=== PATIENT | female | born 1930 | race Caucasian/White ===

== ENCOUNTER 2019-06-12 01:02 | Inpatient (IN) ==
[2019-06-12 02:13] LABS: Basophils # (auto) 0.05 K/uL (0-0.2); Basophils % (auto) 0.3 %; Hematocrit (blood only) 32.6 % (37-47); Immature Granulocytes # (auto) 0.07 K/uL (0.00-0.02); Immature Granulocytes % (auto) 0.5 %; Lymphocytes # (auto) 1.98 K/uL (1.2-3.4); Lymphocytes % (auto) 13.2 %; Mean Corpuscular Hgb Conc 33.7 g/dL (32-36); Mean Corpuscular Volume 86.9 fL (80-100); Mean Platelet Volume 8.9 fL (7.4-10.4); Monocytes # (auto) 0.88 K/uL (0.11-0.59); Monocytes % (auto) 5.9 %; Neutrophils # (auto) 11.69 K/uL (1.4-6.5); Neutrophils % (auto) 78.1 %; Platelet Count 301 K/uL (130-400); RDW Coefficient of Variation 13.8 % (11.5-14.5); RDW Standard Deviation 44.3 fL (36.4-46.3); Red Blood Count 3.75 M/uL (4.2-5.4); White Blood Count 14.97 K/uL (4.8-10.8)
[2019-06-12 02:31] LABS: Albumin Level 2.7 gm/dl (3.4-5.0); BUN Creatinine Ratio 18.6 (10-20); Creatinine Clr Calc Pharmacy 20.9 ml/min; Est GFR (African American) 31.8; Est GFR (Non-African American) 27.4; Magnesium 2.4 mg/dl (1.8-2.4); Potassium 4.5 mmol/L (3.5-5.1)
[2019-06-12 02:33] LABS: Appearance Urine Clear (Clear); Bacteria Urine Automated Negative (Negative); Bilirubin Urine Negative (Negative); Blood Urine Negative (Negative); Color Urine Yellow; Glucose Urine UA 1+ (Negative); Ketones Urine Negative (Negative); Leukocyte Esterase Urine Negative (Negative); Nitrite Urine Negative (Negative); Protein Urine 3+ (Negative); RBC Urine Automated 0-4 /hpf (0-4); Specific Gravity Urine 1.017 (1.000-1.030); Urobilinogen Urine Negative (Negative); WBC Urine Automated 0 /hpf (0-5); pH Urine 6.5 (4.5-7.5)
[2019-06-12] MEDS ORDERED: HydrALAZINE HCL 20 MG/ML VIAL IV STA (02:39)
[2019-06-12 02:42] LABS: Albumin Globulin Ratio 0.7 (0.9-2); Bilirubin,Total 0.2 mg/dl (0.2-1); Globulin 4.1 gm/dl (2.5-4.0); Total Protein 6.8 gm/dl (6.4-8.2)
[2019-06-12 02:55] LABS: T4 Free Thyroxine 0.94 ng/dl (0.8-1.6)
[2019-06-12] MEDS ORDERED: METOPROLOL TARTRATE 25 MG TAB PO STA (03:15)
[2019-06-12] MEDS ORDERED: AMLODIPINE BESYLATE 5 MG TAB PO ONE (03:23)
--- NOTE | 2019-06-12 04:13 | Emergency Department Note ---
Entered by Nuria Ortiz acting as a scribe for Marilyn Borja MD History of Present Illness General Chief complaint: Altered Mental Status Stated complaint: possible UTI Source: family Limitations: altered mental status History of Present Illness Onset (ago): hour(s) (this evening) Location: head (Confusion) Severity: similar to prior episodes Pain Consistency: + other (Worsening) Quality: + other (Confusion) Relieved By: + medication (Bactrim) Associated symptoms: + confusion, + weakness and + other (Polyuria); no fever/chills The patient is a 89 year old female presenting to the Emergency Department complaining of worsening confusion starting this evening. The patients daughter reports that the patient is confused and weak. She states that the patients didnt know who she was and didnt realize that she was in her own house. She explains that the patients lower extremities are red. She notes that the patient is a diabetic and her blood glucose at 2230 [facility] was 330. She adds that the patient has being urinating more often and is incontinent. The patients daughter reports that the patient gets UTIs often. She states that she believes the patient has a UTI because the patient usually experiences the symptoms she presents to the ED when she has a UTI. She explains that the patients last UTI was in March 2019 and that she received Bactrim that relieved her symptoms. She notes that the patient was last on antibiotics 1.5 weeks ago for a tooth infection. She adds that the patient normally takes aspirin. She reports that the patient sees Dr. Stoll PCP. Patient and her daughter live in [facility], and apartment complex for those over 55 years old. She denies that the patient has had any recent fevers or chills. Home Medications Home Medications Medication Instructions Recorded Confirmed Type amlodipine 5 mg PO DAILY 06/12/19 06/12/19 History aspirin 81 mg PO DAILY 06/12/19 06/12/19 History citalopram 10 mg PO QPM 06/12/19 06/12/19 History citalopram 20 mg PO DAILY 06/12/19 06/12/19 History cranberry 500 mg PO BID 06/12/19 06/12/19 History ibuprofen [Advil] 200 mg PO Q6H PRN 06/12/19 06/12/19 History insulin glargine [Lantus U-100 15 unit SUBCUT QPM 06/12/19 06/12/19 History Insulin] insulin glargine [Lantus U-100 20 unit SUBCUT QAM 06/12/19 06/12/19 History Insulin] levocetirizine 5 mg PO BID 06/12/19 06/12/19 History levocetirizine [Xyzal] 5 mg PO DAILY 06/12/19 06/12/19 History levothyroxine 50 mcg PO DAILY 06/12/19 06/12/19 History levothyroxine [Synthroid] 100 mcg PO DAILY 06/12/19 06/12/19 History magnesium 0 mg PO DAILY 06/12/19 06/12/19 History metoprolol tartrate 25 mg PO BID 06/12/19 06/12/19 History mirabegron [Myrbetriq] 25 mg PO DAILY 06/12/19 06/12/19 History nitrofurantoin monohyd/m-cryst 100 mg PO Q12H 06/12/19 06/12/19 History [Macrobid] omeprazole magnesium [Prilosec OTC] 20 mg PO DAILY 06/12/19 06/12/19 History quetiapine [Seroquel] 100 mg PO HS 06/12/19 06/12/19 History tramadol 50 mg PO Q4 PRN 06/12/19 06/12/19 History triamcinolone acetonide 1 applic TOPICAL BID 06/12/19 06/12/19 History Allergies Allergy/AdvReac Type Severity Reaction Status Date / Time acetaminophen [From Percocet] Allergy Severe swelling/so Verified 06/12/19 01:35 b cephalexin Allergy Unknown RASH Unverified 06/12/19 01:35 morphine Allergy Unknown NAUSEA Unverified 06/12/19 01:35 oxycodone Allergy Unknown DIFFICULTY Unverified 06/12/19 01:35 SWALLOWING propoxyphene Allergy Unknown DIFFICULTY Verified 06/12/19 01:35 SWALLOWING Past Med/Surg History Medical History Chronic UTI Neuropathy Degenerative disc disease HTN (hypertension) DM (diabetes mellitus) 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 and A total of 10 systems reviewed and were otherwise negative Physical Exam Vital Signs Vital Signs - 24 hr 06/12/19 01:10 06/12/19 01:13 06/12/19 01:40 Temperature 36.8 C Temperature Source Oral Sepsis Recent Fever Within 48 Hours No Sepsis Action Taken by Nursing No Action Required Pulse Rate 69 67 Pulse Rate [Apical] Pulse Rate from SpO2 Sensor 66 Respiratory Rate 20 18 Blood Pressure 245/92 H 245/92 H Blood Pressure [Right Arm] Blood Pressure Mean 143 143 Blood Pressure Mean [Right Arm] Pulse Oximetry 95 96 95 Oxygen Delivery Method Room Air Room Air 06/12/19 02:02 06/12/19 03:06 06/12/19 03:14 Temperature Temperature Source Sepsis Recent Fever Within 48 Hours Sepsis Action Taken by Nursing Pulse Rate Pulse Rate [Apical] 67 74 Pulse Rate from SpO2 Sensor Respiratory Rate 18 18 Blood Pressure 223/89 H Blood Pressure [Right Arm] 213/88 H 233/95 H Blood Pressure Mean 133 Blood Pressure Mean [Right Arm] 129 141 Pulse Oximetry 94 96 Oxygen Delivery Method Room Air Room Air 06/12/19 03:55 06/12/19 04:01 06/12/19 04:05 Temperature Temperature Source Sepsis Recent Fever Within 48 Hours Sepsis Action Taken by Nursing Pulse Rate 67 68 68 Pulse Rate [Apical] Pulse Rate from SpO2 Sensor 64 68 69 Respiratory Rate 18 15 28 H Blood Pressure 221/160 H 206/78 H 184/67 H Blood Pressure [Right Arm] Blood Pressure Mean 180 120 106 Blood Pressure Mean [Right Arm] Pulse Oximetry 96 96 95 Oxygen Delivery Method 06/12/19 04:16 06/12/19 04:32 06/12/19 04:46 Temperature Temperature Source Sepsis Recent Fever Within 48 Hours Sepsis Action Taken by Nursing Pulse Rate 65 67 66 Pulse Rate [Apical] Pulse Rate from SpO2 Sensor 65 66 65 Respiratory Rate 19 19 15 Blood Pressure 162/64 H 188/82 H 182/87 H Blood Pressure [Right Arm] Blood Pressure Mean 96 117 118 Blood Pressure Mean [Right Arm] Pulse Oximetry 95 95 96 Oxygen Delivery Method Room Air Room Air Room Air 06/12/19 05:01 06/12/19 05:24 06/12/19 05:27 Temperature Temperature Source Sepsis Recent Fever Within 48 Hours Sepsis Action Taken by Nursing Pulse Rate 67 68 68 Pulse Rate [Apical] Pulse Rate from SpO2 Sensor 67 68 68 Respiratory Rate 20 19 18 Blood Pressure 186/81 H 224/79 H 223/82 H Blood Pressure [Right Arm] Blood Pressure Mean 116 127 129 Blood Pressure Mean [Right Arm] Pulse Oximetry 96 96 96 Oxygen Delivery Method Room Air 06/12/19 05:53 06/12/19 05:57 06/12/19 06:01 Temperature Temperature Source Sepsis Recent Fever Within 48 Hours Sepsis Action Taken by Nursing Pulse Rate 74 72 72 Pulse Rate [Apical] Pulse Rate from SpO2 Sensor 74 71 72 Respiratory Rate 16 20 17 Blood Pressure 191/89 H 204/76 H 201/75 H Blood Pressure [Right Arm] Blood Pressure Mean 123 118 117 Blood Pressure Mean [Right Arm] Pulse Oximetry 96 96 96 Oxygen Delivery Method Vital signs reviewed. General: Elderly, chronically ill-appearing 89 year old female, in no significant distress. HEENT: No scleral icterus, PERRLA, neck supple. Atraumatic. Cardiovascular: Regular rate and rhythm, no extra sounds. Noted to be hypertensive. Pulmonary: Clear to auscultation bilaterally, normal work of breathing. Abdomen: Soft, nontender, nondistended, positive bowel sounds. Obese abdomen. Musculoskeletal: Atraumatic. Venous stasis changes to bilateral lower extremities. 1+ pitting edema. Neurologic: Patient awake alert and oriented x 3, moves all 4 extremities equally and answers most questions appropriately. She is able to follow commands. She has difficulty but does eventually identify the president. Skin: Warm, dry, no rash Course 0110: The patient was evaluated in room B4B, and a complete history and physical examination were performed. 0243: I reevaluated the patient at this time. She reports that she does not wish to stay in the hospital. 0314: The patients family reported that the patient has not taken her blood pressure medication for the past 2 days. 0328: The patient reports that she wishes to leave the hospital against medical advice at this time. 0406: Upon reevaluation the patient stated that she changed her mind and now would like to stay in the hospital. 0444: I reevaluated the patient at this time who reports that she feels better. He blood pressure is 180s systolic. 0520: I discussed the patient's case with Dr. Ronen Zuniga [facility] [place]. He will evaluate the patient for further management. Consultations Consultation #1: I discussed the patient's case with Dr. Ronen Zuniga [facility] [place] hospitalist. He will evaluate the patient for further management. Time: 05:20 Administered Medications Discontinued Medications Amlodipine Besylate (Norvasc) 10 mg PO NOW ONE Stop: 06/12/19 03:24 Last Admin: 06/12/19 03:33 Dose: 10 mg Documented by: [id number] Hydralazine HCl (Hydralazine Hcl) 10 mg IV NOW STA Stop: 06/12/19 02:40 Last Admin: 06/12/19 02:44 Dose: 10 mg Documented by: [id number] Metoprolol Tartrate (Lopressor) 12.5 mg PO NOW STA Stop: 06/12/19 03:16 Last Admin: 06/12/19 03:33 Dose: 12.5 mg Documented by: [id number] Medical Decision Making Differential Diagnosis Differential diagnoses includes but is not limited to toxic, metabolic, infectious, traumatic, cardiac, neurologic, hematologic, psychiatric and inflammatory etiologies. Medical Records Attestation: I reviewed the patient's medical records. Home Medications Current Medication List: was personally reviewed by me Laboratory Data Attestation: I reviewed the patient's lab results. Result diagrams: 06/12/19 01:50 06/12/19 01:50 Lab Results 06/12/19 06/12/19 06/12/19 Range/Units 01:40 01:50 01:50 WBC 14.97 H (4.8-10.8) K/uL RBC 3.75 L (4.2-5.4) M/uL Hgb 11.0 L (12.0-16.0) g/dL Hct 32.6 L (37-47) % MCV 86.9 (80-100) fL MCH 29.3 (25-34) pg MCHC 33.7 (32-36) g/dL RDW Std Deviation 44.3 (36.4-46.3) fL RDW Coeff of Lyssa 13.8 (11.5-14.5) % Plt Count 301 (130-400) K/uL MPV 8.9 (7.4-10.4) fL Immature Gran % (Auto) 0.5 % Neut % (Auto) 78.1 % Lymph % (Auto) 13.2 % Baxter % (Auto) 5.9 % Eos % (Auto) 2.0 % Baso % (Auto) 0.3 % Immature Gran # (Auto) 0.07 H (0.00-0.02) K/uL Neut # (Auto) 11.69 H (1.4-6.5) K/uL Lymph # (Auto) 1.98 (1.2-3.4) K/uL Baxter # (Auto) 0.88 H (0.11-0.59) K/uL Eos # (Auto) 0.30 (0-0.5) K/uL Baso # (Auto) 0.05 (0-0.2) K/uL Sodium 139 (136-145) mmol/L Potassium 4.5 (3.5-5.1) mmol/L Chloride 105 (98-107) mmol/L Carbon Dioxide 26 (21-32) mmol/L Anion Gap 8.0 (3-11) BUN 31 H (7-18) mg/dl Creatinine 1.65 H (0.6-1.2) mg/dl Est Cr Clr Drug Dosing 20.9 ml/min Est GFR ( Amer) 31.8 Est GFR (Non-Af Amer) 27.4 BUN/Creatinine Ratio 18.6 (10-20) Glucose 198 H (70-99) mg/dl POC Glucose 193 H (70-99) Calcium 8.0 L (8.5-10.1) mg/dl Magnesium 2.4 (1.8-2.4) mg/dl Total Bilirubin 0.2 (0.2-1) mg/dl AST 34 (15-37) U/L ALT 42 (12-78) U/L Alkaline Phosphatase 106 (45-117) U/L Total Protein 6.8 (6.4-8.2) gm/dl Albumin 2.7 L (3.4-5.0) gm/dl Globulin 4.1 H (2.5-4.0) gm/dl Albumin/Globulin Ratio 0.7 L (0.9-2) TSH 6.050 H (0.300-4.500) uIu/ml Free T4 0.94 (0.8-1.6) ng/dl Urine Color Urine Appearance (Clear) Urine pH (4.5-7.5) Ur Specific [place] (1.000-1.030) Urine Protein (Negative) Urine Glucose (UA) (Negative) Urine Ketones (Negative) Urine Blood (Negative) Urine Nitrite (Negative) Urine Bilirubin (Negative) Urine Urobilinogen (Negative) Ur Leukocyte Esterase (Negative) Urine WBC (Auto) (0-5) /hpf Urine RBC (Auto) (0-4) /hpf U Hyaline Cast (Auto) (0-5) /lpf U Epithel Cells (Auto) (0-5) /lpf Urine Bacteria (Auto) (Negative) 06/12/19 Range/Units 01:50 WBC (4.8-10.8) K/uL RBC (4.2-5.4) M/uL Hgb (12.0-16.0) g/dL Hct (37-47) % MCV (80-100) fL MCH (25-34) pg MCHC (32-36) g/dL RDW Std Deviation (36.4-46.3) fL RDW Coeff of Lyssa (11.5-14.5) % Plt Count (130-400) K/uL MPV (7.4-10.4) fL Immature Gran % (Auto) % Neut % (Auto) % Lymph % (Auto) % Baxter % (Auto) % Eos % (Auto) % Baso % (Auto) % Immature Gran # (Auto) (0.00-0.02) K/uL Neut # (Auto) (1.4-6.5) K/uL Lymph # (Auto) (1.2-3.4) K/uL Baxter # (Auto) (0.11-0.59) K/uL Eos # (Auto) (0-0.5) K/uL Baso # (Auto) (0-0.2) K/uL Sodium (136-145) mmol/L Potassium (3.5-5.1) mmol/L Chloride (98-107) mmol/L Carbon Dioxide (21-32) mmol/L Anion Gap (3-11) BUN (7-18) mg/dl Creatinine (0.6-1.2) mg/dl Est Cr Clr Drug Dosing ml/min Est GFR ( Amer) Est GFR (Non-Af Amer) BUN/Creatinine Ratio (10-20) Glucose (70-99) mg/dl POC Glucose (70-99) Calcium (8.5-10.1) mg/dl Magnesium (1.8-2.4) mg/dl Total Bilirubin (0.2-1) mg/dl AST (15-37) U/L ALT (12-78) U/L Alkaline Phosphatase (45-117) U/L Total Protein (6.4-8.2) gm/dl Albumin (3.4-5.0) gm/dl Globulin (2.5-4.0) gm/dl Albumin/Globulin Ratio (0.9-2) TSH (0.300-4.500) uIu/ml Free T4 (0.8-1.6) ng/dl Urine Color Yellow Urine Appearance Clear (Clear) Urine pH 6.5 (4.5-7.5) Ur Specific [place] 1.017 (1.000-1.030) Urine Protein 3+ H (Negative) Urine Glucose (UA) 1+ H (Negative) Urine Ketones Negative (Negative) Urine Blood Negative (Negative) Urine Nitrite Negative (Negative) Urine Bilirubin Negative (Negative) Urine Urobilinogen Negative (Negative) Ur Leukocyte Esterase Negative (Negative) Urine WBC (Auto) 0 (0-5) /hpf Urine RBC (Auto) 0-4 (0-4) /hpf U Hyaline Cast (Auto) 1-5 (0-5) /lpf U Epithel Cells (Auto) 5-10 H (0-5) /lpf Urine Bacteria (Auto) Negative (Negative) Imaging Data Attestation: I personally reviewed and interpreted this imaging study as follows: My Impression: XR Chest 1V: Cardiomegaly. Poor inspiratory effort. No focal lung consolidation. No failure. Radiologist's Impression: Radiology results as stated below per my review and the radiologist's interpretation: CT HEAD: No acute intracranial hemorrhage. No evidence of intracranial mass, extra-axial fluid collection, or acute territorial infarct. White matter hypodensities, which are nonspecific but most likely related to chronic small vessel ischemic changes. Global cerebral volume loss. Mural calcifications of internal carotid and vertebral arteries. Visualized paranasal sinuses and mastoid air cells are clear. Radiologist: Yuri Cooper MD Study ready at 01:35 and initial results transmitted at 02:09 ECG Data Attestation: I personally reviewed and interpreted this ECG as follows: Indication: altered mental status Rate (beats per minute): 67 Rhythm: sinus rhythm Findings: + other (LVH. T wave abnormality in inferior and anterior leads. ), + PVC (Occasionally) and + left axis deviation Comparison ECG Date: from (02/26/14) Change: the following changes noted (Significant changes have occured. ) Blood Pressure Blood Pressure Findings: Elevated blood pressure Blood Pressure Disposition: further management by hospitalist MDM Narrative This patient was evaluated and appeared to be in no significant distress. Patient's blood pressure is noted to be markedly elevated. Patient was placed on the groundwater monitoring technician and observed. She initially stated she had taken her blood pressure medications as prescribed. Laboratory work was obtained and the troponin is negative. EKG reveals chronic change but no acute ischemia. After further investigation, the patient admits she has not had her "blood pressure medication" in some time. After discussion with the [facility] it seems as th ough she has been out of amlodipine for several days. Patient has negative urinalysis and head CT reveals chronic change but no acute pathology. I suspect the episode at home was an episode of hypertensive encephalopathy. The patient declined admission on multiple occasions. She agreed to stay in the emergency department until her blood pressure could be better addressed. After 10 mg of IV hydralazine with little effect, patient did receive 10 g of p.o. amlodipine and 12.5 mg of p.o. metoprolol tartrate. Patient attempted to get up to the bedside commode however became diaphoretic and vomited. After further discussion, the patient agreed to stay in the hospital as she did not feel her daughter would be able to give adequate care in her condition. Case was discussed with Dr. Hardwick of the hospitalist service who is agreed to evaluate the patient for further management. Impression & Plan Encephalopathy, hypertensive Discharge Plan Visit Data Chief Complaint: Altered Mental Status Stated Complaint: possible UTI ED Provider: Marilyn Borja Discharge Problem: Encephalopathy, hypertensive Patient Disposition: Being Evaluated by Hospitalist Condition: Fair Forms Stand Alone Forms: [employer] Prescriptions Prescriptions: No Action Lantus U-100 Insulin 100 unit/mL Solution 20 unit SUBCUT QAM RF: 0 Lantus U-100 Insulin 100 unit/mL Solution 15 unit subcut QPM RF: 0 aspirin 81 mg Tablet,Delayed Release (Dr/Ec) 81 mg PO DAILY RF: 0 Prilosec OTC 20 mg Tablet,Delayed Release (Dr/Ec) 20 mg PO DAILY RF: 0 citalopram 20 mg Tablet 20 mg PO DAILY RF: 0 citalopram 10 mg Tablet 10 mg PO QPM RF: 0 nitrofurantoin monohyd/m-cryst [Macrobid] 100 mg Capsule 100 mg PO Q12H RF: 0 magnesium 30 mg Tablet PO DAILY RF: 0 cranberry 500 mg Capsule 500 mg PO BID RF: 0 levothyroxine [Synthroid] 100 mcg Tablet 100 mcg PO DAILY RF: 0 levocetirizine [Xyzal] 5 mg Tablet 5 mg PO DAILY RF: 0 quetiapine [Seroquel] 100 mg Tablet 100 mg PO HS RF: 0 tramadol 50 mg Tablet 50 mg PO Q4 PRN (Reason: Pain) RF: 0 ibuprofen [Advil] 200 mg Tablet 200 mg PO Q6H PRN (Reason: Pain) RF: 0 Myrbetriq 25 mg Tablet Extended Release 24 Hr 25 mg PO DAILY RF: 0 triamcinolone acetonide 0.05 % Ointment 1 applic TOPICAL BID RF: 0 levocetirizine 5 mg Tablet 5 mg PO BID RF: 0 metoprolol tartrate 50 mg tablet 25 mg PO BID RF: 0 amlodipine 5 mg tablet 5 mg PO DAILY RF: 0 levothyroxine 50 mcg tablet 50 mcg PO DAILY RF: 0 Referrals Referrals: Humberto Stoll [Primary Care Provider] - The scribe's documentation has been prepared under my direction and personally reviewed by me in its entirety. I confirm that the note above accurately reflects all work, treatment, procedures, and medical decision making performed by me.
[2019-06-12] MEDS ORDERED: ERTAPENEM SODIUM 1,000 MG in SODIUM CHLORIDE 0.9% 50 ML IV STA (06:00)
--- NOTE | 2019-06-12 06:16 | History & Physical Report ---
Date of Service June 12, 2019 Assessment & Plan (1) Encephalopathy, hypertensive: 89 y/o F Hx HTN, DM II, hypothyroidism, recurrent UTIs, recurrent LE cellulitis, obese. She arrive at the hospital at the behest of her daughter due to confusion and incontinence. Her daughter states that she can become confused when she develops an infection. SHe was treated for a UTI with Bactrim 10 days prior. Her daughter is also concerned that her lower extremities have become more erythematous and warm over the past few days. She states that she does not normally have fevers when she develops an infection. She denies a cough, nausea/vomiting or diarrhea. The pt's systolic blood pressure on arrival to the ER was over 240. After receiving a dose of Hydralazine it decreased to 160, however, it returned to the 230 range within an hour. Her confusion showed marked improvement when her b lood pressure decreased. She is afebrile on arrival to the ER. Initial labs are notable for renal impairment - although we do not have a baseline to determine if this is acute - and leukocytosis. 1) HTN with encephalopathy - will will place her in the ICU on a Cardene drip as her BP decreased by > 25% with a single dose of Hydralazine and then climbed back into the 230 range in short order. We hav held he Metoprolol and Amlodipine as she will likely require reassessment of her medications. 2) Possible infection - daughter states that her UA is often negative and her cultures return +. She may therefore have a UTI or early cellulitis contributing to her confusion. We will place her on Invanz pending culture results. 3) Hypothyroidism - TSH is slightly elevated - she may need an adjustment in her synthroid dose which we would leave to the discretion of her GP as assessment during an acute illness is not ideal. 4) DM II - placed on a SS - will continue glargine Full code - Heparin prophylaxis Total time for this admit including review of labs, meds, imaging, records - discussion with pt and ER attending - 45 min includes critical care time. Present on Admission?: Yes History of Present Illness Chief Complaint: AMS Primary Care Provider: Humberto Stoll 89 y/o F Hx HTN, DM II, hypothyroidism, recurrent UTIs, recurrent LE cellulitis, obese. She arrive at the hospital at the behest of her daughter due to confusion and incontinence. Her daughter states that she can become confused when she develops an infection. SHe was treated for a UTI with Bactrim 10 days prior. Her daughter is also concerned that her lower extremities have become more erythematous and warm over the past few days. She states that she does not normally have fevers when she develops an infection. She denies a cough, nausea/vomiting or diarrhea. The pt's systolic blood pressure on arrival to the ER was over 240. After receiving a dose of Hydralazine it decreased to 160, however, it returned to the 230 range within an hour. Her confusion showed marked improvement when her blood pressure decreased. She is afebrile on arrival to the ER. Initial labs are notable for renal impairment - although we do not have a baseline to determine if this is acute - and leukocytosis. PMH: 1) HTN 2) Obese 3) Hypothyroidism 4) DM II 5) Recurrent UTIs 6) Recurrent lower extremity cellulitis 7) Melanoma - removed from back Surgical: 1) Knee replacement 2) Surgical extraction of a large renal calculus 3) Cholecystectomy 4) Appendectomy 5) [facility] [place] Social: No history of drinking or smoking Maintains a degree of independence Family: Mother at age 93 Father at age 69 due to unspecified CA Brother at age 96 Allergies Allergy/AdvReac Type Severity Reaction Status Date / Time acetaminophen [From Percocet] Allergy Severe swelling/so Verified 06/12/19 01:35 b cephalexin Allergy Unknown RASH Unverified 06/12/19 01:35 morphine Allergy Unknown NAUSEA Unverified 06/12/19 01:35 oxycodone Allergy Unknown DIFFICULTY Unverified 06/12/19 01:35 SWALLOWING propoxyphene Allergy Unknown DIFFICULTY Verified 06/12/19 01:35 SWALLOWING Home Medications Home Medications Medication Instructions Recorded Confirmed Type amlodipine 5 mg PO DAILY 06/12/19 06/12/19 History aspirin 81 mg PO DAILY 06/12/19 06/12/19 History citalopram 10 mg PO QPM 06/12/19 06/12/19 History citalopram 20 mg PO DAILY 06/12/19 06/12/19 History cranberry 500 mg PO BID 06/12/19 06/12/19 History ibuprofen [Advil] 200 mg PO Q6H PRN 06/12/19 06/12/19 History insulin glargine [Lantus U-100 15 unit SUBCUT QPM 06/12/19 06/12/19 History Insulin] insulin glargine [Lantus U-100 20 unit SUBCUT QAM 06/12/19 06/12/19 History Insulin] levocetirizine 5 mg PO BID 06/12/19 06/12/19 History levocetirizine [Xyzal] 5 mg PO DAILY 06/12/19 06/12/19 History levothyroxine 50 mcg PO DAILY 06/12/19 06/12/19 History levothyroxine [Synthroid] 100 mcg PO DAILY 06/12/19 06/12/19 History magnesium 0 mg PO DAILY 06/12/19 06/12/19 History metoprolol tartrate 25 mg PO BID 06/12/19 06/12/19 History mirabegron [Myrbetriq] 25 mg PO DAILY 06/12/19 06/12/19 History nitrofurantoin monohyd/m-cryst 100 mg PO Q12H 06/12/19 06/12/19 History [Macrobid] omeprazole magnesium [Prilosec OTC] 20 mg PO DAILY 06/12/19 06/12/19 History quetiapine [Seroquel] 100 mg PO HS 06/12/19 06/12/19 History tramadol 50 mg PO Q4 PRN 06/12/19 06/12/19 History triamcinolone acetonide 1 applic TOPICAL BID 06/12/19 06/12/19 History Past Med/Surg History Medical History Chronic UTI Neuropathy Degenerative disc disease HTN (hypertension) DM (diabetes mellitus) Right knee DJD (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) Social History Feels Safe at Home: Yes Smoking Status: Never smoker Review of Systems Review of Systems: Gen: Denies fevers, night sweats, rigors, fatigue, malaise, weight loss/gain ENT: Denies congestion, throat pain, hearing loss Eyes: Denies acute visual changes CV: Denies CP, palpitations Pulmonary: Denies SOB, cough, wheezing GI: Denies N/V, diarrhea, constipation Neuro: Acknowledges acute confusion - denies PETERSON, visual changes, unilateral weakness : Incontinence reported Musculoskeletal: Denies joint pain, inflammation Endocrine: Denies polydipsia, polyuria Skin: Increased erythema and warmth of the distal LEs Physical Exam Physical Exam: General: Pleasant, elderly F, AAO x 3, no distress ENT: No erythema or exudates, no thrush Eyes: JAY, EOMI Head and neck: Normocephalic, atraumatic, neck is supple. Chest/heart: Nontender, S1,2, RRR, no murmurs, no gallops Lungs: CTAB, no wheezing or crackles Abdomen: Nontender, nondistended, BS+ Neuro: AAO x 3, speech is clear, no unilateral weakness or loss of sensation, coordination intact Musculoskeletal: No joint inflammation, muscle tenderness, FROM Skin: Mild erythema and minimal warmth of the distal LE BL Extremities: No clubbing, cyanosis. + edema Results & Data Vital Signs (Past 12 Hours) Vital Signs Temp Pulse Pulse Resp BP BP Pulse Ox 06/12/19 05:01 67 20 186/81 H 96 06/12/19 04:46 66 15 182/87 H 96 06/12/19 04:32 67 19 188/82 H 95 06/12/19 04:16 65 19 162/64 H 95 06/12/19 04:05 68 28 H 184/67 H 95 06/12/19 04:01 68 15 206/78 H 96 06/12/19 03:55 67 18 221/160 H 96 06/12/19 03:14 223/89 H 06/12/19 03:06 74 18 233/95 H 96 06/12/19 02:02 67 18 213/88 H 94 06/12/19 01:40 95 06/12/19 01:13 67 18 245/92 H 96 06/12/19 01:10 98.2 F 69 20 245/92 H 95 Code Status & VTE Plan VTE Prophylaxis Plan VTE Prophylaxis will be ordered: Yes PG Care Time/CCT Total # of Minutes Spent Total Time Spent with Patient: Total time spent is greater than 50% in coordination of care (as documented) at patient's floor/unit and/or counseling patient:
--- NOTE | 2019-06-12 06:34 | XRay Report ---
XR chest 1V portable CLINICAL HISTORY: weakness COMPARISON STUDY: Chest radiograph February 26, 2014. FINDINGS: Scoliosis is incidentally noted. There is no pneumothorax or pleural effusion. No consolida tion or evidence for pulmonary edema. Mild cardiomegaly is unchanged. There are cholecystectomy clips . The appearance of the chest is unchanged. IMPRESSION: No acute cardiopulmonary findings. Electronically signed by: Franko Moran M.D. 06/12/2019 6:33 AM
--- NOTE | 2019-06-12 06:37 | CT Scan Report ---
CT OF THE HEAD WITHOUT CONTRAST CLINICAL HISTORY: Altered mental status. COMPARISON STUDY: No previous studies for comparison. CT DOSE: 537.48 mGy.cm TECHNIQUE: Helical axial images of the head were obtained without IV contrast. Automated exposure con trol was utilized for the study. A dose lowering technique was utilized adhering to the principles o f ALARA. FINDINGS: No acute intracranial hemorrhage, midline shift or mass effect is present. The basilar cist erns are patent. No extra-axial collections are present. There are no findings to suggest acute dural sinus thrombosis or acute territorial infarct. No significant calvarial abnormalities are present. V isualized portions of the sinuses and mastoid air cells are clear. White matter hypodensity suggests small vessel disease. IMPRESSION: No acute intracranial findings. Electronically signed by: Franko Moran M.D. 06/12/2019 6:35 AM
[2019-06-12] MEDS ORDERED: POLYETHYLENE (MIRALAX) 17 GM PACK PO PRN (07:21)
[2019-06-12] MEDS ORDERED: ICU PROTOCOL FOR HYPERGLYCEMIA PRN (07:21)
[2019-06-12] MEDS ORDERED: ALUMINUM/MAGNESIUM SUSP 30 ML UDC PO PRN (07:21)
[2019-06-12] MEDS ORDERED: MAGNESIUM HYDROXIDE SUSP 30 ML UDC PO PRN (07:21)
[2019-06-12] MEDS ORDERED: SODIUM CHLORIDE 0.9% 1000ML 1,000 ML IV SCH (07:40)
[2019-06-12 08:08] LABS: Partial Thromboplastin Time 25.9 Seconds (21.0-31.0); Prothrombin Time 10.3 Seconds (9.0-12.0)
[2019-06-12] MEDS ORDERED: GLUCOSE 40% GEL 15 GM TUBE PO PRN (08:30)
[2019-06-12] MEDS ORDERED: DEXTROSE 50% 50 ML SYRINGE IV PRN (08:30)
[2019-06-12] MEDS ORDERED: GLUCOSE 10 TABS/TUBE PO PRN (08:30)
[2019-06-12] MEDS ORDERED: GLUCAGON FOR INJ 1 MG VIAL IM PRN (08:30)
[2019-06-12] MEDS ORDERED: CARBOHYDRATES FOR HYPOGLYCEMIA PO PRN (08:30)
[2019-06-12] MEDS: HEPARIN SOD 5,000 UNIT/0.5 ML VIAL SQ SCH ×3 (08:42→21:16)
[2019-06-12] MEDS: PANTOprazole 40 MG TAB PO SCH (08:43)
[2019-06-12] MEDS: CITALOPRAM 20 MG TAB PO SCH ×2 (08:44→21:18)
[2019-06-12] MEDS: ASPIRIN 81 MG ECTAB PO SCH (08:44)
[2019-06-12] MEDS: MIRABEGRON ER 25 MG TAB PO SCH (08:44)
[2019-06-12] MEDS: LEVOTHYROXINE SODIUM 50 MCG TABLET PO SCH (08:47)
[2019-06-12] MEDS: INSULIN ASPART 100 UNITS/ML 3 ML PEN SC SCH ×4 (08:48→21:15)
[2019-06-12] MEDS ORDERED: LEVOTHYROXINE SODIUM 100 MCG TABLET PO SCH (09:00)
[2019-06-12] MEDS ORDERED: INSULIN GLARGINE SOLOSTAR 100 UNITS/ML 3 ML PEN SQ SCH (09:00)
--- NOTE | 2019-06-12 09:31 | Critical Care Consultation ---
Date of Consultation June 12, 2019 Assessment & Plan (1) Encephalopathy, hypertensive: Reason Critically Ill: 89-year-old female presented to the emergency department with encephalopathy likely secondary to hypertensive emergency Neuro - [facility] ICU: Negative Encephalopathylikely secondary to hypertensive emergency as mentation improved significantly upon reduction of blood pressure -Urinalysis negative and patient previously on Bactrim for UTI x10 days, WBC was elevated to 15, UA unremarkable but urine culture and blood cultures pending to rule out infectious process -No acute intracranial findings on CT head -See hypertensive emergency management below -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 antihypertensive -Initial SBP was 240, was treated with amlodipine, MTP, hydralazine and was then placed on nicardipine drip -SBP goal first 8 hours 1 60-1 80, weaning nicardipine drip as tolerated, will transition to p.o. meds -Troponins negative Respiratory - Maintain sats on room air, no issues Chest x-ray clear GI - Nausea and vomitingpatient reports recent history of nausea with vomiting, not currently symptomatic, no abdominal pain reported, last bowel movement yesterday normal -Amylase and lipase, HFP all negative -KUB negative -Likely related to hypertension, will monitor and treat with PRN's if indicated RENAL/LYTES - CKD versus AKIno baseline creatinine but patient has history of CKD -Initial creatinine 1.65 now down trended to 1.5 -We will trend with routine BMPs - Strict I's and O's ENDO - DM type IIcontinue basal and sliding scale insulin regimen -ICU hyperglycemic protocol Hypothyroidismcontinue Synthroid HEME - H&H stabletrend CBCs ID - Ertapenem switched to Rocephin at this time -We will follow-up urine culture and blood cultures -Trend WBC with routine CBCs LINES/IV ACCESS - Peripheral IVs DVT PROPHYLAXIS - Heparin I have personally spent 35 minutes of critical care time in the direct management of this patient. This is a life/limb threatening event. This includes time spent evaluating patient, direct bedside care, chart review, placing orders, interpretation of diagnostic studies, discussion with consultants, patient, and family members, as well as other required patient management activities. This time is exclusive of all separately billable procedures, and teaching time and separate from and in addition to any other critical care service time. Thank you for allowing us to participate in the care of this patient. Please refer to my attending physician's documentation for any further recommendations. (2) Chronic UTI: (3) Degenerative disc disease: (4) HTN (hypertension): (5) DM (diabetes mellitus): Supervising Physician Co-Signing Physician Notes I personally evaluated and examined this patient. I agree with the assessment and plan of Taye CURIEL [89-year-old female with past medical history of hypertension who presented with hypertensive emergency. Started on nicardipine drip. She received her home oral p.o. meds. Given that her blood pressure was still elevated in the evening we switched her metoprolol to carvedilol. She was weaned off the nicardipine. She does appear to have some degree of CKD. Last known creatinine is from several years ago. Current creatinine is 1. 56. We will continue to trend this tomorrow. She did have some nausea and vomiting yesterday. This appears to be improving. Her LFTs and lipase were normal. We also switched to ertapenem to ceftriaxone given a presumptive diagnosis of complicated UTI. Her urine analysis is relatively normal, however, due to her family's concerns with ankit AMS, we continued antibiotics for today. We will likely discontinue antibiotics tomorrow if she continues to be afebrile and her leukocytosis is not significant. History of Present Illness Attending Physician: Jhonny Marx DO History of Present Illness Ms. Bell is a 89-year-old female with past medical history of chronic UTI, chronic back pain, DM type II, HTN who presented to the emergency department with confusion and was found to be in hypertensive emergency with systolic blood pressure in the 240s. Patient reports that she had been nauseated and vomiting, possibility she vomited her antihypertensives previously. In the emergency department she was given hydralazine, amlodipine, metoprolol, and placed on a nicardipine drip. She was then transferred to the ICU. On admission to the ICU systolic blood pressures were in the 160s and the patient's mental status had resumed to baseline. She currently remains on a Car dene drip. Patient will remain in ICU until Cardene drip is weaned off. She currently denies headache, syncope, dizziness, shortness of breath, palpitations chest pain, abdominal pain. She does report previous nausea and vomiting but none currently. She also reports swelling in the lower extremities which she says is chronic. 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) Social History Preferred Language: Mohawk Communication Ability: Effective Fashion Editor Required: No Beliefs That Will Affect Care: None Current Living Situation: Family Current Living Situation Comment: [facility] Other Information That Helps Us Care for You: No Feels Safe at Home: Yes Safety Concerns: Feels Safe At This Time Smoking Status: Never smoker Hx Alcohol Use: No Hx Substance Use: No Review of Systems Review of Systems: All systems reviewed & are unremarkable except as noted in HPI & below Physical Exam Eyes: PERRL, conjunctivae normal, anicteric sclerae ENMT: external ear and nose normal, oropharynx normal Neck: trachea midline, no thyromegaly Respiratory: normal respiratory effort, lungs clear to auscultation Cardiovascular: RRR, no murmur, no edema Heart Sounds: normal S1 and normal S2 Gastrointestinal (Abdomen): normal bowel sounds, soft, nontender, no hepatosplenomegaly Musculoskeletal: no cyanosis or clubbing, extremities motor strength 5/5 Skin: + erythema (Bilateral lower extremities) Neurologic: PERRL, EOMI, accommodation nl, no face palsy, no dysarthria Psychiatric: Orientation: alert, oriented to person, oriented to time and cooperative Results & Data Vital Signs (Past 12 Hours) Vital Signs Temp Pulse Pulse Resp BP BP Pulse Ox 06/12/19 07:45 72 27 H 95 06/12/19 07:30 71 25 H 96 06/12/19 07:22 98.2 F 73 24 166/98 H 97 06/12/19 07:17 72 32 H 166/98 H 95 06/12/19 07:15 79 18 94 06/12/19 07:14 80 17 95 06/12/19 07:13 27 H 155/139 H 06/12/19 07:03 165/91 H 06/12/19 07:01 165/91 H 06/12/19 06:54 68 17 06/12/19 06:16 74 24 200/86 H 97 06/12/19 06:15 75 21 97 06/12/19 06:14 75 20 201/75 H 97 06/12/19 06:02 72 21 96 06/12/19 06:01 72 17 201/75 H 96 06/12/19 05:57 72 20 204/76 H 96 06/12/19 05:53 74 16 191/89 H 96 06/12/19 05:27 68 18 223/82 H 96 06/12/19 05:24 68 19 224/79 H 96 06/12/19 05:01 67 20 186/81 H 96 06/12/19 04:46 66 15 182/87 H 96 06/12/19 04:32 67 19 188/82 H 95 06/12/19 04:16 65 19 162/64 H 95 06/12/19 04:05 68 28 H 184/67 H 95 06/12/19 04:01 68 15 206/78 H 96 06/12/19 03:55 67 18 221/160 H 96 06/12/19 03:14 223/89 H 06/12/19 03:06 74 18 233/95 H 96 06/12/19 02:02 67 18 213/88 H 94 06/12/19 01:40 95 06/12/19 01:13 67 18 245/92 H 96 06/12/19 01:10 98.2 F 69 20 245/92 H 95 Laboratory Results Laboratory Results - last 24 hr 06/12/19 06/12/19 06/12/19 01:40 01:50 01:50 WBC 14.97 H RBC 3.75 L Hgb 11.0 L Hct 32.6 L MCV 86.9 MCH 29.3 MCHC 33.7 RDW Std Deviation 44.3 RDW Coeff of Lyssa 13.8 Plt Count 301 MPV 8.9 Immature Gran % (Auto) 0.5 Neut % (Auto) 78.1 Lymph % (Auto) 13.2 Mellette % (Auto) 5.9 Eos % (Auto) 2.0 Baso % (Auto) 0.3 Immature Gran # (Auto) 0.07 H Neut # (Auto) 11.69 H Lymph # (Auto) 1.98 Mellette # (Auto) 0.88 H Eos # (Auto) 0.30 Baso # (Auto) 0.05 PT INR APTT PTT Ratio Sodium 139 Potassium 4.5 Chloride 105 Carbon Dioxide 26 Anion Gap 8.0 BUN 31 H Creatinine 1.65 H Est Cr Clr Drug Dosing 20.9 Est GFR ( Amer) 31.8 Est GFR (Non-Af Amer) 27.4 BUN/Creatinine Ratio 18.6 Glucose 198 H POC Glucose 193 H Calcium 8.0 L Magnesium 2.4 Total Bilirubin 0.2 AST 34 ALT 42 Alkaline Phosphatase 106 Total Protein 6.8 Albumin 2.7 L Globulin 4.1 H Albumin/Globulin Ratio 0.7 L Amylase Lipase TSH 6.050 H Free T4 0.94 Urine Color Urine Appearance Urine pH Ur Specific Lafe Urine Protein Urine Glucose (UA) Urine Ketones Urine Blood Urine Nitrite Urine Bilirubin Urine Urobilinogen Ur Leukocyte Esterase Urine WBC (Auto) Urine RBC (Auto) U Hyaline Cast (Auto) U Epithel Cells (Auto) Urine Bacteria (Auto) Nasal Screen MRSA (PCR) 06/12/19 06/12/19 06/12/19 01:50 02:02 07:20 WBC RBC Hgb Hct MCV MCH MCHC RDW Std Deviation RDW Coeff of Lyssa Plt Count MPV Immature Gran % (Auto) Neut % (Auto) Lymph % (Auto) Mellette % (Auto) Eos % (Auto) Baso % (Auto) Immature Gran # (Auto) Neut # (Auto) Lymph # (Auto) Mellette # (Auto) Eos # (Auto) Baso # (Auto) PT 10.3 INR 1.0 APTT 25.9 PTT Ratio 1.0 Sodium Potassium Chloride Carbon Dioxide Anion Gap BUN Creatinine Est Cr Clr Drug Dosing Est GFR ( Amer) Est GFR (Non-Af Amer) BUN/Creatinine Ratio Glucose POC Glucose Calcium Magnesium Total Bilirubin AST ALT Alkaline Phosphatase Total Protein Albumin Globulin Albumin/Globulin Ratio Amylase Lipase TSH Free T4 Urine Color Yellow Urine Appearance Clear Urine pH 6.5 Ur Specific Lafe 1.017 Urine Protein 3+ H Urine Glucose (UA) 1+ H Urine Ketones Negative Urine Blood Negative Urine Nitrite Negative Urine Bilirubin Negative Urine Urobilinogen Negative Ur Leukocyte Esterase Negative Urine WBC (Auto) 0 Urine RBC (Auto) 0-4 U Hyaline Cast (Auto) 1-5 U Epithel Cells (Auto) 5-10 H Urine Bacteria (Auto) Negative Nasal Screen MRSA (PCR) Negative 06/12/19 06/12/19 06/12/19 07:45 10:30 11:37 WBC RBC Hgb Hct MCV MCH MCHC RDW Std Deviation RDW Coeff of Lyssa Plt Count MPV Immature Gran % (Auto) Neut % (Auto) Lymph % (Auto) Mellette % (Auto) Eos % (Auto) Baso % (Auto) Immature Gran # (Auto) Neut # (Auto) Lymph # (Auto) Mellette # (Auto) Eos # (Auto) Baso # (Auto) PT INR APTT PTT Ratio Sodium 139 Potassium 4.5 Chloride 106 Carbon Dioxide 26 Anion Gap 7.0 BUN 29 H Creatinine 1.56 H Est Cr Clr Drug Dosing 24.9 Est GFR ( Amer) 34.0 Est GFR (Non-Af Amer) 29.4 BUN/Creatinine Ratio 18.5 Glucose 203 H POC Glucose 216 H 176 H Calcium 8.4 L Magnesium Total Bilirubin AST ALT Alkaline Phosphatase Total Protein Albumin Globulin Albumin/Globulin Ratio Amylase 29 Lipase 64 L TSH Free T4 Urine Color Urine Appearance Urine pH Ur Specific Lafe Urine Protein Urine Glucose (UA) Urine Ketones Urine Blood Urine Nitrite Urine Bilirubin Urine Urobilinogen Ur Leukocyte Esterase Urine WBC (Auto) Urine RBC (Auto) U Hyaline Cast (Auto) U Epithel Cells (Auto) Urine Bacteria (Auto) Nasal Screen MRSA (PCR) Medications Administered Home Medications amlodipine 5 mg PO DAILY 06/12/19 [History Confirmed 06/12/19] aspirin 81 mg PO DAILY 06/12/19 [History Confirmed 06/12/19] citalopram 10 mg PO QPM 06/12/19 [History Confirmed 06/12/19] citalopram 20 mg PO DAILY 06/12/19 [History Confirmed 06/12/19] cranberry 500 mg PO BID 06/12/19 [History Confirmed 06/12/19] ibuprofen [Advil] 200 mg PO Q6H PRN 06/12/19 [History Confirmed 06/12/19] insulin glargine [Lantus U-100 Insulin] 15 unit SUBCUT QPM 06/12/19 [History Confirmed 06/12/19] insulin glargine [Lantus U-100 Insulin] 20 unit SUBCUT QAM 06/12/19 [History Confirmed 06/12/19] levocetirizine 5 mg PO BID 06/12/19 [History Confirmed 06/12/19] levocetirizine [Xyzal] 5 mg PO DAILY 06/12/19 [History Confirmed 06/12/19] levothyroxine 50 mcg PO DAILY 06/12/19 [History Confirmed 06/12/19] levothyroxine [Synthroid] 100 mcg PO DAILY 06/12/19 [History Confirmed 06/12/19] magnesium 0 mg PO DAILY 06/12/19 [History Confirmed 06/12/19] metoprolol tartrate 25 mg PO BID 06/12/19 [History Confirmed 06/12/19] mirabegron [Myrbetriq] 25 mg PO DAILY 06/12/19 [History Confirmed 06/12/19] nitrofurantoin monohyd/m-cryst [Macrobid] 100 mg PO Q12H 06/12/19 [History Confirmed 06/12/19] omeprazole magnesium [Prilosec OTC] 20 mg PO DAILY 06/12/19 [History Confirmed 06/12/19] quetiapine [Seroquel] 100 mg PO HS 06/12/19 [History Confirmed 06/12/19] tramadol 50 mg PO Q4 PRN 06/12/19 [History Confirmed 06/12/19] triamcinolone acetonide 1 applic TOPICAL BID 06/12/19 [History Confirmed 06/12/19] Active Medications Al Hydrox/Mg Hydrox/Simethicone (Maalox) 15 ml PO Q4H PRN PRN Reason: Dyspepsia Stop: 07/12/19 07:20 Aspirin (Ecotrin Ectab) 81 mg PO DAILY [facility] Stop: 07/12/19 08:59 Last Admin: 06/12/19 08:44 Dose: 81 mg Documented by: Citalopram Hydrobromide (Celexa) 10 mg PO QAM [facility] Stop: 07/12/19 08:59 Last Admin: 06/12/19 08:44 Dose: 10 mg Documented by: Citalopram Hydrobromide (Celexa) 20 mg PO QPM [facility] Stop: 07/12/19 20:59 Dextrose (Dextrose 50%) 25 - 50 ml IV UD PRN; Protocol PRN Reason: Hypoglycemia Protocol Stop: 07/12/19 08:29 Glucagon (Glucagen) 1 mg IM UD PRN; Protocol PRN Reason: Hypoglycemia Protocol Stop: 07/12/19 08:29 Glucose (Glucose 40%) 15 - 30 gm PO UD PRN; Protocol PRN Reason: Hypoglycemia Protocol Stop: 07/12/19 08:29 Glucose (Dex4 Glucose) 4 - 8 tabs PO UD PRN; Protocol PRN Reason: Hypoglycemia Protocol Stop: 07/12/19 08:29 Heparin Sodium (Porcine) (Heparin Sodium (Porcine)) 5,000 units SQ Q8 [facility] Stop: 07/12/19 07:20 Last Admin: 06/12/19 08:42 Dose: 5,000 units Documented by: Nicardipine HCl 25 mg/ Sodium (Chloride) 250 mls @ 50 mls/hr IV .Q5H PRN; Protocol PRN Reason: TITRATE Stop: 07/12/19 05:44 Last Admin: 06/12/19 11:53 Dose: 5 mg/hr, 50 mls/hr Documented by: Ceftriaxone Sodium 2,000 mg/ (Dextrose) 70 mls @ 100 mls/hr IV Q24H [facility]U; Protocol Stop: 06/22/19 10:59 Last Admin: 06/12/19 10:52 Dose: 100 mls/hr Documented by: Insulin Aspart (Novolog Flexpen) 0 units SC ACHS [facility]U Stop: 07/12/19 07:29 Last Admin: 06/12/19 08:48 Dose: 2 units Documented by: Insulin Glargine (Lantus Solostar Pen) 30 units SQ QAM [facility]U Stop: 07/12/19 08:59 Last Admin: 06/12/19 08:40 Dose: 30 units Documented by: Insulin Glargine (Lantus Solostar Pen) 20 units SC QPM [facility]U Stop: 07/12/19 20:59 Levothyroxine Sodium (Synthroid) 50 mcg PO DAILY [facility] Stop: 07/12/19 08:59 Last Admin: 06/12/19 08:47 Dose: 50 mcg Documented by: Magnesium Hydroxide (Milk Of Magnesia) 30 ml PO Q12H PRN PRN Reason: Constipation Stop: 07/12/19 07:20 Mirabegron (Myrbetriq Er) 25 mg PO DAILY [facility]U Stop: 07/12/19 08:59 Last Admin: 06/12/19 08:44 Dose: 25 mg Documented by: Miscellaneous (Order Awaiting Action) 1 ea N/A QS MAU Stop: 07/12/19 15:59 Miscellaneous (Icu Protocol For Hyperglycemia) 1 ea N/A PRN PRN; Protocol PRN Reason: Hyperglycemia Protocol Stop: 06/14/19 07:20 Miscellaneous (Carbohydrates For Hypoglycemia) 15 - 30 gm PO UD PRN PRN Reason: Hypoglycemia Treatment Stop: 07/12/19 08:29 Ondansetron HCl (Zofran) 4 mg IV Q6H PRN PRN Reason: Nausea Stop: 07/12/19 07:20 Last Admin: 06/12/19 11:26 Dose: 4 mg Documented by: Pantoprazole Sodium (Protonix) 40 mg PO DAILY [facility]U Stop: 07/12/19 08:59 Last Admin: 06/12/19 08:43 Dose: 40 mg Documented by: Polyethylene Glycol (Miralax Powder Packet) 17 gm PO DAILY PRN PRN Reason: Constipation Stop: 07/12/19 07:20 Quetiapine Fumarate (Seroquel) 100 mg PO HS [facility]U Stop: 07/12/19 20:59 Tramadol HCl (Ultram) 50 mg PO Q4 PRN PRN Reason: Pain Stop: 07/12/19 07:20 PG Care Time/CCT Total # of Minutes Spent Total Time Spent with Patient: Total time spent is greater than 50% in coordination of care (as documented) at patient's floor/unit and/or counseling patient: Critical Care Time: Yes Total Critical Care Time: 40
[2019-06-12] MEDS ORDERED: cefTRIAXone SODIUM 2,000 MG in DEXTROSE 5% 50 ML IV SCH (11:00)
[2019-06-12 11:18] LABS: BUN Creatinine Ratio 18.5 (10-20); Calcium 8.4 mg/dl (8.5-10.1); Creatinine Clr Calc Pharmacy 24.9 ml/min; Est GFR (Non-African American) 29.4; Potassium 4.5 mmol/L (3.5-5.1)
[2019-06-12] MEDS: ONDANSETRON INJ 2 MG/ML 2 ML VIAL IV PRN (11:26)
--- NOTE | 2019-06-12 11:36 | XRay Report ---
KUB HISTORY: Acute nausea and vomiting nausea and vomiting COMPARISON: Chest radiograph of same day FINDINGS: The bowel gas pattern is non-obstructive. Nondilated air-filled loops of small and large maria del rosario wel are noted. There is no organomegaly. Pelvic basin calcifications suggest probable phleboliths. No definite renal calculi. No ureteral calculi. No pneumoperitoneum or pneumatosis. Degenerative change s are noted about the spine, pelvis and hips. Cardiomegaly. Cholecystectomy. No fracture. IMPRESSION: 1. Nonobstructive bowel gas pattern. 2. No pneumatosis or pneumoperitoneum. Electronically signed by: Earle Kahn M.D. 06/12/2019 11:34 AM
[2019-06-12] MEDS ORDERED: HydrALAZINE HCL 20 MG/ML VIAL IV ONE (17:07)
[2019-06-12] MEDS: TRAMADOL HCL 50 MG TABLET PO PRN (17:16)
[2019-06-12] MEDS ORDERED: INSULIN GLARGINE SOLOSTAR 100 UNITS/ML 3 ML PEN SC SCH (21:00)
[2019-06-12] MEDS: CARVEDILOL 6.25 MG TAB PO SCH (21:16)
[2019-06-12] MEDS: QUETIAPINE FUMARATE 100 MG TABLET PO SCH (21:19)
[2019-06-12] MEDS ORDERED: INSULIN GLARGINE SOLOSTAR 100 UNITS/ML 3 ML PEN SC ONE (21:45)
[2019-06-13 04:37] LABS: Basophils # (auto) 0.04 K/uL (0-0.2); Basophils % (auto) 0.4 %; Eosinophils # (auto) 0.18 K/uL (0-0.5); Eosinophils % (auto) 1.6 %; Hematocrit (blood only) 30.9 % (37-47); Immature Granulocytes # (auto) 0.05 K/uL (0.00-0.02); Immature Granulocytes % (auto) 0.5 %; Lymphocytes # (auto) 2.13 K/uL (1.2-3.4); Lymphocytes % (auto) 19.3 %; Mean Corpuscular Hgb Conc 32.4 g/dL (32-36); Mean Corpuscular Volume 86.8 fL (80-100); Mean Platelet Volume 8.9 fL (7.4-10.4); Monocytes % (auto) 8.2 %; Neutrophils # (auto) 7.71 K/uL (1.4-6.5); Platelet Count 269 K/uL (130-400); RDW Coefficient of Variation 14.3 % (11.5-14.5); RDW Standard Deviation 45.1 fL (36.4-46.3); Red Blood Count 3.56 M/uL (4.2-5.4); White Blood Count 11.01 K/uL (4.8-10.8)
[2019-06-13 04:57] LABS: BUN Creatinine Ratio 15.7 (10-20); Calcium 8.1 mg/dl (8.5-10.1); Creatinine Clr Calc Pharmacy 24.8 ml/min; Est GFR (African American) 33.8; Est GFR (Non-African American) 29.1; Magnesium 2.4 mg/dl (1.8-2.4); Phosphorus 3.9 mg/dl (2.5-4.9); Potassium 4.1 mmol/L (3.5-5.1)
--- NOTE | 2019-06-13 06:47 | Critical Care Progress Note ---
Date of Service June 13, 2019 Assessment & Plan (1) Encephalopathy, hypertensive: Reason Critically Ill: 89-year-old female presented to the emergency department with encephalopathy likely secondary to hypertensive emergency Neuro - [facility] ICU: Negative Encephalopathylikely secondary to hypertensive emergency as mentation improved significantly upon reduction of blood pressure -Urinalysis negative and patient previously on Bactrim for UTI x10 days, WBC was elevated to 15, UA unremarkable but urine culture and blood cultures pending to rule out infectious process -No acute intracranial findings on CT head -See hypertensive emergency management below -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 antihypertensive -Initial SBP was 240, was treated with amlodipine, MTP, hydralazine and was then placed on nicardipine drip -Nicardipine drip weaned off yesterday, oral antihypertensives restarted, change metoprolol to Coreg 6.25 twice daily -Troponins negative Respiratory - Maintain sats on room air, no issues Chest x-ray clear GI - Nausea and vomitingpatient reports recent history of nausea with vomiting, not currently symptomatic, no abdominal pain reported, last bowel movement yesterday normal -Amylase and lipase, HFP all negative -KUB negative -Likely related to hypertension, will monitor and treat with PRN's if indicated RENAL/LYTES - CKD versus AKIno baseline creatinine but patient has history of CKD -Initial creatinine 1.65, now stable at 1.57 -We will trend with routine BMPs - Strict I's and O's ENDO - DM type IIcontinue basal and sliding scale insulin regimen -Pharmacy consulted for management -ICU hyperglycemic protocol Hypothyroidismcontinue Synthroid HEME - H&H stabletrend CBCs ID - Continue Rocephin -We will follow-up urine culture and blood cultures -Trend WBC with routine CBCs LINES/IV ACCESS - Peripheral IVs DVT PROPHYLAXIS - Heparin Thank you for allowing us to participate in the care of this patient. Please refer to my attending physician's documentation for any further recommendations. (2) Chronic UTI: (3) Degenerative disc disease: (4) HTN (hypertension): (5) DM (diabetes mellitus): Supervising Physician Co-Signing Physician Notes Patient seen and examined. EMR reviewed. Discussed with hospitalist, ICU nurse, APBs, and patient at bedside. The patient's encephalopathy has resolved with control of her blood pressure. She is off parenteral agents and back on her home medications. She is tolerating a regular diet. I do not see evidence of urinary tract infection and will discontinue antibiotics at this point time. Glycemic control per protocol. The patient appears to be eligible to transfer to the floor under the care of the hospitalist. Will sign off when she leaves the ICU. Feel free to contact us with new or progressive pulmonary or critical care issues.Patient seen and examined. EMR reviewed. Discussed with hospitalist, ICU nurse, APBs, and patient at bedside. The patient's encephalopathy has resolved with control of her blood pressure. She is off parenteral agents and back on her home medications. She is tolerating a regular diet. I do not see evidence of urinary tract infection and will discontinue antibiotics at this point time. Glycemic control per protocol. The patient appears to be eligible to transfer to the floor under the care of the hospitalist. Will sign off when she leaves the ICU. Feel free to contact us with new or progressive pulmonary or critical care issues. Subjective This morning Ms. House appears well and is eating breakfast. She has remained hemodynamically stable without need for vasopressors of supplemental oxygen overnight. She has been off her nicardipine drip since yesterday afternoon and oral antihypertensives have been restarted. At this time she is stable for downgrade from ICU status. She denies headache, nausea or vomiting, dizziness, syncope, chest pain, palpitations, shortness of breath, abdominal pain, diarrhea Review of Systems Review of Systems: All systems reviewed & are unremarkable except as noted in HPI & below Physical Exam Eyes: PERRL, conjunctivae normal, anicteric sclerae ENMT: external ear and nose normal, oropharynx normal Neck: trachea midline, no thyromegaly Respiratory: normal respiratory effort, lungs clear to auscultation Cardiovascular: RRR, no murmur, no edema Heart Sounds: normal S1 and normal S2 Gastrointestinal (Abdomen): normal bowel sounds, soft, nontender, no hepatosplenomegaly Musculoskeletal: no cyanosis or clubbing, extremities motor strength 5/5 Skin: + erythema (Bilateral lower extremities) Neurologic: PERRL, EOMI, accommodation nl, no face palsy, no dysarthria Psychiatric: Orientation: alert, oriented to person, oriented to time and cooperative Results & Data Vital Signs (Past 12 Hours) Vital Signs Temp Pulse Resp BP Pulse Ox 06/13/19 06:00 72 27 H 155/71 H 91 06/13/19 05:30 67 47 H 140/56 L 90 06/13/19 05:00 71 29 H 148/69 H 89 L 06/13/19 04:31 76 23 170/73 H 93 06/13/19 04:00 37.0 C 65 34 H 134/57 L 92 06/13/19 03:30 63 28 H 137/64 92 06/13/19 03:00 68 29 H 121/63 92 06/13/19 02:30 69 33 H 122/59 L 92 06/13/19 02:00 71 33 H 123/56 L 92 06/13/19 01:31 90 33 H 142/57 H 91 06/13/19 01:01 36.9 C 89 21 153/69 H 92 06/13/19 00:30 76 36 H 102/72 93 06/13/19 00:01 82 38 H 129/79 92 06/12/19 23:30 79 37 H 121/61 92 06/12/19 23:00 88 34 H 135/64 92 06/12/19 22:30 95 H 25 H 139/66 92 06/12/19 22:18 94 H 06/12/19 22:00 95 H 22 143/64 H 92 06/12/19 21:30 96 H 29 H 169/74 H 92 06/12/19 21:00 98 H 29 H 169/61 H 92 06/12/19 20:30 98 H 36 H 177/68 H 94 06/12/19 20:00 36.9 C 99 H 28 H 172/83 H 93 06/12/19 19:30 88 32 H 166/79 H 92 06/12/19 19:00 96 H 27 H 173/68 H 94 PG Care Time/CCT Total # of Minutes Spent Total Time Spent with Patient: Total time spent is greater than 50% in coordination of care (as documented) at patient's floor/unit and/or counseling patient:
[2019-06-13] MEDS: INSULIN ASPART 100 UNITS/ML 3 ML PEN SC SCH ×4 (07:03→21:23)
[2019-06-13] MEDS: PANTOprazole 40 MG TAB PO SCH (07:37)
[2019-06-13] MEDS: LEVOTHYROXINE SODIUM 50 MCG TABLET PO SCH (07:37)
[2019-06-13] MEDS: HEPARIN SOD 5,000 UNIT/0.5 ML VIAL SQ SCH ×2 (07:37→21:23)
[2019-06-13] MEDS: MIRABEGRON ER 25 MG TAB PO SCH (07:37)
[2019-06-13] MEDS: CITALOPRAM 20 MG TAB PO SCH ×2 (07:37→21:22)
[2019-06-13] MEDS: ASPIRIN 81 MG ECTAB PO SCH (07:39)
[2019-06-13] MEDS: CARVEDILOL 6.25 MG TAB PO SCH ×2 (07:39→21:22)
[2019-06-13] MEDS ORDERED: INSULIN GLARGINE SOLOSTAR 100 UNITS/ML 3 ML PEN SC SCH (09:00)
[2019-06-13] MEDS ORDERED: ERTAPENEM SODIUM 500 MG in SODIUM CHLORIDE 0.9% 50 ML IV SCH (09:00)
[2019-06-13] MEDS ORDERED: AMLODIPINE BESYLATE 5 MG TAB PO SCH (09:00)
[2019-06-13] MEDS ORDERED: PHARMACY GLYCEMIC MGMT CONSULT PRN (09:10)
--- NOTE | 2019-06-13 09:11 | Hospitalist Progress Note ---
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 responded well to the Cardene, titrated off in the afternoon on 06/12 started on Norvasc 5mg and Coreg 6.25mg BID BP better today, 160-170 systolic, still not at goal will increase the Norvasc to 10mg daily, add a 5mg dose today and follow for response use Hydralazine PRN for SBP > 180 (2) Metabolic encephalopathy: due to uncontrolled hypertension, also could be due to UTI much improved in first 24 hours, essentially resolved she is oriented x 3 and cooperative, her daughter feels she is close to baseline (3) HTN (hypertension): see above will continue to use Norvasc 10mg daily and Coreg 6.25mg BID (4) DM (diabetes mellitus): continue on Novolog, decrease Lantus due to not eating great yesterday, appetite a little better monitor for hypoglycemia (5) Degenerative disc disease: chronic issue PT/OT ordered, very weak in the legs likely to need rehab on discharge as currently in independent living (6) UTI (urinary tract infection): continue on Rocephin, h/o complicated infections no growth on urine culture at this time WBC down to 11k from 14k, no fever Subjective patient says she is feeling much better today her mental status is much improved according to her daughter who is at the bedside she was able to eat breakfast this morning, hungry for lunch which just arrived she was able to sleep last night, first time in 48 hours according to her discussed case with Dr. Means this morning, okay for transfer out of ICU reviewed vitals, off of Basilio drip since yesterday, BP stable on Norvasc and Coreg reviewed labs, WBC down to 11k from 14k, Cr stable at 1.57 Review of Systems Review of Systems: All systems reviewed & are unremarkable except as noted in HPI & below Constitutional: + fatigue and + weakness; no fever, no chills and no sweats Respiratory: no cough and no dyspnea Cardiovascular: no chest pain and no edema Gastrointestinal: no abdominal pain, no nausea, no vomiting, no constipation and no diarrhea/loose stools Genitourinary: no dysuria Integumentary: + erythema (lower legs, chronic issue) Neurologic: + generalized weakness Physical Exam Constitutional: WD/WN, vitals as above + obese Eyes: PERRL, conjunctivae normal, anicteric sclerae ENMT: external ear and nose normal, oropharynx normal Neck: trachea midline, no thyromegaly Respiratory: normal respiratory effort, lungs clear to auscultation (decreased in bases) Cardiovascular: RRR, no murmur, no edema Gastrointestinal (Abdomen): normal bowel sounds, soft, nontender, no hepatosplenomegaly Musculoskeletal: no cyanosis or clubbing, extremities motor strength 5/5 Skin: + erythema (anterior lower legs, slightly warm, not hot) Neurologic: patellar DTR's 2+ bilat, sensation intact and PERRL, EOMI, accommodation nl, no face palsy, no dysarthria Psychiatric: A+Ox3, euthymic affect Lymphatic: no cervical or axillary lymphadenopathy Results & Data Vital Signs (Past 12 Hours) Vital Signs Temp Pulse Resp BP Pulse Ox 06/13/19 08:00 82 20 161/68 H 93 06/13/19 07:00 36.8 C 70 20 150/65 H 91 06/13/19 06:00 72 27 H 155/71 H 91 06/13/19 05:30 67 47 H 140/56 L 90 06/13/19 05:00 71 29 H 148/69 H 89 L 06/13/19 04:31 76 23 170/73 H 93 06/13/19 04:00 37.0 C 65 34 H 134/57 L 92 06/13/19 03:30 63 28 H 137/64 92 06/13/19 03:00 68 29 H 121/63 92 06/13/19 02:30 69 33 H 122/59 L 92 06/13/19 02:00 71 33 H 123/56 L 92 06/13/19 01:31 90 33 H 142/57 H 91 06/13/19 01:01 36.9 C 89 21 153/69 H 92 06/13/19 00:30 76 36 H 102/72 93 06/13/19 00:01 82 38 H 129/79 92 06/12/19 23:30 79 37 H 121/61 92 06/12/19 23:00 88 34 H 135/64 92 06/12/19 22:30 95 H 25 H 139/66 92 06/12/19 22:18 94 H 06/12/19 22:00 95 H 22 143/64 H 92 06/12/19 21:30 96 H 29 H 169/74 H 92 Laboratory Results Laboratory Results - last 24 hr 06/12/19 06/12/19 06/12/19 07:20 10:30 11:37 WBC RBC Hgb Hct MCV MCH MCHC RDW Std Deviation RDW Coeff of Lyssa Plt Count MPV Immature Gran % (Auto) Neut % (Auto) Lymph % (Auto) [place] % (Auto) Eos % (Auto) Baso % (Auto) Immature Gran # (Auto) Neut # (Auto) Lymph # (Auto) [place] # (Auto) Eos # (Auto) Baso # (Auto) Sodium 139 Potassium 4.5 Chloride 106 Carbon Dioxide 26 Anion Gap 7.0 BUN 29 H Creatinine 1.56 H Est Cr Clr Drug Dosing 24.9 Est GFR ( Amer) 34.0 Est GFR (Non-Af Amer) 29.4 BUN/Creatinine Ratio 18.5 Glucose 203 H POC Glucose 176 H Calcium 8.4 L Phosphorus Magnesium Amylase 29 Lipase 64 L Nasal Screen MRSA (PCR) Negative 06/12/19 06/12/19 06/13/19 15:48 21:14 04:28 WBC 11.01 H RBC 3.56 L Hgb 10.0 L Hct 30.9 L MCV 86.8 MCH 28.1 MCHC 32.4 RDW Std Deviation 45.1 RDW Coeff of Lyssa 14.3 Plt Count 269 MPV 8.9 Immature Gran % (Auto) 0.5 Neut % (Auto) 70.0 Lymph % (Auto) 19.3 [place] % (Auto) 8.2 Eos % (Auto) 1.6 Baso % (Auto) 0.4 Immature Gran # (Auto) 0.05 H Neut # (Auto) 7.71 H Lymph # (Auto) 2.13 [place] # (Auto) 0.90 H Eos # (Auto) 0.18 Baso # (Auto) 0.04 Sodium Potassium Chloride Carbon Dioxide Anion Gap BUN Creatinine Est Cr Clr Drug Dosing Est GFR ( Amer) Est GFR (Non-Af Amer) BUN/Creatinine Ratio Glucose POC Glucose 102 H 97 Calcium Phosphorus Magnesium Amylase Lipase Nasal Screen MRSA (PCR) 06/13/19 06/13/19 04:28 07:02 WBC RBC Hgb Hct MCV MCH MCHC RDW Std Deviation RDW Coeff of Lyssa Plt Count MPV Immature Gran % (Auto) Neut % (Auto) Lymph % (Auto) [place] % (Auto) Eos % (Auto) Baso % (Auto) Immature Gran # (Auto) Neut # (Auto) Lymph # (Auto) [place] # (Auto) Eos # (Auto) Baso # (Auto) Sodium 143 Potassium 4.1 Chloride 109 H Carbon Dioxide 30 Anion Gap 4.0 BUN 25 H Creatinine 1.57 H Est Cr Clr Drug Dosing 24.8 Est GFR ( Amer) 33.8 Est GFR (Non-Af Amer) 29.1 BUN/Creatinine Ratio 15.7 Glucose 63 L POC Glucose 82 Calcium 8.1 L Phosphorus 3.9 Magnesium 2.4 Amylase Lipase Nasal Screen MRSA (PCR) Medications Administered Current Inpatient Medications Al Hydrox/Mg Hydrox/Simethicone (Maalox) 15 ml PO Q4H PRN PRN Reason: Dyspepsia Stop: 07/12/19 07:20 Amlodipine Besylate (Norvasc) 5 mg PO QAM [facility] Stop: 07/13/19 08:59 Last Admin: 06/13/19 07:39 Dose: 5 mg Documented by: Aspirin (Ecotrin Ectab) 81 mg PO DAILY [facility] Stop: 07/12/19 08:59 Last Admin: 06/13/19 07:39 Dose: 81 mg Documented by: Carvedilol (Coreg) 6.25 mg PO BID [facility] Stop: 07/12/19 20:59 Last Admin: 06/13/19 07:39 Dose: 6.25 mg Documented by: Citalopram Hydrobromide (Celexa) 10 mg PO QAM [facility] Stop: 07/12/19 08:59 Last Admin: 06/13/19 07:37 Dose: 10 mg Documented by: Citalopram Hydrobromide (Celexa) 20 mg PO QPM [facility] Stop: 07/12/19 20:59 Last Admin: 06/12/19 21:18 Dose: 20 mg Documented by: Dextrose (Dextrose 50%) 25 - 50 ml IV UD PRN; Protocol PRN Reason: Hypoglycemia Protocol Stop: 07/12/19 08:29 Glucagon (Glucagen) 1 mg IM UD PRN; Protocol PRN Reason: Hypoglycemia Protocol Stop: 07/12/19 08:29 Glucose (Glucose 40%) 15 - 30 gm PO UD PRN; Protocol PRN Reason: Hypoglycemia Protocol Stop: 07/12/19 08:29 Glucose (Dex4 Glucose) 4 - 8 tabs PO UD PRN; Protocol PRN Reason: Hypoglycemia Protocol Stop: 07/12/19 08:29 Heparin Sodium (Porcine) (Heparin Sodium (Porcine)) 5,000 units SQ Q12 [facility] Stop: 07/12/19 20:59 Last Admin: 06/13/19 07:37 Dose: 5,000 units Documented by: Insulin Aspart (Novolog Flexpen) 0 units SC ACHS [facility] Stop: 07/12/19 07:29 Last Admin: 06/13/19 07:03 Dose: Not Given Documented by: Insulin Glargine (Lantus Solostar Pen) 10 units SC BID [facility] Stop: 07/13/19 08:59 Last Admin: 06/13/19 08:44 Dose: 10 units Documented by: Levothyroxine Sodium (Synthroid) 50 mcg PO DAILY [facility] Stop: 07/12/19 08:59 Last Admin: 06/13/19 07:37 Dose: 50 mcg Documented by: Magnesium Hydroxide (Milk Of Magnesia) 30 ml PO Q12H PRN PRN Reason: Constipation Stop: 07/12/19 07:20 Mirabegron (Myrbetriq Er) 25 mg PO DAILY [facility] Stop: 07/12/19 08:59 Last Admin: 06/13/19 07:37 Dose: 25 mg Documented by: Miscellaneous (Order Awaiting Action) 1 ea N/A QS [facility] Stop: 07/12/19 15:59 Last Admin: 06/13/19 07:04 Dose: Not Given Documented by: Miscellaneous (Icu Protocol For Hyperglycemia) 1 ea N/A PRN PRN; Protocol PRN Reason: Hyperglycemia Protocol Stop: 06/14/19 07:20 Miscellaneous (Carbohydrates For Hypoglycemia) 15 - 30 gm PO UD PRN PRN Reason: Hypoglycemia Treatment Stop: 07/12/19 08:29 Miscellaneous Information (Consult Glycemic Management Pharmacy) 1 ea N/A UD PRN PRN Reason: Consult Stop: 07/13/19 09:09 Ondansetron HCl (Zofran) 4 mg IV Q6H PRN PRN Reason: Nausea Stop: 07/12/19 07:20 Last Admin: 06/12/19 11:26 Dose: 4 mg Documented by: Pantoprazole Sodium (Protonix) 40 mg PO DAILY [facility] Stop: 07/12/19 08:59 Last Admin: 06/13/19 07:37 Dose: 40 mg Documented by: Polyethylene Glycol (Miralax Powder Packet) 17 gm PO DAILY PRN PRN Reason: Constipation Stop: 07/12/19 07:20 Quetiapine Fumarate (Seroquel) 100 mg PO HS [facility] Stop: 07/12/19 20:59 Last Admin: 06/12/19 21:19 Dose: 100 mg Documented by: Tramadol HCl (Ultram) 50 mg PO Q4 PRN PRN Reason: Pain Stop: 07/12/19 07:20 Last Admin: 06/12/19 17:16 Dose: 50 mg Documented by: PG Care Time/CCT Total # of Minutes Spent Total Time Spent with Patient: Total time spent is greater than 50% in coordination of care (as documented) at patient's floor/unit and/or counseling patient:
--- NOTE | 2019-06-13 10:12 | Pharmacy Report ---
Glycemic Control Consultation - Date of Service June 13, 2019 - Scope Scope: Glycemic Pharmacist consulted on 06/13 for glycemic control and to write orders per [facility] inpatient glycemic control protocol - Objective Weight: 95.1 kg Accuchecks BSG (last 24hrs): 06/12/19 06/12/19 06/12/19 10:30 11:37 15:48 Glucose 203 H POC Glucose 176 H 102 H 06/12/19 06/13/19 06/13/19 21:14 04:28 07:02 Glucose 63 L POC Glucose 97 82 Laboratory Data (last 24hrs): 06/12/19 06/13/19 10:30 04:28 Potassium 4.5 4.1 Carbon Dioxide 26 30 Anion Gap 7.0 4.0 Creatinine 1.56 H 1.57 H Est Cr Clr Drug Dosing 24.9 24.8 - Recent Pertinent Medications Outpatient Anti-diabetic Regimen: * Lantus 20 units SC qAM and 15 units qPM * A1c on order for 06/14/19 The patient is currently receiving: * Basal insulin: Lantus 30 units 06/12 AM and 10 units 06/12 PM * Correctional Insulin: Novolog Correction per scale ACHS Goal Range: Low 120 mg/dL - High 160 mg/dL Correction Factor: 40 mg/dL/unit * Prandial insulin: None Risk Factors for Insulin Resistance: * Diet: T2DM - Assessment & Plan Assessment & Plan: ASSESSMENT: * 89 yo F in ICU with hypertensive encephalopathy with anticipated downgrade later today. Pharmacy consulted for glycemic management 2nd hypoglycemic episode x1 this AM * Patient has T2DM with unknown outpatient control maintained on Lantus alone (total of 35 units per day split BID) * Suspect etiology of hypoglycemia this AM was due to an increased Lantus dose yesterday with poor po intake (increased dose ordered likely due to hyperglycemia in AM on 06/12, patient received 40 units total). Reduction to Lantus home dose would also likely be in excess of current requirements as outpatient dose likely covers some of the patient's prandial needs as well and PO intake is anticipated to remain low at this time * Discussed at ICU rounds and regimen was adjusted per Dr. Means as follows: decreased Lantus to 10 units SC BID and maintained correctional Novolog only (no CHO coverage) * Pharmacy consulted by KANCHAN Burris prior to likely downgrade from ICU. Will not adjust glycemic regimen further at this time, but will add in parameters to decrease Lantus dose if necessary based on BSG to help prevent recurrent hypoglycemia * HbA1c on order for tomorrow PLAN FOR INPATIENT GLYCEMIC CONTROL: * Basal insulin: Lantus SQ BID based on BSG as follows * BSG less than 110 mg/dL: hold Lantus * BSG 110-140 mg/dL: 5 units * BSG greater than 140 mg/dL: 10 units * Bolus insulin * NovoLog per scale ACHS or Q6hrs while NPO * Goal Range: Low 120 mg/dL - High 160 mg/dL * Correction Factor: 40 mg/dL/unit * Please note that the plan above was derived based on current level of insulin resistance and hospital stress. These recommendations are appropriate for inpatient admission only. Plan of care upon discharge will need to be reassessed to avoid potential outpatient hypo/hyperglycemia. Thank you.
[2019-06-13] MEDS ORDERED: AMLODIPINE BESYLATE 5 MG TAB PO ONE (12:02)
[2019-06-13] MEDS: HydrALAZINE HCL 20 MG/ML VIAL IV PRN (16:25)
[2019-06-13] MEDS: TRAMADOL HCL 50 MG TABLET PO PRN (16:29)
[2019-06-13] MEDS: ONDANSETRON INJ 2 MG/ML 2 ML VIAL IV PRN (17:36)
[2019-06-13] MEDS: INSULIN GLARGINE SOLOSTAR 100 UNITS/ML 3 ML PEN SC SCH (21:23)
[2019-06-13] MEDS: QUETIAPINE FUMARATE 100 MG TABLET PO SCH (21:57)
[2019-06-14] MEDS: HydrALAZINE HCL 20 MG/ML VIAL IV PRN (07:22)
[2019-06-14 07:56] LABS: Estimated Average Glucose 180 mg/dl; Hemoglobin A1C 7.9 % (4.5-5.6)
[2019-06-14] MEDS: CITALOPRAM 20 MG TAB PO SCH ×2 (08:05→20:46)
[2019-06-14] MEDS: CARVEDILOL 6.25 MG TAB PO SCH ×2 (08:06→20:47)
[2019-06-14] MEDS: HEPARIN SOD 5,000 UNIT/0.5 ML VIAL SQ SCH ×2 (08:07→20:47)
[2019-06-14] MEDS: ASPIRIN 81 MG ECTAB PO SCH (08:08)
[2019-06-14] MEDS: INSULIN GLARGINE SOLOSTAR 100 UNITS/ML 3 ML PEN SC SCH ×2 (08:09→20:50)
[2019-06-14] MEDS: INSULIN ASPART 100 UNITS/ML 3 ML PEN SC SCH ×4 (08:11→20:49)
[2019-06-14] MEDS: LEVOTHYROXINE SODIUM 50 MCG TABLET PO SCH (08:12)
[2019-06-14] MEDS: PANTOprazole 40 MG TAB PO SCH (08:12)
[2019-06-14] MEDS: AMLODIPINE BESYLATE 5 MG TAB PO SCH (08:13)
[2019-06-14] MEDS: MIRABEGRON ER 25 MG TAB PO SCH (08:13)
--- NOTE | 2019-06-14 10:07 | Ultrasound Report ---
US duplex renal artery HISTORY: 89 years-old Female Uncontrolled HTN COMPARISON: KUB 06/12/2019 TECHNIQUE: Multiple real time sonographic images of the renal vascular structures were obtained asses sing grayscale appearance, color and spectral flow FINDINGS: Limited exam secondary to patient body habitus and patient condition. Normal plug flow noted within the aorta, peak systolic velocity measuring up to 139 cm/s. Right kidney measures 8.57 m in length. Mildly increased echogenicity of the kidney with diffuse abbey ical thinning. Patent right renal vein. No elevated peak systolic velocities about the right renal ar yasmany or arcuate branches. Peak systolic velocities measure up to 103 cm/s. Left kidney measures 9.1 cm in length. Mildly increased echogenicity of the kidney with associated co rtical thinning. Patent renal vein. Distal aspect of the left renal artery is not visualized. No elev ated peak systolic velocities about the left renal artery or arcuate branches identified. Systolic velocities measure up to 47 cm/s. IMPRESSION: 1. Limited exam as above. 2. Mild bilateral renal atrophy with cortical thinning and increased echogenicity suggests chronic me dical renal disease. 3. No evidence of renal arterial stenosis. The above report was generated using voice recognition software. It may contain grammatical, syntax o r spelling errors. Electronically signed by: Earle Kahn M.D. 06/14/2019 10:06 AM
--- NOTE | 2019-06-14 11:07 | Hospitalist Progress Note ---
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 responded well to the Cardene, titrated off in the afternoon on 06/12 started on Norvasc 5mg and Coreg 6.25mg BID BP better on 06/13, 160-170 systolic, still not at goal increased Norvasc to 10mg daily use Hydralazine PRN for SBP > 180 BP elevated in the morning on 06/14, up to 196/68 increased the Coreg to 12.5mg BID BP better later in the morning will check renal artery doppler to rule out stenosis (2) Metabolic encephalopathy: due to uncontrolled hypertension also could be due to UTI much improved in first 24 hours, essentially resolved she is oriented x 3 and cooperative, her daughter feels she is close to baseline (3) HTN (hypertension): see above will continue to use Norvasc 10mg daily and increase Coreg to 12.5mg BID (4) DM (diabetes mellitus): continue on Novolog, decrease Lantus due to not eating great yesterday, appetite a little better monitor for hypoglycemia (5) Degenerative disc disease: chronic issue PT/OT ordered, very weak in the legs needs inpatient rehab after discharge, likely ready tomorrow (6) UTI (urinary tract infection): urine culture growing Coag neg staph will treat with doxycycline based on sensitivities treat for 7-10 days Subjective patient feeling better today, eating well, sitting up in chair BP markedly elevated during morning vitals prior to meds, BP was 198/68 no reported symptoms increased Coreg to 12.5mg BID and Norvasc 10mg and BP 120/70 later in the day reviewed PT/OT notes, recommending inpatient rehab feel like she would be ready tomorrow if BP remains stable no chest pain, no dyspnea, no abdominal pain, no nausea/vomiting, no diarrhea reviewed urine culture, growing coag negative staph, resistant to Oxacillin and Bactrim will use Doxy Review of Systems Review of Systems: All systems reviewed & are unremarkable except as noted in HPI & below Constitutional: + fatigue and + weakness; no fever, no chills and no sweats Respiratory: no cough and no dyspnea Cardiovascular: + edema (trace bilaterally); no chest pain Gastrointestinal: no abdominal pain, no nausea, no vomiting, no constipation and no diarrhea/loose stools Integumentary: + erythema (lower legs, chronic issue) Neurologic: + generalized weakness Physical Exam Constitutional: WD/WN, vitals as above + obese Eyes: PERRL, conjunctivae normal, anicteric sclerae ENMT: external ear and nose normal, oropharynx normal Neck: trachea midline, no thyromegaly Respiratory: normal respiratory effort, lungs clear to auscultation (decreased in bases) Cardiovascular: Rate/Rhythm: regular rate and regular rhythm Heart Sounds: normal S1 and normal S2; no murmur Vessels: no JVD Extremities: normal capillary refill and + edema (trace bilaterally) Gastrointestinal (Abdomen): normal bowel sounds, soft, nontender, no hepatosplenomegaly Musculoskeletal: no cyanosis or clubbing, extremities motor strength 5/5 Skin: + erythema (anterior lower legs, slightly warm, not hot) Neurologic: patellar DTR's 2+ bilat, sensation intact and PERRL, EOMI, accommodation nl, no face palsy, no dysarthria Psychiatric: A+Ox3, euthymic affect Lymphatic: no cervical or axillary lymphadenopathy Results & Data Vital Signs (Past 12 Hours) Vital Signs Temp Pulse Pulse Resp BP BP Pulse Ox 06/14/19 10:48 94 H 06/14/19 07:08 36.9 C 108 H 20 198/68 H 92 06/14/19 04:26 171/80 H 06/14/19 04:25 178/78 H 06/14/19 03:49 37.0 C 102 H 20 185/74 H 92 06/14/19 01:28 37.0 C 06/14/19 00:00 100 H 06/13/19 23:56 37.6 C H 98 H 20 158/64 H 92 Laboratory Results Laboratory Results - last 24 hr 06/13/19 06/13/19 06/13/19 11:50 16:10 20:22 POC Glucose 125 H 121 H 178 H Estimat Average Glucose Hemoglobin A1c 06/14/19 06/14/19 07:19 07:25 POC Glucose 122 H Estimat Average Glucose 180 Hemoglobin A1c 7.9 H Medications Administered Current Inpatient Medications Al Hydrox/Mg Hydrox/Simethicone (Maalox) 15 ml PO Q4H PRN PRN Reason: Dyspepsia Stop: 07/12/19 07:20 Amlodipine Besylate (Norvasc) 10 mg PO QAM [facility] Stop: 07/14/19 08:59 Last Admin: 06/14/19 08:13 Dose: 10 mg Documented by: Aspirin (Ecotrin Ectab) 81 mg PO DAILY [facility] Stop: 07/12/19 08:59 Last Admin: 06/14/19 08:08 Dose: 81 mg Documented by: Carvedilol (Coreg) 12.5 mg PO BID [facility] Stop: 07/14/19 08:59 Last Admin: 06/14/19 08:06 Dose: 12.5 mg Documented by: Citalopram Hydrobromide (Celexa) 10 mg PO QAM [facility] Stop: 07/12/19 08:59 Last Admin: 06/14/19 08:05 Dose: 10 mg Documented by: Citalopram Hydrobromide (Celexa) 20 mg PO QPM [facility] Stop: 07/12/19 20:59 Last Admin: 06/13/19 21:22 Dose: 20 mg Documented by: Dextrose (Dextrose 50%) 25 - 50 ml IV UD PRN; Protocol PRN Reason: Hypoglycemia Protocol Stop: 07/12/19 08:29 Glucagon (Glucagen) 1 mg IM UD PRN; Protocol PRN Reason: Hypoglycemia Protocol Stop: 07/12/19 08:29 Glucose (Glucose 40%) 15 - 30 gm PO UD PRN; Protocol PRN Reason: Hypoglycemia Protocol Stop: 07/12/19 08:29 Glucose (Dex4 Glucose) 4 - 8 tabs PO UD PRN; Protocol PRN Reason: Hypoglycemia Protocol Stop: 07/12/19 08:29 Heparin Sodium (Porcine) (Heparin Sodium (Porcine)) 5,000 units SQ Q12 [facility] Stop: 07/12/19 20:59 Last Admin: 06/14/19 08:07 Dose: 5,000 units Documented by: Hydralazine HCl (Hydralazine Hcl) 10 mg IV Q6 PRN PRN Reason: Blood Pressure - High Stop: 07/13/19 12:13 Last Admin: 06/14/19 07:22 Dose: 10 mg Documented by: Insulin Aspart (Novolog Flexpen) 0 units SC ACHS [facility] Stop: 07/12/19 07:29 Last Admin: 06/14/19 08:11 Dose: Not Given Documented by: Insulin Glargine (Lantus Solostar Pen) 0 units SC BID [facility]; Protocol Stop: 07/13/19 20:59 Last Admin: 06/14/19 08:09 Dose: 5 units Documented by: Levothyroxine Sodium (Synthroid) 50 mcg PO DAILY [facility] Stop: 07/12/19 08:59 Last Admin: 06/14/19 08:12 Dose: 50 mcg Documented by: Magnesium Hydroxide (Milk Of Magnesia) 30 ml PO Q12H PRN PRN Reason: Constipation Stop: 07/12/19 07:20 Mirabegron (Myrbetriq Er) 25 mg PO DAILY [facility] Stop: 07/12/19 08:59 Last Admin: 06/14/19 08:13 Dose: 25 mg Documented by: Miscellaneous (Order Awaiting Action) 1 ea N/A QS [facility] Stop: 07/12/19 15:59 Last Admin: 06/14/19 07:36 Dose: Not Given Documented by: Miscellaneous (Carbohydrates For Hypoglycemia) 15 - 30 gm PO UD PRN PRN Reason: Hypoglycemia Treatment Stop: 07/12/19 08:29 Miscellaneous Information (Consult Glycemic Management Pharmacy) 1 ea N/A UD PRN PRN Reason: Consult Stop: 07/13/19 09:09 Ondansetron HCl (Zofran) 4 mg IV Q6H PRN PRN Reason: Nausea Stop: 07/12/19 07:20 Last Admin: 06/13/19 17:36 Dose: 4 mg Documented by: Pantoprazole Sodium (Protonix) 40 mg PO DAILY [facility] Stop: 07/12/19 08:59 Last Admin: 06/14/19 08:12 Dose: 40 mg Documented by: Polyethylene Glycol (Miralax Powder Packet) 17 gm PO DAILY PRN PRN Reason: Constipation Stop: 07/12/19 07:20 Quetiapine Fumarate (Seroquel) 100 mg PO HS [facility] Stop: 07/12/19 20:59 Last Admin: 06/13/19 21:57 Dose: 100 mg Documented by: Tramadol HCl (Ultram) 50 mg PO Q4 PRN PRN Reason: Pain Stop: 07/12/19 07:20 Last Admin: 06/13/19 16:29 Dose: 50 mg Documented by: PG Care Time/CCT Total # of Minutes Spent Total Time Spent with Patient: Total time spent is greater than 50% in coordination of care (as documented) at patient's floor/unit and/or counseling patient:
[2019-06-14] MEDS: TRAMADOL HCL 50 MG TABLET PO PRN ×2 (13:07→20:57)
[2019-06-14] MEDS: QUETIAPINE FUMARATE 100 MG TABLET PO SCH (20:47)
[2019-06-14] MEDS: DOXYCYCLINE HYCLATE 100 MG CAP PO SCH (20:47)
[2019-06-15] MEDS: PANTOprazole 40 MG TAB PO SCH (08:19)
[2019-06-15] MEDS: CARVEDILOL 6.25 MG TAB PO SCH (08:19)
[2019-06-15] MEDS: AMLODIPINE BESYLATE 5 MG TAB PO SCH (08:20)
[2019-06-15] MEDS: CITALOPRAM 20 MG TAB PO SCH (08:20)
[2019-06-15] MEDS: LEVOTHYROXINE SODIUM 50 MCG TABLET PO SCH (08:21)
[2019-06-15] MEDS: ASPIRIN 81 MG ECTAB PO SCH (08:21)
[2019-06-15] MEDS: DOXYCYCLINE HYCLATE 100 MG CAP PO SCH (08:21)
[2019-06-15] MEDS: MIRABEGRON ER 25 MG TAB PO SCH (08:21)
[2019-06-15] MEDS: INSULIN GLARGINE SOLOSTAR 100 UNITS/ML 3 ML PEN SC SCH (08:22)
[2019-06-15] MEDS: HEPARIN SOD 5,000 UNIT/0.5 ML VIAL SQ SCH (08:22)
[2019-06-15] MEDS: INSULIN ASPART 100 UNITS/ML 3 ML PEN SC SCH (08:24)
--- NOTE | 2019-06-15 11:16 | Discharge Summary ---
Date of Service June 15, 2019 Admission HPI Per Admitting Provider 89 y/o F Hx HTN, DM II, hypothyroidism, recurrent UTIs, recurrent LE cellulitis, obese. She arrive at the hospital at the behest of her daughter due to confusion and incontinence. Her daughter states that she can become confused when she develops an infection. SHe was treated for a UTI with Bactrim 10 days prior. Her daughter is also concerned that her lower extremities have become more erythematous and warm over the past few days. She states that she does not normally have fevers when she develops an infection. She denies a cough, nausea/vomiting or diarrhea. The pt's systolic blood pressure on arrival to the ER was over 240. After receiving a dose of Hydralazine it decreased to 160, however, it returned to the 230 range within an hour. Her confusion showed marked improvement when her blood pressure decreased. She is afebrile on arrival to the ER. Initial labs are notable for renal impairment - although we do not have a baseline to determine if this is acute - and leukocytosis. PMH: 1) HTN 2) Obese 3) Hypothyroidism 4) DM II 5) Recurrent UTIs 6) Recurrent lower extremity cellulitis 7) Melanoma - removed from back Surgical: 1) Knee replacement 2) Surgical extraction of a large renal calculus 3) Cholecystectomy 4) Appendectomy 5) Mohs Social: No history of drinking or smoking Maintains a degree of independence Family: Mother at age 93 Father at age 69 due to unspecified CA Brother at age 96 Principal Diagnosis Hypertensive emergency Discharge Exam Constitutional WD/WN, vitals as above + obese Eyes PERRL, conjunctivae normal, anicteric sclerae ENMT external ear and nose normal, oropharynx normal Neck trachea midline, no thyromegaly Respiratory normal respiratory effort, lungs clear to auscultation (decreased in bases) Cardiovascular RRR, no murmur, no edema Rate/Rhythm: regular rate and regular rhythm Heart Sounds: normal S1 and normal S2; no murmur Vessels: no JVD Extremities: normal capillary refill and + edema (trace bilaterally) Gastrointestinal (Abdomen) normal bowel sounds, soft, nontender, no hepatosplenomegaly Musculoskeletal no cyanosis or clubbing, extremities motor strength 5/5 Skin + erythema (anterior lower legs, slightly warm, not hot) Neurologic patellar DTR's 2+ bilat, sensation intact and PERRL, EOMI, accommodation nl, no face palsy, no dysarthria Psychiatric A+Ox3, euthymic affect Lymphatic no cervical or axillary lymphadenopathy Discharge Data Allergies Allergy/AdvReac Type Severity Reaction Status Date / Time acetaminophen [From Percocet] Allergy Severe swelling/so Verified 06/12/19 01:35 b cephalexin Allergy Unknown RASH Unverified 06/12/19 01:35 morphine Allergy Unknown NAUSEA Unverified 06/12/19 01:35 oxycodone Allergy Unknown DIFFICULTY Unverified 06/12/19 01:35 SWALLOWING propoxyphene Allergy Unknown DIFFICULTY Verified 06/12/19 01:35 SWALLOWING Consultations 06/12/19 04:07 ED Decision to Admit Stat 06/12/19 07:21 Consult Case Management - Discharge Planning Routine Consult Recruitment Advertising Manager Routine Ordered Studies 06/12/19 01:18 CT head/brain wo con Urgent 06/14/19 07:57 US duplex renal artery Routine Hospital Course (1) Hypertensive emergency: SBP 240 on admission, she was under stress, confused, had not taken medications all day due to dry heaves treated with Cardene drip and 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 responded well to the Cardene, titrated off in the afternoon on 06/12 started on Norvasc 5mg and Coreg 6.25mg BID BP better on 06/13, 160-170 systolic, still not at goal increased Norvasc to 10mg daily use Hydralazine PRN for SBP > 180 BP elevated in the morning on 06/14, up to 196/68 increased the Coreg to 12.5mg BID BP better later in the morning renal artery doppler - NO EVIDENCE of renal artery stenosis BP is stable on 06/15, d/c home on Norvasc 10mg daily and Coreg 12.5mg BID follow up with PCP for blood pressure check in one week (2) Metabolic encephalopathy: due to uncontrolled hypertension also could be due to UTI much improved in first 24 hours, essentially resolved she is oriented x 3 and cooperative, her daughter feels she is close to baseline (3) HTN (hypertension): see above will continue to use Norvasc 10mg daily and increase Coreg to 12.5mg BID (4) DM (diabetes mellitus): continue on Novolog, decrease Lantus due to not eating great yesterday, appetite a little better monitor for hypoglycemia, no episodes (5) Degenerative disc disease: chronic issue PT/OT ordered, very weak in the legs improved strength and mobility on 06/14, okay to go home with care givers and home therapy (6) UTI (urinary tract infection): urine culture growing Coag neg staph will treat with doxycycline based on sensitivities treat for 7 more days on discharge Total Time Total Time Spent Total Time Spent (In Minutes): 33 minutes Total Time Includes: Examination of the Patient, Discharge Planning, Medication Reconciliation and Other (discussed at length with daughter at the bedside) Discharge Plan Discharge Items Patient Disposition: Home - Home Health Services Reason For Visit: HTN ENCEPHALOPATHY Discharge Diagnosis: UTI Hypertensive emergency with altered mental status Condition: Fair Discharge Goals: Improve disease control and Improve function Activity: Resume your previous activity Non-emergency contact: Primary Care Provider Call non-emergency contact if: you have any medication questions, your symptoms worsen and you have a fever Follow-up/Referrals: Humberto Stoll [Primary Care Provider] - Diet: Carb Consistent or DM2 and Heart Healthy Addtl Provider Instructions: Medications: - AMLODIPINE: dose increased to 10mg daily - CARVEDILOL: new medication for blood pressure, 12.5mg twice a day - DOXYCYCLINE: antibiotic for UTI, complete 7 more days, take 100mg twice a day, next dose this evening UTI: culture grew coag negative staph, sensitive to tetracycline complete course of Doxycycline SHOULD AVOID NITROFURANTOIN in the future, adverse affects in your age group Hypertensive emergency: BP was 240 systolic in the ED, causing confusion treated with Cardene drip in the ICU initially, responded well transitioned to amlodipine and started on carvedilol continue these medications as outlined above renal dopplers checked, no evidence of renal artery stenosis FOLLOW UP - Dr. Paul in one week, call for hospital follow up Prescriptions: New doxycycline hyclate 100 mg Capsule 100 mg PO BID 7 Days Qty: 14 RF: 0 amlodipine 10 mg tablet 10 mg PO QAM 30 Days Qty: 30 RF: 2 carvedilol 12.5 mg tablet 12.5 mg PO BID 30 Days Qty: 60 RF: 2 Continued Lantus U-100 Insulin 100 unit/mL Solution 20 unit SUBCUT QAM RF: 0 Lantus U-100 Insulin 100 unit/mL Solution 15 unit subcut QPM RF: 0 aspirin 81 mg Tablet,Delayed Release (Dr/Ec) 81 mg PO DAILY RF: 0 Prilosec OTC 20 mg Tablet,Delayed Release (Dr/Ec) 20 mg PO DAILY RF: 0 citalopram 20 mg Tablet 20 mg PO DAILY RF: 0 citalopram 10 mg Tablet 10 mg PO QPM RF: 0 magnesium 30 mg Tablet PO DAILY RF: 0 cranberry 500 mg Capsule 500 mg PO BID RF: 0 levothyroxine [Synthroid] 100 mcg Tablet 100 mcg PO DAILY RF: 0 levocetirizine [Xyzal] 5 mg Tablet 5 mg PO DAILY RF: 0 quetiapine [Seroquel] 100 mg Tablet 100 mg PO HS RF: 0 tramadol 50 mg Tablet 50 mg PO Q4 PRN (Reason: Pain) RF: 0 ibuprofen [Advil] 200 mg Tablet 200 mg PO Q6H PRN (Reason: Pain) RF: 0 Myrbetriq 25 mg Tablet Extended Release 24 Hr 25 mg PO DAILY RF: 0 triamcinolone acetonide 0.05 % Ointment 1 applic TOPICAL BID RF: 0 levocetirizine 5 mg Tablet 5 mg PO BID RF: 0 levothyroxine 50 mcg tablet 50 mcg PO DAILY RF: 0 Discontinued nitrofurantoin monohyd/m-cryst [Macrobid] 100 mg Capsule 100 mg PO Q12H RF: 0 metoprolol tartrate 50 mg tablet 25 mg PO BID RF: 0 amlodipine 5 mg tablet 5 mg PO DAILY RF: 0 Stand-Alone Forms: [facility] Discharge Orders: Discharge Order (Routine); Ordered 06/15/19 Ordered By: Jhonny Marx Admission Data Admit Date/Time: 06/12/19 05:58 Attending Provider: Jhonny Marx Admit Provider: Melvin Hardwick Primary Care Provider: Humberto Stoll Other Providers: Melvin Hardwick ; Truman Carias Service: Telemetry Medical
== END 2019-06-15 12:13 | disposition home health service (06) | DRG 689 ==
LOC: ED 01:02 → 1E 05:58 → SUATTDRO 05:58 → 1E 06:14 → 2W 06-13 09:56

== ENCOUNTER 2019-08-04 20:30 | Inpatient (IN) ==
[2019-08-04] MEDS ORDERED: SODIUM CHLORIDE 0.9% 500 ML IV ONE (21:48)
--- NOTE | 2019-08-04 22:15 | XRay Report ---
XR chest 1V portable CLINICAL HISTORY: Atypical chest pain COMPARISON STUDY: 06/29/2019 FINDINGS: The heart is enlarged. There is no failure. There is no lobar consolidation. There is chron ic blunting of the right lateral costophrenic angle. There are stable basilar atelectasis/scarring.[ IMPRESSION: No significant change from the preceding study. No acute findings. Electronically signed by: Linden Pak M.D. 08/04/2019 10:14 PM
[2019-08-04 22:17] LABS: Basophils # (auto) 0.04 K/uL (0-0.2); Basophils % (auto) 0.3 %; Eosinophils # (auto) 0.26 K/uL (0-0.5); Hematocrit (blood only) 28.9 % (37-47); Hemoglobin 9.7 g/dL (12.0-16.0); Immature Granulocytes # (auto) 0.07 K/uL (0.00-0.02); Immature Granulocytes % (auto) 0.5 %; Lymphocytes # (auto) 1.54 K/uL (1.2-3.4); Lymphocytes % (auto) 11.7 %; Mean Corpuscular Hemoglobin 28.2 pg (25-34); Mean Corpuscular Hgb Conc 33.6 g/dL (32-36); Mean Platelet Volume 8.7 fL (7.4-10.4); Monocytes # (auto) 0.86 K/uL (0.11-0.59); Monocytes % (auto) 6.5 %; Neutrophils # (auto) 10.43 K/uL (1.4-6.5); Platelet Count 304 K/uL (130-400); RDW Coefficient of Variation 14.3 % (11.5-14.5); RDW Standard Deviation 43.8 fL (36.4-46.3); Red Blood Count 3.44 M/uL (4.2-5.4)
[2019-08-04 22:25] LABS: Prothrombin Time 10.7 Seconds (9.0-12.0)
[2019-08-04 22:39] LABS: Alanine Aminotransferase 88 U/L (12-78); Albumin Level 2.6 gm/dl (3.4-5.0); Aspartate Aminotransferase 126 U/L (15-37); BUN Creatinine Ratio 15.5 (10-20); Blood Urea Nitrogen 24 mg/dl (7-18); Calcium 8.2 mg/dl (8.5-10.1); Carbon Dioxide 23 mmol/L (21-32); Chloride 108 mmol/L (98-107); Creatinine Clr Calc Pharmacy 24.7 ml/min; Est GFR (African American) 33.8; Est GFR (Non-African American) 29.1; Glucose 104 mg/dl (70-99); Lipase 413 U/L (73-393); Magnesium 2.3 mg/dl (1.8-2.4); Potassium 4.1 mmol/L (3.5-5.1); Sodium 137 mmol/L (136-145)
[2019-08-04 22:47] LABS: Albumin Globulin Ratio 0.6 (0.9-2); Alkaline Phosphatase 148 U/L (45-117); Bilirubin,Total 0.3 mg/dl (0.2-1); Creatine Kinase 58 U/L (26-192); Globulin 4.3 gm/dl (2.5-4.0); Phosphorus 3.5 mg/dl (2.5-4.9); Total Protein 6.9 gm/dl (6.4-8.2); Troponin I < 0.015 ng/ml (0-0.045)
[2019-08-05] MEDS ORDERED: DEXTROSE 50% 50 ML SYRINGE IV PRN (00:26)
[2019-08-05] MEDS ORDERED: GLUCAGON FOR INJ 1 MG VIAL SQ PRN (00:26)
[2019-08-05] MEDS ORDERED: HydrALAZINE HCL 20 MG/ML VIAL IV PRN (00:26)
[2019-08-05] MEDS ORDERED: GLUCOSE 10 TABS/TUBE PO PRN (00:26)
[2019-08-05] MEDS ORDERED: ONDANSETRON INJ 2 MG/ML 2 ML VIAL IV PRN (00:26)
[2019-08-05] MEDS ORDERED: GLUCOSE 40% GEL 15 GM TUBE PO PRN (00:26)
[2019-08-05] MEDS ORDERED: CARBOHYDRATES FOR HYPOGLYCEMIA PO PRN (00:26)
--- NOTE | 2019-08-05 00:30 | History & Physical Report ---
Date of Service August 05, 2019 Assessment & Plan (1) UTI (urinary tract infection): Obs tele Patient had dose of IV Rocephin in the ED on 08/04/19 (which she tolerated noting Cephalexin allergy) IV hydration DVT prophylaxis = SCDs and sub-q heparin. (2) Generalized weakness: PT/OT (3) CKD (chronic kidney disease): Patient appears to be at baseline creat. (4) HTN (hypertension): continue home meidcations Add Hydralazine prn (5) DM (diabetes mellitus): Continue Lantus as at home sliding scale coverage History of Present Illness 89 y/o female presented to the ED with progressive weakness after being treated the same day for UTI. Patient's daughter felt that the patient was too weak to be able to stay independently. The patient has No chest pain, SOB, cough, abdominal pain, or N/V/D. Primary Care Provider: Humberto Stoll Allergies Allergy/AdvReac Type Severity Reaction Status Date / Time acetaminophen [From Percocet] Allergy Severe swelling/so Verified 08/04/19 22:56 b cephalexin Allergy Unknown RASH Unverified 08/04/19 22:56 morphine Allergy Unknown NAUSEA Unverified 08/04/19 22:56 oxycodone Allergy Unknown DIFFICULTY Unverified 08/04/19 22:56 SWALLOWING propoxyphene Allergy Unknown DIFFICULTY Verified 08/04/19 22:56 SWALLOWING Home Medications Home Medications Medication Instructions Recorded Confirmed Type Prilosec OTC 20 mg PO QAM 06/12/19 08/04/19 History citalopram [Celexa] 10 mg PO QAM 06/12/19 08/04/19 History citalopram [Celexa] 20 mg PO QPM 06/12/19 08/04/19 History cranberry 500 mg PO BID 06/12/19 08/04/19 History levocetirizine [Xyzal] 5 mg PO BID 06/12/19 08/04/19 History levothyroxine [Synthroid] 100 mcg PO QAM 06/12/19 08/04/19 History quetiapine [Seroquel] 100 mg PO HS 06/12/19 08/04/19 History triamcinolone acetonide 1 applic TOPICAL BID 06/12/19 08/04/19 History Florastor 250 mg PO BID #20 cap 06/29/19 08/04/19 Rx magnesium oxide 800 mg PO BID 06/29/19 08/04/19 History amlodipine [Norvasc] 10 mg PO QAM 08/04/19 08/04/19 History Lantus U-100 Insulin 15 unit SUBCUT BID #0 ml 08/09/19 08/04/19 Rx carvedilol 18.75 mg PO BID 30 Days #60 tab 08/09/19 08/04/19 Rx diclofenac sodium [Voltaren] 4 g EXT Q6 #1 g 08/09/19 Rx tramadol 50 mg PO Q4H PRN #4 tab 08/09/19 Rx Past Med/Surg History Medical History Neuropathy HTN (hypertension) DM (diabetes mellitus) Chronic UTI Degenerative disc disease 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 Eyes- no acute visual changes ENT- no sinus drainage; no pharyngitis Pulmonary- no cough, no wheezing, no shortness of breath Cardiac- no chest pain, no palpitations, no orthopnea, + chronic LE edema GI- no nausea, no vomiting, no diarrhea, no melena, no hematochezia - no dysuria, no hematuria Musculoskeletal- no arthralgias, no myalgias Derm- no rashes, no new skin lesions, no changing skin lesions Hematologic- no unusual bruising, no unusual bleeding Lymphatics- no adenopathy Endocrine- no polyuria or polydipsia; no heat or cold intolerance Neuro- no headaches, no focal neurologic symptoms Psych- no anxiety, no depression Physical Exam Physical Exam: General- adult female, NAD Head- atraumatic Eyes- PERRL, EOMI, anicteric ENT- oropharynx clear Neck- supple, no JVD, no adenopathy, no thyromegaly. Lungs- clear to auscultation b/l No R/R/W. Heart- regular rhythm; no murmur, no gallop, no rub appreciated Abdomen- normal bowel sounds, soft, nontender. Extremities- no calf tenderness; peripheral pulses intact. + 2 non pitting edema b/l lower ext. Neuro- alert, oriented x 3; PERRL, EOMI; Non-focal, broomcorn sorter II-XII grossly intact. Skin- warm & dry Results & Data Vital Signs (Past 12 Hours) Vital Signs Temp Pulse Pulse Resp BP BP Pulse Ox 08/04/19 23:55 75 20 188/79 H 94 08/04/19 23:30 75 20 190/74 H 94 08/04/19 22:09 71 18 169/70 H 94 08/04/19 22:00 71 14 93 08/04/19 21:30 69 16 95 08/04/19 21:00 70 16 94 08/04/19 20:35 37.3 C 73 73 17 169/70 H 169/70 H 95 Laboratory Results Laboratory Results WBC 13.20 K/uL (4.8-10.8) H 08/04/19 21:57 RBC 3.44 M/uL (4.2-5.4) L 08/04/19 21:57 Hgb 9.7 g/dL (12.0-16.0) L 08/04/19 21:57 Hct 28.9 % (37-47) L 08/04/19 21:57 MCV 84.0 fL (80-100) 08/04/19 21:57 MCH 28.2 pg (25-34) 08/04/19 21:57 MCHC 33.6 g/dL (32-36) 08/04/19 21:57 RDW Std Deviation 43.8 fL (36.4-46.3) 08/04/19 21:57 RDW Coeff of Lyssa 14.3 % (11.5-14.5) 08/04/19 21:57 Plt Count 304 K/uL (130-400) 08/04/19 21:57 MPV 8.7 fL (7.4-10.4) 08/04/19 21:57 Immature Gran % (Auto) 0.5 % 08/04/19 21:57 Neut % (Auto) 79.0 % 08/04/19 21:57 Lymph % (Auto) 11.7 % 08/04/19 21:57 [place] % (Auto) 6.5 % 08/04/19 21:57 Eos % (Auto) 2.0 % 08/04/19 21:57 Baso % (Auto) 0.3 % 08/04/19 21:57 Immature Gran # (Auto) 0.07 K/uL (0.00-0.02) H 08/04/19 21:57 Neut # (Auto) 10.43 K/uL (1.4-6.5) H 08/04/19 21:57 Lymph # (Auto) 1.54 K/uL (1.2-3.4) 08/04/19 21:57 [place] # (Auto) 0.86 K/uL (0.11-0.59) H 08/04/19 21:57 Eos # (Auto) 0.26 K/uL (0-0.5) 08/04/19 21:57 Baso # (Auto) 0.04 K/uL (0-0.2) 08/04/19 21:57 PT 10.7 Seconds (9.0-12.0) 08/04/19 21:57 INR 1.0 (0.9-1.1) 08/04/19 21:57 Sodium 137 mmol/L (136-145) 08/04/19 21:57 Potassium 4.1 mmol/L (3.5-5.1) 08/04/19 21:57 Chloride 108 mmol/L (98-107) H 08/04/19 21:57 Carbon Dioxide 23 mmol/L (21-32) 08/04/19 21:57 Anion Gap 6.0 (3-11) 08/04/19 21:57 BUN 24 mg/dl (7-18) H 08/04/19 21:57 Creatinine 1.57 mg/dl (0.6-1.2) H 08/04/19 21:57 Est Cr Clr Drug Dosing 24.7 ml/min 08/04/19 21:57 Est GFR ( Amer) 33.8 08/04/19 21:57 Est GFR (Non-Af Amer) 29.1 08/04/19 21:57 BUN/Creatinine Ratio 15.5 (10-20) 08/04/19 21:57 Glucose 104 mg/dl (70-99) H 08/04/19 21:57 POC Glucose 147 (70-99) H 08/05/19 00:29 Calcium 8.2 mg/dl (8.5-10.1) L 08/04/19 21:57 Phosphorus 3.5 mg/dl (2.5-4.9) 08/04/19 21:57 Magnesium 2.3 mg/dl (1.8-2.4) 08/04/19 21:57 Total Bilirubin 0.3 mg/dl (0.2-1) 08/04/19 21:57 AST 126 U/L (15-37) H 08/04/19 21:57 ALT 88 U/L (12-78) H 08/04/19 21:57 Alkaline Phosphatase 148 U/L (45-117) H 08/04/19 21:57 Total Creatine Kinase 58 U/L (26-192) 08/04/19 21:57 Troponin I < 0.015 ng/ml (0-0.045) 08/04/19 21:57 Total Protein 6.9 gm/dl (6.4-8.2) 08/04/19 21:57 Albumin 2.6 gm/dl (3.4-5.0) L 08/04/19 21:57 Globulin 4.3 gm/dl (2.5-4.0) H 08/04/19 21:57 Albumin/Globulin Ratio 0.6 (0.9-2) L 08/04/19 21:57 Lipase 413 U/L (73-393) H 08/04/19 21:57 TSH 3.320 uIu/ml (0.300-4.500) 08/04/19 21:57 Code Status & VTE Plan VTE Prophylaxis Plan VTE Prophylaxis will be ordered: Yes PG Care Time/CCT Total # of Minutes Spent Total Time Spent: 60 Total Time Spent with Patient: Total time spent is greater than 50% in coordination of care (as documented) at patient's floor/unit and/or counseling patient: (1) UTI (urinary tract infection) Hematuria presence: without hematuria Urinary tract infection type: site unspecified Qualified Code(s): N39.0 - Urinary tract infection, site not specified (2) CKD (chronic kidney disease) Chronic kidney disease stage: unspecified stage Qualified Code(s): N18.9 - Chronic kidney disease, unspecified
[2019-08-05] MEDS: QUETIAPINE FUMARATE 100 MG TABLET PO SCH ×2 (00:53→20:45)
[2019-08-05] MEDS: TRAMADOL HCL 50 MG TABLET PO PRN ×3 (00:56→15:26)
[2019-08-05] MEDS: IBUPROFEN 200 MG TAB PO PRN ×2 (00:57→09:09)
[2019-08-05] MEDS: SODIUM CHLORIDE 0.9% 1000ML 1,000 ML IV SCH ×2 (02:03→12:01)
--- NOTE | 2019-08-05 03:45 | Emergency Department Note ---
Entered by Jose Godoy acting as a scribe for Nixon Buck MD History of Present Illness General Chief complaint: Weakness Stated complaint: UNABLE TO AMBULATE Time Seen by Provider: 08/04/19 21:33 Source: patient History of Present Illness Onset (ago): hour(s) (prior to arrival) Location: lower extremity (weakness) Severity: severe and similar to prior episodes (prior UTIs) Pain Consistency: + other (worsening) Maximum Pain Intensity: 10 Associated symptoms: + denies other symptoms (abdominal pain and diarrhea) and + weakness; no chest pain, no nausea/vomiting and no shortness of breath The patient is a 89 year old F who presents to the Emergency Room with complaints of worsening weakness that started prior to arrival. She describes her weakness as severe. The patient notes that she was in the ED, earlier today, for a UTI. She adds that she was discharged on Bactrim. She notes that when she went back home, she started to experience bilateral leg weakness. She adds that this is what usually occurs when she experiences a UTI. She notes that she has been receiving home physical therapy for the past month to no improvement. She adds that she had a recent history of leg cellulitis. She notes that she got her legs wrapped due to the cellulitis but was not put on a water pill due to a history of kidney failure. She states that she is eating and drinking normally. She denies a currently experiencing chest pain, shortness of breath, vomiting, nausea, abdominal pain and diarrhea. She also denies a recent history of a fall. Home Medications Home Medications Medication Instructions Recorded Confirmed Type Lantus U-100 Insulin 15 unit SUBCUT QPM 06/12/19 08/04/19 History Lantus U-100 Insulin 20 unit SUBCUT QAM 06/12/19 08/04/19 History Prilosec OTC 20 mg PO QAM 06/12/19 08/04/19 History citalopram [Celexa] 10 mg PO QAM 06/12/19 08/04/19 History citalopram [Celexa] 20 mg PO QPM 06/12/19 08/04/19 History cranberry 500 mg PO BID 06/12/19 08/04/19 History ibuprofen [Advil] 200 mg PO Q6H PRN 06/12/19 08/04/19 History levocetirizine [Xyzal] 5 mg PO BID 06/12/19 08/04/19 History levothyroxine [Synthroid] 100 mcg PO QAM 06/12/19 08/04/19 History quetiapine [Seroquel] 100 mg PO HS 06/12/19 08/04/19 History tramadol 50 mg PO Q4 PRN 06/12/19 08/04/19 History triamcinolone acetonide 1 applic TOPICAL BID 06/12/19 08/04/19 History carvedilol 12.5 mg PO BID 30 Days #60 tab 06/15/19 08/04/19 Rx Saccharomyces boulardii [Florastor] 250 mg PO BID #20 cap 06/29/19 08/04/19 Rx magnesium oxide 800 mg PO BID 06/29/19 08/04/19 History amlodipine [Norvasc] 10 mg PO QAM 08/04/19 08/04/19 History sulfamethoxazole-trimethoprim 1 tab PO Q12H #14 tab NS 08/04/19 08/04/19 Rx [Bactrim DS] Allergies Allergy/AdvReac Type Severity Reaction Status Date / Time acetaminophen [From Percocet] Allergy Severe swelling/so Verified 08/04/19 22:56 b cephalexin Allergy Unknown RASH Unverified 08/04/19 22:56 morphine Allergy Unknown NAUSEA Unverified 08/04/19 22:56 oxycodone Allergy Unknown DIFFICULTY Unverified 08/04/19 22:56 SWALLOWING propoxyphene Allergy Unknown DIFFICULTY Verified 08/04/19 22:56 SWALLOWING Past Med/Surg History Medical History Neuropathy HTN (hypertension) DM (diabetes mellitus) Chronic UTI Degenerative disc disease 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 and A total of 10 systems reviewed and were otherwise negative Physical Exam Vital Signs Vital Signs - 24 hr 08/04/19 20:35 08/04/19 20:44 08/04/19 21:00 Temperature 37.3 C Temperature Source Oral Sepsis Recent Fever Within 48 Hours No Sepsis New/Unexplained Change in Mental Status No Sepsis Action Taken by Nursing No Action Required Pulse Rate 73 70 Pulse Rate [Finger] 73 Pulse Rate from SpO2 Sensor 70 Pulse Rhythm Regular Pulse Rhythm [Finger] Regular Pulse Strength Normal Pulse Strength [Finger] Normal Respiratory Rate 17 16 Respiratory Effort / Characteristics Non-Labored Spontaneous Respiratory Depth Normal Respiratory Pattern Regular Blood Pressure 169/70 H Blood Pressure [Right Arm] 169/70 H Blood Pressure Mean 103 Blood Pressure Mean [Right Arm] 103 Pulse Oximetry 95 94 Oxygen Delivery Method Room Air Room Air Room Air Oxygen Flow Rate 95 08/04/19 21:30 08/04/19 22:00 08/04/19 22:09 Temperature Temperature Source Sepsis Recent Fever Within 48 Hours Sepsis New/Unexplained Change in Mental Status Sepsis Action Taken by Nursing Pulse Rate 69 71 71 Pulse Rate [Finger] Pulse Rate from SpO2 Sensor 69 72 70 Pulse Rhythm Pulse Rhythm [Finger] Pulse Strength Pulse Strength [Finger] Respiratory Rate 16 14 18 Respiratory Effort / Characteristics Respiratory Depth Respiratory Pattern Blood Pressure 169/70 H Blood Pressure [Right Arm] Blood Pressure Mean 103 Blood Pressure Mean [Right Arm] Pulse Oximetry 95 93 94 Oxygen Delivery Method Room Air Room Air Room Air Oxygen Flow Rate 08/04/19 23:30 Temperature Temperature Source Sepsis Recent Fever Within 48 Hours Sepsis New/Unexplained Change in Mental Status Sepsis Action Taken by Nursing Pulse Rate Pulse Rate [Finger] 75 Pulse Rate from SpO2 Sensor Pulse Rhythm Pulse Rhythm [Finger] Pulse Strength Pulse Strength [Finger] Respiratory Rate 20 Respiratory Effort / Characteristics Respiratory Depth Respiratory Pattern Blood Pressure Blood Pressure [Right Arm] 190/74 H Blood Pressure Mean Blood Pressure Mean [Right Arm] 112 Pulse Oximetry 94 Oxygen Delivery Method Room Air Oxygen Flow Rate GENERAL: Awake, alert, fatigued-appearing, in no distress HENT: Normocephalic, atraumatic. Oropharynx with dry mucous membranes and otherwise unremarkable. EYES: Normal conjunctiva. Sclera non-icteric. NECK: Supple. No nuchal rigidity. FROM. No JVD. RESPIRATORY: CTAB CARDIAC: Regular rate, normal rhythm. Extremities warm and well perfused. Pulses equal. ABDOMEN: Soft, non-distended. No tenderness to palpation. No rebound or guarding. No masses. RECTAL: Deferred. MUSCULOSKELETAL: Chest examination reveals no tenderness. The back is symmetrical on inspection without obvious abnormality. There is no CVA tenderness to palpation. No joint edema. LOWER EXTREMITIES: Calves are equal size bilaterally and non-tender. No edema. No discoloration. NEURO: Normal sensorium. No focal sensory or motor deficits noted. Generalized weakness with 4/5 strength in all extremities. SKIN: Scattered areas of resolving ecchymosis without tenderness. Course 2145: The patient was evaluated in room A2. A complete history and physical exam was performed. 2332: I reviewed the patient's case with Dr. Myers, [facility] Hospitalist. He will evaluate the patient for further management. Consultations Consultation #1: I reviewed the patient's case with Dr. Myers, [facility] Hospit alist. He will evaluate the patient for further management. Time: 23:32 Administered Medications Sodium Chloride (Nss 1000ml) 1,000 mls @ 100 mls/hr IV .Q10H MAU Stop: 09/04/19 00:44 Last Admin: 08/05/19 02:03 Dose: 100 mls/hr Documented by: [id number] Ibuprofen (Advil) 200 mg PO Q6H PRN PRN Reason: mild pain or fever. Stop: 09/04/19 00:25 Last Admin: 08/05/19 00:57 Dose: 200 mg Documented by: [id number] Quetiapine Fumarate (Seroquel) 100 mg PO HS MAU Stop: 09/03/19 23:35 Last Admin: 08/05/19 00:53 Dose: 100 mg Documented by: [id number] Tramadol HCl (Ultram) 50 mg PO Q4H PRN PRN Reason: Moderate Pain Stop: 09/04/19 00:25 Last Admin: 08/05/19 00:56 Dose: 50 mg Documented by: [id number] Discontinued Medications Sodium Chloride (Nss) 500 mls @ 999 mls/hr IV .Q31M ONE Stop: 08/04/19 22:18 Last Infusion: 08/04/19 23:43 Dose: 0 mls/hr Documented by: [id number] Admin: 08/04/19 22:11 Dose: 999 mls/hr Documented by: [id number] Medical Decision Making Differential Diagnosis Differential Diagnosis includes but is not limited to dehydration, stroke, anemi a, hypoglycemia, hyponatremia, hypernatremia, urinary tract infection, pneumonia, bronchitis, sepsis, gastroenteritis, additional abdominal pathology, metabolic abnormalities and infections. Medical Records Attestation: I reviewed the patient's medical records. Home Medications Current Medication List: was personally reviewed by me Laboratory Data Attestation: I reviewed the patient's lab results. Result diagrams: 08/04/19 21:57 08/04/19 21:57 Lab Results 08/04/19 08/04/19 08/04/19 Range/Units 21:57 21:57 21:57 WBC 13.20 H (4.8-10.8) K/uL RBC 3.44 L (4.2-5.4) M/uL Hgb 9.7 L (12.0-16.0) g/dL Hct 28.9 L (37-47) % MCV 84.0 (80-100) fL MCH 28.2 (25-34) pg MCHC 33.6 (32-36) g/dL RDW Std Deviation 43.8 (36.4-46.3) fL RDW Coeff of Lyssa 14.3 (11.5-14.5) % Plt Count 304 (130-400) K/uL MPV 8.7 (7.4-10.4) fL Immature Gran % (Auto) 0.5 % Neut % (Auto) 79.0 % Lymph % (Auto) 11.7 % [place] % (Auto) 6.5 % Eos % (Auto) 2.0 % Baso % (Auto) 0.3 % Immature Gran # (Auto) 0.07 H (0.00-0.02) K/uL Neut # (Auto) 10.43 H (1.4-6.5) K/uL Lymph # (Auto) 1.54 (1.2-3.4) K/uL [place] # (Auto) 0.86 H (0.11-0.59) K/uL Eos # (Auto) 0.26 (0-0.5) K/uL Baso # (Auto) 0.04 (0-0.2) K/uL PT 10.7 (9.0-12.0) Seconds INR 1.0 (0.9-1.1) Sodium 137 (136-145) mmol/L Potassium 4.1 (3.5-5.1) mmol/L Chloride 108 H (98-107) mmol/L Carbon Dioxide 23 (21-32) mmol/L Anion Gap 6.0 (3-11) BUN 24 H (7-18) mg/dl Creatinine 1.57 H (0.6-1.2) mg/dl Est Cr Clr Drug Dosing 24.7 ml/min Est GFR ( Amer) 33.8 Est GFR (Non-Af Amer) 29.1 BUN/Creatinine Ratio 15.5 (10-20) Glucose 104 H (70-99) mg/dl Calcium 8.2 L (8.5-10.1) mg/dl Phosphorus 3.5 (2.5-4.9) mg/dl Magnesium 2.3 (1.8-2.4) mg/dl Total Bilirubin 0.3 (0.2-1) mg/dl AST 126 H (15-37) U/L ALT 88 H (12-78) U/L Alkaline Phosphatase 148 H (45-117) U/L Total Creatine Kinase 58 (26-192) U/L Troponin I < 0.015 (0-0.045) ng/ml Total Protein 6.9 (6.4-8.2) gm/dl Albumin 2.6 L (3.4-5.0) gm/dl Globulin 4.3 H (2.5-4.0) gm/dl Albumin/Globulin Ratio 0.6 L (0.9-2) Lipase 413 H (73-393) U/L TSH 3.320 (0.300-4.500) uIu/ml Imaging Data Radiologist's Impression: Radiology results as stated below per my review and the radiologist's interpretation: XR chest 1V portable CLINICAL HISTORY: Atypical chest pain COMPARISON STUDY: 06/29/2019 FINDINGS: The heart is enlarged. There is no failure. There is no lobar consolidation. There is chronic blunting of the right lateral costophrenic angle. There are stable basilar atelectasis/scarring.[ IMPRESSION: No significant change from the preceding study. No acute findings. Electronically signed by: Linden Pak M.D. 08/04/2019 10:14 PM ECG Data Attestation: I personally reviewed and interpreted this ECG as follows: Indication: weakness Rate (beats per minute): 71 Rhythm: normal sinus Findings: + other (left axis deviation); no acute ischemic change and no ectopy Blood Pressure Blood Pressure Findings: Elevated blood pressure Blood Pressure Disposition: further management by hospitalist MDM Narrative The patient is a pleasant 89 y/o woman with a pmhx of CKD, HTN, DM who presents to the emergency department with generalized weakness that worsened today after being seen in the ED earlier today for similar sx diagnosed with UTI per HPI. On arrival the patient is fatigued appearing but in NAD, AFVSS. The patient appears clinically dry. She has no focal neuro deficits. She exhibits generalized weakness throughout with 4/5 strength. EKG without evidence of acute ischemia. CXR negative. WBC 13.2, nonspecific and similar to value today a nd last month. H/H approximate to prior range of values. Chemistry without acidosis. Cr. 1.57 similar to baseline CKD range. AST elevated from prior and ALT improved from prior. Troponin negative/undetectable. UA earlier today with nitrites, LE, and bacteria and she was treated with CTX and so already received dose for today. Given patient's related weakness with her inability to ambulate, reasonable to admit for further management. Patient is agreeable and prefers this. Case was discussed with Dr. Myers, [facility] hospitalist, who will evaluate the patient for admission. Impression & Plan Generalized weakness, UTI (urinary tract infection), CKD (chronic kidney disease), Transaminitis Discharge Plan Visit Data *Final* Discharge Date/Time: 08/04/19 23:55 Chief Complaint: Weakness Stated Complaint: UNABLE TO AMBULATE ED Provider: Nixon Buck Discharge Problem: Generalized weakness, UTI (urinary tract infection), CKD (chronic kidney disease), Transaminitis Patient Disposition: Admitted As Inpatient Discharge Instructions Interventions: ED Discharge Assessment Last Done: 08/04/19 23:55 Discharge Problem: UTI (urinary tract infection) Qualifiers: Urinary tract infection type: site unspecified Hematuria presence: without hematuria Qualified Code(s): N39.0 - Urinary tract infection, site not specified CKD (chronic kidney disease) Qualifiers: Chronic kidney disease stage: unspecified stage Qualified Code(s): N18.9 - Chronic kidney disease, unspecified The scribe's documentation has been prepared under my direction and personally reviewed by me in its entirety. I confirm that the note above accurately reflects all work, treatment, procedures, and medical decision making performed by me.
[2019-08-05] MEDS: LEVOTHYROXINE SODIUM 100 MCG TABLET PO SCH (05:40)
[2019-08-05] MEDS: HEPARIN SOD 5,000 UNIT/0.5 ML VIAL SQ SCH ×3 (05:40→20:44)
[2019-08-05 06:37] LABS: Hematocrit (blood only) 26.5 % (37-47); Hemoglobin 8.7 g/dL (12.0-16.0); Mean Corpuscular Hemoglobin 27.7 pg (25-34); Mean Corpuscular Hgb Conc 32.8 g/dL (32-36); Mean Corpuscular Volume 84.4 fL (80-100); Mean Platelet Volume 8.9 fL (7.4-10.4); Platelet Count 285 K/uL (130-400); RDW Coefficient of Variation 14.4 % (11.5-14.5); RDW Standard Deviation 44.6 fL (36.4-46.3); Red Blood Count 3.14 M/uL (4.2-5.4); White Blood Count 9.87 K/uL (4.8-10.8)
[2019-08-05 07:14] LABS: Albumin Level 2.2 gm/dl (3.4-5.0); BUN Creatinine Ratio 13.5 (10-20); Bilirubin Direct 0.4 mg/dl (0-0.2); Calcium 7.9 mg/dl (8.5-10.1); Creatinine Clr Calc Pharmacy 26.5 ml/min; Est GFR (African American) 35.7; Est GFR (Non-African American) 30.8
[2019-08-05 07:16] LABS: Albumin Globulin Ratio 0.6 (0.9-2); Bilirubin,Total 0.6 mg/dl (0.2-1); Globulin 3.7 gm/dl (2.5-4.0); Total Protein 5.9 gm/dl (6.4-8.2)
[2019-08-05] MEDS: CITALOPRAM 20 MG TAB PO SCH ×2 (08:06→20:45)
[2019-08-05] MEDS: CETIRIZINE HCL 10 MG TABLET PO SCH ×2 (08:07→20:45)
[2019-08-05] MEDS: AMLODIPINE BESYLATE 5 MG TAB PO SCH (08:08)
[2019-08-05] MEDS: TRIAMCINOLONE ACET 0.025% CR 15 GM TUBE EXT SCH ×2 (08:09→20:45)
[2019-08-05] MEDS: SACCHAROMYCES BOULARDII 250 MG CAP PO SCH ×2 (08:09→20:45)
[2019-08-05] MEDS: PANTOprazole 40 MG TAB PO SCH (08:09)
[2019-08-05] MEDS: MAGNESIUM OXIDE 400 MG TAB PO SCH ×2 (08:09→20:44)
[2019-08-05] MEDS: carvediloL 12.5 MG TAB PO SCH ×2 (08:09→20:45)
[2019-08-05] MEDS: INSULIN GLARGINE SOLOSTAR 100 UNITS/ML 3 ML PEN SQ SCH ×2 (08:10→20:45)
[2019-08-05] MEDS: INSULIN ASPART 100 UNITS/ML 3 ML PEN SC SCH ×4 (08:14→20:46)
[2019-08-05] MEDS ORDERED: NON-FORMULARY MEDICATION (Cranberry 500 MG) PO SCH (09:00)
[2019-08-05] MEDS ORDERED: TRIAMCINOLONE ACET 0.5% CR 15 GM TUBE TOP SCH (09:00)
[2019-08-05 11:01] LABS: Creatine Kinase 57 U/L (26-192); Lipase 518 U/L (73-393)
[2019-08-05] MEDS: cefTRIAXone SODIUM 2,000 MG in DEXTROSE 5% 50 ML IV SCH (14:00)
--- NOTE | 2019-08-05 14:51 | Hospitalist Progress Note ---
Date of Service August 05, 2019 Assessment & Plan (1) UTI (urinary tract infection): Presented with suprapubic pains and LE weakness bilat which is her usual presentation of UTIs No sepsis, fevers Ur cx growing GNR, awaiting ID and sensitivity -continue IV Rocephin -dc IVFs as is ellie po quite well (2) Generalized weakness: In bilat LEs but has good strength on exam Secondary to acute UTI Also has known lower back DJD -consult PT/OT (3) CKD (chronic kidney disease): Patient appears to be at baseline creat. -avoid nephrotoxins-dc ibuprofen prn -renally dose meds -follow BMP (4) HTN (hypertension): BPs elevated secondary to anxiety, pain -continue Coreg, amlodipine -adding lorazepam for anxiety (5) DM (diabetes mellitus): Continue Lantus dosing from home sliding scale coverage Hgb A1C 7.9% in 05/2019 (6) Transaminitis: Elevated AST, ALT, ALK Phos all fairly new recently, TBili normal Lipase elevated at 518 Was on Bactrim and doxy last month for leg cellulitis No fevers, no abd pain already s/p cholecystectomy -check CT liver and pancreas-pt refusing to go down for CT until her back pain is improved -follow LFTs, lipase (7) Lower back pain: Chronic LBP, worse here from lying in hospital bed Refuses to get out of bed to chair, thinks it will make pain worse -dcd NSAIDs -trial of Voltaren gel -add K-pad -lorazepam for muscle relaxation (8) Situational anxiety: worse from being in hospital -trial of ativan prn short term -she has tolerated clonazepam in the past (9) Idiopathic urticaria: sees DERM , takes Zyzal as outpt Gets erythema and edema very easily anywhere where pressure is applied to her skin or when gets nervous -continue Zyrtec 5mg po bid here as replacement (10) DVT prophylaxis: heparin SQ dc SCDs given urticaria and skin issues Dispo- remain overnight while awaiting Ur cx results, for gen weakness, may need SNF placement Subjective Saw her twice today. Initially, stated was eating well, no abd pain, no nausea but does take Zofran frequently at home. No further urinary symptoms. Still felt generally weak all over Second time was called by RN for pt with significant anxiety and lower back pain acute on chronic pt reports the bed was hurting her. She did not want to be repositioned or try to get out of bed. No shooting pains down legs, no numbness/tingling Denies CP or SOB but stated when she gets really anxious she gets SOB Tele with NSR, PVCs, rates in the 70s Review of Systems Review of Systems: All systems reviewed & are unremarkable except as noted in HPI & below Physical Exam Constitutional: WD/WN, vitals as above + obese Eyes: + anicteric sclerae ENMT: external ear and nose normal, oropharynx normal Neck: trachea midline, no thyromegaly Respiratory: normal respiratory effort, lungs clear to auscultation Cardiovascular: Rate/Rhythm: regular rate and regular rhythm Extremities: + edema (1+ LE edema bilat to knees) Gastrointestinal (Abdomen): normal bowel sounds, soft, nontender, no hepatosplenomegaly Musculoskeletal: Extremities: no cyanosis and no clubbing Skin: + rash (posterior neck and upper anterior chest and neck with ecchymosis and edema) and + lesion (left anterior leg with scabbed over wound 3x4 cm) Neurologic: moves all extremities and awake; no focal motor deficits Psychiatric: Orientation: alert and cooperative Affect: + anxious affect Results & Data Vital Signs (Past 12 Hours) Vital Signs Temp Pulse Pulse Resp BP Pulse Ox 08/05/19 11:00 36.8 C 60 20 150/69 H 92 08/05/19 08:00 68 08/05/19 07:00 36.8 C 76 20 158/78 H 93 08/05/19 04:47 144/78 H 08/05/19 04:14 36.6 C 81 20 170/72 H 92 Laboratory Results 08/05/19 08/05/19 08/05/19 Range/Units 17:48 15:10 15:10 WBC (4.8-10.8) K/uL RBC (4.2-5.4) M/uL Hgb (12.0-16.0) g/dL Hct (37-47) % MCV (80-100) fL MCH (25-34) pg MCHC (32-36) g/dL RDW Std Deviation (36.4-46.3) fL RDW Coeff of Lyssa (11.5-14.5) % Plt Count (130-400) K/uL MPV (7.4-10.4) fL Immature Gran % (Auto) % Neut % (Auto) % Lymph % (Auto) % [place] % (Auto) % Eos % (Auto) % Baso % (Auto) % Immature Gran # (Auto) (0.00-0.02) K/uL Neut # (Auto) (1.4-6.5) K/uL Lymph # (Auto) (1.2-3.4) K/uL [place] # (Auto) (0.11-0.59) K/uL Eos # (Auto) (0-0.5) K/uL Baso # (Auto) (0-0.2) K/uL PT (9.0-12.0) Seconds INR (0.9-1.1) Sodium (136-145) mmol/L Potassium (3.5-5.1) mmol/L Chloride (98-107) mmol/L Carbon Dioxide (21-32) mmol/L Anion Gap (3-11) BUN (7-18) mg/dl Creatinine (0.6-1.2) mg/dl Est Cr Clr Drug Dosing ml/min Est GFR ( Amer) Est GFR (Non-Af Amer) BUN/Creatinine Ratio (10-20) Glucose (70-99) mg/dl POC Glucose 114 H (70-99) Calcium (8.5-10.1) mg/dl Phosphorus (2.5-4.9) mg/dl Magnesium (1.8-2.4) mg/dl Total Bilirubin (0.2-1) mg/dl Direct Bilirubin (0-0.2) mg/dl AST (15-37) U/L ALT (12-78) U/L Alkaline Phosphatase (45-117) U/L Total Creatine Kinase (26-192) U/L Troponin I (0-0.045) ng/ml Total Protein (6.4-8.2) gm/dl Albumin (3.4-5.0) gm/dl Globulin (2.5-4.0) gm/dl Albumin/Globulin Ratio (0.9-2) Lipase (73-393) U/L TSH (0.300-4.500) uIu/ml Hepatitis A IgM Ab Pending Hep Bs Antigen Neg (Neg) Hep B Core IgM Ab Pending Hepatitis C Antibody Neg (Neg) 08/05/19 08/05/19 08/05/19 Range/Units 11:34 10:28 07:32 WBC (4.8-10.8) K/uL RBC (4.2-5.4) M/uL Hgb (12.0-16.0) g/dL Hct (37-47) % MCV (80-100) fL MCH (25-34) pg MCHC (32-36) g/dL RDW Std Deviation (36.4-46.3) fL RDW Coeff of Lyssa (11.5-14.5) % Plt Count (130-400) K/uL MPV (7.4-10.4) fL Immature Gran % (Auto) % Neut % (Auto) % Lymph % (Auto) % [place] % (Auto) % Eos % (Auto) % Baso % (Auto) % Immature Gran # (Auto) (0.00-0.02) K/uL Neut # (Auto) (1.4-6.5) K/uL Lymph # (Auto) (1.2-3.4) K/uL [place] # (Auto) (0.11-0.59) K/uL Eos # (Auto) (0-0.5) K/uL Baso # (Auto) (0-0.2) K/uL PT (9.0-12.0) Seconds INR (0.9-1.1) Sodium (136-145) mmol/L Potassium (3.5-5.1) mmol/L Chloride (98-107) mmol/L Carbon Dioxide (21-32) mmol/L Anion Gap (3-11) BUN (7-18) mg/dl Creatinine (0.6-1.2) mg/dl Est Cr Clr Drug Dosing ml/min Est GFR ( Amer) Est GFR (Non-Af Amer) BUN/Creatinine Ratio (10-20) Glucose (70-99) mg/dl POC Glucose 90 101 H (70-99) Calcium (8.5-10.1) mg/dl Phosphorus (2.5-4.9) mg/dl Magnesium (1.8-2.4) mg/dl Total Bilirubin (0.2-1) mg/dl Direct Bilirubin (0-0.2) mg/dl AST (15-37) U/L ALT (12-78) U/L Alkaline Phosphatase (45-117) U/L Total Creatine Kinase 57 (26-192) U/L Troponin I (0-0.045) ng/ml Total Protein (6.4-8.2) gm/dl Albumin (3.4-5.0) gm/dl Globulin (2.5-4.0) gm/dl Albumin/Globulin Ratio (0.9-2) Lipase 518 H (73-393) U/L TSH (0.300-4.500) uIu/ml Hepatitis A IgM Ab Hep Bs Antigen (Neg) Hep B Core IgM Ab Hepatitis C Antibody (Neg) 08/05/19 08/05/19 08/05/19 Range/Units 05:43 05:43 00:29 WBC 9.87 (4.8-10.8) K/uL RBC 3.14 L (4.2-5.4) M/uL Hgb 8.7 L (12.0-16.0) g/dL Hct 26.5 L (37-47) % MCV 84.4 (80-100) fL MCH 27.7 (25-34) pg MCHC 32.8 (32-36) g/dL RDW Std Deviation 44.6 (36.4-46.3) fL RDW Coeff of Lyssa 14.4 (11.5-14.5) % Plt Count 285 (130-400) K/uL MPV 8.9 (7.4-10.4) fL Immature Gran % (Auto) % Neut % (Auto) % Lymph % (Auto) % [place] % (Auto) % Eos % (Auto) % Baso % (Auto) % Immature Gran # (Auto) (0.00-0.02) K/uL Neut # (Auto) (1.4-6.5) K/uL Lymph # (Auto) (1.2-3.4) K/uL [place] # (Auto) (0.11-0.59) K/uL Eos # (Auto) (0-0.5) K/uL Baso # (Auto) (0-0.2) K/uL PT (9.0-12.0) Seconds INR (0.9-1.1) Sodium 139 (136-145) mmol/L Potassium 4.0 (3.5-5.1) mmol/L Chloride 110 H (98-107) mmol/L Carbon Dioxide 23 (21-32) mmol/L Anion Gap 6.0 (3-11) BUN 20 H (7-18) mg/dl Creatinine 1.50 H (0.6-1.2) mg/dl Est Cr Clr Drug Dosing 26.5 ml/min Est GFR ( Amer) 35.7 Est GFR (Non-Af Amer) 30.8 BUN/Creatinine Ratio 13.5 (10-20) Glucose 93 (70-99) mg/dl POC Glucose 147 H (70-99) Calcium 7.9 L (8.5-10.1) mg/dl Phosphorus (2.5-4.9) mg/dl Magnesium (1.8-2.4) mg/dl Total Bilirubin 0.6 (0.2-1) mg/dl Direct Bilirubin 0.4 H (0-0.2) mg/dl AST 156 H (15-37) U/L ALT 95 H (12-78) U/L Alkaline Phosphatase 125 H (45-117) U/L Total Creatine Kinase (26-192) U/L Troponin I (0-0.045) ng/ml Total Protein 5.9 L (6.4-8.2) gm/dl Albumin 2.2 L (3.4-5.0) gm/dl Globulin 3.7 (2.5-4.0) gm/dl Albumin/Globulin Ratio 0.6 L (0.9-2) Lipase (73-393) U/L TSH (0.300-4.500) uIu/ml Hepatitis A IgM Ab Hep Bs Antigen (Neg) Hep B Core IgM Ab Hepatitis C Antibody (Neg) 08/04/19 08/04/19 08/04/19 Range/Units 21:57 21:57 21:57 WBC 13.20 H (4.8-10.8) K/uL RBC 3.44 L (4.2-5.4) M/uL Hgb 9.7 L (12.0-16.0) g/dL Hct 28.9 L (37-47) % MCV 84.0 (80-100) fL MCH 28.2 (25-34) pg MCHC 33.6 (32-36) g/dL RDW Std Deviation 43.8 (36.4-46.3) fL RDW Coeff of Lyssa 14.3 (11.5-14.5) % Plt Count 304 (130-400) K/uL MPV 8.7 (7.4-10.4) fL Immature Gran % (Auto) 0.5 % Neut % (Auto) 79.0 % Lymph % (Auto) 11.7 % [place] % (Auto) 6.5 % Eos % (Auto) 2.0 % Baso % (Auto) 0.3 % Immature Gran # (Auto) 0.07 H (0.00-0.02) K/uL Neut # (Auto) 10.43 H (1.4-6.5) K/uL Lymph # (Auto) 1.54 (1.2-3.4) K/uL [place] # (Auto) 0.86 H (0.11-0.59) K/uL Eos # (Auto) 0.26 (0-0.5) K/uL Baso # (Auto) 0.04 (0-0.2) K/uL PT 10.7 (9.0-12.0) Seconds INR 1.0 (0.9-1.1) Sodium 137 (136-145) mmol/L Potassium 4.1 (3.5-5.1) mmol/L Chloride 108 H (98-107) mmol/L Carbon Dioxide 23 (21-32) mmol/L Anion Gap 6.0 (3-11) BUN 24 H (7-18) mg/dl Creatinine 1.57 H (0.6-1.2) mg/dl Est Cr Clr Drug Dosing 24.7 ml/min Est GFR ( Amer) 33.8 Est GFR (Non-Af Amer) 29.1 BUN/Creatinine Ratio 15.5 (10-20) Glucose 104 H (70-99) mg/dl POC Glucose (70-99) Calcium 8.2 L (8.5-10.1) mg/dl Phosphorus 3.5 (2.5-4.9) mg/dl Magnesium 2.3 (1.8-2.4) mg/dl Total Bilirubin 0.3 (0.2-1) mg/dl Direct Bilirubin (0-0.2) mg/dl AST 126 H (15-37) U/L ALT 88 H (12-78) U/L Alkaline Phosphatase 148 H (45-117) U/L Total Creatine Kinase 58 (26-192) U/L Troponin I < 0.015 (0-0.045) ng/ml Total Protein 6.9 (6.4-8.2) gm/dl Albumin 2.6 L (3.4-5.0) gm/dl Globulin 4.3 H (2.5-4.0) gm/dl Albumin/Globulin Ratio 0.6 L (0.9-2) Lipase 413 H (73-393) U/L TSH 3.320 (0.300-4.500) uIu/ml Hepatitis A IgM Ab Hep Bs Antigen (Neg) Hep B Core IgM Ab Hepatitis C Antibody (Neg) PG Care Time/CCT Total # of Minutes Spent Total Time Spent with Patient: Total time spent is greater than 50% in coordination of care (as documented) at patient's floor/unit and/or counseling patient: (1) UTI (urinary tract infection) Hematuria presence: without hematuria Urinary tract infection type: site unspecified Qualified Code(s): N39.0 - Urinary tract infection, site not specified (2) CKD (chronic kidney disease) Chronic kidney disease stage: unspecified stage Qualified Code(s): N18.9 - Chronic kidney disease, unspecified
[2019-08-05 16:21] LABS: Hepatitis B Surface Antigen Neg (Neg)
[2019-08-05 16:50] LABS: Hepatitis C IgG 13Yrs+Old_Rflx Neg (Neg)
[2019-08-05] MEDS: LORazepam 0.5 MG TAB PO PRN (19:40)
[2019-08-05] MEDS: DICLOFENAC SOD 1% GEL 100 GM TUBE EXT SCH (20:43)
[2019-08-06] MEDS: DICLOFENAC SOD 1% GEL 100 GM TUBE EXT SCH ×5 (00:09→23:41)
[2019-08-06] MEDS: HEPARIN SOD 5,000 UNIT/0.5 ML VIAL SQ SCH ×3 (06:02→20:35)
[2019-08-06] MEDS: LEVOTHYROXINE SODIUM 100 MCG TABLET PO SCH (06:03)
[2019-08-06 06:39] LABS: Basophils # (auto) 0.06 K/uL (0-0.2); Basophils % (auto) 0.5 %; Eosinophils % (auto) 1.8 %; Hematocrit (blood only) 26.5 % (37-47); Hemoglobin 8.8 g/dL (12.0-16.0); Immature Granulocytes # (auto) 0.09 K/uL (0.00-0.02); Immature Granulocytes % (auto) 0.8 %; Lymphocytes % (auto) 14.2 %; Mean Corpuscular Hemoglobin 27.8 pg (25-34); Mean Corpuscular Hgb Conc 33.2 g/dL (32-36); Mean Corpuscular Volume 83.9 fL (80-100); Mean Platelet Volume 8.8 fL (7.4-10.4); Monocytes # (auto) 0.91 K/uL (0.11-0.59); Monocytes % (auto) 8.1 %; Neutrophils % (auto) 74.6 %; Platelet Count 313 K/uL (130-400); RDW Coefficient of Variation 14.5 % (11.5-14.5); RDW Standard Deviation 44.6 fL (36.4-46.3); Red Blood Count 3.16 M/uL (4.2-5.4); White Blood Count 11.26 K/uL (4.8-10.8)
[2019-08-06 07:13] LABS: Alanine Aminotransferase 71 U/L (12-78); Albumin Level 2.2 gm/dl (3.4-5.0); Aspartate Aminotransferase 57 U/L (15-37); BUN Creatinine Ratio 12.5 (10-20); Blood Urea Nitrogen 18 mg/dl (7-18); Calcium 7.9 mg/dl (8.5-10.1); Carbon Dioxide 24 mmol/L (21-32); Chloride 110 mmol/L (98-107); Creatinine Clr Calc Pharmacy 27.3 ml/min; Est GFR (African American) 37.2; Est GFR (Non-African American) 32.1; Glucose 84 mg/dl (70-99); Lipase 72 U/L (73-393); Potassium 4.1 mmol/L (3.5-5.1); Sodium 139 mmol/L (136-145)
[2019-08-06 07:18] LABS: Albumin Globulin Ratio 0.6 (0.9-2); Alkaline Phosphatase 115 U/L (45-117); Bilirubin,Total 0.3 mg/dl (0.2-1); Ferritin 15.7 ng/ml (8-388); Globulin 3.8 gm/dl (2.5-4.0); Iron 37 mcg/dl (35-150); Total Iron Binding Capacity 262 mcg/dl (250-450); Transferrin 214 mg/dl (200-360); Transferrin Percent Saturation 12 % (15-50)
[2019-08-06 07:27] LABS: Bilirubin Direct < 0.1 mg/dl (0-0.2)
[2019-08-06] MEDS: CITALOPRAM 20 MG TAB PO SCH ×2 (08:30→20:38)
[2019-08-06] MEDS: PANTOprazole 40 MG TAB PO SCH (08:30)
[2019-08-06] MEDS: CETIRIZINE HCL 10 MG TABLET PO SCH ×2 (08:31→20:41)
[2019-08-06] MEDS: AMLODIPINE BESYLATE 5 MG TAB PO SCH (08:31)
[2019-08-06] MEDS: TRIAMCINOLONE ACET 0.025% CR 15 GM TUBE EXT SCH ×2 (08:32→20:39)
[2019-08-06] MEDS: MAGNESIUM OXIDE 400 MG TAB PO SCH ×2 (08:32→20:40)
[2019-08-06] MEDS: SACCHAROMYCES BOULARDII 250 MG CAP PO SCH ×2 (08:32→20:38)
[2019-08-06] MEDS: carvediloL 12.5 MG TAB PO SCH (08:33)
[2019-08-06] MEDS: INSULIN GLARGINE SOLOSTAR 100 UNITS/ML 3 ML PEN SQ SCH ×2 (08:34→20:39)
[2019-08-06] MEDS: INSULIN ASPART 100 UNITS/ML 3 ML PEN SC SCH ×4 (08:36→20:39)
[2019-08-06 10:28] LABS: Folate (Folic Acid) 5.58 ng/ml (>5.38)
--- NOTE | 2019-08-06 10:43 | CT Scan Report ---
CT SCAN OF THE ABDOMEN AND PELVIS WITHOUT CONTRAST CLINICAL HISTORY: Abnormal LFTs and elevated lipase. COMPARISON STUDY: No previous studies for comparison. TECHNIQUE: CT scan of the abdomen and pelvis was performed from the lung bases to the proximal femurs . Images are reviewed in the axial, sagittal, and coronal planes. IV contrast was not administered fo r this examination. A dose lowering technique was utilized adhering to the principles of ALARA. CT DOSE: 1669.95 mGy.cm FINDINGS: Lower chest: There are small bilateral pleural effusions. There are dependent airspace opacities, lik josephine atelectatic. There is borderline distal esophageal wall thickening. Liver: There is mild capsular scarring. No focal masses are visualized given the limitations of a non contrast examination. Gallbladder: Surgically absent Spleen: Normal in size and attenuation. Pancreas: Somewhat atrophic. No ductal dilatation. No CT evidence of acute pancreatitis. Adrenal glands: Unremarkable. Kidneys: There is minimal prominence of the right renal collecting system and right ureter. No renal, ureteral, or bladder calculi are visualized. Vascular calcifications are evident Bowel: There are no transition zones indicate bowel obstruction. By history the appendix is surgicall y absent. There is no evidence of acute diverticulitis. Peritoneum: There is no intraperitoneal free air or abdominal ascites. Vasculature: There is no evidence for abdominal aortic aneurysm. There are aortoiliac atheromatous ch anges. Adenopathy: None. Pelvic viscera: The uterus appears surgically absent. Skeletal structures: No destructive osseous lesions are seen. IMPRESSION: 1. No evidence of bowel obstruction. No evidence of free air 2. Surgically absent gallbladder 3. Hepatic capsular scarring 4. Small bilateral pleural effusions and basilar airspace opacities likely atelectatic 5. No CT evidence of acute pancreatitis 6. Minor fullness the right renal collecting system and right ureter. No renal ureteral or bladder ca lculi identified 7. Borderline distal esophageal wall thickening Electronically signed by: Linden Pak M.D. 08/06/2019 10:42 AM
--- NOTE | 2019-08-06 11:55 | Pharmacy Report ---
ED Pharmacist Culture FollowUP - Culture Follow Up Note Date of Service: August 06, 2019 Notes:: Patient growing klebsiella pneumoniae in urine culture was discharged on bactrim on 08/04. She returned 08/05 and is now admitted receiving IV ceftriaxone which should cover the klebsiella. I did call the patient's nurse and alert her of the culture result. She will pass on to the patient's hospitalist.
[2019-08-06] MEDS: cefTRIAXone SODIUM 2,000 MG in DEXTROSE 5% 50 ML IV SCH (13:59)
[2019-08-06] MEDS: TRAMADOL HCL 50 MG TABLET PO PRN (14:22)
--- NOTE | 2019-08-06 15:07 | Hospitalist Progress Note ---
Date of Service August 06, 2019 Assessment & Plan (1) UTI (urinary tract infection): Presented with suprapubic pains and LE weakness bilat which is her usual presentation of UTIs No sepsis, fevers Ur cx growing Klebsiella, resistant to Bactrim -continue IV Rocephin and convert to po abx likely tomorrow (2) Generalized weakness: In bilat LEs but has good strength on exam Improved subjectively also today Secondary to acute UTI Also has known lower back DJD -consult PT/OT (3) CKD (chronic kidney disease): Patient appears to be at baseline creat 1.4 -avoid nephrotoxins-dc ibuprofen prn -renally dose meds -follow BMP (4) HTN (hypertension): BPs continue to be significantly elevated secondary to anxiety, pain -continue Coreg and increase dose to 18.75mg bid -continue amlodipine -added lorazepam prn for anxiety -continue IV hydralazine prn (5) DM (diabetes mellitus): Continue Lantus dosing from home sliding scale coverage Hgb A1C 7.9% in 05/2019 (6) Transaminitis: Elevated AST, ALT, ALK Phos all fairly new recently, TBili normal Lipase elevated at 518 Now LFTs trending downward and lipase normal Was on Bactrim and doxy last month for leg cellulitis-could be drug reaction No fevers, no abd pain already s/p cholecystectomy - CT liver with some subcapsular scarring but not likely to be an issue and pancreas atrophic but no inflammation (7) Lower back pain: Chronic LBP, worse here from lying in hospital bed-now improved with Voltaren gel and heating pad Is now getting OOB and ambulating a bit -dcd NSAIDs from home due to CKD -continue Voltaren gel -continue K-pad -lorazepam for muscle relaxation (8) Situational anxiety: worse from being in hospital -trial of ativan prn short term -she has tolerated clonazepam in the past (9) Idiopathic urticaria: sees DERM , takes Zyzal as outpt Gets erythema and edema very easily anywhere where pressure is applied to her skin or when gets nervous -continue Zyrtec 5mg po bid here as replacement (10) DVT prophylaxis: heparin SQ dc SCDs given urticaria and skin issues Dispo- remain overnight for gen weakness, may need SNF placement Subjective Doing better today, was OOB with 2 assist and walked to the bathroom. Feeling a little stronger but her left knee is giving out as it usually does-reports it is bone on bone Denies CP or OSB BPs have been quite high She remains extremely anxious Tele th NSR , PACs normal rates Review of Systems Review of Systems: All systems reviewed & are unremarkable except as noted in HPI & below lower back pain is improved Having her usual left shoulder pain Physical Exam Constitutional: WD/WN, vitals as above + obese Eyes: + anicteric sclerae Neck: trachea midline, no thyromegaly Respiratory: normal respiratory effort, lungs clear to auscultation Cardiovascular: Rate/Rhythm: regular rate and regular rhythm Extremities: + edema (1+ LE edema bilat to knees) Gastrointestinal (Abdomen): normal bowel sounds, soft, nontender, no hepatosplenomegaly Musculoskeletal: Extremities: no cyanosis and no clubbing Skin: + rash (posterior neck and upper anterior chest and neck with ecchymosis and edema) and + lesion (left anterior leg with scabbed over wound 3x4 cm) Neurologic: moves all extremities and awake; no focal motor deficits Psychiatric: Orientation: alert and cooperative Affect: + anxious affect Results & Data Vital Signs (Past 12 Hours) Vital Signs Temp Pulse Pulse Resp BP BP Pulse Ox 08/06/19 11:23 36.7 C 75 18 188/72 H 93 08/06/19 11:01 76 08/06/19 07:08 36.9 C 89 18 198/83 H 92 08/06/19 04:30 36.9 C 90 20 188/79 H 92 Laboratory Results labs reviewed Ur cx with Klebsiella PG Care Time/CCT Total # of Minutes Spent Total Time Spent with Patient: Total time spent is greater than 50% in coordination of care (as documented) at patient's floor/unit and/or counseling patient: (1) UTI (urinary tract infection) Hematuria presence: without hematuria Urinary tract infection type: site unspecified Qualified Code(s): N39.0 - Urinary tract infection, site not specified (2) CKD (chronic kidney disease) Chronic kidney disease stage: unspecified stage Qualified Code(s): N18.9 - Chronic kidney disease, unspecified
[2019-08-06] MEDS: HydrALAZINE HCL 20 MG/ML VIAL IV PRN (15:25)
[2019-08-06] MEDS: LORazepam 0.5 MG TAB PO PRN ×2 (15:58→21:59)
[2019-08-06] MEDS: FERROUS SULFATE 325 MG TAB PO SCH (17:16)
[2019-08-06] MEDS: QUETIAPINE FUMARATE 100 MG TABLET PO SCH (20:36)
[2019-08-06] MEDS: carvediloL 6.25 MG TAB PO SCH (20:37)
[2019-08-07] MEDS: DICLOFENAC SOD 1% GEL 100 GM TUBE EXT SCH ×3 (06:00→18:43)
[2019-08-07] MEDS: LEVOTHYROXINE SODIUM 100 MCG TABLET PO SCH (06:00)
[2019-08-07 07:06] LABS: Estimated Average Glucose 180 mg/dl; Hemoglobin A1C 7.9 % (4.5-5.6)
[2019-08-07 07:24] LABS: Albumin Level 2.5 gm/dl (3.4-5.0); BUN Creatinine Ratio 10.6 (10-20); Calcium 8.5 mg/dl (8.5-10.1); Creatinine Clr Calc Pharmacy 29.9 ml/min; Est GFR (African American) 41.3; Est GFR (Non-African American) 35.6; Potassium 3.8 mmol/L (3.5-5.1)
[2019-08-07 07:27] LABS: Albumin Globulin Ratio 0.6 (0.9-2); Bilirubin,Total 0.3 mg/dl (0.2-1); Globulin 4.1 gm/dl (2.5-4.0); Total Protein 6.6 gm/dl (6.4-8.2)
[2019-08-07 07:30] LABS: Basophils # (auto) 0.04 K/uL (0-0.2); Basophils % (auto) 0.3 %; Eosinophils % (auto) 1.4 %; Hematocrit (blood only) 31.5 % (37-47); Hemoglobin 10.2 g/dL (12.0-16.0); Immature Granulocytes # (auto) 0.21 K/uL (0.00-0.02); Immature Granulocytes % (auto) 1.5 %; Lymphocytes # (auto) 1.66 K/uL (1.2-3.4); Lymphocytes % (auto) 11.9 %; Mean Corpuscular Hemoglobin 26.8 pg (25-34); Mean Corpuscular Hgb Conc 32.4 g/dL (32-36); Mean Corpuscular Volume 82.9 fL (80-100); Monocytes # (auto) 1.08 K/uL (0.11-0.59); Monocytes % (auto) 7.7 %; Neutrophils # (auto) 10.76 K/uL (1.4-6.5); Neutrophils % (auto) 77.2 %; Platelet Count 295 K/uL (130-400); White Blood Count 13.95 K/uL (4.8-10.8)
[2019-08-07] MEDS: AMLODIPINE BESYLATE 5 MG TAB PO SCH (07:31)
[2019-08-07] MEDS: carvediloL 6.25 MG TAB PO SCH ×2 (07:32→20:12)
[2019-08-07] MEDS: CETIRIZINE HCL 10 MG TABLET PO SCH ×2 (09:15→20:08)
[2019-08-07] MEDS: FERROUS SULFATE 325 MG TAB PO SCH ×2 (09:15→17:15)
[2019-08-07] MEDS: HEPARIN SOD 5,000 UNIT/0.5 ML VIAL SQ SCH ×2 (09:15→21:17)
[2019-08-07] MEDS: PANTOprazole 40 MG TAB PO SCH (09:16)
[2019-08-07] MEDS: MAGNESIUM OXIDE 400 MG TAB PO SCH ×2 (09:16→20:11)
[2019-08-07] MEDS: FOLIC ACID 1 MG TAB PO SCH (09:17)
[2019-08-07] MEDS: SACCHAROMYCES BOULARDII 250 MG CAP PO SCH ×2 (09:17→20:10)
[2019-08-07] MEDS: CITALOPRAM 20 MG TAB PO SCH ×2 (09:17→20:12)
[2019-08-07] MEDS: INSULIN GLARGINE SOLOSTAR 100 UNITS/ML 3 ML PEN SQ SCH ×2 (09:18→21:16)
[2019-08-07] MEDS: TRIAMCINOLONE ACET 0.025% CR 15 GM TUBE EXT SCH ×2 (09:18→20:12)
[2019-08-07] MEDS: INSULIN ASPART 100 UNITS/ML 3 ML PEN SC SCH ×4 (09:20→21:16)
[2019-08-07] MEDS: cefTRIAXone SODIUM 2,000 MG in DEXTROSE 5% 50 ML IV SCH (13:43)
[2019-08-07] MEDS: TRAMADOL HCL 50 MG TABLET PO PRN (13:43)
[2019-08-07] MEDS: LORazepam 0.5 MG TAB PO PRN (16:52)
[2019-08-07] MEDS: QUETIAPINE FUMARATE 100 MG TABLET PO SCH (20:10)
--- NOTE | 2019-08-07 21:12 | Hospitalist Progress Note ---
Date of Service August 07, 2019 Assessment & Plan (1) UTI (urinary tract infection): Presented with suprapubic pains and LE weakness bilaterally which is her usual presentation of UTIs. No sepsis, fevers. - Ur cx growing Klebsiella, resistant to Bactrim. - Continue ceftriaxone; switch to PO abx on discharge. (2) Generalized weakness: In bilateral LEs but has good strength on exam on 08/07. Presumably secondary to acute UTI as patient reports this has occured in the past. Also has known lower back DJD. - PT/OT recommending SNF (3) HTN (hypertension): BPs continue to be significantly elevated secondary to anxiety, pain -continue Coreg and increase dose to 18.75mg bid -continue amlodipine -added lorazepam prn for anxiety -continue IV hydralazine prn (4) CKD (chronic kidney disease) stage 3, GFR 30-59 ml/min: Patient appears to be at baseline creat 1.3-1.4, eGFR ~30. - Avoid nephrotoxins - stopped ibuprofen - Renally dose meds - Follow BMP (5) DM (diabetes mellitus): Hgb A1C 7.9% in 05/2019. - Continue Lantus dosing from home - Sliding scale coverage - Blood sugars mostly within goal today. (6) Transaminitis: Elevated AST, ALT, ALK Phos all fairly new recently, TBili normal. Lipase elevated at 518. Already s/p cholecystectomy. CT liver with some subcapsular scarring but not likely to be an issue and pancreas atrophic but no inflammation. - Now LFTs trending downward and lipase normal. - Was on Bactrim and doxy last month for leg cellulitis - could be drug reaction - Could it have been a retained gallbladder stone that passed? Unclear. - No further inpatient needs as all labs have returned to normal. (7) Lower back pain: Chronic LBP, worse here from lying in hospital bed - now improved with Voltaren gel and heating pad. Is now getting OOB and ambulating a bit. - Dcd NSAIDs from home due to CKD - Continue Voltaren gel - Continue K-pad - Lorazepam for muscle relaxation (8) Situational anxiety: Worse from being in hospital. - Trial of ativan prn short term (9) Idiopathic urticaria: Sees derm; takes Zyzal as outpatient. Gets erythema and edema very easily anywhere where pressure is applied to her skin or when gets nervous. - Continue Zyrtec 5mg po bid here as replacement (10) DVT prophylaxis: Heparin SQ Subjective Reports continued leg weakness. Is very dismayed about possibly not being able to go home with her daughter. Physical Exam Constitutional: WD/WN, vitals as above Eyes: EOM intact bilaterally; no conjunctival abnormality ENMT: external ear and nose normal, oropharynx normal Neck: trachea midline, no thyromegaly normal visual inspection Respiratory: normal respiratory effort, lungs clear to auscultation no respiratory distress Cardiovascular: RRR, no murmur, no edema Gastrointestinal (Abdomen): Inspection/Auscultation: abdomen normal to inspection; abdomen not distended Musculoskeletal: no cyanosis or clubbing, extremities motor strength 5/5 Skin: no rashes, warm and dry Neurologic: moves all extremities and awake Psychiatric: Orientation: alert, oriented to person and cooperative Results & Data Vital Signs (Past 12 Hours) Vital Signs Temp Pulse Pulse Resp BP Pulse Ox 08/07/19 19:32 36.9 C 80 19 193/71 H 91 08/07/19 17:37 72 08/07/19 15:53 36.6 C 76 18 172/79 H 93 08/07/19 11:00 36.8 C 80 20 152/83 H 94 PG Care Time/CCT Total # of Minutes Spent Total Time Spent with Patient: Total time spent is greater than 50% in coordination of care (as documented) at patient's floor/unit and/or counseling patient: (1) UTI (urinary tract infection) Hematuria presence: without hematuria Urinary tract infection type: site unspecified Qualified Code(s): N39.0 - Urinary tract infection, site not specified
[2019-08-07] MEDS: HydrALAZINE HCL 20 MG/ML VIAL IV PRN (23:11)
[2019-08-08] MEDS: DICLOFENAC SOD 1% GEL 100 GM TUBE EXT SCH ×4 (00:48→17:37)
[2019-08-08] MEDS: LEVOTHYROXINE SODIUM 100 MCG TABLET PO SCH (05:48)
[2019-08-08 06:46] LABS: Hemoglobin 9.8 g/dL (12.0-16.0); Mean Corpuscular Hemoglobin 27.6 pg (25-34); Mean Corpuscular Hgb Conc 32.7 g/dL (32-36); Mean Corpuscular Volume 84.5 fL (80-100); Platelet Count 308 K/uL (130-400); RDW Coefficient of Variation 14.7 % (11.5-14.5); RDW Standard Deviation 45.2 fL (36.4-46.3); Red Blood Count 3.55 M/uL (4.2-5.4); White Blood Count 12.58 K/uL (4.8-10.8)
[2019-08-08] MEDS: TRIAMCINOLONE ACET 0.025% CR 15 GM TUBE EXT SCH ×2 (09:35→21:41)
[2019-08-08] MEDS: CITALOPRAM 20 MG TAB PO SCH ×2 (09:36→21:10)
[2019-08-08] MEDS: PANTOprazole 40 MG TAB PO SCH (09:36)
[2019-08-08] MEDS: carvediloL 6.25 MG TAB PO SCH ×2 (09:37→21:09)
[2019-08-08] MEDS: FOLIC ACID 1 MG TAB PO SCH (09:37)
[2019-08-08] MEDS: AMLODIPINE BESYLATE 5 MG TAB PO SCH (09:37)
[2019-08-08] MEDS: MAGNESIUM OXIDE 400 MG TAB PO SCH ×2 (09:37→21:08)
[2019-08-08] MEDS: SACCHAROMYCES BOULARDII 250 MG CAP PO SCH ×2 (09:38→21:09)
[2019-08-08] MEDS: CETIRIZINE HCL 10 MG TABLET PO SCH ×2 (09:38→21:41)
[2019-08-08] MEDS: FERROUS SULFATE 325 MG TAB PO SCH ×2 (09:39→17:32)
[2019-08-08] MEDS: INSULIN GLARGINE SOLOSTAR 100 UNITS/ML 3 ML PEN SQ SCH ×2 (09:40→21:41)
[2019-08-08] MEDS: INSULIN ASPART 100 UNITS/ML 3 ML PEN SC SCH ×4 (09:40→21:11)
[2019-08-08] MEDS: TRAMADOL HCL 50 MG TABLET PO PRN ×3 (09:43→19:44)
[2019-08-08] MEDS: HEPARIN SOD 5,000 UNIT/0.5 ML VIAL SQ SCH ×2 (09:44→21:10)
[2019-08-08 12:28] LABS: Hepatitis A Antibody IgM NON-REACTIVE (NON-REACTIVE); Hepatitis B Core Antibody IgM NON-REACTIVE (NON-REACTIVE)
--- NOTE | 2019-08-08 14:23 | Hospitalist Progress Note ---
Date of Service August 08, 2019 Assessment & Plan (1) UTI (urinary tract infection): Presented with suprapubic pains and LE weakness bilaterally which is her usual presentation of UTIs. No sepsis, fevers. - Ur cx growing Klebsiella, resistant to Bactrim. - Continue ceftriaxone; switch to PO abx on discharge. (2) Generalized weakness: In bilateral LEs but has good strength on exam on 08/07. Presumably secondary to acute UTI as patient reports this has occured in the past. Also has known lower back DJD. - PT/OT recommending SNF - Left knee pain most predominant. Will get x-rays of the left knee. No ankle or hip pain per patient or on exam. (3) HTN (hypertension): BPs were elevated secondary to anxiety & pain. Today, improved to 135/75. - Continue Coreg 18.75mg - Continue amlodipine - Added lorazepam prn for anxiety - Continue IV hydralazine PRN (4) CKD (chronic kidney disease) stage 3, GFR 30-59 ml/min: Patient appears to be at baseline creat 1.3-1.4, eGFR ~30. - Avoid nephrotoxins - stopped ibuprofen - Renally dose meds - Follow BMP - (5) DM (diabetes mellitus): Hgb A1C 7.9% in 05/2019. - Continue Lantus dosing from home - Sliding scale coverage - Blood sugars acceptable on 08/08.. (6) Transaminitis: Elevated AST, ALT, ALK Phos all fairly new recently, TBili normal. Lipase elevated at 518. Already s/p cholecystectomy. CT liver with some subcapsular scarring but not likely to be an issue and pancreas atrophic but no inflammation. - Now LFTs trending downward and lipase normal. - Was on Bactrim and doxy last month for leg cellulitis - could be drug reaction - Could it have been a retained gallbladder stone that passed? Unclear. - No further inpatient needs as all labs have returned to normal. (7) Lower back pain: Chronic LBP, worse here from lying in hospital bed - now improved with Voltaren gel and heating pad. Is now getting OOB and ambulating a bit. - Stopped NSAIDs from home due to CKD - Continue Voltaren gel - Continue K-pad - Lorazepam for muscle relaxation (8) Situational anxiety: Worse from being in hospital. - Trial of Ativan PRN (9) Idiopathic urticaria: Sees derm; takes Zyzal as outpatient. Gets erythema and edema very easily anywhere where pressure is applied to her skin or when gets nervous. - Continue Zyrtec 5mg po bid here as replacement (10) DVT prophylaxis: Heparin 5000 units Q12h Subjective Still with left knee pain. Denies any ankle or hip pain. No fevers/chills. Physical Exam Constitutional: WD/WN, vitals as above Eyes: EOM intact bilaterally; no conjunctival abnormality ENMT: external ear and nose normal, oropharynx normal Neck: trachea midline, no thyromegaly normal visual inspection Respiratory: normal respiratory effort, lungs clear to auscultation no respiratory distress Cardiovascular: RRR, no murmur, no edema Gastrointestinal (Abdomen): Inspection/Auscultation: abdomen normal to inspection; abdomen not distended Musculoskeletal: no cyanosis or clubbing, extremities motor strength 5/5 Skin: no rashes, warm and dry Neurologic: moves all extremities and awake Psychiatric: Orientation: alert, oriented to person and cooperative Results & Data Vital Signs (Past 12 Hours) Vital Signs Temp Pulse Pulse Resp BP Pulse Ox 08/08/19 11:55 36.6 C 76 16 135/74 92 08/08/19 09:30 67 08/08/19 07:07 36.5 C 71 16 163/75 H 94 08/08/19 03:15 36.6 C 69 18 146/60 H 95 PG Care Time/CCT Total # of Minutes Spent Total Time Spent with Patient: Total time spent is greater than 50% in coordination of care (as documented) at patient's floor/unit and/or counseling patient: (1) UTI (urinary tract infection) Hematuria presence: without hematuria Urinary tract infection type: site unspecified Qualified Code(s): N39.0 - Urinary tract infection, site not specified
[2019-08-08] MEDS: cefTRIAXone SODIUM 2,000 MG in DEXTROSE 5% 50 ML IV SCH (14:47)
--- NOTE | 2019-08-08 15:02 | XRay Report ---
XR knee LT 3V CLINICAL HISTORY: 89 years-old Female presenting with Fall; knee pain. TECHNIQUE: Frontal, crosstable lateral, and sunrise views of the left knee were obtained. COMPARISON: None. FINDINGS: Moderate to severe joint space loss of the medial compartment. Chondrocalcinosis may be present in th e lateral compartment. Prominent osteophytosis in the medial and lateral compartments. Osteophytosis may also be present in the patellofemoral compartment. Underlying osteopenia suspected. Mild chronic varus angulation arising from medial joint space loss. No acute fracture or malalignment. Atheroscler osis. Positioning limits evaluation for knee joint effusion. IMPRESSION: 1. Allowing for osteopenia, no acute osseous injury. 2. 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 Electronically signed by: Taqueria Gregory M.D. 08/08/2019 3:01 PM
[2019-08-08] MEDS: LORazepam 0.5 MG TAB PO PRN (19:20)
[2019-08-08] MEDS: QUETIAPINE FUMARATE 100 MG TABLET PO SCH (21:08)
[2019-08-09] MEDS: DICLOFENAC SOD 1% GEL 100 GM TUBE EXT SCH ×3 (00:08→11:16)
[2019-08-09] MEDS: LORazepam 0.5 MG TAB PO PRN ×2 (03:18→16:29)
[2019-08-09] MEDS: LEVOTHYROXINE SODIUM 100 MCG TABLET PO SCH (06:21)
[2019-08-09] MEDS: HydrALAZINE HCL 20 MG/ML VIAL IV PRN (08:05)
[2019-08-09] MEDS: FOLIC ACID 1 MG TAB PO SCH (08:08)
[2019-08-09] MEDS: MAGNESIUM OXIDE 400 MG TAB PO SCH (08:09)
[2019-08-09] MEDS: FERROUS SULFATE 325 MG TAB PO SCH ×2 (08:09→16:30)
[2019-08-09] MEDS: PANTOprazole 40 MG TAB PO SCH (08:09)
[2019-08-09] MEDS: CETIRIZINE HCL 10 MG TABLET PO SCH (08:09)
[2019-08-09] MEDS: SACCHAROMYCES BOULARDII 250 MG CAP PO SCH (08:10)
[2019-08-09] MEDS: CITALOPRAM 20 MG TAB PO SCH (08:19)
[2019-08-09] MEDS ORDERED: INSULIN GLARGINE SOLOSTAR 100 UNITS/ML 3 ML PEN SQ SCH (09:00)
[2019-08-09] MEDS: INSULIN ASPART 100 UNITS/ML 3 ML PEN SC SCH ×3 (09:24→16:40)
[2019-08-09] MEDS: carvediloL 6.25 MG TAB PO SCH (09:25)
[2019-08-09] MEDS: AMLODIPINE BESYLATE 5 MG TAB PO SCH (09:28)
[2019-08-09] MEDS: HEPARIN SOD 5,000 UNIT/0.5 ML VIAL SQ SCH (09:30)
[2019-08-09] MEDS: TRAMADOL HCL 50 MG TABLET PO PRN ×2 (09:39→15:29)
[2019-08-09] MEDS: TRIAMCINOLONE ACET 0.025% CR 15 GM TUBE EXT SCH (10:11)
[2019-08-09 11:26] LABS: Basophils # (auto) 0.07 K/uL (0-0.2); Basophils % (auto) 0.6 %; Eosinophils # (auto) 0.35 K/uL (0-0.5); Hematocrit (blood only) 29.2 % (37-47); Hemoglobin 9.6 g/dL (12.0-16.0); Immature Granulocytes # (auto) 0.18 K/uL (0.00-0.02); Immature Granulocytes % (auto) 1.5 %; Lymphocytes # (auto) 1.74 K/uL (1.2-3.4); Lymphocytes % (auto) 14.9 %; Mean Corpuscular Hemoglobin 27.6 pg (25-34); Mean Corpuscular Hgb Conc 32.9 g/dL (32-36); Mean Corpuscular Volume 83.9 fL (80-100); Mean Platelet Volume 8.6 fL (7.4-10.4); Monocytes # (auto) 0.97 K/uL (0.11-0.59); Monocytes % (auto) 8.3 %; Neutrophils % (auto) 71.7 %; Platelet Count 308 K/uL (130-400); RDW Coefficient of Variation 14.9 % (11.5-14.5); RDW Standard Deviation 45.2 fL (36.4-46.3); Red Blood Count 3.48 M/uL (4.2-5.4); White Blood Count 11.71 K/uL (4.8-10.8)
[2019-08-09 11:52] LABS: BUN Creatinine Ratio 10.1 (10-20); Calcium 8.2 mg/dl (8.5-10.1); Est GFR (African American) 28.6; Est GFR (Non-African American) 24.7
[2019-08-09] MEDS: cefTRIAXone SODIUM 2,000 MG in DEXTROSE 5% 50 ML IV SCH (14:00)
--- NOTE | 2019-08-09 16:51 | Discharge Summary ---
Date of Service August 09, 2019 Principal Diagnosis UTI and weakness Discharge Exam Constitutional WD/WN, vitals as above Eyes EOM intact bilaterally; no conjunctival abnormality ENMT external ear and nose normal, oropharynx normal Neck trachea midline, no thyromegaly normal visual inspection Respiratory normal respiratory effort, lungs clear to auscultation no respiratory distress Cardiovascular RRR, no murmur, no edema Gastrointestinal (Abdomen) Inspection/Auscultation: abdomen normal to inspection; abdomen not distended Musculoskeletal no cyanosis or clubbing, extremities motor strength 5/5 Skin no rashes, warm and dry Neurologic moves all extremities and awake Psychiatric Orientation: alert, oriented to person and cooperative Discharge Data Allergies Allergy/AdvReac Type Severity Reaction Status Date / Time acetaminophen [From Percocet] Allergy Severe swelling/so Verified 08/04/19 22:56 b cephalexin Allergy Unknown RASH Unverified 08/04/19 22:56 morphine Allergy Unknown NAUSEA Unverified 08/04/19 22:56 oxycodone Allergy Unknown DIFFICULTY Unverified 08/04/19 22:56 SWALLOWING propoxyphene Allergy Unknown DIFFICULTY Verified 08/04/19 22:56 SWALLOWING Consultations 08/04/19 22:48 ED Decision to Admit Stat Ordered Studies 08/05/19 09:57 CT abd pelvis wo con Routine Hospital Course (1) UTI (urinary tract infection): Presented with suprapubic pains and LE weakness bilaterally which is her usual presentation of UTIs. No sepsis, fevers. - Ur cx growing Klebsiella, resistant to Bactrim. - Continued ceftriaxone x 5 days - Finished treatment course prior to discharge. (2) Generalized weakness: In bilateral LEs but has good strength on exam on 08/07. Presumably secondary to acute UTI as patient reports this has occurred in the past. Also has known lower back DJD. - PT/OT recommending SNF - Left knee pain most predominant. X-rays of the left knee showed no fracture. If no improvement in 1-2 weeks, should follow up with orthopedic doctor. (3) HTN (hypertension): BPs were elevated secondary to anxiety & pain. Today, improved to 135/75. - Continue Coreg 18.75mg (increased from admission) - Continue amlodipine (4) CKD (chronic kidney disease) stage 3, GFR 30-59 ml/min: Patient appears to be at baseline creat 1.3-1.4, eGFR ~30. - Avoid nephrotoxins - stopped ibuprofen - Renally dose meds - Follow BMP - Stable by discharge. (5) DM (diabetes mellitus): Hgb A1C 7.9% in 05/2019. - Lowered Lantus dosing from home to Lantus 15 units BID from 20 units in the morning and 15 units at night due to lower blood sugars in the morning. Will need possible further titration. (6) Transaminitis: Elevated AST, ALT, ALK Phos all fairly new recently, TBili normal. Lipase elevated at 518. Already s/p cholecystectomy. CT liver with some subcapsular scarring but not likely to be an issue and pancreas atrophic but no inflammation. - Now LFTs trending downward and lipase normal. - Was on Bactrim and doxy last month for leg cellulitis - could be drug reaction - Could it have been a retained gallbladder stone that passed? Unclear. - No further inpatient needs as all labs have returned to normal. (7) Lower back pain: Chronic LBP, worse here from lying in hospital bed - now improved with Voltaren gel and heating pad. Is now getting OOB and ambulating a bit. - Stopped NSAIDs from home due to CKD - Continue Voltaren gel & tramadol - Continue K-pad (8) Situational anxiety: Worse from being in hospital. (9) Idiopathic urticaria: Sees derm; takes Zyzal as outpatient. Gets erythema and edema very easily anywhere where pressure is applied to her skin or when gets nervous. - Continue Zyrtec 5mg po bid here as replacement (10) DVT prophylaxis: Heparin 5000 units Q12h Total Time Total Time Spent Total Time Spent (In Minutes): 45 Discharge Plan Discharge Items Patient Disposition: Transfer [facility] Reason For Visit: UTI, WEAKNESS Discharge Diagnosis: UTI and weakness Activity: Resume your previous activity Non-emergency contact: Primary Care Provider Call non-emergency contact if: your symptoms worsen Follow-up/Referrals: Humberto Stoll [Primary Care Provider] - Diet: Carb Consistent or DM2 Addtl Attending Provider Instructions: You finished your course of antibiotics before discharge. No more antibiotics are needed. We lowered your long-acting insulin dose from 20 units in the morning and 15 units at night to just 15 units two times per day because of some low morning blood sugars. This should be monitored and adjusted on discharge. We also started some Volataren gel on your left knee where you hurt it when you fell. There are no broken bones on x-ray, but you may need to follow up with an orthopedic doctor if it doesn't feel better in a week or two. Pending Studies at Discharge: No Stand-Alone Forms: My [facility] [address] Skilled Items Patient informed of condition?: Yes DNR: No Discharge Level of Care: Acute rehab Communicable Disease: No Discharge Prognosis: Improving Lines: None Urinary Catheter: No Medications and DC Order Prescriptions: New diclofenac sodium [Voltaren] 1 % Gel 4 g EXT Q6 Qty: 1 RF: 0 Continued Prilosec OTC 20 mg Tablet,Delayed Release (Dr/Ec) 20 mg PO QAM RF: 0 citalopram [Celexa] 20 mg Tablet 20 mg PO QPM RF: 0 citalopram [Celexa] 10 mg Tablet 10 mg PO QAM RF: 0 cranberry 500 mg Capsule 500 mg PO BID RF: 0 levothyroxine [Synthroid] 100 mcg Tablet 100 mcg PO QAM RF: 0 quetiapine [Seroquel] 100 mg Tablet 100 mg PO HS RF: 0 triamcinolone acetonide 0.05 % Ointment 1 applic TOPICAL BID RF: 0 levocetirizine [Xyzal] 5 mg Tablet 5 mg PO BID RF: 0 magnesium oxide 400 mg magnesium Tablet 800 mg PO BID RF: 0 Florastor 250 mg capsule 250 mg PO BID Qty: 20 RF: 0 amlodipine [Norvasc] 10 mg tablet 10 mg PO QAM RF: 0 Changed carvedilol 12.5 mg tablet 18.75 mg PO BID 30 Days Qty: 60 RF: 2 Lantus U-100 Insulin 100 unit/mL Solution 15 unit subcut BID Qty: 0 RF: 0 tramadol 50 mg Tablet 50 mg PO Q4H PRN (Reason: Pain) Qty: 4 RF: 0 Discontinued Lantus U-100 Insulin 100 unit/mL Solution 20 unit SUBCUT QAM RF: 0 ibuprofen [Advil] 200 mg Tablet 200 mg PO Q6H PRN (Reason: Pain) RF: 0 sulfamethoxazole-trimethoprim [Bactrim DS] 800-160 mg tablet 1 tab PO Q12H Qty: 14 RF: 0 Discharge Orders: Discharge Order (Routine); Ordered 08/09/19 Ordered By: Ketan Stoll Admission Data Admit Date/Time: 08/05/19 18:53 Attending Provider: Ketan Stoll Admit Provider: Samm Myers Primary Care Provider: Humberto Stoll Other Providers: Samm Myers ; Kuldip Siddiqi Other Interventions: Discharge Summary Assessment (RN) Last Done: 08/09/19 15:43
== END 2019-08-09 17:15 | DRG 690 ==
LOC: ED 20:30 → 2W 20:30 → SUATTDRO 23:36 → 2W 23:55 → SUATTDRO 08-05 18:53

== ENCOUNTER 2019-09-21 19:47 | Observation (INO) ==
[2019-09-21] MEDS ORDERED: SODIUM CHLORIDE 0.9% 1000ML 500 ML IV ONE (20:01)
--- NOTE | 2019-09-21 20:31 | Emergency Department Note ---
Entered by Alyssa Oates acting as a scribe for History of Present Illness General Chief complaint: Weakness Stated complaint: WEAKNESS Time Seen by Provider: 09/21/19 19:52 History of Present Illness Provider complaint: weakness Onset (ago): day(s) 10 Pain Consistency: + other (worsening) Quality: + other (weakness) Relieved By: not by medication (Macrobid) Associated symptoms: + denies other symptoms (dehydration, dysuria) and + other (diagnosed with UTI 10 days ago, finsihed antibiotics yesterday, lethargic, legs feel weaker than usual); no cough and no nausea/vomiting The patient is an 89 year old female who presents to the ED with complaints of worsening weakness that started 10 days ago. Per nursing staff, the patient was diagnosed with a UTI 10 days ago and was prescribed Macrobid. The patient states that she finished the course of antibiotics yesterday; however, she denies relief. The patient states that she feels lethargic and dehydrated today. The patient states that she has not been able to walk for a few years, but her legs feel weaker than usual. The patient denies cough, vomiting, dysuria and diarrhea. Of note, the patient was at the [place] ER earlier this week, she states that they did not find anything acute and she was discharged. HPI and ROS limited secondary to mental state. Home Medications Home Medications Medication Instructions Recorded Confirmed Type Prilosec OTC 20 mg PO QAM 06/12/19 09/21/19 History cranberry 500 mg PO BID 06/12/19 09/21/19 History levocetirizine [Xyzal] 5 mg PO BID 06/12/19 09/21/19 History levothyroxine [Synthroid] 100 mcg PO QAM 06/12/19 09/21/19 History quetiapine [Seroquel] 100 mg PO HS 06/12/19 09/21/19 History Florastor 250 mg PO BID #20 cap 06/29/19 09/21/19 Rx amlodipine [Norvasc] 10 mg PO QAM 08/04/19 09/21/19 History tramadol 50 mg PO Q4H PRN #4 tab 08/09/19 09/21/19 Rx Bio-Freeze 1 applic TOPICAL UD PRN 09/21/19 09/21/19 History Lantus U-100 Insulin 15 unit SUBCUT HS 09/21/19 09/21/19 History carvedilol [Coreg] 12.5 mg PO BID 09/21/19 09/21/19 History diclofenac sodium [Voltaren] 4 g EXT Q6 PRN 09/21/19 09/21/19 History diphenhydramine HCl [Benadryl] 25 mg PO Q8H PRN 09/21/19 09/21/19 History docusate sodium 100 mg PO BID PRN 09/21/19 09/21/19 History hydroxyzine HCl 25 mg PO BID PRN 09/21/19 09/21/19 History insulin glargine [Lantus U-100 20 unit SUBCUT QAM 09/21/19 09/21/19 History Insulin] magnesium 250 mg PO BID 09/21/19 09/21/19 History nitrofurantoin monohyd/m-cryst 100 mg PO BID 09/21/19 09/21/19 History [Macrobid] ondansetron HCl [Zofran] 8 mg PO TID PRN 09/21/19 09/21/19 History trazodone 50 mg PO HS PRN 09/21/19 09/21/19 History Allergies Allergy/AdvReac Type Severity Reaction Status Date / Time acetaminophen [From Percocet] Allergy Severe swelling/so Verified 09/21/19 20:38 b cephalexin Allergy Unknown RASH Unverified 09/21/19 20:38 morphine Allergy Unknown NAUSEA Unverified 09/21/19 20:38 oxycodone Allergy Unknown DIFFICULTY Unverified 09/21/19 20:38 SWALLOWING propoxyphene Allergy Unknown DIFFICULTY Verified 09/21/19 20:38 SWALLOWING ciprofloxacin [From Cipro] AdvReac Severe LEG NUMB & Verified 09/21/19 20:57 WEAK Past Med/Surg History Social History Preferred Language: Bolivian Communication Ability: Effective Master 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 HPI and ROS limited secondary to mental state. Physical Exam Vital Signs Vital Signs - 24 hr 09/21/19 20:00 09/21/19 20:02 09/21/19 20:39 Temperature 37.2 C Temperature Source Oral Pulse Rate 97 H 74 75 Pulse Rate from SpO2 Sensor 68 Respiratory Rate 20 23 17 Respiratory Effort / Characteristics Non-Labored Spontaneous Respiratory Depth Normal Respiratory Pattern Regular Blood Pressure 176/78 H 176/78 H Blood Pressure Mean 90 110 Pulse Oximetry 94 97 Oxygen Delivery Method Nasal Cannula Oxygen Flow Rate 2 Sepsis Recent Fever Within 48 Hours No Sepsis New/Unexplained Change in Mental Status No Sepsis Action Taken by Nursing No Action Required 09/21/19 20:41 09/21/19 21:00 09/21/19 21:12 Temperature Temperature Source Pulse Rate 74 73 71 Pulse Rate from SpO2 Sensor 77 73 Respiratory Rate 17 19 21 Respiratory Effort / Characteristics Respiratory Depth Respiratory Pattern Blood Pressure 183/76 H 174/72 H Blood Pressure Mean 97 130 Pulse Oximetry 97 98 Oxygen Delivery Method Oxygen Flow Rate Sepsis Recent Fever Within 48 Hours Sepsis New/Unexplained Change in Mental Status Sepsis Action Taken by Nursing 09/21/19 21:30 09/21/19 21:31 09/21/19 22:00 Temperature Temperature Source Pulse Rate 75 76 77 Pulse Rate from SpO2 Sensor 78 80 73 Respiratory Rate 22 19 18 Respiratory Effort / Characteristics Respiratory Depth Respiratory Pattern Blood Pressure 154/97 H Blood Pressure Mean 113 Pulse Oximetry 95 97 92 Oxygen Delivery Method Oxygen Flow Rate Sepsis Recent Fever Within 48 Hours Sepsis New/Unexplained Change in Mental Status Sepsis Action Taken by Nursing 09/21/19 22:01 09/21/19 22:30 09/21/19 22:31 Temperature Temperature Source Pulse Rate 76 75 79 Pulse Rate from SpO2 Sensor 77 78 77 Respiratory Rate 18 20 14 Respiratory Effort / Characteristics Respiratory Depth Respiratory Pattern Blood Pressure 147/116 H 165/112 H Blood Pressure Mean 138 125 Pulse Oximetry 91 93 Oxygen Delivery Method Oxygen Flow Rate Sepsis Recent Fever Within 48 Hours Sepsis New/Unexplained Change in Mental Status Sepsis Action Taken by Nursing GENERAL: Patient is in no acute distress. HEENT: No acute trauma, normocephalic atraumatic, mucous membranes dry, no nasal congestion, no scleral icterus. NECK: No stridor, no adenopathy, no meningismus, trachea is midline. LUNGS: Clear breath sounds bilaterally when listening anteriorly, no respiratory distress, no wheezing. HEART: Irregular rhythm, normal rate, no murmur. ABDOMEN: Soft, nontender, bowel sounds positive, no hernias, no peritonitis. EXTREMITIES: Brace on left knee, mild bilateral pedal edema, no gross deformities. Tender over the base of the fifth metatarsal. No foot or ankle deformity. The lateral ankle is nontender, the medial ankle is mildly tender. NEUROLOGIC: Awake, somewhat confused, poor historian, moves all extremities, answers simple questions well. SKIN: No rash, no jaundice, no diaphoresis. Course Course 1952: Past medical records reviewed. The patient was evaluated in room A10. A complete history and physical exam was performed. 2131: I updated the patient on the test results. The patient's daughter is now in the room. Per daughter, the patient is so weak that she cannot transfer from her wheelchair to the commode. The daughter states that she cannot take care of the patient anymore and she believes the patient needs 24 hour care. The patient states that she twisted her ankle when she was at [place]. I ordered an X-Ray of her ankle. 2140: I discussed the patient's case with Dr. Valero- [facility] Hospitalist. He will evaluate the patient for further management. Consultations Consultation #1: I discussed the patient's case with Dr. Valero- [facility] Ulices porter. He will evaluate the patient for further management. Time: 21:41 Administered Medications Discontinued Medications Sodium Chloride (Nss 1000ml) 500 mls @ 999 mls/hr IV .Q31M ONE Stop: 09/21/19 20:31 Last Infusion: 09/21/19 21:26 Dose: 0 mls/hr Documented by: [id number] Admin: 09/21/19 20:37 Dose: 999 mls/hr Documented by: [id number] Ceftriaxone Sodium (Rocephin) 2,000 mg in 70 mls @ 140 mls/hr IV NOW STA Stop: 09/21/19 21:02 Last Infusion: 09/21/19 21:57 Dose: 0 mls/hr Documented by: [id number] Admin: 09/21/19 21:27 Dose: 140 mls/hr Documented by: [id number] Medical Decision Making Differential Diagnosis Differentials include failed outpatient treatment, dehydration, renal or liver failure, electrolyte imbalance, UTI, pneumonia, stroke, medication reaction. Medical Records Attestation: I reviewed the patient's medical records. Home Medications Current Medication List: was personally reviewed by me Laboratory Data Attestation: I reviewed the patient's lab results. Result diagrams: 09/21/19 20:25 09/21/19 20:25 Lab Results 09/21/19 09/21/19 09/21/19 Range/Units 20:25 20:25 20:25 WBC 13.12 H (4.8-10.8) K/uL RBC 3.71 L (4.2-5.4) M/uL Hgb 10.0 L (12.0-16.0) g/dL Hct 30.9 L (37-47) % MCV 83.3 (80-100) fL MCH 27.0 (25-34) pg MCHC 32.4 (32-36) g/dL RDW Std Deviation 47.2 H (36.4-46.3) fL RDW Coeff of Lyssa 15.3 H (11.5-14.5) % Plt Count 299 (130-400) K/uL MPV 9.2 (7.4-10.4) fL Immature Gran % (Auto) 0.6 % Neut % (Auto) 79.0 % Lymph % (Auto) 12.7 % Lat[place] % (Auto) 5.6 % Eos % (Auto) 1.8 % Baso % (Auto) 0.3 % Immature Gran # (Auto) 0.08 H (0.00-0.02) K/uL Neut # (Auto) 10.36 H (1.4-6.5) K/uL Lymph # (Auto) 1.67 (1.2-3.4) K/uL [place] # (Auto) 0.74 H (0.11-0.59) K/uL Eos # (Auto) 0.23 (0-0.5) K/uL Baso # (Auto) 0.04 (0-0.2) K/uL PT 11.1 (9.0-12.0) Seconds INR 1.1 (0.9-1.1) APTT 26.0 (21.0-31.0) Seconds PTT Ratio 1.0 Sodium 138 (136-145) mmol/L Potassium 3.8 (3.5-5.1) mmol/L Chloride 105 (98-107) mmol/L Carbon Dioxide 28 (21-32) mmol/L Anion Gap 6.0 (3-11) BUN 20 H (7-18) mg/dl Creatinine 1.73 H (0.6-1.2) mg/dl Est Cr Clr Drug Dosing 22.5 ml/min Est GFR ( Amer) 30.0 Est GFR (Non-Af Amer) 25.9 BUN/Creatinine Ratio 11.7 (10-20) Glucose 74 (70-99) mg/dl Lactate (0.4-2.0) mmol/L Calcium 8.4 L (8.5-10.1) mg/dl Magnesium 2.2 (1.8-2.4) mg/dl Total Bilirubin 0.3 (0.2-1) mg/dl AST 43 H (15-37) U/L ALT 42 (12-78) U/L Alkaline Phosphatase 194 H (45-117) U/L Ammonia (11-32) umol/L Troponin I < 0.015 (0-0.045) ng/ml Total Protein 7.1 (6.4-8.2) gm/dl Albumin 2.7 L (3.4-5.0) gm/dl Globulin 4.4 H (2.5-4.0) gm/dl Albumin/Globulin Ratio 0.6 L (0.9-2) Procalcitonin (0-0.5) ng/ml Urine Color Urine Appearance (Clear) Urine pH (4.5-7.5) Ur Specific [place] (1.000-1.030) Urine Protein (Negative) Urine Glucose (UA) (Negative) Urine Ketones (Negative) Urine Blood (Negative) Urine Nitrite (Negative) Urine Bilirubin (Negative) Urine Urobilinogen (Negative) Ur Leukocyte Esterase (Negative) Urine WBC (Auto) (0-5) /hpf Urine RBC (Auto) (0-4) /hpf U Hyaline Cast (Auto) (0-5) /lpf U Epithel Cells (Auto) (0-5) /lpf Urine Bacteria (Auto) (Negative) 09/21/19 09/21/19 09/21/19 Range/Units 20:25 20:25 20:25 WBC (4.8-10.8) K/uL RBC (4.2-5.4) M/uL Hgb (12.0-16.0) g/dL Hct (37-47) % MCV (80-100) fL MCH (25-34) pg MCHC (32-36) g/dL RDW Std Deviation (36.4-46.3) fL RDW Coeff of Lyssa (11.5-14.5) % Plt Count (130-400) K/uL MPV (7.4-10.4) fL Immature Gran % (Auto) % Neut % (Auto) % Lymph % (Auto) % [place]imer % (Auto) % Eos % (Auto) % Baso % (Auto) % Immature Gran # (Auto) (0.00-0.02) K/uL Neut # (Auto) (1.4-6.5) K/uL Lymph # (Auto) (1.2-3.4) K/uL [place] # (Auto) (0.11-0.59) K/uL Eos # (Auto) (0-0.5) K/uL Baso # (Auto) (0-0.2) K/uL PT (9.0-12.0) Seconds INR (0.9-1.1) APTT (21.0-31.0) Seconds PTT Ratio Sodium (136-145) mmol/L Potassium (3.5-5.1) mmol/L Chloride (98-107) mmol/L Carbon Dioxide (21-32) mmol/L Anion Gap (3-11) BUN (7-18) mg/dl Creatinine (0.6-1.2) mg/dl Est Cr Clr Drug Dosing ml/min Est GFR ( Amer) Est GFR (Non-Af Amer) BUN/Creatinine Ratio (10-20) Glucose (70-99) mg/dl Lactate 0.5 (0.4-2.0) mmol/L Calcium (8.5-10.1) mg/dl Magnesium (1.8-2.4) mg/dl Total Bilirubin (0.2-1) mg/dl AST (15-37) U/L ALT (12-78) U/L Alkaline Phosphatase (45-117) U/L Ammonia < 10.0 L (11-32) umol/L Troponin I (0-0.045) ng/ml Total Protein (6.4-8.2) gm/dl Albumin (3.4-5.0) gm/dl Globulin (2.5-4.0) gm/dl Albumin/Globulin Ratio (0.9-2) Procalcitonin < 0.05 (0-0.5) ng/ml Urine Color Urine Appearance (Clear) Urine pH (4.5-7.5) Ur Specific [place] (1.000-1.030) Urine Protein (Negative) Urine Glucose (UA) (Negative) Urine Ketones (Negative) Urine Blood (Negative) Urine Nitrite (Negative) Urine Bilirubin (Negative) Urine Urobilinogen (Negative) Ur Leukocyte Esterase (Negative) Urine WBC (Auto) (0-5) /hpf Urine RBC (Auto) (0-4) /hpf U Hyaline Cast (Auto) (0-5) /lpf U Epithel Cells (Auto) (0-5) /lpf Urine Bacteria (Auto) (Negative) 09/21/19 Range/Units 20:35 WBC (4.8-10.8) K/uL RBC (4.2-5.4) M/uL Hgb (12.0-16.0) g/dL Hct (37-47) % MCV (80-100) fL MCH (25-34) pg MCHC (32-36) g/dL RDW Std Deviation (36.4-46.3) fL RDW Coeff of Lyssa (11.5-14.5) % Plt Count (130-400) K/uL MPV (7.4-10.4) fL Immature Gran % (Auto) % Neut % (Auto) % Lymph % (Auto) % [place] % (Auto) % Eos % (Auto) % Baso % (Auto) % Immature Gran # (Auto) (0.00-0.02) K/uL Neut # (Auto) (1.4-6.5) K/uL Lymph # (Auto) (1.2-3.4) K/uL [place] # (Auto) (0.11-0.59) K/uL Eos # (Auto) (0-0.5) K/uL Baso # (Auto) (0-0.2) K/uL PT (9.0-12.0) Seconds INR (0.9-1.1) APTT (21.0-31.0) Seconds PTT Ratio Sodium (136-145) mmol/L Potassium (3.5-5.1) mmol/L Chloride (98-107) mmol/L Carbon Dioxide (21-32) mmol/L Anion Gap (3-11) BUN (7-18) mg/dl Creatinine (0.6-1.2) mg/dl Est Cr Clr Drug Dosing ml/min Est GFR ( Amer) Est GFR (Non-Af Amer) BUN/Creatinine Ratio (10-20) Glucose (70-99) mg/dl Lactate (0.4-2.0) mmol/L Calcium (8.5-10.1) mg/dl Magnesium (1.8-2.4) mg/dl Total Bilirubin (0.2-1) mg/dl AST (15-37) U/L ALT (12-78) U/L Alkaline Phosphatase (45-117) U/L Ammonia (11-32) umol/L Troponin I (0-0.045) ng/ml Total Protein (6.4-8.2) gm/dl Albumin (3.4-5.0) gm/dl Globulin (2.5-4.0) gm/dl Albumin/Globulin Ratio (0.9-2) Procalcitonin (0-0.5) ng/ml Urine Color Yellow Urine Appearance Clear (Clear) Urine pH 6.0 (4.5-7.5) Ur Specific [place] 1.010 (1.000-1.030) Urine Protein 3+ H (Negative) Urine Glucose (UA) Trace H (Negative) Urine Ketones Negative (Negative) Urine Blood Negative (Negative) Urine Nitrite Negative (Negative) Urine Bilirubin Negative (Negative) Urine Urobilinogen Negative (Negative) Ur Leukocyte Esterase Negative (Negative) Urine WBC (Auto) 0 (0-5) /hpf Urine RBC (Auto) 0-4 (0-4) /hpf U Hyaline Cast (Auto) 0 (0-5) /lpf U Epithel Cells (Auto) 0-5 (0-5) /lpf Urine Bacteria (Auto) Negative (Negative) Imaging Data Radiologist's Impression: Radiology results as stated below per my review and the radiologist's interpretation: XR chest 1V portable CLINICAL HISTORY: 89 years-old Female presenting with Sepsis. TECHNIQUE: Portable upright AP view of the chest was obtained. COMPARISON: 08/04/2019. FINDINGS: Atherosclerosis of the aortic arch. Cardiac silhouette enlarged. Mildly low lung volumes. Minimal bibasilar opacities. Suspected trace bilateral pleural effusions. No pneumothorax. Degenerative changes of the left glenohumeral joint. Upper abdomen normal. IMPRESSION: 1. Minimal bibasilar atelectasis suspected with possible trace bilateral pleural effusions. 2. Cardiomegaly. No significant congestive changes apparent. Electronically signed by: Taqueria Gregory M.D. 09/21/2019 8:46 PM XR ankle LT min 3V routine CLINICAL HISTORY: 89 years-old Female presenting with twisted left ankle. TECHNIQUE: Frontal, mortise, and lateral views of the left ankle were obtained. COMPARISON: None. FINDINGS: Ankle mortise congruent. Mild medial joint space loss and osteophytosis. Prominent enthesophyte at the origin of plantar fascia. Questionable radiolucency through the base of the fifth metatarsal concerning for fracture. No malalignment. Underlying osteopenia. Prominent atherosclerosis. IMPRESSION: Possible fracture of the base of the fifth metatarsal. Recommend radiographs of the left foot for better evaluation. The degree of osteopenia significantly limits evaluation for acute osseous injury. Electronically signed by: Taqueria Gregory M.D. 09/21/2019 10:00 PM XR foot LT min 3V routine CLINICAL HISTORY: 89 years-old Female presenting with pain , swelling. TECHNIQUE: Frontal, oblique, and lateral views of the left foot were obtained. COMPARISON: Ankle radiographs performed earlier today. FINDINGS: Fracture of the base of the fifth metatarsal, which is nondisplaced transversely oriented and may be extra-articular relative to the articulation with the cuboid. This may affect the articulation with the base of the fourth metatarsal. Underlying severe osteopenia. No malalignment. Mild diffuse soft tissue swelling. Atherosclerosis. Degenerative changes of the ankle mortise. IMPRESSION: 1. Nondisplaced extra-articular transversely oriented fracture of the base of the fifth metatarsal. 2. Severe osteopenia. Electronically signed by: Taqueria Gregory M.D. 09/21/2019 10:38 PM ECG Data Attestation: I personally reviewed and interpreted this ECG as follows: Indication: + weakness Rate (beats per minute): 73 Rhythm: + sinus rhythm ECG ST segments: no ST elevation ECG Findings: + PACs and + Other (QTC 469); no PVCs Blood Pressure Blood Pressure Findings: Elevated blood pressure Blood Pressure Disposition: further management by hospitalist [facility] Narrative There is a mild leukocytosis, this could be consistent with infection. The patient is anemic but this is baseline looking back at previous testing. No coagulopathy. There is some renal insufficiency but this appears baseline. No significant electrolyte abnormality requiring correction. There were a few subtle liver enzyme elevations. Ammonia level was not elevated. EKG shows a sinus rhythm, no acute ischemia. Cardiac enzyme testing x1 is not consistent with acute cardiac injury. Lactic acid level and procalcitonin levels were both normal. Urinalysis does not show any obvious infection. Chest film shows some mild fluid overload, no pneumonia. The patient was given IV ceftriaxone 2 g. This was given for antibiotic coverage. She received IV saline. The patient's daughter has arrived. The patient is so weak that she can no longer transfer from her wheelchair to the toilet. She is going to require 24- hour care and the daughter cannot provide this. The patient cannot be discharg ed home. Patient very well may have a partially treated UTI. She has a history of recurrent UTIs. She has done well with ceftriaxone in the past, as noted above, she received a dose of IV ceftriaxone in the ED. I spoke to the patient and the daughter at length, I spoke to the on-call hospitalist. Case management has been involved. Of note, the patient's daughter added that the patient has noticed some pain in her left ankle for a few days. She had the ankle twisted when being transferred. I did shoot a film of the left ankle and left foot. There is a fracture to the base of the fifth metatarsal, there is no ankle fracture. A postop shoe was applied. Impression & Plan Weakness, UTI (urinary tract infection), Dehydration, Failure of outpatient treatment, Fracture of left foot Discharge Plan Visit Data Chief Complaint: Weakness Stated Complaint: WEAKNESS ED Provider: Darrian Garrison Discharge Problem: Weakness, UTI (urinary tract infection), Dehydration, Failure of outpatient treatment, Fracture of left foot Patient Disposition: Being Evaluated by Hospitalist Forms Stand Alone Forms: [facility] [employer] Prescriptions Prescriptions: No Action Prilosec OTC 20 mg Tablet,Delayed Release (Dr/Ec) 20 mg PO QAM RF: 0 cranberry 500 mg Capsule 500 mg PO BID RF: 0 levothyroxine [Synthroid] 100 mcg Tablet 100 mcg PO QAM RF: 0 quetiapine [Seroquel] 100 mg Tablet 100 mg PO HS RF: 0 levocetirizine [Xyzal] 5 mg Tablet 5 mg PO BID RF: 0 Florastor 250 mg capsule 250 mg PO BID Qty: 20 RF: 0 amlodipine [Norvasc] 10 mg tablet 10 mg PO QAM RF: 0 tramadol 50 mg Tablet 50 mg PO Q4H PRN (Reason: Pain) Qty: 4 RF: 0 carvedilol [Coreg] 12.5 mg tablet 12.5 mg PO BID RF: 0 Lantus U-100 Insulin 100 unit/mL Solution 20 unit SUBCUT QAM RF: 0 trazodone 50 mg tablet 50 mg PO HS PRN (Reason: Sleep) RF: 0 ondansetron HCl [Zofran] 8 mg tablet 8 mg PO TID PRN (Reason: Nausea) RF: 0 diphenhydramine HCl [Benadryl] 25 mg Capsule 25 mg PO Q8H PRN (Reason: ALLERGIES) RF: 0 hydroxyzine HCl 25 mg tablet 25 mg PO BID PRN (Reason: Anxiety) RF: 0 magnesium 250 mg Tablet 250 mg PO BID RF: 0 docusate sodium 100 mg Tablet 100 mg PO BID PRN (Reason: Constipation) RF: 0 nitrofurantoin monohyd/m-cryst [Macrobid] 100 mg capsule 100 mg PO BID RF: 0 Bio-Freeze 1 applic topical UD PRN (Reason: Pain) RF: 0 Lantus U-100 Insulin 100 unit/mL solution 15 unit subcut HS RF: 0 diclofenac sodium [Voltaren] 1 % gel 4 g EXT Q6 PRN (Reason: Pain) RF: 0 Referrals Referrals: Humberto Stoll [Primary Care Provider] - Discharge Problem: UTI (urinary tract infection) Qualifiers: Urinary tract infection type: site unspecified Hematuria presence: without hematuria Qualified Code(s): N39.0 - Urinary tract infection, site not specified Fracture of left foot Qualifiers: Encounter type: initial encounter Fracture type: closed Qualified Code(s): S92.902A - Unspecified fracture of left foot, initial encounter for closed fracture The scribe's documentation has been prepared under my direction and personally reviewed by me in its entirety. I confirm that the note above accurately reflects all work, treatment, procedures, and medical decision making performed by me.
[2019-09-21] MEDS ORDERED: cefTRIAXone SODIUM 2,000 MG/70 ML BAG IV STA (20:33)
[2019-09-21 20:39] LABS: Basophils # (auto) 0.04 K/uL (0-0.2); Basophils % (auto) 0.3 %; Eosinophils # (auto) 0.23 K/uL (0-0.5); Eosinophils % (auto) 1.8 %; Hematocrit (blood only) 30.9 % (37-47); Immature Granulocytes # (auto) 0.08 K/uL (0.00-0.02); Immature Granulocytes % (auto) 0.6 %; Lymphocytes # (auto) 1.67 K/uL (1.2-3.4); Lymphocytes % (auto) 12.7 %; Mean Corpuscular Hgb Conc 32.4 g/dL (32-36); Mean Corpuscular Volume 83.3 fL (80-100); Mean Platelet Volume 9.2 fL (7.4-10.4); Monocytes # (auto) 0.74 K/uL (0.11-0.59); Monocytes % (auto) 5.6 %; Neutrophils # (auto) 10.36 K/uL (1.4-6.5); Platelet Count 299 K/uL (130-400); RDW Coefficient of Variation 15.3 % (11.5-14.5); RDW Standard Deviation 47.2 fL (36.4-46.3); Red Blood Count 3.71 M/uL (4.2-5.4); White Blood Count 13.12 K/uL (4.8-10.8)
--- NOTE | 2019-09-21 20:48 | XRay Report ---
XR chest 1V portable CLINICAL HISTORY: 89 years-old Female presenting with Sepsis. TECHNIQUE: Portable upright AP view of the chest was obtained. COMPARISON: 08/04/2019. FINDINGS: Atherosclerosis of the aortic arch. Cardiac silhouette enlarged. Mildly low lung volumes. Minimal bib asilar opacities. Suspected trace bilateral pleural effusions. No pneumothorax. Degenerative changes of the left glenohumeral joint. Upper abdomen normal. IMPRESSION: 1. Minimal bibasilar atelectasis suspected with possible trace bilateral pleural effusions. 2. Cardiomegaly. No significant congestive changes apparent. Electronically signed by: Taqueria Gregory M.D. 09/21/2019 8:46 PM
[2019-09-21 20:50] LABS: Appearance Urine Clear (Clear); Bacteria Urine Automated Negative (Negative); Bilirubin Urine Negative (Negative); Blood Urine Negative (Negative); Cast Urine Automated 0 /lpf (0-5); Color Urine Yellow; Epithelial Cell Urine Auto 0-5 /lpf (0-5); Glucose Urine UA Trace (Negative); Ketones Urine Negative (Negative); Leukocyte Esterase Urine Negative (Negative); Nitrite Urine Negative (Negative); Protein Urine 3+ (Negative); RBC Urine Automated 0-4 /hpf (0-4); Urobilinogen Urine Negative (Negative); WBC Urine Automated 0 /hpf (0-5)
[2019-09-21 20:50] LABS: INR 1.1 (0.9-1.1); Prothrombin Time 11.1 Seconds (9.0-12.0)
[2019-09-21 20:58] LABS: Alanine Aminotransferase 42 U/L (12-78); Albumin Level 2.7 gm/dl (3.4-5.0); Aspartate Aminotransferase 43 U/L (15-37); BUN Creatinine Ratio 11.7 (10-20); Blood Urea Nitrogen 20 mg/dl (7-18); Calcium 8.4 mg/dl (8.5-10.1); Carbon Dioxide 28 mmol/L (21-32); Chloride 105 mmol/L (98-107); Creatinine Clr Calc Pharmacy 22.5 ml/min; Est GFR (Non-African American) 25.9; Glucose 74 mg/dl (70-99); Magnesium 2.2 mg/dl (1.8-2.4); Potassium 3.8 mmol/L (3.5-5.1); Sodium 138 mmol/L (136-145)
[2019-09-21 21:02] LABS: Albumin Globulin Ratio 0.6 (0.9-2); Alkaline Phosphatase 194 U/L (45-117); Bilirubin,Total 0.3 mg/dl (0.2-1); Globulin 4.4 gm/dl (2.5-4.0); Total Protein 7.1 gm/dl (6.4-8.2); Troponin I < 0.015 ng/ml (0-0.045)
--- NOTE | 2019-09-21 22:01 | XRay Report ---
XR ankle LT min 3V routine CLINICAL HISTORY: 89 years-old Female presenting with twisted left ankle. TECHNIQUE: Frontal, mortise, and lateral views of the left ankle were obtained. COMPARISON: None. FINDINGS: Ankle mortise congruent. Mild medial joint space loss and osteophytosis. Prominent enthesophyte at th e origin of plantar fascia. Questionable radiolucency through the base of the fifth metatarsal concer angie for fracture. No malalignment. Underlying osteopenia. Prominent atherosclerosis. IMPRESSION: Possible fracture of the base of the fifth metatarsal. Recommend radiographs of the left foot for bet ter evaluation. The degree of osteopenia significantly limits evaluation for acute osseous injury. Electronically signed by: Taqueria Gregory M.D. 09/21/2019 10:00 PM
--- NOTE | 2019-09-21 22:39 | XRay Report ---
XR foot LT min 3V routine CLINICAL HISTORY: 89 years-old Female presenting with pain , swelling. TECHNIQUE: Frontal, oblique, and lateral views of the left foot were obtained. COMPARISON: Ankle radiographs performed earlier today. FINDINGS: Fracture of the base of the fifth metatarsal, which is nondisplaced transversely oriented and may be extra-articular relative to the articulation with the cuboid. This may affect the articulation with t he base of the fourth metatarsal. Underlying severe osteopenia. No malalignment. Mild diffuse soft ti ssue swelling. Atherosclerosis. Degenerative changes of the ankle mortise. IMPRESSION: 1. Nondisplaced extra-articular transversely oriented fracture of the base of the fifth metatarsal. 2. Severe osteopenia. Electronically signed by: Taqueria Gregory M.D. 09/21/2019 10:38 PM
[2019-09-22] MEDS ORDERED: MAGNESIUM HYDROXIDE SUSP 30 ML UDC PO PRN (00:45)
[2019-09-22] MEDS ORDERED: BIO FREEZE TOP PRN (00:45)
[2019-09-22] MEDS ORDERED: NON-FORMULARY MEDICATION (Cranberry 500 MG) PO SCH (00:45)
[2019-09-22] MEDS ORDERED: ALUMINUM/MAGNESIUM SUSP 30 ML UDC PO PRN (00:45)
[2019-09-22] MEDS ORDERED: ONDANSETRON 8 MG TABLET PO PRN (00:45)
[2019-09-22] MEDS ORDERED: ONDANSETRON INJ 2 MG/ML 2 ML VIAL IV PRN (00:45)
[2019-09-22] MEDS ORDERED: DICLOFENAC SOD 1% GEL 100 GM TUBE EXT PRN (00:45)
[2019-09-22] MEDS ORDERED: TRAMADOL HCL 50 MG TABLET ONE (00:50)
[2019-09-22] MEDS ORDERED: DOCUSATE SODIUM 100 MG CAP PO PRN (00:57)
[2019-09-22] MEDS: TRAMADOL HCL 50 MG TABLET PO PRN ×4 (01:09→23:19)
--- NOTE | 2019-09-22 01:09 | History & Physical Report ---
Date of Service September 22, 2019 The patient was seen and examined on September 21, 2019 Assessment & Plan (1) UTI (urinary tract infection): was on macobid for 10 days. Given ceftriaxone IV in the ED. allergic to cephalexin and cipro Place on aztreonam IV Present on Admission?: Yes (2) Generalized weakness: may be due to: general deconditioning, UTI, macrobid, insomnia worsening, others Present on Admission?: Yes (3) CKD (chronic kidney disease) stage 3, GFR 30-59 ml/min: Creatinine 1.73 upon admission, with range1.33-1.74 Present on Admission?: Yes (4) Fracture of left foot: continue to use tramadol 50mg q4h prn, occasionally uses 100mg HS Present on Admission?: Yes (5) HTN (hypertension): continue amlodipine, and carvedilol Present on Admission?: Yes (6) DM (diabetes mellitus): continue Lantus but reduce AM 20 to 15, and PM [address] on accuchecks with novolog coverage. Present on Admission?: Yes (7) Situational anxiety: situational anxiety/insomnia- continue hydroxyzine, seroquel and trazodone. Present on Admission?: Yes (8) Hypothyroidism (acquired): continue levothyroxine 100 mcg daily Present on Admission?: Yes (9) GERD (gastroesophageal reflux disease): change prilosec OTC to pantoprazole 40mg daily Present on Admission?: Yes (10) Generalized osteoarthritis: continue tramadol Present on Admission?: Yes History of Present Illness Chief Complaint: The patient presents to the ED with complaint of generalized weakness, as she is presently being treated for a UTI with macrobid from an outside hospital. Primary Care Provider: Humberto Stoll The patient is an 89 yo female with a PMH including UTI, transaminitis, anxiety, CKD stage III, HTN, DM, OA, hypothyroidism, GERD and allergy, who was started on macrobid 10 days ago for treatment of a UTI, having finished the course of treatment yesterday. She continues to have urinary symptoms, and has felt progressively more weak. Her movements consist of pivoting from chair to bed or to commode, having not walked for years, but her legs feel weaker than usual, and she also recently noted left foot pain. She was seen at [facility] earlier this week, but no acute findings were noted. Allergies Allergy/AdvReac Type Severity Reaction Status Date / Time acetaminophen [From Percocet] Allergy Severe swelling/so Verified 09/21/19 20:38 b cephalexin Allergy Unknown RASH Unverified 09/21/19 20:38 morphine Allergy Unknown NAUSEA Unverified 09/21/19 20:38 oxycodone Allergy Unknown DIFFICULTY Unverified 09/21/19 20:38 SWALLOWING propoxyphene Allergy Unknown DIFFICULTY Verified 09/21/19 20:38 SWALLOWING ciprofloxacin [From Cipro] AdvReac Severe LEG NUMB & Verified 09/21/19 20:57 WEAK Home Medications Home Medications Medication Instructions Recorded Confirmed Type Prilosec OTC 20 mg PO QAM 06/12/19 09/22/19 History cranberry 500 mg PO BID 06/12/19 09/22/19 History levocetirizine [Xyzal] 5 mg PO BID 06/12/19 09/22/19 History levothyroxine [Synthroid] 100 mcg PO QAM 06/12/19 09/22/19 History quetiapine [Seroquel] 100 mg PO HS 06/12/19 09/22/19 History Florastor 250 mg PO BID #20 cap 06/29/19 09/22/19 Rx amlodipine [Norvasc] 10 mg PO QAM 08/04/19 09/22/19 History tramadol 50 mg PO Q4H PRN #4 tab 08/09/19 09/22/19 Rx Bio-Freeze 1 applic TOPICAL UD PRN 09/21/19 09/22/19 History Lantus U-100 Insulin 15 unit SUBCUT HS 09/21/19 09/22/19 History carvedilol [Coreg] 12.5 mg PO BID 09/21/19 09/22/19 History diclofenac sodium [Voltaren] 4 g EXT Q6 PRN 09/21/19 09/22/19 History diphenhydramine HCl [Benadryl] 25 mg PO Q8H PRN 09/21/19 09/21/19 History docusate sodium 100 mg PO BID PRN 09/21/19 09/22/19 History hydroxyzine HCl 25 mg PO BID PRN 09/21/19 09/22/19 History insulin glargine [Lantus U-100 20 unit SUBCUT QAM 09/21/19 09/22/19 History Insulin] magnesium 250 mg PO BID 09/21/19 09/22/19 History nitrofurantoin monohyd/m-cryst 100 mg PO BID 09/21/19 09/21/19 History [Macrobid] ondansetron HCl [Zofran] 8 mg PO TID PRN 09/21/19 09/22/19 History trazodone 50 mg PO HS PRN 09/21/19 09/21/19 History Past Med/Surg History Medical History (Updated 09/22/19 @ 04:14 by Anil Valero MD) Chronic UTI Degenerative disc disease DM (diabetes mellitus) Generalized osteoarthritis GERD (gastroesophageal reflux disease) HTN (hypertension) Hypothyroidism (acquired) Kidney stones Neuropathy 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) Surgical History (Updated 09/22/19 @ 02:11 by Tigre Fitzpatrick RN) History of appendectomy History of cholecystectomy Social History Preferred Language: Portuguese Communication Ability: Effective Financial Aid Coordinator Required: No Beliefs That Will Affect Care: None marital status: / Current Living Situation: Family Current Living Situation Comment: apartment with daughter Other Information That Helps Us Care for You: No Feels Safe at Home: Yes Safety Concerns: Feels Safe At This Time Smoking Status: Never smoker Do You Dip or Chew Tobacco: No ; Second Hand Exposure: No ; Tobacco Cessation Education Requested by Patient: No Hx Alcohol Use: No Hx Substance Use: No Review of Systems Review of Systems: The patient denies chest pain, palpitations, SOB, MCCRACKEN, nausea, vomiting, diarrhea, constipation, fevers, chills, headaches lightheadedness, LOC. At least 10 systems have been reviewed, and are otherwise negative unless noted above. Physical Exam Constitutional: + ill appearing, + morbidly obese and cooperative Eyes: PERRL, conjunctivae normal, anicteric sclerae ENMT: external ear and nose normal, oropharynx normal Neck: trachea midline, no thyromegaly normal visual inspection Respiratory: normal respiratory effort, lungs clear to auscultation Cardiovascular: RRR, no murmur, no edema Gastrointestinal (Abdomen): normal bowel sounds, soft, nontender, no hepatosplenomegaly Musculoskeletal: no cyanosis or clubbing, extremities motor strength 5/5 Extremities: + foot abnormality (pain over 5th MTP) Left Skin: no rashes, warm and dry Neurologic: CN's II-XI intact bilaterally Psychiatric: Orientation: alert and oriented x 3 Results & Data Vital Signs (Past 12 Hours) Vital Signs Temp Pulse Resp BP Pulse Ox 09/22/19 00:16 80 18 172/80 H 94 09/21/19 22:31 79 14 93 09/21/19 22:30 75 20 165/112 H 09/21/19 22:01 76 18 147/116 H 91 09/21/19 22:00 77 18 92 09/21/19 21:31 76 19 154/97 H 97 09/21/19 21:30 75 22 95 09/21/19 21:12 71 21 174/72 H 98 09/21/19 21:00 73 19 09/21/19 20:41 74 17 183/76 H 97 09/21/19 20:39 75 17 09/21/19 20:02 99.0 F 74 23 176/78 H 97 09/21/19 20:00 97 H 20 176/78 H 94 Laboratory Results Laboratory Results WBC 13.12 K/uL (4.8-10.8) H 09/21/19 20:25 RBC 3.71 M/uL (4.2-5.4) L 09/21/19 20:25 Hgb 10.0 g/dL (12.0-16.0) L 09/21/19 20:25 Hct 30.9 % (37-47) L 09/21/19 20:25 MCV 83.3 fL (80-100) 09/21/19 20:25 MCH 27.0 pg (25-34) 09/21/19 20:25 MCHC 32.4 g/dL (32-36) 09/21/19 20:25 RDW Std Deviation 47.2 fL (36.4-46.3) H 09/21/19 20:25 RDW Coeff of Lyssa 15.3 % (11.5-14.5) H 09/21/19 20:25 Plt Count 299 K/uL (130-400) 09/21/19 20:25 MPV 9.2 fL (7.4-10.4) 09/21/19 20:25 Immature Gran % (Auto) 0.6 % 09/21/19 20:25 Neut % (Auto) 79.0 % 09/21/19 20:25 Lymph % (Auto) 12.7 % 09/21/19 20:25 [place] % (Auto) 5.6 % 09/21/19 20:25 Eos % (Auto) 1.8 % 09/21/19 20:25 Baso % (Auto) 0.3 % 09/21/19 20:25 Immature Gran # (Auto) 0.08 K/uL (0.00-0.02) H 09/21/19 20:25 Neut # (Auto) 10.36 K/uL (1.4-6.5) H 09/21/19 20:25 Lymph # (Auto) 1.67 K/uL (1.2-3.4) 09/21/19 20:25 [place] # (Auto) 0.74 K/uL (0.11-0.59) H 09/21/19 20:25 Eos # (Auto) 0.23 K/uL (0-0.5) 09/21/19 20:25 Baso # (Auto) 0.04 K/uL (0-0.2) 09/21/19 20:25 PT 11.1 Seconds (9.0-12.0) 09/21/19 20:25 INR 1.1 (0.9-1.1) 09/21/19 20:25 APTT 26.0 Seconds (21.0-31.0) 09/21/19 20:25 PTT Ratio 1.0 09/21/19 20:25 Sodium 138 mmol/L (136-145) 09/21/19 20:25 Potassium 3.8 mmol/L (3.5-5.1) 09/21/19 20:25 Chloride 105 mmol/L (98-107) 09/21/19 20:25 Carbon Dioxide 28 mmol/L (21-32) 09/21/19 20:25 Anion Gap 6.0 (3-11) 09/21/19 20:25 BUN 20 mg/dl (7-18) H 09/21/19 20:25 Creatinine 1.73 mg/dl (0.6-1.2) H 09/21/19 20:25 Est Cr Clr Drug Dosing 22.5 ml/min 09/21/19 20:25 Est GFR ( Amer) 30.0 09/21/19 20:25 Est GFR (Non-Af Amer) 25.9 09/21/19 20:25 BUN/Creatinine Ratio 11.7 (10-20) 09/21/19 20:25 Glucose 74 mg/dl (70-99) 09/21/19 20:25 Lactate 0.5 mmol/L (0.4-2.0) 09/21/19 20:25 Calcium 8.4 mg/dl (8.5-10.1) L 09/21/19 20:25 Magnesium 2.2 mg/dl (1.8-2.4) 09/21/19 20:25 Total Bilirubin 0.3 mg/dl (0.2-1) 09/21/19 20:25 AST 43 U/L (15-37) H 09/21/19 20:25 ALT 42 U/L (12-78) 09/21/19 20:25 Alkaline Phosphatase 194 U/L (45-117) H 09/21/19 20:25 Ammonia < 10.0 umol/L (11-32) L 09/21/19 20:25 Troponin I < 0.015 ng/ml (0-0.045) 09/21/19 20:25 Total Protein 7.1 gm/dl (6.4-8.2) 09/21/19 20:25 Albumin 2.7 gm/dl (3.4-5.0) L 09/21/19 20:25 Globulin 4.4 gm/dl (2.5-4.0) H 09/21/19 20:25 Albumin/Globulin Ratio 0.6 (0.9-2) L 09/21/19 20:25 Procalcitonin < 0.05 ng/ml (0-0.5) 09/21/19 20:25 Urine Color Yellow 09/21/19 20:35 Urine Appearance Clear (Clear) 09/21/19 20:35 Urine pH 6.0 (4.5-7.5) 09/21/19 20:35 Ur Specific [place] 1.010 (1.000-1.030) 09/21/19 20:35 Urine Protein 3+ (Negative) H 09/21/19 20:35 Urine Glucose (UA) Trace (Negative) H 09/21/19 20:35 Urine Ketones Negative (Negative) 09/21/19 20:35 Urine Blood Negative (Negative) 09/21/19 20:35 Urine Nitrite Negative (Negative) 09/21/19 20:35 Urine Bilirubin Negative (Negative) 09/21/19 20:35 Urine Urobilinogen Negative (Negative) 09/21/19 20:35 Ur Leukocyte Esterase Negative (Negative) 09/21/19 20:35 Urine WBC (Auto) 0 /hpf (0-5) 09/21/19 20:35 Urine RBC (Auto) 0-4 /hpf (0-4) 09/21/19 20:35 U Hyaline Cast (Auto) 0 /lpf (0-5) 09/21/19 20:35 U Epithel Cells (Auto) 0-5 /lpf (0-5) 09/21/19 20:35 Urine Bacteria (Auto) Negative (Negative) 09/21/19 20:35 Diagnostic Findings [place], [place] [phone] XRay Report Patient: VENANCIO SAVAGE Date: 09/21/19 MR#: [id number]: [address] Acct ID:[id number]: Date: 1930[facility] Zip: [place] [address] Age: 89Location: ED Sex: F Room/Bed: Att Phy:Diagnosis: WEAKNESS Marleny Phy: Humberto Stoll M.D.Service Date: 09/21/19 [facility] Phy: Humberto Stoll M.D.Interpreting Phy: Taqueria Gregory MD Admit Phy: Ordering Phy: Darrian Garrison M.D. cc: ~ XR chest 1V portable CLINICAL HISTORY: 89 years-old Female presenting with Sepsis. TECHNIQUE: Portable upright AP view of the chest was obtained. COMPARISON: 08/04/2019. FINDINGS: Atherosclerosis of the aortic arch. Cardiac silhouette enlarged. Mildly low lung volumes. Minimal bibasilar opacities. Suspected trace bilateral pleural effusions. No pneumothorax. Degenerative changes of the left glenohumeral joint. Upper abdomen normal. IMPRESSION: 1. Minimal bibasilar atelectasis suspected with possible trace bilateral pleural effusions. 2. Cardiomegaly. No significant congestive changes apparent. Electronically signed by: Taqueria Gregory M.D. 09/21/2019 8:46 PM Dictated: 09/21/192041 Transcribed: 09/21/192041 [facility], [place] [phone] XRay Report Patient: VENANCIO SAVAGE Date: 09/21/19 MR#: [id number]: [address] Acct ID:[id number]: Date: 1930[facility] Zip: [place] [address] Age: 89Location: ED Sex: F Room/Bed: Att Phy:Diagnosis: WEAKNESS Marleny Phy: Humberto Stoll M.D.Service Date: 09/21/19 Fam Phy: Humberto Stoll M.D.Interpreting Phy: Taqueria Gregory MD Admit Phy: Ordering Phy: Darrian Garrison M.D. cc: ~ XR ankle LT min 3V routine CLINICAL HISTORY: 89 years-old Female presenting with twisted left ankle. TECHNIQUE: Frontal, mortise, and lateral views of the left ankle were obtained. COMPARISON: None. FINDINGS: Ankle mortise congruent. Mild medial joint space loss and osteophytosis. Prominent enthesophyte at the origin of plantar fascia. Questionable radiolucency through the base of the fifth metatarsal concerning for fracture. No malalignment. Underlying osteopenia. Prominent atherosclerosis. IMPRESSION: Possible fracture of the base of the fifth metatarsal. Recommend radiographs of the left foot for better evaluation. The degree of osteopenia significantly limits evaluation for acute osseous injury. Electronically signed by: Taqueria Gregory M.D. 09/21/2019 10:00 PM Dictated: 09/21/192157 Transcribed: 09/21/192157 [facility], [place] [phone] XRay Report Patient: VENANCIO SAVAGE Date: 09/21/19 MR#: [id number]: [address] Acct ID:[id number]: Date: [address] [place] [address] Zip: [place] [address] Age: 89Location: ED Sex: F Room/Bed: Att Phy:Diagnosis: WEAKNESS Marleny Phy: Humberto Stoll M.D.Service Date: 09/21/19 [facility] Phy: Humberto Stoll M.D.Interpreting Phy: Taqueria Gregory MD Admit Phy: Ordering Phy: Darrian Garrison M.D. cc: ~ XR foot LT min 3V routine CLINICAL HISTORY: 89 years-old Female presenting with pain , swelling. TECHNIQUE: Frontal, oblique, and lateral views of the left foot were obtained. COMPARISON: Ankle radiographs performed earlier today. FINDINGS: Fracture of the base of the fifth metatarsal, which is nondisplaced transversely oriented and may be extra-articular relative to the articulation with the cuboid. This may affect the articulation with the base of the fourth metatarsal. Underlying severe osteopenia. No malalignment. Mild diffuse soft tissue swelling. Atherosclerosis. Degenerative changes of the ankle mortise. IMPRESSION: 1. Nondisplaced extra-articular transversely oriented fracture of the base of the fifth metatarsal. 2. Severe osteopenia. Electronically signed by: Taqueria Gregory M.D. 09/21/2019 10:38 PM Dictated: 09/21/192235 Transcribed: 09/21/192235 Code Status & VTE Plan Code Status full code VTE Prophylaxis Plan VTE Prophylaxis will be ordered: Yes PG Care Time/CCT Total # of Minutes Spent Total Time Spent with Patient: Total time spent is greater than 50% in coordination of care (as documented) at patient's floor/unit and/or counseling patient: (1) UTI (urinary tract infection) Hematuria presence: with hematuria Urinary tract infection type: acute cystitis Qualified Code(s): N30.01 - Acute cystitis with hematuria (2) Fracture of left foot Encounter type: initial encounter Fracture type: closed Qualified Code(s): S92.902A - Unspecified fracture of left foot, initial encounter for closed fracture
[2019-09-22] MEDS ORDERED: DEXTROSE 50% 50 ML SYRINGE IV PRN (01:15)
[2019-09-22] MEDS ORDERED: GLUCAGON FOR INJ 1 MG VIAL SQ PRN (01:15)
[2019-09-22] MEDS ORDERED: GLUCOSE 40% GEL 15 GM TUBE PO PRN (01:15)
[2019-09-22] MEDS ORDERED: GLUCOSE 10 TABS/TUBE PO PRN (01:15)
[2019-09-22] MEDS: SACCHAROMYCES BOULARDII 250 MG CAP PO SCH ×3 (01:34→21:37)
[2019-09-22] MEDS: carvediloL 12.5 MG TAB PO SCH ×3 (01:34→21:37)
[2019-09-22] MEDS: MAGNESIUM OXIDE 400 MG TAB PO SCH ×3 (01:34→21:36)
[2019-09-22] MEDS: QUETIAPINE FUMARATE 100 MG TABLET PO SCH ×2 (02:07→21:36)
[2019-09-22] MEDS: AZTREONAM 1,000 MG in DEXTROSE 5% 100 ML IV SCH ×2 (05:11→12:04)
[2019-09-22] MEDS: LEVOTHYROXINE SODIUM 100 MCG TABLET PO SCH (05:12)
[2019-09-22] MEDS: XYZAL~ORDER AWAITING ACTION SCH ×2 (07:35→15:23)
[2019-09-22] MEDS: CARBOHYDRATES FOR HYPOGLYCEMIA PO PRN ×2 (08:20→08:37)
[2019-09-22] MEDS: INSULIN GLARGINE SOLOSTAR 100 UNITS/ML 3 ML PEN SC SCH (08:27)
[2019-09-22] MEDS: AMLODIPINE BESYLATE 5 MG TAB PO SCH (08:28)
[2019-09-22] MEDS: PANTOprazole 40 MG TAB PO SCH (08:28)
--- NOTE | 2019-09-22 13:16 | Hospitalist Progress Note ---
Date of Service September 22, 2019 Assessment & Plan (1) Generalized weakness: Likely due to general deconditioning and leg pain from her fracture and left knee osteoarthritis. - PT/OT -> Family wants to take the patient home, so will try to arrange home PT/OT. (2) UTI (urinary tract infection): Was on macobid for 10 days. - Urinalysis on 09/21 did not indicate infection; urine culture not sent. DO NOT think she has further infection. - Stop abx (3) CKD (chronic kidney disease) stage 3, GFR 30-59 ml/min: Baseline creatinine 1.5-2.0, eGFR ~25. - Cr was 1.7 on admission. - Monitor (4) Fracture of left foot: Per patient and daughter, this occurred when she was forced to pivot on the foot at [facility] last week. Foot x-ray on 09/21 confirmed non-dis placed extra-articular transversely oriented fracture of the base of the fifth metatarsal. - Outpatient ortho follow up - Continue to use tramadol 50mg q4h prn, occasionally uses 100mg HS (5) HTN (hypertension): BP 150/70 today. - Continue amlodipine and carvedilol (6) DM (diabetes mellitus): Low blood sugar on 09/22 AM; however, she had not each much the night before. - Continue Lantus but reduce AM 20 to 15, and PM 15 to 10. - Last admission, we lowered her Lantus to 15 units BID as she other lows that admission. - Sliding scale insulin (7) Situational anxiety: - Continue hydroxyzine, Seroquel and trazodone. (8) Hypothyroidism (acquired): TSH in 07/2019 was 3.3. - Continue levothyroxine 100 mcg daily (9) GERD (gastroesophageal reflux disease): - Change prilosec OTC to pantoprazole 40mg daily (10) Generalized osteoarthritis: Left knee is in a brace as Dr. Laura did a cortisol injection on 09/18. - Outpatient follow up - Continue tramadol (11) DVT prophylaxis: Heparin 5000 units BID Subjective Still feeling weak, but overall doing well. Some left leg and left foot pain from the knee (chronic OA) and the foot (fracture). Otherwise, doing well. Reports no fevers/chills, chest pain, shortness of breath, abdominal pain, nausea, or vomiting. Physical Exam Constitutional: WD/WN, vitals as above Eyes: EOM intact bilaterally; no conjunctival abnormality ENMT: external ear and nose normal, oropharynx normal Neck: trachea midline, no thyromegaly normal visual inspection Respiratory: normal respiratory effort, lungs clear to auscultation no respiratory distress Cardiovascular: RRR, no murmur, no edema Gastrointestinal (Abdomen): Inspection/Auscultation: abdomen normal to inspection; abdomen not distended Musculoskeletal: no cyanosis or clubbing, extremities motor strength 5/5 Extremities: + lower leg abnormality Left (Knee in soft brace) Skin: no rashes, warm and dry Neurologic: moves all extremities and awake Psychiatric: Orientation: alert, oriented to person and cooperative Results & Data Vital Signs (Past 12 Hours) Vital Signs Temp Pulse Resp BP Pulse Ox 09/22/19 07:24 37 C 58 L 18 149/73 H 97 PG Care Time/CCT Total # of Minutes Spent Total Time Spent with Patient: Total time spent is greater than 50% in coordination of care (as documented) at patient's floor/unit and/or counseling patient: (1) UTI (urinary tract infection) Hematuria presence: with hematuria Urinary tract infection type: acute cystitis Qualified Code(s): N30.01 - Acute cystitis with hematuria (2) Fracture of left foot Encounter type: initial encounter Fracture type: closed Qualified Code(s): S92.902A - Unspecified fracture of left foot, initial encounter for closed fracture
[2019-09-22] MEDS ORDERED: INFLUENZA Vaccine HIGH DOSE 65+yrs 0.5 mL Syr IM ONE (14:45)
[2019-09-22] MEDS ORDERED: TRAZODONE HCL 50 MG TAB PO PRN (19:17)
[2019-09-22] MEDS ORDERED: INSULIN GLARGINE SOLOSTAR 100 UNITS/ML 3 ML PEN SC SCH (21:00)
[2019-09-22] MEDS ORDERED: QUETIAPINE FUMARATE 100 MG TABLET PO SCH (21:00)
[2019-09-22] MEDS: HEPARIN SOD 5,000 UNIT/0.5 ML VIAL SQ SCH (21:38)
[2019-09-23] MEDS: XYZAL~ORDER AWAITING ACTION SCH ×4 (00:08→22:57)
[2019-09-23 05:28] LABS: Hematocrit (blood only) 27.7 % (37-47); Mean Corpuscular Hemoglobin 27.2 pg (25-34); Mean Corpuscular Hgb Conc 32.5 g/dL (32-36); Mean Corpuscular Volume 83.7 fL (80-100); Platelet Count 291 K/uL (130-400); RDW Coefficient of Variation 15.4 % (11.5-14.5); RDW Standard Deviation 47.4 fL (36.4-46.3); Red Blood Count 3.31 M/uL (4.2-5.4)
[2019-09-23] MEDS: LEVOTHYROXINE SODIUM 100 MCG TABLET PO SCH (05:29)
[2019-09-23] MEDS: TRAMADOL HCL 50 MG TABLET PO PRN ×2 (05:45→10:46)
[2019-09-23 05:51] LABS: BUN Creatinine Ratio 12.3 (10-20); Calcium 7.7 mg/dl (8.5-10.1); Creatinine Clr Calc Pharmacy 25.9 ml/min; Est GFR (African American) 36.3; Est GFR (Non-African American) 31.3; Potassium 3.5 mmol/L (3.5-5.1)
[2019-09-23 05:52] LABS: Magnesium 2.3 mg/dl (1.8-2.4); Phosphorus 3.1 mg/dl (2.5-4.9)
[2019-09-23] MEDS: CARBOHYDRATES FOR HYPOGLYCEMIA PO PRN (06:01)
[2019-09-23] MEDS: SACCHAROMYCES BOULARDII 250 MG CAP PO SCH ×2 (09:29→20:54)
[2019-09-23] MEDS: PANTOprazole 40 MG TAB PO SCH (09:30)
[2019-09-23] MEDS: HEPARIN SOD 5,000 UNIT/0.5 ML VIAL SQ SCH ×2 (09:30→20:55)
[2019-09-23] MEDS: MAGNESIUM OXIDE 400 MG TAB PO SCH ×2 (09:30→20:52)
[2019-09-23] MEDS: AMLODIPINE BESYLATE 5 MG TAB PO SCH (09:30)
[2019-09-23] MEDS: carvediloL 12.5 MG TAB PO SCH ×2 (09:30→20:54)
[2019-09-23] MEDS: INSULIN GLARGINE SOLOSTAR 100 UNITS/ML 3 ML PEN SC SCH (09:32)
--- NOTE | 2019-09-23 14:06 | Hospitalist Progress Note ---
Date of Service September 23, 2019 Assessment & Plan (1) Generalized weakness: Likely due to general deconditioning and leg pain from her fracture and left knee osteoarthritis. - PT/OT -> Family wants to take the patient home, so will arrange home PT/OT. (2) UTI (urinary tract infection): Was on Macobid for 10 days. - Urinalysis on 09/21 did not indicate infection; urine culture not sent. DO NOT think she has further infection. - Stopped all abx on 09/22 (3) CKD (chronic kidney disease) stage 3, GFR 30-59 ml/min: Baseline creatinine 1.5-2.0, eGFR ~25. - Cr was 1.7 on admission. Cr now 1.5 on 09/23. - Monitor (4) Fracture of left foot: Per patient and daughter, this occurred when she was forced to pivot on the foot at [facility] last week. Foot x-ray on 09/21 confirmed non- displaced extra-articular transversely oriented fracture of the base of the fifth metatarsal. - Outpatient ortho follow up - Continue to use tramadol 50mg q4h prn, occasionally uses 100mg HS (5) HTN (hypertension): BP 160/75 today. - Continue amlodipine and carvedilol (6) DM (diabetes mellitus): Low blood sugar on 09/22 AM; however, she had not each much the night before. - Continued Lantus but reduce AM 20 to 15, and PM 15 to 10. - Last admission, we lowered her Lantus to 15 units BID as she other lows that admission. - On 09/23, held her PM Lantus dose as she had another low of 65. - Sliding scale insulin (7) Situational anxiety: Evening of 09/22, she had an episode of anxiety and agitation. Her trazodone seemed to help. It had initially been held for an unclear reason. By 09/23, she is in good spirits with her daugther present. - Continue hydroxyzine, Seroquel and trazodone. (8) Hypothyroidism (acquired): TSH in 07/2019 was 3.3. - Continue levothyroxine 100 mcg daily (9) GERD (gastroesophageal reflux disease): - Change prilosec OTC to pantoprazole 40mg daily (10) Generalized osteoarthritis: Left knee is in a brace as Dr. Laura did a cortisol injection on 09/18. - Outpatient follow up - Continue tramadol (11) DVT prophylaxis: Heparin 5000 units BID Subjective Feeling sore/painful in her left leg today in the knee and in the left foot, but otherwise well. No fevers or chills overnight. No dysuria today. Reports no chest pain, shortness of breath, abdominal pain, nausea, or vomiting. Physical Exam Constitutional: WD/WN, vitals as above Eyes: EOM intact bilaterally; no conjunctival abnormality ENMT: external ear and nose normal, oropharynx normal Neck: trachea midline, no thyromegaly normal visual inspection Respiratory: normal respiratory effort, lungs clear to auscultation no respiratory distress Cardiovascular: RRR, no murmur, no edema Gastrointestinal (Abdomen): Inspection/Auscultation: abdomen normal to in spection; abdomen not distended Musculoskeletal: no cyanosis or clubbing, extremities motor strength 5/5 Extremities: + lower leg abnormality (Left knee in brace) Skin: no rashes, warm and dry Neurologic: moves all extremities and awake Psychiatric: Orientation: alert, oriented to person and cooperative Results & Data Vital Signs (Past 12 Hours) Vital Signs Temp Pulse Resp BP Pulse Ox 09/23/19 07:10 36.7 C 68 18 163/74 H 93 PG Care Time/CCT Total # of Minutes Spent Total Time Spent with Patient: Total time spent is greater than 50% in coordination of care (as documented) at patient's floor/unit and/or counseling patient: (1) UTI (urinary tract infection) Hematuria presence: with hematuria Urinary tract infection type: acute cystitis Qualified Code(s): N30.01 - Acute cystitis with hematuria (2) Fracture of left foot Encounter type: initial encounter Fracture type: closed Qualified Code(s): S92.902A - Unspecified fracture of left foot, initial encounter for closed fracture
[2019-09-23] MEDS ORDERED: SIMETHICONE 80 MG CHEW PO PRN (15:29)
[2019-09-23] MEDS: LORazepam 0.5 MG TAB PO PRN (17:28)
[2019-09-23] MEDS: QUETIAPINE FUMARATE 100 MG TABLET PO SCH (20:55)
[2019-09-24] MEDS: TRAMADOL HCL 50 MG TABLET PO PRN ×3 (00:42→10:59)
[2019-09-24] MEDS ORDERED: HydrALAZINE HCL 20 MG/ML VIAL IV STA (00:54)
[2019-09-24] MEDS: LORazepam 0.5 MG TAB PO PRN (02:51)
[2019-09-24] MEDS: LEVOTHYROXINE SODIUM 100 MCG TABLET PO SCH (05:54)
[2019-09-24] MEDS: XYZAL~ORDER AWAITING ACTION SCH (09:01)
[2019-09-24] MEDS: MAGNESIUM OXIDE 400 MG TAB PO SCH (09:01)
[2019-09-24] MEDS: SACCHAROMYCES BOULARDII 250 MG CAP PO SCH (09:01)
[2019-09-24] MEDS: carvediloL 12.5 MG TAB PO SCH (09:01)
[2019-09-24] MEDS: PANTOprazole 40 MG TAB PO SCH (09:02)
[2019-09-24] MEDS: HEPARIN SOD 5,000 UNIT/0.5 ML VIAL SQ SCH (09:02)
[2019-09-24] MEDS: AMLODIPINE BESYLATE 5 MG TAB PO SCH (09:02)
[2019-09-24] MEDS: INSULIN GLARGINE SOLOSTAR 100 UNITS/ML 3 ML PEN SC SCH (09:03)
--- NOTE | 2019-09-24 14:51 | Discharge Summary ---
Date of Service September 24, 2019 Admission HPI Per Admitting Provider The patient is an 89 yo female with a PMH including UTI, transaminitis, anxiety, CKD stage III, HTN, DM, OA, hypothyroidism, GERD and allergy, who was started on macrobid 10 days ago for treatment of a UTI, having finished the course of treatment yesterday. She continues to have urinary symptoms, and has felt progressively more weak. Her movements consist of pivoting from chair to bed or to commode, having not walked for years, but her legs feel weaker than usual, and she also recently noted left foot pain. She was seen at [facility] earlier this week, but no acute findings were noted. Principal Diagnosis Weakness due to inactivity from osteoarthritis Discharge Exam Constitutional WD/WN, vitals as above Eyes EOM intact bilaterally; no conjunctival abnormality ENMT external ear and nose normal, oropharynx normal Neck trachea midline, no thyromegaly normal visual inspection Respiratory normal respiratory effort, lungs clear to auscultation no respiratory distress Cardiovascular RRR, no murmur, no edema Gastrointestinal (Abdomen) Inspection/Auscultation: abdomen normal to inspection; abdomen not distended Musculoskeletal no cyanosis or clubbing, extremities motor strength 5/5 Extremities: + lower leg abnormality (Left knee in brace) Skin no rashes, warm and dry Neurologic moves all extremities and awake Psychiatric Orientation: alert, oriented to person and cooperative Discharge Data Allergies Allergy/AdvReac Type Severity Reaction Status Date / Time acetaminophen [From Percocet] Allergy Severe swelling/so Verified 09/21/19 20:38 b cephalexin Allergy Unknown RASH Unverified 09/21/19 20:38 morphine Allergy Unknown NAUSEA Unverified 09/21/19 20:38 oxycodone Allergy Unknown DIFFICULTY Unverified 09/21/19 20:38 SWALLOWING propoxyphene Allergy Unknown DIFFICULTY Verified 09/21/19 20:38 SWALLOWING ciprofloxacin [From Cipro] AdvReac Severe LEG NUMB & Verified 09/21/19 20:57 WEAK Consultations 09/21/19 21:38 ED Decision to Admit Stat 09/22/19 00:45 Consult Case Management - Discharge Planning Routine Hospital Course (1) Generalized weakness: Likely due to general deconditioning and leg pain from her fracture and left knee osteoarthritis. - PT/OT -> Family wants to take the patient home, so arranged home PT/OT. - Pain generally controlled with home tramadol. (2) UTI (urinary tract infection): Was on Macobid for 10 days. - Urinalysis on 09/21 did not indicate infection; urine culture not sent. DO NOT think she has further infection. - Stopped all abx on 09/22 - No increase in WBC, fever, or any indication of infection. Blood cultures from 09/22 no growth by discharge. (3) CKD (chronic kidney disease) stage 3, GFR 30-59 ml/min: Baseline creatinine 1.5-2.0, eGFR ~25. - Cr was 1.7 on admission. Cr was 1.5 on 09/23. - Monitor (4) Fracture of left foot: Per patient and daughter, this occurred when she was forced to pivot on the foot at [facility] last week. Foot x-ray on 09/21 confirmed non- displaced extra-articular transversely oriented fracture of the base of the fifth metatarsal. - Outpatient ortho follow up - Continue to use tramadol 50mg q4h prn, occasionally uses 100mg HS - Counseled no left weight-bearing until seen by ortho. (5) HTN (hypertension): BP 160/75 today. - Continued home amlodipine and carvedilol (6) DM (diabetes mellitus): Low blood sugar on 09/22 AM; however, she had not each much the night before. - Last admission, we lowered her Lantus to 15 units BID as she other lows that admission. - On 09/23, held her PM Lantus dose as she had another low of 65. - On discharge, instructed to hold PM dose of Lantus insulin as she had consistent low blood sugars with BID dosing. (7) Situational anxiety: Evening of 09/22, she had an episode of anxiety and agitation. Her trazodone seemed to help. It had initially been held for an unclear reason. By 09/23, she is in good spirits with her daugther present. - Continue hydroxyzine, Seroquel and trazodone. - The patient and daughter asked for Ativan HS for her; however, I did not feel comfortable giving a script as she already has 3 sedating medications to use for anxiety. She could consider SSRI if she has continued anxiety. (8) Hypothyroidism (acquired): TSH in 07/2019 was 3.3. - Continue levothyroxine 100 mcg daily (9) GERD (gastroesophageal reflux disease): - Change prilosec OTC to pantoprazole 40mg daily (10) Generalized osteoarthritis: Left knee is in a brace as Dr. Laura did a cortisol injection on 09/18. She and daughter are not sure how long to keep the brace on. - Outpatient follow up - Continue tramadol (11) DVT prophylaxis: Heparin 5000 units BID Total Time Total Time Spent Total Time Spent (In Minutes): 35 Discharge Plan Discharge Items Patient Disposition: Home - Home Health Services Reason For Visit: UTI, FATIGUE, L 5TH MTP FRACTURE Discharge Diagnosis: No UTI, general weakness from arthritis and broken foot Activity: Resume your previous activity Weightbearing: Left non-weightbearing Weightbearing Comment: Until seen by orthopedics Non-emergency contact: Primary Care Provider and Surgeon Call non-emergency contact if: your symptoms worsen, your pain is worsening and your temperature is above 101 Follow-up/Referrals: Humberto Stoll [Primary Care Provider] - Diet: Carb Consistent or DM2 Addtl Attending Provider Instructions: Leodan Gertrude, For your foot, please see your orthopedic doctor this week if possible. Give them a call on Wednesday to discuss the foot fracture. Please do not put weight on it until you are seen in the office by them. We checked your urine and blood and found no sign of infection. Please follow up with Dr. Stoll on Wednesday as planned. Home health and PT should work with you to build strength in your legs. I do recommend stopping your evening Lantus insulin dose. Your morning blood sugars were consistently low (60s) until we held your evening dose. This morning your blood sugars was 90 (and still lower than your sugar when you went to bed), and I worry that taking it two times per day is bringing your sugars too low. Finally, for your anxiety, please discuss this with Dr. Stoll. In the hospital, we gave you some Ativan; however, you will need to discuss with Dr. Stoll if he feels comfortable prescribing this to you with your other anxiety medications. Pending Studies at Discharge: No Stand-Alone Forms: [facility], Smoking Cessation Medications and DC Order Prescriptions: Continued Prilosec OTC 20 mg Tablet,Delayed Release (Dr/Ec) 20 mg PO QAM RF: 0 cranberry 500 mg Capsule 500 mg PO BID RF: 0 levothyroxine [Synthroid] 100 mcg Tablet 100 mcg PO QAM RF: 0 quetiapine [Seroquel] 100 mg Tablet 100 mg PO HS RF: 0 levocetirizine [Xyzal] 5 mg Tablet 5 mg PO BID RF: 0 Florastor 250 mg capsule 250 mg PO BID Qty: 20 RF: 0 amlodipine [Norvasc] 10 mg tablet 10 mg PO QAM RF: 0 tramadol 50 mg Tablet 50 mg PO Q4H PRN (Reason: Pain) Qty: 4 RF: 0 carvedilol [Coreg] 12.5 mg tablet 12.5 mg PO BID RF: 0 Lantus U-100 Insulin 100 unit/mL Solution 20 unit SUBCUT QAM RF: 0 trazodone 50 mg tablet 50 mg PO HS PRN (Reason: Sleep) RF: 0 ondansetron HCl [Zofran] 8 mg tablet 8 mg PO TID PRN (Reason: Nausea) RF: 0 diphenhydramine HCl [Benadryl] 25 mg Capsule 25 mg PO Q8H PRN (Reason: ALLERGIES) RF: 0 hydroxyzine HCl 25 mg tablet 25 mg PO BID PRN (Reason: Anxiety) RF: 0 magnesium 250 mg Tablet 250 mg PO BID RF: 0 docusate sodium 100 mg Tablet 100 mg PO BID PRN (Reason: Constipation) RF: 0 Bio-Freeze 1 applic topical UD PRN (Reason: Pain) RF: 0 diclofenac sodium [Voltaren] 1 % gel 4 g EXT Q6 PRN (Reason: Pain) RF: 0 Discontinued nitrofurantoin monohyd/m-cryst [Macrobid] 100 mg capsule 100 mg PO BID RF: 0 Lantus U-100 Insulin 100 unit/mL solution 15 unit subcut HS RF: 0 Discharge Orders: Discharge Order (Routine); Ordered 09/24/19 Ordered By: Ketan Stoll Admission Data Admit Date/Time: 09/21/19 23:14 Attending Provider: Ketan Stoll Admit Provider: Anil Valero Primary Care Provider: Humberto Stoll Other Providers: Ketan Stoll Other Interventions: Discharge Summary Assessment (RN) Last Done: 09/24/19 11:10 DC Date/Time DO NOT enter until pt leaves facility: 09/24/19 13:04
== END 2019-09-24 13:04 | disposition home health service (06) ==
LOC: ED 19:47 → 3N 19:47 → SUATTDRO 23:14 → 3N 09-22 00:16

== ENCOUNTER 2020-04-06 14:42 | Observation (INO) ==
--- NOTE | 2020-04-06 15:33 | Emergency Department Note ---
Impression & Plan AMS (altered mental status) ED Provider Note NAME: VENANCIO SAVAGE AGE: 89 SEX: F ARRIVES VIA: Ambulance INFORMANT: [Patient], daughter ED PROVIDER(S): Ho Najera MD CHIEF COMPLAINT: Altered mental status PLAN: Disposition: Admitted Condition: [Good] MEDICAL DECISION MAKING: Patient presented to the emergency department. She had several days of altered mental status. She recently was treated for a UTI. She had blood work obtained and was set up a mild leukocytosis. She also had some mild hypoglycemia. This was corrected with juice and crackers. She was afebrile. She had a Urinalysis specimen performed and this was concerning for infection. Record review indicates that she had an ESBL infection recently and was treated with Invanz. After discussion with pharmacy because the patient has had enterococcus infection in the past as well we elected to use a dose of IV imipenem. CT imaging of the head was negative. Chest x-ray did not reveal any acute findings. The patient does not seem to pulmonary symptoms. I discussed treatment in the hospital given the changes in mental status that have been fluctuating and the daughter and patient were in agreement. I discussed case with Dr. Rome of internal medicine. The patient was evaluated in the ER admitted for further management. Triage Nursing notes reviewed and agree them. [Additional history obtained from] patient's daughter. She notes over the last 2 days patient has had confusion and change in mental status. She finished 7 days of Invanz antibiotic treatment for UTI 6 days ago [Prior medical records reviewed] complicated UTI history. Vital Signs: reviewed and remarkable for [no significant abnormalities] Differential diagnosis: Infection, hypoglycemia, electrolyte abnormalities, overdose, toxicologic, cardiac sources, intracerebral event, neurologic, trauma, as well as other pathologies. ER treatment provided: IV imipenem Diagnostics interpreted by me: ECG: Rate: 90 Rhythm:Normal sinus [place]:Normal QRS:Normal ST segements:No elevation or depression nonspecific ST. Other: Anterior Q waves. No PACs or PVCs. LVH. Laboratory studies: [See below] leukocytosis and hyperglycemia. Imaging studies: Chest x-ray shows some atelectasis and a pleural effusion. CT imaging of the head was negative for acute process. Consultation(s): [place] Hospitalist service hospitalist service HPI: The patient is a 89 year old female who presents to the Emergency Room with complaints of change of mental status. This started over the last 2 days and is worsening per daughter. The patient also notes the following associated symptoms, patient denies. Patient denies any pain. She recently was treated with for a UTI and finished IV Invanz about 6 days ago. Pt denies LOC, headache, fevers, chills, diaphoresis, visual changes, neck pain, chest pain, breathing difficulties, nausea, vomiting, abdominal pain, back pain, melena, hematochezia, new urinary symptoms, numbness, no weakness, lymphadenopathy, rash, or other complaints. ROS: See above HPI for pertinent positives & negatives. A total of [10] systems reviewed and were otherwise negative. PAST MEDICAL HISTORY:[See Below] UTI CKD PAST SURGICAL HISTORY:[See Below] FAMILY HISTORY:[See Below] SOCIAL HISTORY:[See Below] lives with family HOME MEDICATIONS:[See Below] ALLERGIES:[See Below] VITALS:[See Below] PHYSICAL EXAMINATION: GENERAL: Awake, alert, well-appearing, in no distress HENT: Normocephalic, atraumatic. Oropharynx unremarkable. EYES: Normal conjunctiva. Sclera non-icteric. NECK: Inspection normal. Non-tender. Supple. No nuchal rigidity. FROM. No masses. RESPIRATORY: Clear to auscultation. No wheezes. No rales. Normal respiratory effort. CARDIAC: Normal rate. Normal rhythm. No murmurs. No rubs. Extremities warm and well perfused. Pulses equal. No JVD. GI: Soft, non-distended. No tenderness to palpation. No rebound or guarding. No masses. RECTAL: Deferred. MUSCULOSKELETAL: Atraumatic. Chest examination reveals no tenderness. The back is symmetrical on inspection without obvious abnormality. There is no CVA tenderness to palpation. No joint edema. Healed surgical scar noted of right knee replacement anteriorly over the right knee. LOWER EXTREMITIES: Calves are equal size bilaterally and non-tender. 1+ edema. No discoloration. NEURO: Normal sensorium. No sensory or motor deficits noted. SKIN: No rash or jaundice noted. ED COURSE: [Critical Care:] [None] Ho Najera MD Past Med/Surg History Social History Preferred Language: [place] Communication Ability: Effective Visual Impairment: No Limitations Hearing Ability: Normal All Terrain Vehicle Racer Required: No Beliefs That Will Affect Care: None marital status: / Current Living Situation: Family Current Living Situation Comment: apartment with daughter Feels Safe at Home: Yes Smoking Status: Never smoker Second Hand Exposure: No ; Hx Alcohol Use: No Hx Substance Use: No Childhood Exposure to Second-Hand Smoke: No caffeine: No during the past year weight has: increased > 10 lbs Dental Care, Regularly: No Physical Activity Frequency: Does not Exercise Physical Activity Frequency Comment: due to physical condition Seatbelt Use: always Sunscreen Use: Yes Allergies Allergies Allergy/AdvReac Type Severity Reaction Status Date / Time acetaminophen [From Percocet] Allergy Severe swelling/so Verified 04/06/20 16:10 b cephalexin Allergy Unknown RASH Unverified 04/06/20 16:10 morphine Allergy Unknown NAUSEA Unverified 04/06/20 16:10 oxycodone Allergy Unknown DIFFICULTY Unverified 04/06/20 16:10 SWALLOWING propoxyphene Allergy Unknown DIFFICULTY Verified 04/06/20 16:10 SWALLOWING ciprofloxacin [From Cipro] AdvReac Severe LEG NUMB & Verified 04/06/20 16:10 WEAK Cipro TABS Allergy Mild Unknown Uncoded 04/06/20 16:10 Home Meds Home Medications Medication Instructions Recorded Confirmed cranberry 500 mg PO BID 06/12/19 04/06/20 quetiapine [Seroquel] 100 mg PO HS 06/12/19 04/06/20 docusate sodium 100 mg PO BID PRN 09/21/19 04/06/20 magnesium 250 mg PO BID 09/21/19 04/06/20 furosemide 20 mg PO QAM 01/30/20 04/06/20 buspirone 10 mg PO TID 04/06/20 04/06/20 insulin glargine [Lantus Solostar 15 units SQ BID 04/06/20 04/06/20 U-100 Insulin] levocetirizine [Xyzal] 5 mg PO HS 04/06/20 04/06/20 Previous Rx's Medication Instructions Recorded miscellaneous medical supply #1 ea 11/17/19 amlodipine 10 mg tablet 10 mg PO QAM #90 tab 12/01/19 blood sugar diagnostic #100 ea 12/01/19 miscellaneous medical supply 5 ea MS DAILY #150 ea 12/22/19 underpads #3 ea 12/22/19 underpads #80 ea 12/22/19 cholecalciferol (vitamin D3) 125 125 mcg PO DAILY #90 cap 12/28/19 mcg (5,000 unit) capsule miscellaneous medical supply See Rx Instructions MS .COMPLEX #1 01/03/20 ea omeprazole 20 mg capsule,delayed 20 mg PO BID #180 cap 01/23/20 release levothyroxine 100 mcg tablet 100 mcg PO .COMPLEX #35 tab 01/30/20 mirabegron 25 mg tablet,extended 25 mg PO DAILY #30 tab 02/05/20 release 24 hr nitrofurantoin macrocrystal 100 mg 100 mg PO DAILY #30 cap 02/05/20 capsule miscellaneous medical supply #1 ea 02/07/20 citalopram 20 mg tablet 30 mg PO DAILY #45 tab 02/16/20 hydroxyzine HCl 25 mg tablet 25 mg PO BID PRN #40 tab 03/04/20 dicyclomine 10 mg capsule 10 mg PO BID PRN #60 cap 03/06/20 ondansetron HCl 8 mg tablet 8 mg PO BID PRN #30 tab 04/05/20 tramadol 50 mg tablet 50 mg PO QID PRN #120 tab 04/05/20 Results & Data (ED) Vital Signs Vital Signs - 24 hr 04/06/20 14:42 04/06/20 15:18 04/06/20 15:43 Temperature 37.0 C Temperature Source Oral Pulse Rate 85 86 89 Pulse Rate from SpO2 Sensor 89 Pulse Rhythm Regular Regular Respiratory Rate 22 16 25 H Respiratory Effort / Characteristics Non-Labored Spontaneous Respiratory Depth Normal Respiratory Pattern Regular Blood Pressure 132/71 160/67 H Blood Pressure Mean 91 96 Pulse Oximetry 94 96 94 Oxygen Delivery Method Room Air Room Air Room Air Sepsis Recent Fever Within 48 Hours No Sepsis New/Unexplained Change in Mental Status No Sepsis Action Taken by Nursing No Action Required Laboratory Data Result diagrams: 04/06/20 15:31 04/06/20 15:31 Lab Results 04/06/20 04/06/20 04/06/20 Range/Units 15:31 15:31 15:39 WBC 14.36 H (4.8-10.8) K/uL RBC 3.41 L (4.2-5.4) M/uL Hgb 9.5 L (12.0-16.0) g/dL Hct 30.3 L (37-47) % MCV 88.9 (80-100) fL MCH 27.9 (25-34) pg MCHC 31.4 L (32-36) g/dL RDW Std Deviation 50.7 H (36.4-46.3) fL RDW Coeff of Lyssa 15.5 H (11.5-14.5) % Plt Count 458 H (130-400) K/uL MPV 8.2 (7.4-10.4) fL Immature Gran % (Auto) 0.4 % Neut % (Auto) 61.9 % Lymph % (Auto) 29.0 % [place] % (Auto) 6.8 % Eos % (Auto) 1.6 % Baso % (Auto) 0.3 % Immature Gran # (Auto) 0.06 H (0.00-0.02) K/uL Neut # (Auto) 8.89 H (1.4-6.5) K/uL Lymph # (Auto) 4.16 H (1.2-3.4) K/uL [place] # (Auto) 0.98 H (0.11-0.59) K/uL Eos # (Auto) 0.23 (0-0.5) K/uL Baso # (Auto) 0.04 (0-0.2) K/uL Sodium 136 (136-145) mmol/L Potassium 4.2 (3.5-5.1) mmol/L Chloride 107 (98-107) mmol/L Carbon Dioxide 27 (21-32) mmol/L Anion Gap 2.0 L (3-11) BUN 21 H (7-18) mg/dl Creatinine 1.10 (0.6-1.2) mg/dl Est Cr Clr Drug Dosing 32.2 ml/min Est GFR ( Amer) 51.9 Est GFR (Non-Af Amer) 44.8 BUN/Creatinine Ratio 18.9 (10-20) Glucose 49 L* (70-99) mg/dl POC Glucose (70-99) mg/dl Calcium 7.9 L (8.5-10.1) mg/dl Total Bilirubin 0.2 (0.2-1) mg/dl AST 14 L (15-37) U/L ALT 14 (12-78) U/L Alkaline Phosphatase 412 H (45-117) U/L Troponin I < 0.015 (0-0.045) ng/ml Total Protein 6.2 L (6.4-8.2) gm/dl Albumin 1.6 L (3.4-5.0) gm/dl Globulin 4.6 H (2.5-4.0) gm/dl Albumin/Globulin Ratio 0.3 L (0.9-2) Urine Color Yellow Urine Appearance Cloudy A (Clear) Urine pH 5.5 (4.5-7.5) Ur Specific [place] 1.014 (1.000-1.030) Urine Protein 3+ H (Negative) Urine Glucose (UA) Negative (Negative) Urine Ketones Negative (Negative) Urine Blood Trace H (Negative) Urine Nitrite Negative (Negative) Urine Bilirubin Negative (Negative) Urine Urobilinogen Negative (Negative) Ur Leukocyte Esterase 2+ H (Negative) Urine WBC (Auto) >30 H (0-5) /hpf Urine RBC (Auto) >30 H (0-4) /hpf U Hyaline Cast (Auto) 5-10 H (0-5) /lpf U Epithel Cells (Auto) 10-20 H (0-5) /lpf Urine Bacteria (Auto) Negative (Negative) Urine Yeast Budding A (None Prsent) 04/06/20 Range/Units 17:11 WBC (4.8-10.8) K/uL RBC (4.2-5.4) M/uL Hgb (12.0-16.0) g/dL Hct (37-47) % MCV (80-100) fL MCH (25-34) pg MCHC (32-36) g/dL RDW Std Deviation (36.4-46.3) fL RDW Coeff of Lyssa (11.5-14.5) % Plt Count (130-400) K/uL MPV (7.4-10.4) fL Immature Gran % (Auto) % Neut % (Auto) % Lymph % (Auto) % [place] % (Auto) % Eos % (Auto) % Baso % (Auto) % Immature Gran # (Auto) (0.00-0.02) K/uL Neut # (Auto) (1.4-6.5) K/uL Lymph # (Auto) (1.2-3.4) K/uL [place] # (Auto) (0.11-0.59) K/uL Eos # (Auto) (0-0.5) K/uL Baso # (Auto) (0-0.2) K/uL Sodium (136-145) mmol/L Potassium (3.5-5.1) mmol/L Chloride (98-107) mmol/L Carbon Dioxide (21-32) mmol/L Anion Gap (3-11) BUN (7-18) mg/dl Creatinine (0.6-1.2) mg/dl Est Cr Clr Drug Dosing ml/min Est GFR ( Amer) Est GFR (Non-Af Amer) BUN/Creatinine Ratio (10-20) Glucose (70-99) mg/dl POC Glucose 58 L* (70-99) mg/dl Calcium (8.5-10.1) mg/dl Total Bilirubin (0.2-1) mg/dl AST (15-37) U/L ALT (12-78) U/L Alkaline Phosphatase (45-117) U/L Troponin I (0-0.045) ng/ml Total Protein (6.4-8.2) gm/dl Albumin (3.4-5.0) gm/dl Globulin (2.5-4.0) gm/dl Albumin/Globulin Ratio (0.9-2) Urine Color Urine Appearance (Clear) Urine pH (4.5-7.5) Ur Specific [place] (1.000-1.030) Urine Protein (Negative) Urine Glucose (UA) (Negative) Urine Ketones (Negative) Urine Blood (Negative) Urine Nitrite (Negative) Urine Bilirubin (Negative) Urine Urobilinogen (Negative) Ur Leukocyte Esterase (Negative) Urine WBC (Auto) (0-5) /hpf Urine RBC (Auto) (0-4) /hpf U Hyaline Cast (Auto) (0-5) /lpf U Epithel Cells (Auto) (0-5) /lpf Urine Bacteria (Auto) (Negative) Urine Yeast (None Prsent) Administered Medications Discontinued Medications Imipenem/Cilastatin Sodium 200 (mg/ Dextrose) 108 mls @ 108 mls/hr IV NOW STA Stop: 04/06/20 18:12 Last Admin: 04/06/20 18:11 Dose: 108 mls/hr Documented by: [id number] Discharge Plan Visit Data Chief Complaint: Urinary Symptoms ED Provider: Ho Najera Discharge Problem: AMS (altered mental status) Forms Stand Alone Forms: [facility] [employer] Prescriptions Prescriptions: No Action (DME) Hospital Bed Misc See Rx Instructions .ROUTE .MEDSUPPLY Qty: 1 RF: 0 amlodipine [Norvasc] 10 mg tablet 10 mg PO QAM Qty: 90 RF: 1 (DME) OneTouch Ultra Blue Test Strip Strip See Rx Instructions .ROUTE .MEDSUPPLY Qty: 100 RF: 3 cholecalciferol (vitamin D3) 125 mcg (5,000 unit) capsule 125 mcg PO DAILY Qty: 90 RF: 1 miscellaneous medical supply Misc See Rx Instructions MS .COMPLEX Qty: 1 RF: 0 (DME) Mattress (Air or other) Misc See Rx Instructions .ROUTE .MEDSUPPLY Qty: 1 RF: 0 citalopram 20 mg tablet 30 mg PO DAILY Qty: 45 RF: 1 hydroxyzine HCl 25 mg tablet 25 mg PO BID PRN (Reason: Anxiety) Qty: 40 RF: 1 tramadol 50 mg tablet 50 mg PO QID PRN (Reason: pain) Qty: 120 RF: 0 ondansetron HCl [Zofran] 8 mg tablet 8 mg PO BID PRN (Reason: nausea and vomiting) Qty: 30 RF: 0 levothyroxine [Synthroid] 100 mcg tablet 100 mcg PO .COMPLEX Qty: 35 RF: 1 nitrofurantoin macrocrystal 100 mg capsule 100 mg PO DAILY Qty: 30 RF: 3 Myrbetriq 25 mg tablet extended release 24 hr 25 mg PO DAILY Qty: 30 RF: 5 omeprazole 20 mg capsule,delayed release(DR/EC) 20 mg PO BID Qty: 180 RF: 1 Easelcellaneous medical supply Kit 5 ea MS DAILY Qty: 150 RF: 11 (DME) underpads [Bed Underpads] Pad See Rx Instructions .ROUTE .MEDSUPPLY Qty: 3 RF: 11 (DME) underpads [Bed Underpads] Pad See Rx Instructions .ROUTE .MEDSUPPLY Qty: 80 RF: 11 dicyclomine 10 mg capsule 10 mg PO BID PRN (Reason: abd cramping) Qty: 60 RF: 2 cranberry 500 mg Capsule 500 mg PO BID RF: 0 quetiapine [Seroquel] 100 mg Tablet 100 mg PO HS RF: 0 magnesium 250 mg Tablet 250 mg PO BID RF: 0 docusate sodium 100 mg Tablet 100 mg PO BID PRN (Reason: Constipation) RF: 0 furosemide 20 mg tablet 20 mg PO QAM RF: 0 buspirone 10 mg tablet 10 mg PO TID RF: 0 Lantus Solostar U-100 Insulin 100 unit/mL (3 mL) insulin pen 15 units SQ BID RF: 0 levocetirizine [Xyzal] 5 mg tablet 5 mg PO HS RF: 0
[2020-04-06 15:50] LABS: Basophils # (auto) 0.04 K/uL (0-0.2); Basophils % (auto) 0.3 %; Eosinophils # (auto) 0.23 K/uL (0-0.5); Eosinophils % (auto) 1.6 %; Hematocrit (blood only) 30.3 % (37-47); Hemoglobin 9.5 g/dL (12.0-16.0); Immature Granulocytes # (auto) 0.06 K/uL (0.00-0.02); Immature Granulocytes % (auto) 0.4 %; Lymphocytes # (auto) 4.16 K/uL (1.2-3.4); Mean Corpuscular Hemoglobin 27.9 pg (25-34); Mean Corpuscular Hgb Conc 31.4 g/dL (32-36); Mean Corpuscular Volume 88.9 fL (80-100); Mean Platelet Volume 8.2 fL (7.4-10.4); Monocytes # (auto) 0.98 K/uL (0.11-0.59); Monocytes % (auto) 6.8 %; Neutrophils # (auto) 8.89 K/uL (1.4-6.5); Neutrophils % (auto) 61.9 %; Platelet Count 458 K/uL (130-400); RDW Coefficient of Variation 15.5 % (11.5-14.5); RDW Standard Deviation 50.7 fL (36.4-46.3); Red Blood Count 3.41 M/uL (4.2-5.4); White Blood Count 14.36 K/uL (4.8-10.8)
[2020-04-06 16:02] LABS: Appearance Urine Cloudy (Clear); Bacteria Urine Automated Negative (Negative); Bilirubin Urine Negative (Negative); Blood Urine Trace (Negative); Color Urine Yellow; Glucose Urine UA Negative (Negative); Ketones Urine Negative (Negative); Leukocyte Esterase Urine 2+ (Negative); Nitrite Urine Negative (Negative); Protein Urine 3+ (Negative); Specific Gravity Urine 1.014 (1.000-1.030); Urobilinogen Urine Negative (Negative); WBC Urine Automated >30 /hpf (0-5); pH Urine 5.5 (4.5-7.5)
[2020-04-06 16:13] LABS: RBC Urine Automated >30 /hpf (0-4)
--- NOTE | 2020-04-06 16:16 | CT Scan Report ---
CT OF THE HEAD WITHOUT CONTRAST CLINICAL HISTORY: Altered mental status. COMPARISON STUDY: Head CT June 12, 2019. CT DOSE: 1074.96 mGy.cm TECHNIQUE: Helical axial images of the head were obtained without IV contrast. Automated exposure con trol was utilized for the study. A dose lowering technique was utilized adhering to the principles o f ALARA. FINDINGS: No acute intracranial hemorrhage, midline shift or mass effect is present. The ventricular system is stable. White matter hypodensities are unchanged and suggest small vessel disease. The basi lar cisterns are patent. No extra-axial collections are present. There are no findings to suggest acu te dural sinus thrombosis or acute territorial infarct. No significant calvarial abnormalities are pr esent. There is minimal sinus mucosal thickening. IMPRESSION: No acute intracranial findings. No change in appearance of the brain. ACT 112: Negative or not required by law. Electronically signed by: Franko Moran M.D. 04/06/2020 4:15 PM
--- NOTE | 2020-04-06 16:27 | XRay Report ---
XR chest 1V portable CLINICAL HISTORY: Altered mental status. COMPARISON STUDY: Chest radiograph January 30, 2020. FINDINGS: Patient is rotated. Cardiomegaly is noted. There is mild suspected pulmonary edema. A left pleural effusion with left basilar opacity is noted. This has increased since prior examination. Ther e is no pneumothorax. IMPRESSION: 1. Increase in a left pleural effusion with left basilar opacity may reflect consolidation or atelect asis. Radiographic follow-up to ensure resolution is recommended. 2. Pulmonary vascular congestion with suspected mild pulmonary edema. 3. Rotated study. ACT 112: Negative or not required by law. Electronically signed by: Franko Moran M.D. 04/06/2020 4:26 PM
[2020-04-06 17:02] LABS: Alanine Aminotransferase 14 U/L (12-78); Albumin Globulin Ratio 0.3 (0.9-2); Albumin Level 1.6 gm/dl (3.4-5.0); Alkaline Phosphatase 412 U/L (45-117); Aspartate Aminotransferase 14 U/L (15-37); BUN Creatinine Ratio 18.9 (10-20); Bilirubin,Total 0.2 mg/dl (0.2-1); Blood Urea Nitrogen 21 mg/dl (7-18); Calcium 7.9 mg/dl (8.5-10.1); Carbon Dioxide 27 mmol/L (21-32); Chloride 107 mmol/L (98-107); Creatinine Clr Calc Pharmacy 32.2 ml/min; Est GFR (African American) 51.9; Est GFR (Non-African American) 44.8; Globulin 4.6 gm/dl (2.5-4.0); Glucose 49 mg/dl (70-99); Potassium 4.2 mmol/L (3.5-5.1); Sodium 136 mmol/L (136-145); Total Protein 6.2 gm/dl (6.4-8.2); Troponin I < 0.015 ng/ml (0-0.045)
[2020-04-06] MEDS ORDERED: IMIPENEM/CILASTATIN SODIUM 200 MG in DEXTROSE 5% 100 ML IV STA (17:13)
--- NOTE | 2020-04-06 18:52 | History & Physical Report ---
Date of Service April 06, 2020 Assessment & Plan (1) AMS (altered mental status): Unclear cause of hallucinations but currently back to baseline. Possible UTI given recent history of this, however no specific symptoms as per last time. Erythema on leg unlikely cellulitis - suspect this is chronic venous stasis which gets worse with increasing edema ?new systolic murmur - blood cultures to r/o IE with echocardiogram Possible PNA with parapneumonic effusion on left side but no acute symptoms to suggest this. Possible hyperglycemia at time of hallucinations having an effect (she ate a dairy herrmann yesterday), she was hypoglycemic on admission but appears asymptomatic from this. (2) Complicated UTI (urinary tract infection): Urine and blood cultures pending Elevated WBC in setting of altered mental state without clear alternative infective etiology or cause Continue treatment with imipenem pending culture results If not improving consider addition of antifungal coverage for budding yeast in urine (3) Generalized weakness: Profound weakness and not walked since . Having PT at home. I am unclear on the exact etiology of this ?just deconditioning from recurrent UTIs, ankle fracture management in [facility], sensory ataxia from diabetes vs. spinal stenosis Her right upper extremity is relatively spared from the rest of her body PT/OT evals (4) Pleural effusion on left: Unclear cause. Discussed with janeth and her daughter who will discuss with the rest of her sons and daughters. Discussed benefits vs. risks of this. Does no appear to be making er short of breath at least at rest. Empyema very unlikely given patient at baseline functioning status when seen. Possibly just hypoalbuminemia secondary to CKD with lying more on left side. Daughter Lucy will discuss with family and let us know what she wises to do. (5) Urinary incontinence: Continue Mirabegron 25mg ER PO daily (6) GERD (gastroesophageal reflux disease): Switch omeprazole to pantoprazole as per hospital formulary (7) DM (diabetes mellitus): Hb1C 6.5 in November and hypoglycemic on admission suggests overtreatment Consult pharmacy for glycemic control (8) Elevated alkaline phosphatase level: Unclear whether from bone or liver. Previous imaging with hepatic capsular scarring, transaminitis appears resolved. (9) HTN (hypertension): Continue amlodipine 10mg PO daily (10) Idiopathic urticaria: Levocetirizine 5mg PO HS (11) Hypothyroidism (acquired): TSH WNL Continue outpatient levothyroxine dosing (12) Osteoporosis: No prior DEXA in EHR. Continue vitamin D supplementation. (13) CKD (chronic kidney disease) stage 3, GFR 30-59 ml/min: Protein loss in urine in addition to nutritional status likely cause of hypoalbuminemia Cr improved from baseline, possibly artificial just from muscle mass loss. Monitor BMP (14) Irritable bowel syndrome: Continue Bentyl, uses this regularly rather than PRN (15) Anxiety: Continue citalopram 30mg PO daily, buspar 10mg PO TID, hydroxyzine PRN (16) Insomnia: Continue Seroquel 100mg PO HS (17) DVT prophylaxis: Heparin 5000 units SQ BID Admission and Anticipated Discharge Date Admission Date: 04/06/20 History of Present Illness Chief Complaint: Confusion, hallucinations Primary Care Provider: DO Fartun Gibbons Gertrude is an 89 year old female with PMHx of T2DM, recurrent UTIs, ambulatory dysfunction who presents to the ER due to hallucinations and altered mental status last night noticed by her daughter who looks after her. She reports currently being back to her normal self. While this was occurring she did notice her glucose go > 400 due to a dairy herrmann she had in the afternoon. However she has also has had these altered states during prior UTIs therefore her daughter was concerned at the degree of hallucinations she was having so decided to bring her to the ER. Hallucinations involved talking to people who were not there. The patient has no recollection of this. She was recently treated with a 7 day course of Invanz due to UTI which finished on Wednesday. On that occasion she was having dysuria. Today she denies any dysuria, change in urine color/smell/consistency. No fevers or chills. She has chronic back pain but nothing new. Regarding her pleural effusion. No new cough, shortness of breath or chest pain. She is a lifelong non-smoker. Regarding her murmur - patient and daughter deny ever being told she has a murmur. Allergies Allergy/AdvReac Type Severity Reaction Status Date / Time acetaminophen [From Percocet] Allergy Severe swelling/so Verified 04/06/20 16:10 b cephalexin Allergy Unknown RASH Unverified 04/06/20 16:10 morphine Allergy Unknown NAUSEA Unverified 04/06/20 16:10 oxycodone Allergy Unknown DIFFICULTY Unverified 04/06/20 16:10 SWALLOWING propoxyphene Allergy Unknown DIFFICULTY Verified 04/06/20 16:10 SWALLOWING ciprofloxacin [From Cipro] AdvReac Severe LEG NUMB & Verified 04/06/20 16:10 WEAK Cipro TABS Allergy Mild Unknown Uncoded 04/06/20 16:10 Home Medications Home Medications Medication Instructions Recorded Confirmed Type cranberry 500 mg PO BID 06/12/19 04/06/20 History quetiapine [Seroquel] 100 mg PO HS 06/12/19 04/06/20 History docusate sodium 100 mg PO BID PRN 09/21/19 04/06/20 History magnesium 250 mg PO BID 09/21/19 04/06/20 History miscellaneous medical supply #1 ea 11/17/19 04/06/20 Rx amlodipine 10 mg tablet 10 mg PO QAM #90 tab 12/01/19 04/06/20 Rx blood sugar diagnostic #100 ea 12/01/19 04/06/20 Rx miscellaneous medical supply 5 ea MS DAILY #150 ea 12/22/19 04/06/20 Rx underpads #3 ea 12/22/19 04/06/20 Rx underpads #80 ea 12/22/19 04/06/20 Rx cholecalciferol (vitamin D3) 125 125 mcg PO DAILY #90 cap 12/28/19 04/06/20 Rx mcg (5,000 unit) capsule miscellaneous medical supply See Rx Instructions MS .COMPLEX #1 01/03/20 04/06/20 Rx ea omeprazole 20 mg capsule,delayed 20 mg PO BID #180 cap 01/23/20 04/06/20 Rx release furosemide 20 mg PO QAM 01/30/20 04/06/20 History levothyroxine 100 mcg tablet 100 mcg PO .COMPLEX #35 tab 01/30/20 04/06/20 Rx mirabegron 25 mg tablet,extended 25 mg PO DAILY #30 tab 02/05/20 04/06/20 Rx release 24 hr nitrofurantoin macrocrystal 100 mg 100 mg PO DAILY #30 cap 02/05/20 04/06/20 Rx capsule miscellaneous medical supply #1 ea 02/07/20 04/06/20 Rx citalopram 20 mg tablet 30 mg PO DAILY #45 tab 02/16/20 04/06/20 Rx hydroxyzine HCl 25 mg tablet 25 mg PO BID PRN #40 tab 03/04/20 04/06/20 Rx dicyclomine 10 mg capsule 10 mg PO BID PRN #60 cap 03/06/20 04/06/20 Rx ondansetron HCl 8 mg tablet 8 mg PO BID PRN #30 tab 04/05/20 04/06/20 Rx tramadol 50 mg tablet 50 mg PO QID PRN #120 tab 04/05/20 04/06/20 Rx buspirone 10 mg PO TID 04/06/20 04/06/20 History insulin glargine [Lantus Solostar 15 units SQ BID 04/06/20 04/06/20 History U-100 Insulin] levocetirizine [Xyzal] 5 mg PO HS 04/06/20 04/06/20 History Past Med/Surg History Social History Preferred Language: [place] Communication Ability: Effective Visual Impairment: No Limitations Hearing Ability: Normal Gravel 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 Required: Yes Beliefs That Will Affect Care: None marital status: / Current Living Situation: Family Current Living Situation Comment: apartment with daughter Other Information That Helps Us Care for You: No Feels Safe at Home: Yes Safety Concerns: Feels Safe At This Time Smoking Status: Never smoker Second Hand Exposure: No ; Hx Alcohol Use: No Hx Substance Use: No Childhood Exposure to Second-Hand Smoke: No caffeine: No during the past year weight has: increased > 10 lbs Dental Care, Regularly: No Physical Activity Frequency: Does not Exercise Physical Activity Frequency Comment: due to physical condition Seatbelt Use: always Sunscreen Use: Yes Review of Systems Review of Systems: All systems reviewed & are unremarkable except as noted in HPI & below Constitutional: + fatigue and + weakness; no fever and no chills Gastrointestinal: no abdominal pain, no nausea, no vomiting, no change in stools and no blood in stools Genitourinary: + urinary incontinence; no dysuria, no difficulty urinating, no urinary frequency and no urinary urgency Integumentary: no rash Physical Exam Constitutional: + obese; + not well nourished and no acute distress Eyes: + anicteric sclerae; normal pupil size Musculoskeletal: Chronic pain with any movement of left arm, palpation of back. Skin: erythema over lateral lower extremity, without swelling or warmth, (chronically erythematous as per her daughter) Neurologic: moves all extremities (significant pain with most movements, generalized weakness) and awake; no focal motor deficits and not confused Limited neurological motor examination due to significant pain chronically with any movement especially of left upper extremity Psychiatric: Orientation: alert, oriented to person, oriented to place and oriented to time Eye Contact: good eye contact Affect: euthymic affect Thought Content: not paranoid and no delusions Hallucinations: no auditory hallucinations and no visual hallucinations Results & Data Results & Data ([facility]) Vital Signs (Past 12 Hours) Vital Signs Temp Pulse Resp BP Pulse Ox 04/06/20 15:43 89 25 H 160/67 H 94 04/06/20 15:18 86 16 96 04/06/20 14:42 37.0 C 85 22 132/71 94 Diagnostic Findings XR chest 1V portable IMPRESSION: 1. Increase in a left pleural effusion with left basilar opacity may reflect consolidation or atelectasis. Radiographic follow-up to ensure resolution is recommended. 2. Pulmonary vascular congestion with suspected mild pulmonary edema. 3. Rotated study. CT OF THE HEAD WITHOUT CONTRAST IMPRESSION: No acute intracranial findings. No change in appearance of the brain. ECG Indication: altered mental status Rate (beats per minute): 90 Rhythm: normal sinus Findings: + LAFB; no acute ischemic change Comparison ECG Date: from (01/30/2020) Change: the following changes noted (TWI no longer present in lateral leads) Code Status & VTE Plan Code Status Full VTE Prophylaxis Plan VTE Prophylaxis will be ordered: Yes PG Care Time/CCT Total # of Minutes Spent Total Time Spent with Patient: Total time spent is greater than 50% in coordination of care (as documented) at patient's floor/unit and/or counseling patient: Coding Level of Care Code 56029 Initial Inpt Care Lvl 3 Diagnoses AMS (altered mental status) R41.0 Altered mental status type: delirium Complicated UTI (urinary tract infection) N39.0 Generalized weakness R53.1 Pleural effusion on left J90 Urinary incontinence R32 GERD (gastroesophageal reflux disease) K21.9 DM (diabetes mellitus) E11.9 Elevated alkaline phosphatase level R74.8 HTN (hypertension) I10 Idiopathic urticaria L50.1 Hypothyroidism (acquired) E03.9 Osteoporosis M81.0 CKD (chronic kidney disease) stage 3, GFR 30-59 ml/min N18.3 Irritable bowel syndrome K58.9 Anxiety F41.9 Insomnia G47.00 DVT prophylaxis Z29.9 (1) AMS (altered mental status) Altered mental status type: delirium Qualified Code(s): R41.0 - Disorientation, unspecified
[2020-04-06] MEDS ORDERED: DICYCLOMINE HCL 10 MG CAP PO PRN (20:12)
[2020-04-06] MEDS ORDERED: ALUMINUM/MAGNESIUM SUSP 30 ML UDC PO PRN (20:12)
[2020-04-06] MEDS ORDERED: GLUCOSE 40% GEL 15 GM TUBE PO PRN (20:12)
[2020-04-06] MEDS ORDERED: GLUCOSE 10 TABS/TUBE PO PRN (20:12)
[2020-04-06] MEDS ORDERED: ONDANSETRON INJ 2 MG/ML 2 ML VIAL IV PRN (20:12)
[2020-04-06] MEDS ORDERED: CARBOHYDRATES FOR HYPOGLYCEMIA PO PRN (20:12)
[2020-04-06] MEDS ORDERED: POLYETHYLENE (MIRALAX) 17 GM PACK PO PRN (20:12)
[2020-04-06] MEDS ORDERED: DEXTROSE 50% 50 ML SYRINGE IV PRN (20:12)
[2020-04-06] MEDS ORDERED: MAGNESIUM HYDROXIDE SUSP 30 ML UDC PO PRN (20:12)
[2020-04-06] MEDS ORDERED: GLUCAGON FOR INJ 1 MG VIAL SQ PRN (20:12)
[2020-04-06] MEDS ORDERED: PHARMACY GLYCEMIC MGMT CONSULT PRN (20:45)
[2020-04-06] MEDS: INSULIN ASPART 100 UNITS/ML 3 ML PEN SC SCH (21:08)
[2020-04-06] MEDS: HEPARIN SOD 5,000 UNIT/0.5 ML VIAL SQ SCH (21:11)
[2020-04-06] MEDS: DOCUSATE SODIUM 100 MG CAP PO SCH (21:13)
[2020-04-06] MEDS: CETIRIZINE HCL 10 MG TABLET PO SCH (21:14)
[2020-04-06] MEDS: PANTOprazole 40 MG TAB PO SCH (21:14)
[2020-04-06] MEDS: QUETIAPINE FUMARATE 100 MG TABLET PO SCH (21:14)
[2020-04-07] MEDS ORDERED: IMIPENEM/CILASTATIN CONSULT ACTIVE PRN (05:38)
[2020-04-07] MEDS: IMIPENEM/CILASTATIN SODIUM 300 MG in DEXTROSE 5% 100 ML IV SCH ×4 (06:15→23:48)
[2020-04-07 06:20] LABS: Basophils # (auto) 0.04 K/uL (0-0.2); Basophils % (auto) 0.3 %; Eosinophils # (auto) 0.15 K/uL (0-0.5); Hematocrit (blood only) 30.1 % (37-47); Immature Granulocytes # (auto) 0.04 K/uL (0.00-0.02); Immature Granulocytes % (auto) 0.3 %; Lymphocytes # (auto) 2.64 K/uL (1.2-3.4); Lymphocytes % (auto) 18.2 %; Mean Corpuscular Hemoglobin 29.2 pg (25-34); Mean Corpuscular Hgb Conc 33.2 g/dL (32-36); Mean Platelet Volume 8.1 fL (7.4-10.4); Monocytes # (auto) 0.68 K/uL (0.11-0.59); Monocytes % (auto) 4.7 %; Neutrophils # (auto) 10.96 K/uL (1.4-6.5); Neutrophils % (auto) 75.5 %; Platelet Count 425 K/uL (130-400); RDW Coefficient of Variation 15.7 % (11.5-14.5); RDW Standard Deviation 50.5 fL (36.4-46.3); Red Blood Count 3.42 M/uL (4.2-5.4); White Blood Count 14.51 K/uL (4.8-10.8)
[2020-04-07] MEDS ORDERED: LEVOTHYROXINE SODIUM 100 MCG TABLET PO SCH ×2 (06:30)
[2020-04-07 07:01] LABS: Albumin Globulin Ratio 0.3 (0.9-2); Albumin Level 1.5 gm/dl (3.4-5.0); BUN Creatinine Ratio 15.9 (10-20); Bilirubin,Total 0.2 mg/dl (0.2-1); Calcium 8.4 mg/dl (8.5-10.1); Creatinine Clr Calc Pharmacy 31.8 ml/min; Est GFR (African American) 52.5; Est GFR (Non-African American) 45.3; Globulin 4.6 gm/dl (2.5-4.0); Total Protein 6.1 gm/dl (6.4-8.2)
[2020-04-07] MEDS: CITALOPRAM 20 MG TAB PO SCH (08:57)
[2020-04-07] MEDS: AMLODIPINE BESYLATE 5 MG TAB PO SCH (08:57)
[2020-04-07] MEDS: HEPARIN SOD 5,000 UNIT/0.5 ML VIAL SQ SCH ×2 (08:57→20:29)
[2020-04-07] MEDS: MIRABEGRON ER 25 MG TAB PO SCH (08:57)
[2020-04-07] MEDS: CHOLECALCIFEROL 1,000 UNITS 25 MCG TAB PO SCH (08:57)
[2020-04-07] MEDS: FUROSEMIDE 20 MG TAB PO SCH (08:57)
[2020-04-07] MEDS: INSULIN ASPART 100 UNITS/ML 3 ML PEN SC SCH ×4 (08:58→20:53)
[2020-04-07] MEDS: PANTOprazole 40 MG TAB PO SCH ×2 (08:58→20:31)
--- NOTE | 2020-04-07 10:05 | Electrocardiogram Report ---
Test Reason : Blood Pressure : / mmHG Vent. Rate : 090 BPM Atrial Rate : 090 BPM P-R Int : 164 ms QRS Dur : 096 ms QT Int : 356 ms P-R-T Axes : 005 -47 002 degrees QTc Int : 435 ms Normal sinus rhythm Left anterior fascicular block Voltage criteria for left ventricular hypertrophy Poor R wave progression, consider anterior SC vs. lead placement vs. LVH Nonspecific T wave abnormality Abnormal ECG When compared with ECG of 30-JAN-2020 14:51, Nonspecific T wave abnormality now evident in Inferior leads T wave inversion no longer evident in Lateral leads Confirmed by Lloyd Barbour ([id number]) on 04/07/2020 10:04:55 AM Referred By: REFERRED SELF Confirmed By:Lloyd Barbour
--- NOTE | 2020-04-07 10:29 | Pharmacy Report ---
Glycemic Control Consultation - Date of Service April 07, 2020 - Scope Scope: Glycemic Pharmacist consulted for glycemic control and to write orders per [facility] inpatient glycemic control protocol. - Objective Weight: 80 kg Accuchecks BSG (last 24hrs): 04/06/20 04/06/20 04/06/20 15:31 17:11 19:40 Glucose 49 L* POC Glucose 58 L* 85 04/06/20 04/07/20 04/07/20 21:06 06:10 07:28 Glucose 41 L* POC Glucose 111 H 152 H 04/07/20 08:54 Glucose POC Glucose 88 Laboratory Data (last 24hrs): 04/06/20 04/07/20 15:31 06:10 Potassium 4.2 4.0 Carbon Dioxide 27 27 Anion Gap 2.0 L 5.0 Creatinine 1.10 1.09 Est Cr Clr Drug Dosing 32.2 31.8 - Recent Pertinent Medications Outpatient Anti-diabetic Regimen: * Lantus 15 units BID * A1c = 6.5 on 11/2019 Risk Factors for Insulin Resistance: * Diet: diet - Assessment & Plan Assessment & Plan: ASSESSMENT: * 89 year old with UTI/altered mental status on admission. Pharmacy consulted for glycemic management * Patient with low BSG on admission of 49 mg/dL - poor historian but reports taking insulin dose yesterday afternoon prior to admission, but was not able to confirm dose * Per review of previous admissions, patient has history of hypoglycemia during hospitalizations. Last A1C of 6.5% in 11/2019. Prior to that, A1C taken 07/2019 and was 7.9%. Less stringent goal recommended for elderly population is reasonable <8% PLAN FOR INPATIENT GLYCEMIC CONTROL: * Basal insulin * Lantus HS per scale : 0-10 units based upon BSG / plan to start conservatively * Bolus insulin * NovoLog per scale ACHS or Q6hrs while NPO * Goal Range: Low 120 mg/dL - High 150 mg/dL * Correction Factor: 30 mg/dL/unit * Nutritional / Prandial insulin per carb ratio of 1 unit per -- grams CHO consumed * Please note that the plan above was derived based on current level of insulin resistance and hospital stress. These recommendations are appropriate for inpatient admission only. Plan of care upon discharge will need to be reassessed to avoid potential outpatient hypo/hyperglycemia. Thank you.
[2020-04-07] MEDS: LACTOBACILLUS ACIDOPHILUS (FLORANEX) TAB PO SCH ×3 (12:09→20:28)
--- NOTE | 2020-04-07 13:24 | Hospitalist Progress Note ---
Date of Service April 07, 2020 Assessment & Plan (1) AMS (altered mental status): Unclear cause of hallucinations but currently back to baseline. Ddx includes UTI (though no specific symptoms at this time) vs. other infection (blood cultures drawn for bacteremia) vs. blood sugar swings vs. medication- induced. - Presently at baseline. Oriented x 3 and able to give good history. Able to give months of the year forward and backward. - Continue imipenem/cilastatin today, but stop by tomorrow if blood cultures negative x 48 hours. (2) Complicated UTI (urinary tract infection): Urine and blood cultures pending. Elevated WBC in setting of altered mental state without clear alternative infective etiology or cause. - Continue imipenem for now as above - If not improving consider addition of antifungal coverage for budding yeast in urine (3) Generalized weakness: Profound weakness and not walked since . Having PT at home. Believe this is largely from deconditioning and arthritis. - PT/OT evals (4) Pleural effusion on left: Unclear cause. Discussed thoracentesis with patient and her daughter who will discuss with the rest of her sons and daughters. Discussed benefits vs. risks of this. Does no appear to be making her short of breath at least at rest. Empyema very unlikely given patient at baseline functioning status when seen. Possibly just hypoalbuminemia secondary to CKD with lying more on left side. - Daughter Lucy will discuss with family and let us know what she wishes to do. (5) Urinary incontinence: - Continue Mirabegron 25mg ER PO daily (6) GERD (gastroesophageal reflux disease): - Switch omeprazole to pantoprazole as per hospital formulary (7) DM (diabetes mellitus): Hb1C was 6.5% in November and hypoglycemic on admission suggests overtreatment. During my (Ketan Stoll) last admission, we cut her home insulin to daily instead of BID. Somehow looks like it is back up to BID this admission. - Consult pharmacy for glycemic control - Blood sugars again low with fasting (ie early this morning), then rebounding up. Indicates overuse of long-acting insulin and not enough meal-time coverage. (8) HTN (hypertension): BP mildly elevated today at 170/85. - Continue amlodipine 10mg PO daily (9) Elevated alkaline phosphatase level: Unclear whether from bone or liver. Previous imaging with hepatic capsular scarring, transaminitis appears resolved. (10) Idiopathic urticaria: Levocetirizine 5mg PO HS (11) Hypothyroidism (acquired): TSH WNL Continue outpatient levothyroxine dosing (12) Osteoporosis: No prior DEXA in EHR. Continue vitamin D supplementation. (13) CKD (chronic kidney disease) stage 3, GFR 30-59 ml/min: Protein loss in urine in addition to nutritional status likely cause of hypoalbuminemia. Cr improved from baseline, possibly artificial just from muscle mass loss. - Cr stable today. (14) Irritable bowel syndrome: Continue Bentyl, uses this regularly rather than PRN (15) Anxiety: Continue citalopram 30mg PO daily, buspar 10mg PO TID, hydroxyzine PRN (16) Insomnia: Continue Seroquel 100mg PO HS (17) DVT prophylaxis: Heparin 5000 units SQ BID Admission and Anticipated Discharge Date Admission Date: April 06, 2020 Subjective No major concerns today. She is alert and oriented. Able to name months of the year forward and backward. Reports no fevers/chills, chest pain, shortness of breath, abdominal pain, nausea, or vomiting. Physical Exam Constitutional: WD/WN, vitals as above Eyes: EOM intact bilaterally; no conjunctival abnormality ENMT: external ear and nose normal, oropharynx normal Neck: trachea midline, no thyromegaly normal visual inspection Respiratory: normal respiratory effort, lungs clear to auscultation no respiratory distress Cardiovascular: RRR, no murmur, no edema Gastrointestinal (Abdomen): Inspection/Auscultation: abdomen normal to inspection; abdomen not distended Musculoskeletal: no cyanosis or clubbing, extremities motor strength 5/5 Skin: no rashes, warm and dry Neurologic: moves all extremities and awake Psychiatric: Orientation: alert, oriented x 3, oriented to person and cooperative Eye Contact: good eye contact Affect: euthymic affect Results & Data Results & Data ([facility]) Vital Signs (Past 12 Hours) Vital Signs Temp Pulse Pulse Resp BP Pulse Ox 04/07/20 11:04 36.9 C 91 H 20 167/84 H 95 04/07/20 07:49 36.8 C 89 18 169/92 H 94 04/07/20 07:33 84 04/07/20 05:52 180/77 H 04/07/20 03:44 36.9 C 93 H 19 175/73 H 92 PG Care Time/CCT Total # of Minutes Spent Total Time Spent with Patient: Total time spent is greater than 50% in co ordination of care (as documented) at patient's floor/unit and/or counseling patient: Coding Level of Care Code 36422 Subseq Hosp Care Lvl 3 Diagnoses AMS (altered mental status) R41.0 Altered mental status type: delirium Complicated UTI (urinary tract infection) N39.0 Generalized weakness R53.1 Pleural effusion on left J90 Urinary incontinence R32 GERD (gastroesophageal reflux disease) K21.9 DM (diabetes mellitus) E11.9 HTN (hypertension) I10 Elevated alkaline phosphatase level R74.8 Idiopathic urticaria L50.1 Hypothyroidism (acquired) E03.9 Osteoporosis M81.0 CKD (chronic kidney disease) stage 3, GFR 30-59 ml/min N18.3 Irritable bowel syndrome K58.9 Anxiety F41.9 Insomnia G47.00 DVT prophylaxis Z29.9 (1) AMS (altered mental status) Altered mental status type: delirium Qualified Code(s): R41.0 - Disorientation, unspecified
[2020-04-07] MEDS: TRAMADOL HCL 50 MG TABLET PO PRN (15:42)
[2020-04-07] MEDS: DOCUSATE SODIUM 100 MG CAP PO SCH (20:28)
[2020-04-07] MEDS: CETIRIZINE HCL 10 MG TABLET PO SCH (20:31)
[2020-04-07] MEDS: QUETIAPINE FUMARATE 100 MG TABLET PO SCH (20:31)
[2020-04-07] MEDS ORDERED: INSULIN GLARGINE SOLOSTAR 100 UNITS/ML 3 ML PEN SC SCH (21:00)
[2020-04-08 06:03] LABS: Hematocrit (blood only) 31.5 % (37-47); Hemoglobin 9.9 g/dL (12.0-16.0); Mean Corpuscular Hgb Conc 31.4 g/dL (32-36); Mean Corpuscular Volume 89.2 fL (80-100); Mean Platelet Volume 8.6 fL (7.4-10.4); Platelet Count 453 K/uL (130-400); RDW Coefficient of Variation 15.6 % (11.5-14.5); RDW Standard Deviation 50.8 fL (36.4-46.3); Red Blood Count 3.53 M/uL (4.2-5.4)
[2020-04-08] MEDS: IMIPENEM/CILASTATIN SODIUM 300 MG in DEXTROSE 5% 100 ML IV SCH ×2 (06:18→13:03)
[2020-04-08 06:30] LABS: Estimated Average Glucose 126 mg/dl
[2020-04-08 06:49] LABS: Albumin Level 1.5 gm/dl (3.4-5.0); BUN Creatinine Ratio 12.4 (10-20); Calcium 8.1 mg/dl (8.5-10.1); Creatinine Clr Calc Pharmacy 25.5 ml/min; Est GFR (African American) 40.5; Magnesium 1.7 mg/dl (1.8-2.4); Potassium 4.2 mmol/L (3.5-5.1)
[2020-04-08 06:51] LABS: Albumin Globulin Ratio 0.3 (0.9-2); Bilirubin,Total 0.3 mg/dl (0.2-1); Globulin 4.7 gm/dl (2.5-4.0); Phosphorus 3.5 mg/dl (2.5-4.9); Total Protein 6.2 gm/dl (6.4-8.2)
[2020-04-08] MEDS: INSULIN ASPART 100 UNITS/ML 3 ML PEN SC SCH ×3 (07:53→17:23)
[2020-04-08] MEDS: AMLODIPINE BESYLATE 5 MG TAB PO SCH (08:22)
[2020-04-08] MEDS: CITALOPRAM 20 MG TAB PO SCH (08:22)
[2020-04-08] MEDS: CHOLECALCIFEROL 1,000 UNITS 25 MCG TAB PO SCH (08:23)
[2020-04-08] MEDS: PANTOprazole 40 MG TAB PO SCH (08:24)
[2020-04-08] MEDS: FUROSEMIDE 20 MG TAB PO SCH (08:24)
[2020-04-08] MEDS: MIRABEGRON ER 25 MG TAB PO SCH (08:24)
[2020-04-08] MEDS: LACTOBACILLUS ACIDOPHILUS (FLORANEX) TAB PO SCH ×3 (08:25→17:25)
[2020-04-08] MEDS: HEPARIN SOD 5,000 UNIT/0.5 ML VIAL SQ SCH (08:28)
[2020-04-08] MEDS: TRAMADOL HCL 50 MG TABLET PO PRN (15:38)
--- NOTE | 2020-04-08 17:04 | Communication Note ---
Date of Service: April 08, 2020 Toxic/metabolic encephalopathy POA treated and resolved Patient being seen for above problem. On antibiotics. more details on my discharge summary.
[2020-04-09] MEDS ORDERED: IMIPENEM/CILASTATIN SODIUM 200 MG in DEXTROSE 5% 100 ML IV SCH
--- NOTE | 2020-04-15 07:49 | Discharge Summary ---
Date of Service April 08, 2020 Admission HPI Per Admitting Provider Fartun Loredo is an 89 year old female with PMHx of T2DM, recurrent UTIs, ambulatory dysfunction who presents to the ER due to hallucinations and altered mental status last night noticed by her daughter who looks after her. She reports currently being back to her normal self. While this was occurring she did notice her glucose go > 400 due to a dairy herrmann she had in the afternoon. However she has also has had these altered states during prior UTIs therefore her daughter was concerned at the degree of hallucinations she was having so decided to bring her to the ER. Hallucinations involved talking to people who were not there. The patient has no recollection of this. She was recently treated with a 7 day course of Invanz due to UTI which finished on Wednesday. On that occasion she was having dysuria. Today she denies any dysuria, change in urine color/smell/consistency. No fevers or chills. She has chronic back pain but nothing new. Regarding her pleural effusion. No new cough, shortness of breath or chest pain. She is a lifelong non-smoker. Regarding her murmur - patient and daughter deny ever being told she has a murmur. Principal Diagnosis ACUTE METABOLIC ENCEPHALOPATHY Discharge Exam Constitutional: WD/WN, vitals as above Eyes: EOM intact bilaterally; no conjunctival abnormality ENMT: external ear and nose normal, oropharynx normal Neck: trachea midline, no thyromegaly normal visual inspection Respiratory: normal respiratory effort, lungs clear to auscultation no respiratory distress Cardiovascular: RRR, no murmur, no edema Gastrointestinal (Abdomen): Inspection/Auscultation: abdomen normal to inspection; abdomen not distended Musculoskeletal: no cyanosis or clubbing, extremities motor strength 5/5 Skin: no rashes, warm and dry Neurologic: moves all extremities and awake Psychiatric: Orientation: alert, oriented x 3, oriented to person and cooperative Eye Contact: good eye contact Affect: euthymic affect Discharge Data Allergies Allergy/AdvReac Type Severity Reaction Status Date / Time acetaminophen [From Percocet] Allergy Severe swelling/so Verified 04/06/20 16:10 b cephalexin Allergy Unknown RASH Unverified 04/06/20 16:10 morphine Allergy Unknown NAUSEA Unverified 04/06/20 16:10 oxycodone Allergy Unknown DIFFICULTY Unverified 04/06/20 16:10 SWALLOWING propoxyphene Allergy Unknown DIFFICULTY Verified 04/06/20 16:10 SWALLOWING ciprofloxacin [From Cipro] AdvReac Severe LEG NUMB & Verified 04/06/20 16:10 WEAK Consultations 04/06/20 17:22 ED Decision to Admit Stat Ordered Studies 04/06/20 15:10 CT head/brain wo con Stat Hospital Course (1) AMS (altered mental status): Toxic/metabolic encephalopathy POA treated and resolved Patient being seen for above problem. On antibiotics. Unclear cause of hallucinations but currently back to baseline. Ddx includes UTI (though no specific symptoms at this time) vs. other infection (blood cultures drawn for bacteremia) vs. blood sugar swings vs. medication- induced. - Presently at baseline. Oriented x 3 and able to give good history. Able to give months of the year forward and backward. - Initially treated with imipenem/cilastatin, but will stop as blood cultures negative x 48 hours. will discharge on augmentin for 5 more doses (2) Complicated UTI (urinary tract infection): Urine and blood cultures pending. Elevated WBC in setting of altered mental state without clear alternative infective etiology or cause. - Continue imipenem for now as above - If not improving consider addition of antifungal coverage for budding yeast in urine (3) Generalized weakness: Profound weakness and not walked since . Having PT at home. Believe this is largely from deconditioning and arthritis. - PT/OT evals (4) Pleural effusion on left: Unclear cause. Discussed thoracentesis with patient and her daughter who will discuss with the rest of her sons and daughters. Discussed benefits vs. risks of this. Does no appear to be making her short of breath at least at rest. Empyema very unlikely given patient at baseline functioning status when seen. Possibly just hypoalbuminemia secondary to CKD with lying more on left side. - Daughter Lucy will discuss with family / will defer to followup visit with PCP (5) Urinary incontinence: - Continue Mirabegron 25mg ER PO daily (6) GERD (gastroesophageal reflux disease): - Switch omeprazole to pantoprazole as per hospital formulary (7) DM (diabetes mellitus): Hb1C was 6.5% in November and hypoglycemic on admission suggests overtreatment. During my (Ketan Stoll) last admission, we cut her home insulin to daily instead of BID. Somehow looks like it is back up to BID this admission. - Consult pharmacy for glycemic control - Blood sugars again low with fasting (ie early this morning), then rebounding up. Indicates overuse of long-acting insulin and not enough meal-time coverage. (8) HTN (hypertension): BP mildly elevated today at 170/85. - Continue amlodipine 10mg PO daily (9) Elevated alkaline phosphatase level: Unclear whether from bone or liver. Previous imaging with hepatic capsular scarring, transaminitis appears resolved. (10) Idiopathic urticaria: Levocetirizine 5mg PO HS (11) Hypothyroidism (acquired): TSH WNL Continue outpatient levothyroxine dosing (12) Osteoporosis: No prior DEXA in EHR. Continue vitamin D supplementation. (13) CKD (chronic kidney disease) stage 3, GFR 30-59 ml/min: Protein loss in urine in addition to nutritional status likely cause of hypoalbuminemia. Cr improved from baseline, possibly artificial just from muscle mass loss. - Cr stable today. (14) Irritable bowel syndrome: Continue Bentyl, uses this regularly rather than PRN (15) Anxiety: Continue citalopram 30mg PO daily, buspar 10mg PO TID, hydroxyzine PRN (16) Insomnia: Continue Seroquel 100mg PO HS (17) DVT prophylaxis: Heparin 5000 units SQ BID Total Time Total Time Spent Total Time Spent (In Minutes): 35 Total Time Includes: Examination of the Patient, Discharge Planning and Medication Reconciliation Discharge Plan Discharge Items Patient Disposition: Home - Home Health Services Reason For Visit: HYPOGLYCEMIA, HALLUCINATIONS Discharge Diagnosis: altered mental status Activity: Resume your previous activity Non-emergency contact: Primary Care Provider Call non-emergency contact if: you have any medication questions Follow-up/Referrals: Edilma Combs DO [Primary Care Provider] - Diet: Carb Consistent or DM2 Addtl Attending Provider Instructions: A1C seems very tightly controlled. Will recommend keeping a diary of your blood sugar readings. May recommend transitioning to either lower dose of insulin or pills by mouth to control your blood sugar. Will defer to PCP. WILL RECOMMEND 5 more days of augmentin. Pending Studies at Discharge: No Stand-Alone Forms: My [employer], Smoking Cessation Medications and DC Order Prescriptions: New amoxicillin-pot clavulanate 500-125 mg tablet 1 tab PO BID Qty: 5 RF: 0 Continued (DME) Hospital Bed Misc See Rx Instructions .ROUTE .MEDSUPPLY Qty: 1 RF: 0 amlodipine [Norvasc] 10 mg tablet 10 mg PO QAM Qty: 90 RF: 1 (DME) OneTouch Ultra Blue Test Strip Strip See Rx Instructions .ROUTE .MEDSUPPLY Qty: 100 RF: 3 cholecalciferol (vitamin D3) 125 mcg (5,000 unit) capsule 125 mcg PO DAILY Qty: 90 RF: 1 miscellaneous medical supply Misc See Rx Instructions MS .COMPLEX Qty: 1 RF: 0 (DME) Mattress (Air or other) Misc See Rx Instructions .ROUTE .MEDSUPPLY Qty: 1 RF: 0 citalopram 20 mg tablet 30 mg PO DAILY Qty: 45 RF: 1 hydroxyzine HCl 25 mg tablet 25 mg PO BID PRN (Reason: Anxiety) Qty: 40 RF: 1 tramadol 50 mg tablet 50 mg PO QID PRN (Reason: pain) Qty: 120 RF: 0 ondansetron HCl [Zofran] 8 mg tablet 8 mg PO BID PRN (Reason: nausea and vomiting) Qty: 30 RF: 0 levothyroxine [Synthroid] 100 mcg tablet 100 mcg PO .COMPLEX Qty: 35 RF: 1 nitrofurantoin macrocrystal 100 mg capsule 100 mg PO DAILY Qty: 30 RF: 3 Myrbetriq 25 mg tablet extended release 24 hr 25 mg PO DAILY Qty: 30 RF: 5 omeprazole 20 mg capsule,delayed release(DR/EC) 20 mg PO BID Qty: 180 RF: 1 CarZumercellaneous medical supply Kit 5 ea MS DAILY Qty: 150 RF: 11 (DME) underpads [Bed Underpads] Pad See Rx Instructions .ROUTE .MEDSUPPLY Qty: 3 RF: 11 (DME) underpads [Bed Underpads] Pad See Rx Instructions .ROUTE .MEDSUPPLY Qty: 80 RF: 11 dicyclomine 10 mg capsule 10 mg PO BID PRN (Reason: abd cramping) Qty: 60 RF: 2 cranberry 500 mg Capsule 500 mg PO BID RF: 0 quetiapine [Seroquel] 100 mg Tablet 100 mg PO HS RF: 0 magnesium 250 mg Tablet 250 mg PO BID RF: 0 docusate sodium 100 mg Tablet 100 mg PO BID PRN (Reason: Constipation) RF: 0 furosemide 20 mg tablet 20 mg PO QAM RF: 0 buspirone 10 mg tablet 10 mg PO TID RF: 0 levocetirizine [Xyzal] 5 mg tablet 5 mg PO HS RF: 0 Discontinued Lantus Solostar U-100 Insulin 100 unit/mL (3 mL) insulin pen 15 units SQ BID RF: 0 Discharge Orders: Discharge Order (Routine); Ordered 04/08/20 Ordered By: Mika Wilder/Other Patient Handouts: Hypoglycemia (Low Blood Sugar) Admission Data Admit Date/Time: 04/06/20 18:45 Attending Provider: Mika Sifuentes Admit Provider: Wolf Rome Primary Care Provider: Edilma Combs Other Interventions: Discharge Summary Assessment (RN) Last Done: 04/08/20 17:06 DC Date/Time DO NOT enter until pt leaves facility: 04/08/20 18:25 Coding Level of Care Code D/C Day Management >30 mins Diagnoses AMS (altered mental status) R41.0 Altered mental status type: delirium Complicated UTI (urinary tract infection) N39.0 Generalized weakness R53.1 Pleural effusion on left J90 Urinary incontinence R32 GERD (gastroesophageal reflux disease) K21.9 DM (diabetes mellitus) E11.9 HTN (hypertension) I10 Elevated alkaline phosphatase level R74.8 Idiopathic urticaria L50.1 Hypothyroidism (acquired) E03.9 Osteoporosis M81.0 CKD (chronic kidney disease) stage 3, GFR 30-59 ml/min N18.3 Irritable bowel syndrome K58.9 Anxiety F41.9 Insomnia G47.00 DVT prophylaxis Z29.9 Time Spent (min) 35
== END 2020-04-08 18:25 | disposition home health service (06) ==
LOC: ED 14:42 → 2N 18:45 → SUATTDRO 18:45 → INTOOBSV 18:45 → 2N 19:42

== ENCOUNTER 2020-06-10 12:53 | Inpatient (IN) ==
--- NOTE | 2020-06-10 13:43 | Emergency Department Note ---
History of Present Illness General Chief Complaint: Abdominal Pain Time Seen by Provider: 06/10/20 13:05 History of Present Illness Provider Complaint: abdominal pain Onset (ago): 1 day(s) Location: suprapubic Radiation: none Severity: mild Maximum Pain Intensity: 4 Current Pain Intensity: 4 Quality: + other (Burning) Relieved By: + nothing Exacerbated By: + other (Urinating) Context: + history of similar episodes (Feels like previous UTIs.); no sick contacts and no recent injury Associated Symptoms: + diarrhea, + fever (T-max 99) and + dysuria; no vomiting, no chills, no hematemesis, no hematochezia, no melena and no hematuria Related Data Patient Confirmed : No Home Medications Home Medications Medication Instructions Recorded Confirmed Type cranberry 500 mg PO BID 06/12/19 06/10/20 History docusate sodium 100 mg PO BID PRN 09/21/19 06/10/20 History magnesium 250 mg PO BID 09/21/19 06/10/20 History miscellaneous medical supply #1 ea 11/17/19 04/23/20 Rx miscellaneous medical supply 5 ea MS DAILY #150 ea 12/22/19 04/23/20 Rx underpads #3 ea 12/22/19 04/23/20 Rx underpads #80 ea 12/22/19 04/23/20 Rx cholecalciferol (vitamin D3) 125 125 mcg PO DAILY #90 cap 12/28/19 06/10/20 Rx mcg (5,000 unit) capsule miscellaneous medical supply See Rx Instructions MS .COMPLEX #1 01/03/20 04/23/20 Rx ea omeprazole 20 mg capsule,delayed 20 mg PO BID #180 cap 01/23/20 06/10/20 Rx release mirabegron 25 mg tablet,extended 25 mg PO DAILY #30 tab 02/05/20 06/10/20 Rx release 24 hr miscellaneous medical supply #1 ea 02/07/20 04/23/20 Rx buspirone 10 mg PO TID 04/06/20 06/10/20 History levocetirizine [Xyzal] 5 mg PO HS 04/06/20 06/10/20 History citalopram 20 mg tablet 30 mg PO DAILY #45 tab 04/22/20 06/10/20 Rx hydroxyzine HCl 25 mg tablet 25 mg PO BID PRN #40 tab 04/23/20 06/10/20 Rx hydrocortisone 2.5 % topical cream [address] DAILY PRN #28 gm 04/24/20 06/10/20 Rx with perineal applicator blood sugar diagnostic #100 ea 05/02/20 Rx ondansetron HCl 8 mg tablet 8 mg PO BID PRN #30 tab 05/14/20 06/10/20 Rx quetiapine 100 mg tablet 100 mg PO HS #90 tab 05/14/20 06/10/20 Rx amlodipine 10 mg tablet 10 mg PO QAM #90 tab 05/27/20 06/10/20 Rx dicyclomine 10 mg capsule 10 mg PO BID PRN #60 cap 05/27/20 06/10/20 Rx furosemide 20 mg tablet 20 mg PO QAM #90 tab 05/27/20 06/10/20 Rx nitrofurantoin macrocrystal 100 mg 100 mg PO DAILY #30 cap 05/28/20 06/10/20 Rx capsule tramadol 50 mg tablet 50 mg PO QID PRN #120 tab 05/30/20 06/10/20 Rx fluconazole 200 mg tablet 200 mg PO DAILY 14 Days #14 tab 06/03/20 06/10/20 Rx levothyroxine 100 mcg tablet 100 mcg PO .COMPLEX #35 tab 06/06/20 06/10/20 Rx Allergies Allergy/AdvReac Type Severity Reaction Status Date / Time acetaminophen [From Percocet] Allergy Severe swelling/so Verified 06/10/20 16:02 b cephalexin Allergy Unknown RASH Verified 06/10/20 16:02 morphine Allergy Unknown NAUSEA Verified 06/10/20 16:02 oxycodone Allergy Unknown DIFFICULTY Verified 06/10/20 16:02 SWALLOWING propoxyphene Allergy Unknown DIFFICULTY Verified 06/10/20 16:02 SWALLOWING ciprofloxacin [From Cipro] AdvReac Severe LEG NUMB & Verified 06/10/20 16:02 WEAK Past Med/Surg History Medical History Anxiety CKD (chronic kidney disease) stage 3, GFR 30-59 ml/min Diabetic neuropathy Diverticulosis DM (diabetes mellitus) Generalized osteoarthritis GERD (gastroesophageal reflux disease) Hiatal hernia History of melanoma HTN (hypertension) Hyperlipidemia Hypothyroidism (acquired) Insomnia Irritable bowel syndrome Kidney stones Lumbar disc disease Lymphedema Osteoporosis Prosthetic joint infection Recurrent UTI Venous insufficiency (chronic) (peripheral) Surgical History H/O cataract extraction H/O: hemorrhoidectomy History of appendectomy History of cholecystectomy History of total right knee replacement S/P hysterectomy Family History Father Stomach cancer Brother Lung cancer Sister Diabetes Sister Diabetes Other No significant family history Social History Smoking Status: Never smoker Second Hand Exposure: No; Hx Alcohol Use: No Hx Substance Use: No Preferred Language: French Communication Ability: Effective Visual Impairment: No Limitations Hearing Ability: Normal Internal Security Manager Required: Yes Beliefs That Will Affect Care: None marital status: / Current Living Situation: Family Current Living Situation Comment: apartment with daughter Feels Safe at Home: Yes Childhood Exposure to Second-Hand Smoke: No caffeine: No during the past year weight has: increased > 10 lbs Dental Care, Regularly: No Physical Activity Frequency: Does not Exercise Physical Activity Frequency Comment: due to physical condition Seatbelt Use: always Sunscreen Use: Yes Review of Systems A total of 10 systems reviewed and were otherwise negative Physical Exam Vital Signs: Vital Signs - 24 hr 06/10/20 13:00 06/10/20 15:28 06/10/20 16:00 Temperature 37.1 C Temperature Source Oral Pulse Rate 104 H Pulse Rate [Apical ] 98 H 93 H Pulse Rhythm Regular Pulse Strength Normal Respiratory Rate 20 18 20 Respiratory Effort / Characteristics Non-Labored Sponta neous Respiratory Depth Normal Respiratory Patter n Regular Blood Pressure 122/63 Blood Pressure [Le ft Arm] 132/65 125/84 Blood Pressure Concepcion n 82 Blood Pressure Concepcion n [Left Arm] 87 97 Pulse Oximetry 93 96 98 Oxygen Delivery Me thod Room Air Sepsis Recent Feve r Within 48 Hours No Sepsis New/Unexpla ined Change in Men elaine Status N/A Sepsis Action Take n by Nursing No Action Required Physical Exam: Physical Exam GENERAL: She is oriented to person, place, and time. She appears well-developed and well-nourished. She does not appear distressed. HENT: Exam performed. -Head: Normocephalic and atraumatic. -Right Ear: External ear normal. No mastoid tenderness. -Left Ear: External ear normal. No mastoid tenderness. -Mouth/Throat: The oropharynx is clear and moist. No trismus in the jaw. No dental abscesses or uvula swelling. No oropharyngeal exudate or tonsillar abscesses. EYES: Conjunctivae and EOM are normal. Pupils are equal, round, and reactive to light. Right eye exhibits no discharge. Left eye exhibits no discharge. No scleral icterus. NECK: Normal range of motion. Neck supple. No JVD present. No spinous process tenderness present. No carotid bruit present. No rigidity. No tracheal deviation and normal range of motion present. No Brudzinski's sign and no Kernig's sign noted. CV: Normal rate, regular rhythm, normal heart sounds and intact distal pulses. There is no peripheral edema. Palpable radial pulses bue. PULM/CHEST: Effort normal and breath sounds normal. No respiratory distress. No stridor. She has no wheezes. She has no rales. -Chest Wall: She exhibits no tenderness. ABD: The abdomen is soft. Pain on palpation of the suprapubic area. MUSC/SKEL: Normal range of motion. There is no peripheral edema, tenderness or deformity. LYMPH: No cervical adenopathy. NEURO: She is alert and oriented to person, place, and time. She has normal strength. No cranial nerve deficit or sensory deficit. Coordination and gait normal. GCS eye subscore is 4. GCS verbal subscore is 5. GCS motor subscore is 6. Cerebellar tests wnl. SKIN: Skin is warm and dry. She is not diaphoretic. PSYCH: She has a normal mood and affect. Behavior is normal. Judgment and thought content normal. Course Course 1305: The patient was evaluated in room A2. A complete history and physical exam was performed. Cardiac monitoring: An order was placed for continuous cardiac monitoring. The monitor shows a rate of 90 with sinus rhythm 1527: Vital signs stable. Labs show leukocytosis of 15.08. Patient's creatinine is 3.12. This is up from her baseline of approximately 1.6. Imaging does not show any sort of obstruction. Urinalysis does appear to be infected. EMR is reviewed. Patient does have urine culture from February 2020 which showed Klebsiella pneumonia ESBL that was sensitive only to amikacin, cefoxitin, ertape nem, and imipenem. Based off the patient's age, her creatinine clearance, acute kidney injury, I discussed with pharmacy who recommended 500 mg of ertapenem IV piggyback. I discussed the case with Dr. Rome [facility] hospitalist who agreed to evaluate the patient. Administered Medications Sodium Chloride (Nss) 500 mls @ 125 mls/hr IV .Q4H MAU Stop: 07/10/20 13:14 Last Admin: 06/10/20 13:52 Dose: 125 mls/hr Documented by: [id number] Discontinued Medications Ertapenem 500 mg/ Sodium (Chloride) 55 mls @ 100 mls/hr IV NOW STA Stop: 06/10/20 15:09 Last Admin: 06/10/20 15:20 Dose: 100 mls/hr Documented by: [id number] Medical Decision Making Laboratory Data Result diagrams: 06/10/20 13:45 06/10/20 13:45 Lab Results 06/10/20 06/10/20 06/10/20 Range/Units 13:45 13:45 13:45 WBC 15.08 H (4.8-10.8) K/uL RBC 3.66 L (4.2-5.4) M/uL Hgb 10.2 L (12.0-16.0) g/dL Hct 31.2 L (37-47) % MCV 85.2 (80-100) fL MCH 27.9 (25-34) pg MCHC 32.7 (32-36) g/dL RDW Std Deviation 48.4 H (36.4-46.3) fL RDW Coeff of Lyssa 15.4 H (11.5-14.5) % Plt Count 429 H (130-400) K/uL MPV 9.1 (7.4-10.4) fL Immature Gran % (Auto) 2.4 % Neut % (Auto) 70.7 % Lymph % (Auto) 16.6 % Waldo % (Auto) 9.5 % Eos % (Auto) 0.7 % Baso % (Auto) 0.1 % Neut # (Auto) 10.64 H (1.4-6.5) K/uL Lymph # (Auto) 2.51 (1.2-3.4) K/uL Waldo # (Auto) 1.44 H (0.11-0.59) K/uL Eos # (Auto) 0.11 (0-0.5) K/uL Baso # (Auto) 0.02 (0-0.2) K/uL Immature Gran # (Auto) 0.36 H (0.00-0.02) K/uL Sodium 136 (136-145) mmol/L Potassium 4.3 (3.5-5.1) mmol/L Chloride 103 (98-107) mmol/L Carbon Dioxide 25 (21-32) mmol/L Anion Gap 8.0 (3-11) BUN 45 H (7-18) mg/dl Creatinine 3.12 H (0.6-1.2) mg/dl Est Cr Clr Drug Dosing 11.6 ml/min Est GFR ( Amer) 14.6 Est GFR (Non-Af Amer) 12.6 BUN/Creatinine Ratio 14.5 (10-20) Glucose 101 H (70-99) mg/dl Lactate 1.1 (0.4-2.0) mmol/L Calcium 7.5 L (8.5-10.1) mg/dl Urine Color Urine Appearance (Clear) Urine pH (4.5-7.5) Ur Specific Handley (1.000-1.030) Urine Protein (Negative) Urine Glucose (UA) (Negative) Urine Ketones (Negative) Urine Blood (Negative) Urine Nitrite (Negative) Urine Bilirubin (Negative) Urine Urobilinogen (Negative) Ur Leukocyte Esterase (Negative) Urine WBC (Auto) (0-5) /hpf Urine RBC (Auto) (0-4) /hpf U Hyaline Cast (Auto) (0-5) /lpf U Epithel Cells (Auto) (0-5) /lpf Urine Bacteria (Auto) (Negative) 06/10/20 Range/Units 14:05 WBC (4.8-10.8) K/uL RBC (4.2-5.4) M/uL Hgb (12.0-16.0) g/dL Hct (37-47) % MCV (80-100) fL MCH (25-34) pg MCHC (32-36) g/dL RDW Std Deviation (36.4-46.3) fL RDW Coeff of Lyssa (11.5-14.5) % Plt Count (130-400) K/uL MPV (7.4-10.4) fL Immature Gran % (Auto) % Neut % (Auto) % Lymph % (Auto) % Waldo % (Auto) % Eos % (Auto) % Baso % (Auto) % Neut # (Auto) (1.4-6.5) K/uL Lymph # (Auto) (1.2-3.4) K/uL Waldo # (Auto) (0.11-0.59) K/uL Eos # (Auto) (0-0.5) K/uL Baso # (Auto) (0-0.2) K/uL Immature Gran # (Auto) (0.00-0.02) K/uL Sodium (136-145) mmol/L Potassium (3.5-5.1) mmol/L Chloride (98-107) mmol/L Carbon Dioxide (21-32) mmol/L Anion Gap (3-11) BUN (7-18) mg/dl Creatinine (0.6-1.2) mg/dl Est Cr Clr Drug Dosing ml/min Est GFR ( Amer) Est GFR (Non-Af Amer) BUN/Creatinine Ratio (10-20) Glucose (70-99) mg/dl Lactate (0.4-2.0) mmol/L Calcium (8.5-10.1) mg/dl Urine Color Dark Yellow Urine Appearance Turbid A (Clear) Urine pH >= 9.0 H (4.5-7.5) Ur Specific Handley 1.014 (1.000-1.030) Urine Protein 3+ H (Negative) Urine Glucose (UA) Negative (Negative) Urine Ketones Negative (Negative) Urine Blood 1+ H (Negative) Urine Nitrite Negative (Negative) Urine Bilirubin Negative (Negative) Urine Urobilinogen Negative (Negative) Ur Leukocyte Esterase 3+ H (Negative) Urine WBC (Auto) >30 H (0-5) /hpf Urine RBC (Auto) 0-4 (0-4) /hpf U Hyaline Cast (Auto) 1-5 (0-5) /lpf U Epithel Cells (Auto) 0-5 (0-5) /lpf Urine Bacteria (Auto) 2+ H (Negative) Imaging Data Radiologist's Impression: CT SCAN OF THE ABDOMEN AND PELVIS WITHOUT CONTRAST CLINICAL HISTORY: Abdominal pain. Acute renal insufficiency. Urinary tract infection. COMPARISON STUDY: 08/06/2019 TECHNIQUE: CT scan of the abdomen and pelvis was performed from the lung bases to the proximal femurs. Images are reviewed in the axial, sagittal, and coronal planes. IV contrast was not administered for this examination. A dose lowering technique was utilized adhering to the principles of ALARA. CT DOSE: 1091.11 mGycm FINDINGS: Lower chest: There is a small left pleural effusion with associated left lower lobe atelectasis/consolidation with air bronchograms. There are dependent right basilar opacities with air bronchograms, atelectatic versus infectious/inf lammatory. There are coronary artery calcifications. There is trace pericardial fluid. Liver: No focal hepatic masses are visualized given the limitations of a noncontrast study. Liver measures 20 cm in length. Gallbladder: Surgically absent Spleen: Normal in size and attenuation. Pancreas: Unremarkable. Adrenal glands: Unremarkable. Kidneys: There are bilateral renal calcifications, likely vascular. There is mild dilatation of each renal collecting system and ureter. No ureteral calculi are visualized. There are no bladder calculi. Bowel: There are no transition zones to indicate bowel obstruction. There is no evidence of acute diverticulitis. By history the appendix is surgically absent. There is mild some mucosal hypertrophy within the ascending colon. There is moderate stool within the transverse colon. Peritoneum: There is no intraperitoneal free air or abdominal ascites. Vasculature: There is aortoiliac atherosclerotic disease. There is no evidence of abdominal aortic aneurysm Adenopathy: Iliac chain lymph nodes are the upper limits of normal in size. Pelvic viscera: There is bladder wall thickening with mild infiltration of perivesical fat suggestive of a cystitis. Skeletal structures: No destructive osseous lesions are seen. Bones are osteopenic. No destructive lesions are visualized. There is mild induration of the subcutaneous fat lateral to the coccyx to the left of midline IMPRESSION: 1. Small left pleural effusion, and bilateral lower lobe atelectas is/consolidation 2. No evidence of bowel obstruction. No evidence of free air 3. Surgically absent uterus, appendix, and gallbladder. 4. Bladder wall thickening and mild infiltration of the perivesical fat, suggestive of a cystitis. ACT 112: Negative or not required by law. Electronically signed by: Linden Pak M.D. 06/10/2020 3:23 PM Dictated: 06/10/20 1515 Transcribed: 06/10/20 0801 [facility] Narrative Vital signs stable. Labs show leukocytosis of 15.08. Patient's creatinine is 3.12. This is up from her baseline of approximately 1.6. Imaging does not show any sort of obstruction. Urinalysis does appear to be infected. EMR is rev iewed. Patient does have urine culture from February 2020 which showed Klebsiella pneumonia ESBL that was sensitive only to amikacin, cefoxitin, ertapenem, and imipenem. Based off the patient's age, her creatinine clearance, acute kidney injury, I discussed with pharmacy who recommended 500 mg of ertapenem IV piggyback. I discussed the case with Dr. Rome [facility] hospitalist who agreed to evaluate the patient. Impression & Plan LYNDSEY (acute kidney injury), Acute UTI Discharge Plan Visit Data Chief Complaint: Abdominal Pain ED Provider: Humberto Fraga Discharge Problem: LYNDSEY (acute kidney injury), Acute UTI Patient Disposition: Admitted As Inpatient Forms Stand Alone Forms: [facility] Prescriptions Prescriptions: No Action (DME) Hospital Bed Misc See Rx Instructions .ROUTE .MEDSUPPLY Qty: 1 RF: 0 cholecalciferol (vitamin D3) 125 mcg (5,000 unit) capsule 125 mcg PO DAILY Qty: 90 RF: 1 miscellaneous medical supply Misc See Rx Instructions MS .COMPLEX Qty: 1 RF: 0 (DME) Mattress (Air or other) Misc See Rx Instructions .ROUTE .MEDSUPPLY Qty: 1 RF: 0 citalopram 20 mg tablet 30 mg PO DAILY Qty: 45 RF: 1 hydrocortisone [Proctozone-HC] 2.5 % cream with perineal applicator [address] DAILY PRN (Reason: hemorrhoids) Qty: 28 RF: 0 (DME) OneTouch Ultra Blue Test Strip Strip See Rx Instructions .ROUTE .MEDSUPPLY Qty: 100 RF: 3 ondansetron HCl [Zofran] 8 mg tablet 8 mg PO BID PRN (Reason: nausea and vomiting) Qty: 30 RF: 1 quetiapine [Seroquel] 100 mg tablet 100 mg PO HS Qty: 90 RF: 1 amlodipine [Norvasc] 10 mg tablet 10 mg PO QAM Qty: 90 RF: 1 dicyclomine 10 mg capsule 10 mg PO BID PRN (Reason: abd cramping) Qty: 60 RF: 2 furosemide 20 mg tablet 20 mg PO QAM Qty: 90 RF: 1 nitrofurantoin macrocrystal 100 mg capsule 100 mg PO DAILY Qty: 30 RF: 3 tramadol 50 mg tablet 50 mg PO QID PRN (Reason: pain) Qty: 120 RF: 0 fluconazole 200 mg tablet 200 mg PO DAILY 14 Days Qty: 14 RF: 0 levothyroxine [Synthroid] 100 mcg tablet 100 mcg PO .COMPLEX Qty: 35 RF: 1 Myrbetriq 25 mg tablet extended release 24 hr 25 mg PO DAILY Qty: 30 RF: 5 omeprazole 20 mg capsule,delayed release(DR/EC) 20 mg PO BID Qty: 180 RF: 1 hydroxyzine HCl 25 mg tablet 25 mg PO BID PRN (Reason: Anxiety) Qty: 40 RF: 1 miscellaneous medical supply Kit 5 ea MS DAILY Qty: 150 RF: 11 (DME) underpads [Bed Underpads] Pad See Rx Instructions .ROUTE .MEDSUPPLY Qty: 3 RF: 11 (DME) underpads [Bed Underpads] Pad See Rx Instructions .ROUTE .MEDSUPPLY Qty: 80 RF: 11 cranberry 500 mg Capsule 500 mg PO BID RF: 0 magnesium 250 mg Tablet 250 mg PO BID RF: 0 docusate sodium 100 mg Tablet 100 mg PO BID PRN (Reason: Constipation) RF: 0 buspirone 10 mg tablet 10 mg PO TID RF: 0 levocetirizine [Xyzal] 5 mg tablet 5 mg PO HS RF: 0 Referrals Referrals: Edilma Combs DO [Primary Care Provider] -
[2020-06-10] MEDS: SODIUM CHLORIDE 0.9% 500 ML IV SCH ×2 (13:52→23:01)
[2020-06-10 13:59] LABS: Basophils # (auto) 0.02 K/uL (0-0.2); Basophils % (auto) 0.1 %; Eosinophils # (auto) 0.11 K/uL (0-0.5); Eosinophils % (auto) 0.7 %; Hematocrit (blood only) 31.2 % (37-47); Hemoglobin 10.2 g/dL (12.0-16.0); Immature Granulocytes # (auto) 0.36 K/uL (0.00-0.02); Immature Granulocytes % (auto) 2.4 %; Lymphocytes # (auto) 2.51 K/uL (1.2-3.4); Lymphocytes % (auto) 16.6 %; Mean Corpuscular Hemoglobin 27.9 pg (25-34); Mean Corpuscular Hgb Conc 32.7 g/dL (32-36); Mean Corpuscular Volume 85.2 fL (80-100); Mean Platelet Volume 9.1 fL (7.4-10.4); Monocytes # (auto) 1.44 K/uL (0.11-0.59); Monocytes % (auto) 9.5 %; Neutrophils # (auto) 10.64 K/uL (1.4-6.5); Neutrophils % (auto) 70.7 %; Platelet Count 429 K/uL (130-400); RDW Coefficient of Variation 15.4 % (11.5-14.5); RDW Standard Deviation 48.4 fL (36.4-46.3); Red Blood Count 3.66 M/uL (4.2-5.4); White Blood Count 15.08 K/uL (4.8-10.8)
[2020-06-10 14:17] LABS: BUN Creatinine Ratio 14.5 (10-20); Calcium 7.5 mg/dl (8.5-10.1); Creatinine Clr Calc Pharmacy 11.6 ml/min; Est GFR (African American) 14.6; Est GFR (Non-African American) 12.6; Potassium 4.3 mmol/L (3.5-5.1)
[2020-06-10 14:21] LABS: Appearance Urine Turbid (Clear); Bacteria Urine Automated 2+ (Negative); Bilirubin Urine Negative (Negative); Blood Urine 1+ (Negative); Color Urine Dark Yellow; Epithelial Cell Urine Auto 0-5 /lpf (0-5); Glucose Urine UA Negative (Negative); Ketones Urine Negative (Negative); Leukocyte Esterase Urine 3+ (Negative); Nitrite Urine Negative (Negative); RBC Urine Automated 0-4 /hpf (0-4); Specific Gravity Urine 1.014 (1.000-1.030); Urobilinogen Urine Negative (Negative); WBC Urine Automated >30 /hpf (0-5); pH Urine >= 9.0 (4.5-7.5)
[2020-06-10 14:29] LABS: Protein Urine 3+ (Negative); Sulfosalicylic Acid Urine Positive (Negative)
[2020-06-10] MEDS ORDERED: ERTAPENEM SODIUM 500 MG in SODIUM CHLORIDE 0.9% 50 ML IV STA (14:37)
--- NOTE | 2020-06-10 15:25 | CT Scan Report ---
CT SCAN OF THE ABDOMEN AND PELVIS WITHOUT CONTRAST CLINICAL HISTORY: Abdominal pain. Acute renal insufficiency. Urinary tract infection. COMPARISON STUDY: 08/06/2019 TECHNIQUE: CT scan of the abdomen and pelvis was performed from the lung bases to the proximal femurs . Images are reviewed in the axial, sagittal, and coronal planes. IV contrast was not administered fo r this examination. A dose lowering technique was utilized adhering to the principles of ALARA. CT DOSE: 1091.11 mGycm FINDINGS: Lower chest: There is a small left pleural effusion with associated left lower lobe atelectasis/conso lidation with air bronchograms. There are dependent right basilar opacities with air bronchograms, at electatic versus infectious/inflammatory. There are coronary artery calcifications. There is trace pe ricardial fluid. Liver: No focal hepatic masses are visualized given the limitations of a noncontrast study. Liver ramonita sures 20 cm in length. Gallbladder: Surgically absent Spleen: Normal in size and attenuation. Pancreas: Unremarkable. Adrenal glands: Unremarkable. Kidneys: There are bilateral renal calcifications, likely vascular. There is mild dilatation of each renal collecting system and ureter. No ureteral calculi are visualized. There are no bladder calculi. Bowel: There are no transition zones to indicate bowel obstruction. There is no evidence of acute div erticulitis. By history the appendix is surgically absent. There is mild some mucosal hypertrophy wit hin the ascending colon. There is moderate stool within the transverse colon. Peritoneum: There is no intraperitoneal free air or abdominal ascites. Vasculature: There is aortoiliac atherosclerotic disease. There is no evidence of abdominal aortic an eurysm Adenopathy: Iliac chain lymph nodes are the upper limits of normal in size. Pelvic viscera: There is bladder wall thickening with mild infiltration of perivesical fat suggestive of a cystitis. Skeletal structures: No destructive osseous lesions are seen. Bones are osteopenic. No destructive le sions are visualized. There is mild induration of the subcutaneous fat lateral to the coccyx to the l eft of midline IMPRESSION: 1. Small left pleural effusion, and bilateral lower lobe atelectasis/consolidation 2. No evidence of bowel obstruction. No evidence of free air 3. Surgically absent uterus, appendix, and gallbladder. 4. Bladder wall thickening and mild infiltration of the perivesical fat, suggestive of a cystitis. ACT 112: Negative or not required by law. Electronically signed by: Linden Pak M.D. 06/10/2020 3:23 PM
--- NOTE | 2020-06-10 17:44 | History & Physical Report ---
Date of Service June 10, 2020 Assessment & Plan (1) LYNDSEY (acute kidney injury): NSS 1L given over 4 hours in ER. Give additional 500ml LR bolus now, then 150ml/hr. Questionable history of heart failure with pulmonary edema on chest x- ray - monitor for worsening respiratory status. CT negative for obstructive cause. Suspected pre-renal with UTI and lasix use (2) Complicated UTI (urinary tract infection): Given prior ESBL Klebsiella will initially treat with IV ertapenem pending current urine culture results. Patient to be placed in contact isolation room. Continue her outpatient fluconazole regimen for non-candidal yeast grown in urine for 14 day course as long as QTc remains < 500ms - although if urine culture positive for bacterial infection think it is unlikely this is a true yeast UTI given this was not treated on her previous urine culture and she improved back to her baseline. (3) Acute metabolic encephalopathy: Suspect secondary to UTI above. Monitor for resolution. Okay to continue Seroquel for insomnia and her usual tramadol dosing at this time. (4) DM (diabetes mellitus): Lantus not noted on medication list since 15 units twice daily discontinued on last admission, however daughter reports she still taking Lantus 10 units HS. HbA1c with a.m. labs Lantus 5 units twice daily - monitor for hypoglycemia as on previous admission. NovoLog correction factor only, no meal coverage given previous hyperglycemia. (5) HTN (hypertension): Continue amlodipine 10 mg p.o. every morning Hold Lasix in setting of LYNDSEY (6) Venous insufficiency (chronic) (peripheral): Continue DEBI hose (7) Pleural effusion on left: Repeat chest x-ray to assess for pneumonia and progression of pleural effusion. (8) Hypothyroidism (acquired): Repeat TSH with a.m. labs Continue usual outpatient levothyroxine dosing (9) Insomnia: Continue Seroquel 100 mg p.o. at bedtime (10) Urinary incontinence: Continue mirabegron extended release 25 mg p.o. daily (11) GERD (gastroesophageal reflux disease): Switch omeprazole for pantoprazole as per hospital formulary (12) Anxiety: Continue citalopram 30 mg p.o. daily, BuSpar 10 mg 3 times daily, hydroxyzine as needed (13) DVT prophylaxis: Heparin 5000 units Q8H Admission and Anticipated Discharge Date Admission Date: 06/10/2020 History of Present Illness Chief Complaint: Confusion, dysuria Primary Care Provider: Edilma Combs DO Fartun Loredo is an 89 year old female known to me from her prior admission in March with similar symptoms. On this occasion her daughter at bedside reports arauz ernestog similar symptoms to her prior UTIs for the past week (dysuria, suprapubic pain, central low back pain, confusion). A straight cath sample on May 30 grew non-candidal yeast and she was started on fluconazole 4 days ago. Gram- negative bacilli were also present on that culture although low counts and subsequently was not further identified or sensitivities performed (suspect due to the low counts). Despite the fluconazole her symptoms progressed and she started becoming progressively more confused 3 days ago. She did have a follow- up appointment with urology today however on discussing with them over the phone this morning they advised her to go to the ER for further work-up. In the past she is growing Klebsiella ESBL requiring intravenous antibiotics. On her last admission in March her urine culture was negative and suspect her confusion was more related to hypoglycemia at that time and there appeared to be some mixup with her insulin dosing. Insulin is not currently on her medication list although her daughter reports she is taking Lantus 10 units at night (previously on 10 units twice daily). In the ER she was noted to have an increase in her creatinine from baseline 1.35-1.6 to 3.12. WBC elevated at 15. Urinalysis positive for leukocyte Estrace and bacteria, nitrites negative. Allergies Allergy/AdvReac Type Severity Reaction Status Date / Time acetaminophen [From Percocet] Allergy Severe swelling/so Verified 06/10/20 16:02 b cephalexin Allergy Unknown RASH Verified 06/10/20 16:02 morphine Allergy Unknown NAUSEA Verified 06/10/20 16:02 oxycodone Allergy Unknown DIFFICULTY Verified 06/10/20 16:02 SWALLOWING propoxyphene Allergy Unknown DIFFICULTY Verified 06/10/20 16:02 SWALLOWING ciprofloxacin [From Cipro] AdvReac Severe LEG NUMB & Verified 06/10/20 16:02 WEAK Home Medications Home Medications Medication Instructions Recorded Confirmed Type cranberry 500 mg PO BID 06/12/19 06/10/20 History docusate sodium 100 mg PO BID PRN 09/21/19 06/10/20 History magnesium 250 mg PO BID 09/21/19 06/10/20 History miscellaneous medical supply #1 ea 11/17/19 04/23/20 Rx miscellaneous medical supply 5 ea MS DAILY #150 ea 12/22/19 04/23/20 Rx underpads #3 ea 12/22/19 04/23/20 Rx underpads #80 ea 12/22/19 04/23/20 Rx cholecalciferol (vitamin D3) 125 125 mcg PO DAILY #90 cap 12/28/19 06/10/20 Rx mcg (5,000 unit) capsule miscellaneous medical supply See Rx Instructions MS .COMPLEX #1 01/03/20 04/23/20 Rx ea omeprazole 20 mg capsule,delayed 20 mg PO BID #180 cap 01/23/20 06/10/20 Rx release mirabegron 25 mg tablet,extended 25 mg PO DAILY #30 tab 02/05/20 06/10/20 Rx release 24 hr miscellaneous medical supply #1 ea 02/07/20 04/23/20 Rx buspirone 10 mg PO TID 04/06/20 06/10/20 History levocetirizine [Xyzal] 5 mg PO HS 04/06/20 06/10/20 History citalopram 20 mg tablet 30 mg PO DAILY #45 tab 04/22/20 06/10/20 Rx hydroxyzine HCl 25 mg tablet 25 mg PO BID PRN #40 tab 04/23/20 06/10/20 Rx hydrocortisone 2.5 % topical cream 1 appln [place] DAILY PRN #28 gm 04/24/20 06/10/20 Rx with perineal applicator blood sugar diagnostic #100 ea 05/02/20 Rx ondansetron HCl 8 mg tablet 8 mg PO BID PRN #30 tab 05/14/20 06/10/20 Rx quetiapine 100 mg tablet 100 mg PO HS #90 tab 05/14/20 06/10/20 Rx amlodipine 10 mg tablet 10 mg PO QAM #90 tab 05/27/20 06/10/20 Rx dicyclomine 10 mg capsule 10 mg PO BID PRN #60 cap 05/27/20 06/10/20 Rx furosemide 20 mg tablet 20 mg PO QAM #90 tab 05/27/20 06/10/20 Rx nitrofurantoin macrocrystal 100 mg 100 mg PO DAILY #30 cap 05/28/20 06/10/20 Rx capsule tramadol 50 mg tablet 50 mg PO QID PRN #120 tab 05/30/20 06/10/20 Rx fluconazole 200 mg tablet 200 mg PO DAILY 14 Days #14 tab 06/03/20 06/10/20 Rx levothyroxine 100 mcg tablet 100 mcg PO .COMPLEX #35 tab 06/06/20 06/10/20 Rx Past Med/Surg History Medical History Anxiety CKD (chronic kidney disease) stage 3, GFR 30-59 ml/min Diabetic neuropathy Diverticulosis DM (diabetes mellitus) Generalized osteoarthritis GERD (gastroesophageal reflux disease) Hiatal hernia History of melanoma HTN (hypertension) Hyperlipidemia Hypothyroidism (acquired) Insomnia Irritable bowel syndrome Kidney stones Lumbar disc disease Lymphedema Osteoporosis Prosthetic joint infection Recurrent UTI Venous insufficiency (chronic) (peripheral) Surgical History H/O cataract extraction H/O: hemorrhoidectomy History of appendectomy History of cholecystectomy History of total right knee replacement S/P hysterectomy Family History Father Stomach cancer Brother Lung cancer Sister Diabetes Sister Diabetes Other No significant family history Social History Smoking Status: Never smoker Second Hand Exposure: No; Do You Dip or Chew Tobacco: No; Tobacco Cessation Education Requested by Patient: No Hx Alcohol Use: No Hx Substance Use: No Preferred Language: Icelandic Communication Ability: Effective Visual Impairment: No Limitations Hearing Ability: Normal Zipper Ironer Required: Yes Beliefs That Will Affect Care: None marital status: / Current Living Situation: Family Current Living Situation Comment: Paid Caregivers through [employer] Provide Supportive Services Other Information That Helps Us Care for You: No Feels Safe at Home: Yes Safety Concerns: Feels Safe At This Time Childhood Exposure to Second-Hand Smoke: No caffeine: No during the past year weight has: increased > 10 lbs Dental Care, Regularly: No Physical Activity Frequency: Does not Exercise Physical Activity Frequency Comment: due to physical condition Seatbelt Use: always Sunscreen Use: Yes Review of Systems Review of Systems: All systems reviewed & are unremarkable except as noted in HPI & below Physical Exam Constitutional: well developed, + obese and + lethargic (Awakes easily to voice); + not well nourished and no acute distress Eyes: + anicteric sclerae; normal pupil size Neck: trachea midline, no thyromegaly Respiratory: normal respiratory effort and able to speak in complete sentences; no respiratory distress, no retractions, does not use accessory muscles, no cough and expiratory phase not prolonged Auscultation: + diminished lung sounds (Poor inspiratory effort throughout but especially bibasal); no crackles and no wheezes Cardiovascular: Rate/Rhythm: regular rhythm and + tachycardic Heart Sounds: no murmur Vessels: no JVD Extremities: normal capillary refill and + pedal edema (1+ to knees bilateral equal); no calf tenderness Gastrointestinal (Abdomen): Inspection/Auscultation: abdomen normal to inspection and normal bowel sounds Percussion/Palpation: + abdomen tender (Suprapubic), + guarding (Suprapubic) and abdomen soft; abdomen not rigid Musculoskeletal: no cyanosis or clubbing, extremities motor strength 5/5 Skin: no rashes, warm and dry (No cellulitic areas, back not inspected, unable to easily turn patient at time of admission) Neurologic: moves all extremities, awake and + confused Psychiatric: Orientation: alert Genitourinary: no CVA tenderness Results & Data Results & Data ([facility]) Vital Signs (Past 12 Hours) Vital Signs Temp Pulse Pulse Resp BP BP Pulse Ox 06/10/20 16:00 93 H 20 125/84 98 06/10/20 15:28 98 H 18 132/65 96 06/10/20 13:00 37.1 C 104 H 20 122/63 93 Diagnostic Findings XR chest 1V portable IMPRESSION: 1. Small to moderate left pleural effusion with left basilar opacity that may reflect atelectasis or pneumonia. Radiographic follow up is recommended. 2. Pulmonary vascular congestion without overt pulmonary edema. CT SCAN OF THE ABDOMEN AND PELVIS WITHOUT CONTRAST IMPRESSION: 1. Small left pleural effusion, and bilateral lower lobe atelectasis/consolidation 2. No evidence of bowel obstruction. No evidence of free air 3. Surgically absent uterus, appendix, and gallbladder. 4. Bladder wall thickening and mild infiltration of the perivesical fat, suggestive of a cystitis. ECG Indication: altered mental status Rate (beats per minute): 100 Rhythm: sinus tachycardia Findings: + other (T wave flattening in lateral leads) and + prolonged QT (QTc 490 ms) Comparison ECG Date: from Change: the following changes noted (Increased QT and T wave flattening in lateral leads, less evident T wave flattening in inferior leads) Code Status & VTE Plan Code Status Full as discussed with the patient and her daughter -consistent with previous wishes VTE Prophylaxis Plan VTE Prophylaxis will be ordered: Yes PG Care Time/CCT Total # of Minutes Spent Total Time Spent with Patient: Total time spent is greater than 50% in coordination of care (as documented) at patient's floor/unit and/or counseling patient: Coding Level of Care Code 71720 Initial Inpt Care Lvl 3 Diagnoses LYNDSEY (acute kidney injury) N17.9 Complicated UTI (urinary tract infection) N39.0 Acute metabolic encephalopathy G93.41 DM (diabetes mellitus) E11.9 HTN (hypertension) I10 Venous insufficiency (chronic) (peripheral) I87.2 Pleural effusion on left J90 Hypothyroidism (acquired) E03.9 Insomnia G47.00 Urinary incontinence R32 GERD (gastroesophageal reflux disease) K21.9 Anxiety F41.9 DVT prophylaxis Z29.9
[2020-06-10] MEDS ORDERED: LACTATED RINGER'S 500 ML IV ONE (18:33)
--- NOTE | 2020-06-10 19:12 | XRay Report ---
XR chest 1V portable CLINICAL HISTORY: Left-sided pleural effusion. COMPARISON STUDY: Chest radiograph April 06, 2020. FINDINGS: There is no pneumothorax. A small to moderate left pleural effusion is noted with associate d left basilar opacity. There is pulmonary vascular congestion without overt pulmonary edema. Cardiom ediastinal silhouette is stable. Patient is mildly rotated. IMPRESSION: 1. Small to moderate left pleural effusion with left basilar opacity that may reflect atelectasis or pneumonia. Radiographic follow up is recommended. 2. Pulmonary vascular congestion without overt pulmonary edema. ACT 112: Negative or not required by law. Electronically signed by: Franko Moran M.D. 06/10/2020 7:11 PM
[2020-06-10] MEDS ORDERED: DICYCLOMINE HCL 10 MG CAP PO PRN (19:54)
[2020-06-10] MEDS ORDERED: GLUCOSE 10 TABS/TUBE PO PRN (19:54)
[2020-06-10] MEDS ORDERED: DEXTROSE 50% 50 ML SYRINGE IV PRN (19:54)
[2020-06-10] MEDS ORDERED: GLUCAGON FOR INJ 1 MG VIAL SQ PRN (19:54)
[2020-06-10] MEDS ORDERED: GLUCOSE 40% GEL 15 GM TUBE PO PRN (19:54)
[2020-06-10] MEDS ORDERED: DOCUSATE SODIUM 100 MG CAP PO PRN (19:54)
[2020-06-10] MEDS ORDERED: HYDROCORTISONE HC 2.5% CRM 30GM TUBE EXT PRN (19:54)
[2020-06-10] MEDS ORDERED: INFLUENZA ADMINISTRATION CHARGE ONE (20:38)
[2020-06-10] MEDS ORDERED: INFLUENZA VACCINE HIGH DOSE 65+ 0.5 ML SYR IM ONE (20:38)
[2020-06-10] MEDS ORDERED: NON-FORMULARY MEDICATION (Cranberry 500 MG) PO SCH (21:00)
[2020-06-10] MEDS: LACTATED RINGER'S 1,000 ML IV SCH (21:14)
[2020-06-10] MEDS: INSULIN ASPART 100 UNITS/ML 3 ML PEN SC SCH (21:58)
[2020-06-10] MEDS: INSULIN GLARGINE SOLOSTAR 100 UNITS/ML 3 ML PEN SC SCH (21:58)
[2020-06-10] MEDS: QUETIAPINE FUMARATE 100 MG TABLET PO SCH (21:59)
[2020-06-10] MEDS: HEPARIN SOD 5,000 UNIT/0.5 ML VIAL SQ SCH (21:59)
[2020-06-10] MEDS: PANTOprazole 40 MG TAB PO SCH (21:59)
[2020-06-10] MEDS: MAGNESIUM OXIDE 400 MG TAB PO SCH (21:59)
[2020-06-11] MEDS: TRAMADOL HCL 50 MG TABLET PO PRN ×2 (01:01→15:36)
[2020-06-11] MEDS: LACTATED RINGER'S 1,000 ML IV SCH ×2 (03:42→12:56)
[2020-06-11] MEDS: LEVOTHYROXINE SODIUM 100 MCG TABLET PO SCH (05:50)
[2020-06-11] MEDS: HEPARIN SOD 5,000 UNIT/0.5 ML VIAL SQ SCH ×3 (05:51→20:00)
[2020-06-11 06:45] LABS: Basophils # (auto) 0.01 K/uL (0-0.2); Basophils % (auto) 0.1 %; Eosinophils # (auto) 0.14 K/uL (0-0.5); Eosinophils % (auto) 0.9 %; Hematocrit (blood only) 28.7 % (37-47); Hemoglobin 9.6 g/dL (12.0-16.0); Immature Granulocytes # (auto) 0.42 K/uL (0.00-0.02); Immature Granulocytes % (auto) 2.8 %; Lymphocytes # (auto) 2.16 K/uL (1.2-3.4); Lymphocytes % (auto) 14.4 %; Mean Corpuscular Hemoglobin 28.3 pg (25-34); Mean Corpuscular Hgb Conc 33.4 g/dL (32-36); Mean Corpuscular Volume 84.7 fL (80-100); Monocytes # (auto) 0.98 K/uL (0.11-0.59); Monocytes % (auto) 6.5 %; Neutrophils # (auto) 11.29 K/uL (1.4-6.5); Neutrophils % (auto) 75.3 %; Platelet Count 386 K/uL (130-400); RDW Coefficient of Variation 15.6 % (11.5-14.5); RDW Standard Deviation 48.6 fL (36.4-46.3); Red Blood Count 3.39 M/uL (4.2-5.4)
[2020-06-11 07:31] LABS: Calcium 7.1 mg/dl (8.5-10.1); Creatinine Clr Calc Pharmacy 12.8 ml/min; Est GFR (African American) 17.9; Est GFR (Non-African American) 15.4; Potassium 4.1 mmol/L (3.5-5.1); Thyroid Stimulating Hormone 0.493 uIu/ml (0.300-4.500)
[2020-06-11] MEDS: AMLODIPINE BESYLATE 5 MG TAB PO SCH (07:54)
[2020-06-11] MEDS: MIRABEGRON ER 25 MG TAB PO SCH (07:54)
[2020-06-11] MEDS: CHOLECALCIFEROL 1,000 UNITS 25 MCG TAB PO SCH (07:54)
[2020-06-11] MEDS: PANTOprazole 40 MG TAB PO SCH ×2 (07:54→20:02)
[2020-06-11] MEDS: MAGNESIUM OXIDE 400 MG TAB PO SCH ×2 (07:54→20:02)
[2020-06-11] MEDS: FLUCONAZOLE 100 MG TAB PO SCH (07:54)
[2020-06-11] MEDS: CITALOPRAM 20 MG TAB PO SCH (07:54)
[2020-06-11] MEDS: INSULIN ASPART 100 UNITS/ML 3 ML PEN SC SCH ×4 (07:55→21:39)
[2020-06-11] MEDS: INSULIN GLARGINE SOLOSTAR 100 UNITS/ML 3 ML PEN SC SCH ×2 (07:55→20:01)
[2020-06-11] MEDS: CARBOHYDRATES FOR HYPOGLYCEMIA PO PRN (07:58)
[2020-06-11 08:13] LABS: Estimated Average Glucose 128 mg/dl; Hemoglobin A1C 6.1 % (4.5-5.6)
--- NOTE | 2020-06-11 12:49 | Electrocardiogram Report ---
Test Reason : Blood Pressure : / mmHG Vent. Rate : 100 BPM Atrial Rate : 100 BPM P-R Int : 184 ms QRS Dur : 104 ms QT Int : 380 ms P-R-T Axes : -05 -54 104 degrees QTc Int : 490 ms Normal sinus rhythm Left anterior fascicular block Minimal voltage criteria for LVH, may be normal variant Anterolateral infarct (cited on or before 10-JUN-2020) Abnormal ECG When compared with ECG of 06-APR-2020 15:18, Nonspecific T wave abnormality no longer evident in Inferior leads T wave inversion now evident in Lateral leads QT has lengthened Confirmed by Howard Rios ([id number]) on 06/11/2020 12:49:43 PM Referred By: REFERRED SELF Confirmed By:Howard Rios
--- NOTE | 2020-06-11 13:14 | Hospitalist Progress Note ---
Date of Service June 11, 2020 Assessment & Plan (1) LYNDSEY (acute kidney injury): Ms. Loredo is an 89 yo female with complex h/o Reccurent UTI with prior ESBL UTI, CKD, Diabetes, Hypertension, Hyperlipidemia, h/o Melanoma, who was admitted on 06/10 for AMS, UTI, and LYNDSEY. Acute Kidney Injury - Kidney function improved with BUN 45, Cr 3.12 --> BUN 42, Cr 2.64 after 1.5L bolus - Patient takes Furosamide 20 mg PO QAM - Questionable PO intake per patient's daughter - CT abd/pelv negative for obstructive cause - Likely pre-renal cause of injury - Continue LR 80cc/hr - Continue to trend BMP daily Urinary Tract Infection - Given prior ESBL Klebsiella will continue with IV ertapenem - urine culture results pending - Continue her outpatient fluconazole 200 mg daily for non-candidal yeast grown in urine for 14 day course Altered Mental Status - Likely secondary to UTI as well as inadequate PO intake/lasix - Continue to monitor on exam for improvement Malnutrition - Patient's daughter reports that patient had 40 lb weight loss during the last year with low appetite and inadequate PO intake - Based on weight, height, age, patient requires approximately 1350 calories delay - Discussed these recommendations with the patient's daughter, as she is patient's primary caregiver at this time - Patient's daughter will ensure daily adequate PO intake and will monitor weight at home after discharge - Recommend close follow-up on outpatient basis for nutrition and weight status Diabetes Mellitus - HbA1c 6.1 today - Lantus not noted on medication list since 15 units twice daily discontinued on last admission, however daughter reports she still taking Lantus 10 units HS. - Lantus 5 units twice daily - monitor for hypoglycemia as on previous admission. - NovoLog correction factor only, no meal coverage given previous hyperglycemia. Hypertension - Continue amlodipine 10 mg PO QAM Venous Insufficiency - patient reports history of swelling in her legs - Continue DEBI ramos Mild Diastolic Heart Failure - Last Echo on 04/08/2020 showed EF 65-70% with grade I diastolic dysfunction - no history of exertional dyspnea, orthopnea, paroxysmal nocturnal dyspnea or pulmonary edema - Edema more likely secondary to venous insufficiency, unlikely to be due to heart failure - Discontinue home Lasix 20 mg daily for now as risks of LYNDSEY outweigh benefits at this time Left Pleural Effusion - Per CXR and CT abd/pelv on 06/10 - Repeat chest x-ray to assess for pneumonia and progression of pleural effusion. Hypothyroidism - Continue Synthroid 100mcg PO daily - TSH 0.493 today - follow up TSH with PCP as outpatient Insomnia - Continue Seroquel 100 mg PO QHS Urinary Incontinence - Continue mirabegron extended release 25 mg p.o. daily GERD - Switch omeprazole 20 mg PO BID for pantoprazole 40 mg PO BID as per hospital formulary Anxiety - Continue citalopram 30 mg PO daily, BuSpar 10 mg TID, hydroxyzine 25 mg PO PRN FEN/GI: Carb Consistent or DM2 DVT Prophylaxis: Heparin 5000 units SQ Q8H Code Status: Full code Disposition: Med/Surg, CM on board to determine plan if IV abx needed at home after discharge (2) Complicated UTI (urinary tract infection): (3) Acute metabolic encephalopathy: (4) DM (diabetes mellitus): (5) HTN (hypertension): (6) Venous insufficiency (chronic) (peripheral): (7) Pleural effusion on left: (8) Hypothyroidism (acquired): (9) Insomnia: (10) Urinary incontinence: (11) GERD (gastroesophageal reflux disease): (12) Anxiety: (13) DVT prophylaxis: Admission and Anticipated Discharge Date Admission Date: June 10, 2020 Supervising Physician Co-Signing Physician Notes I personally examined the patient and verified all benton points of history and exam, discussed case, and agree with decision making with Dr Cruz. feeling better extensive discussions w dtr no new complaints otherwise vitals noted nad heent nc at mmm breathing unlabored no accessory muscles good effort skin no rashes no pallor or icterus neuro no focal deficits UTI- anticipate MDR gm negative - sepsis present on admission (SIRS w WBC, HR) - clinically much improved. procal noted but disproportionate to her illness LYNDSEY - likely from dehydration from poor PO intake and ongoing lasix - did not appear septic related. improved AMS - delirium / metabolic encephalopathy from above labeled as HFpEF but in d/w pt and dtr only ever peripheral edema not pulmonary edema/CHF admission/etc - hold lasix. discussed physiology of venous stasis - dtr expressed good understanding otherwise as above, heparin SQ DVT proph Subjective No acute events overnight. Afebrile with VS stable/WNL. NSS@125cc/hr infusing. Voiding spontaneously but still complains of dysuria, suprapubic tenderness and malodorous, cloudy urine. The patient's daughter was present during the interview and mentioned that the patient has had decreased appetite over the last year and has lost 40 pounds due to lack of adequate PO intake. Patient jade es chest pain, shortness of breath, hemoptysis, abdominal pain, hematochezia. Review of Systems Constitutional: as per Subjective / HPI; no fever, no chills and no body aches Respiratory: as per Subjective / HPI; no cough Cardiovascular: as per Subjective / HPI; no palpitations Gastrointestinal: as per Subjective / HPI; no nausea and no vomiting Genitourinary: as per Subjective / HPI Psychiatric: + behavioral changes Physical Exam Constitutional: WD/WN, vitals as above + altered mental status (appears mildly disoriented) Neck: normal visual inspection Respiratory: normal respiratory effort, lungs clear to auscultation Cardiovascular: RRR, no murmur, no edema Gastrointestinal (Abdomen): Inspection/Auscultation: abdomen normal to inspection and normal bowel sounds; abdomen not distended Percussion/Palpation: abdomen soft suprapubic tenderness to palpation Skin: generalized bruising on arms bilaterally Results & Data Results & Data ([facility]) Vital Signs (Past 12 Hours) Vital Signs Temp Pulse Pulse Resp BP Pulse Ox 06/11/20 12:06 36.6 C 99 H 18 121/69 91 06/11/20 07:10 36.6 C 96 H 18 136/69 92 06/11/20 04:56 93 H 06/11/20 03:56 36.6 C 94 H 19 138/69 94 Laboratory Results HgbA1C: 6.1 Procalcitonin > 200 TSH 0.493 Diagnostic Findings CXR 06/10: Small to moderate left pleural effusion with left basilar opacity that may reflect atelectasis or pneumonia. Radiographic follow up is recommended. CT Abd/Pelv: 1. Small left pleural effusion, and bilateral lower lobe atelectasis/consolidation 2. No evidence of bowel obstruction. No evidence of free air 3. Surgically absent uterus, appendix, and gallbladder. 4. Bladder wall thickening and mild infiltration of the perivesical fat, suggestive of a cystitis. CBC Results Results Complete Blood Count Results: RBC 3.39 M/uL (4.2-5.4) L 06/11/20 WBC 15.00 K/uL (4.8-10.8) H 06/11/20 Hgb 9.6 g/dL (12.0-16.0) L 06/11/20 Hct 28.7 % (37-47) L 06/11/20 Plt Count 386 K/uL (130-400) 06/11/20 Chemistry (BMP) Results BMP Results: Sodium 136 mmol/L (136-145) 06/11/20 Potassium 4.1 mmol/L (3.5-5.1) 06/11/20 Chloride 105 mmol/L (98-107) 06/11/20 BUN 42 mg/dl (7-18) H 06/11/20 Creatinine 2.64 mg/dl (0.6-1.2) H 06/11/20 Glucose 49 mg/dl (70-99) L* 06/11/20 Resident Activity Tracking Resident Involvement: Resident Care Provided Care Provided: Adult [facility] Medicine
[2020-06-11] MEDS ORDERED: ERTAPENEM SODIUM 500 MG in SODIUM CHLORIDE 0.9% 50 ML IV SCH (15:00)
[2020-06-11] MEDS: QUETIAPINE FUMARATE 100 MG TABLET PO SCH (20:02)
--- NOTE | 2020-06-11 20:17 | Billing Data ---
Date of Service June 11, 2020 Coding Level of Care Code 23100 Subseq Hosp Care Lvl 3
[2020-06-12] MEDS: LACTATED RINGER'S 1,000 ML IV SCH ×3 (01:13→21:23)
[2020-06-12] MEDS: HEPARIN SOD 5,000 UNIT/0.5 ML VIAL SQ SCH ×3 (06:05→20:51)
[2020-06-12] MEDS: LEVOTHYROXINE SODIUM 100 MCG TABLET PO SCH (06:05)
[2020-06-12] MEDS: CARBOHYDRATES FOR HYPOGLYCEMIA PO PRN ×2 (07:44→08:00)
[2020-06-12] MEDS: FLUCONAZOLE 100 MG TAB PO SCH (07:46)
[2020-06-12] MEDS: MAGNESIUM OXIDE 400 MG TAB PO SCH ×2 (07:47→20:52)
[2020-06-12] MEDS: AMLODIPINE BESYLATE 5 MG TAB PO SCH (07:47)
[2020-06-12] MEDS: MIRABEGRON ER 25 MG TAB PO SCH (07:47)
[2020-06-12] MEDS: CHOLECALCIFEROL 1,000 UNITS 25 MCG TAB PO SCH (07:48)
[2020-06-12] MEDS: PANTOprazole 40 MG TAB PO SCH ×2 (07:48→20:53)
[2020-06-12] MEDS: CITALOPRAM 20 MG TAB PO SCH (07:48)
[2020-06-12] MEDS: INSULIN ASPART 100 UNITS/ML 3 ML PEN SC SCH (07:49)
[2020-06-12 07:55] LABS: Hematocrit (blood only) 28.9 % (37-47); Hemoglobin 9.6 g/dL (12.0-16.0); Mean Corpuscular Hemoglobin 28.1 pg (25-34); Mean Corpuscular Hgb Conc 33.2 g/dL (32-36); Mean Corpuscular Volume 84.5 fL (80-100); Mean Platelet Volume 9.4 fL (7.4-10.4); Platelet Count 453 K/uL (130-400); RDW Coefficient of Variation 15.6 % (11.5-14.5); RDW Standard Deviation 48.5 fL (36.4-46.3); Red Blood Count 3.42 M/uL (4.2-5.4); White Blood Count 15.22 K/uL (4.8-10.8)
[2020-06-12 08:20] LABS: BUN Creatinine Ratio 16.8 (10-20); Calcium 7.9 mg/dl (8.5-10.1); Creatinine Clr Calc Pharmacy 14.6 ml/min; Est GFR (African American) 20.6; Est GFR (Non-African American) 17.8; Magnesium 2.9 mg/dl (1.8-2.4)
--- NOTE | 2020-06-12 08:41 | XRay Report ---
XR chest 1V portable CLINICAL HISTORY: pulmonary effusion serial imaging COMPARISON STUDY: Chest radiograph June 10, 2020 FINDINGS: Cardiomegaly is again noted. Lung volumes are diminished. There is no pneumothorax. A small to moderate left pleural effusion with left basilar opacity is noted. This is similar to prior exam. There is persistent pulmonary vascular congestion. IMPRESSION: 1. Small to moderate left pleural effusion with left basilar opacity which is similar to prior exam. 2. Persistent pulmonary vascular congestion. ACT 112: Negative or not required by law. Electronically signed by: Franko Moran M.D. 06/12/2020 8:40 AM
[2020-06-12] MEDS ORDERED: levoFLOXacin 500 MG TAB PO ONE (12:30)
--- NOTE | 2020-06-12 12:37 | Hospitalist Progress Note ---
Date of Service June 12, 2020 Assessment & Plan (1) LYNDSEY (acute kidney injury): Ms. Loredo is an 89 yo female with complex h/o Reccurent UTI with prior ESBL UTI, CKD, Diabetes, Hypertension, Hyperlipidemia, h/o Melanoma, who was admitted on 06/10 for AMS, UTI, and LYNDSEY. 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 - Susceptible to Ceftazidime and Levofloxacin, Resistant to Bactrim - Transition from IV Ertapenem to Levofloxacin 500 mg PO now, then 250 mg PO Q48H per Pharmacy recommendations given LYNDSEY on CKD - Decrease her outpatient fluconazole to 100 mg daily for non-candidal yeast grown in urine for 14 day course, given patient had QTc 490ms on 06/10 - Serial EKG on 06/13 Altered Mental Status - Continues to be A+O to self only this morning - Likely delirium secondary to frequent environmental changes in the hospital vs UTI vs inadequate PO intake/outpatient lasix - Communication order for frequent nursing re-orientation - Continue to monitor on exam for improvement Malnutrition - Patient's daughter reports that patient had 40 lb weight loss during the last year with low appetite and inadequate PO intake - Based on weight, height, age, patient requires approximately 1350 calories delay - Discussed these recommendations with the patient's daughter, as she is patient's primary caregiver at this time - Patient's daughter will ensure daily adequate PO intake and will monitor weight at home after discharge - Recommend close follow-up on outpatient basis for nutrition and weight status Diabetes Mellitus - HbA1c 6.1 yesterday - Lantus not noted on medication list since 15 units twice daily discontinued on last admission, however daughter reports she still taking Lantus 10 units HS. - Lantus 5 units twice daily - monitor for hypoglycemia as on previous admission. - NovoLog correction factor only, no meal coverage given previous hyperglycemia. Hypertension - Continue amlodipine 10 mg PO QAM Venous Insufficiency - patient reports history of swelling in her legs - Continue DEBI ramos Mild Diastolic Heart Failure - Last Echo on 04/08/2020 showed EF 65-70% with grade I diastolic dysfunction - no history of exertional dyspnea, orthopnea, paroxysmal nocturnal dyspnea or pulmonary edema - Edema more likely secondary to venous insufficiency, unlikely to be due to heart failure - Discontinue home Lasix 20 mg daily for now as risks of LYNDSEY outweigh benefits at this time Left Pleural Effusion - Per CXR and CT abd/pelv on 06/10 - Repeat CXR today showed stable left pleural effusion - No shortness of breath or respiratory exam findings - Likely chronic, not concerning at this time - Continue to monitor for new symptoms/exam findings Hypothyroidism - Continue Synthroid 100mcg PO daily - TSH 0.493 today - follow up TSH with PCP as outpatient Insomnia - Continue Seroquel 100 mg PO QHS Urinary Incontinence - Continue mirabegron extended release 25 mg p.o. daily GERD - Switch omeprazole 20 mg PO BID for pantoprazole 40 mg PO BID as per hospital formulary Anxiety - Continue citalopram 30 mg PO daily, BuSpar 10 mg TID, hydroxyzine 25 mg PO PRN FEN/GI: Carb Consistent or DM2 DVT Prophylaxis: Heparin 5000 units SQ Q8H Code Status: Full code Disposition: Med/Surg, CM on board to determine plan if IV abx needed at home after discharge (2) Complicated UTI (urinary tract infection): (3) Acute metabolic encephalopathy: (4) DM (diabetes mellitus): (5) HTN (hypertension): (6) Venous insufficiency (chronic) (peripheral): (7) Pleural effusion on left: (8) Hypothyroidism (acquired): (9) Insomnia: (10) Urinary incontinence: (11) GERD (gastroesophageal reflux disease): (12) Anxiety: (13) DVT prophylaxis: Admission and Anticipated Discharge Date Admission Date: June 10, 2020 Supervising Physician Co-Signing Physician Notes I personally examined the patient and verified all benton points of history and exam, discussed case, and agree with decision making with Dr Cruz. feeling about the same, culture noted vitals noted nad heent nc at mmm breathing unlabored no accessory muscles good effort skin no rashes no pallor or icterus neuro no focal deficits UTI- fairly uncommon bacteria - but given that it's a "pseudomonas cousin" not surprinsing that she wasn't improvign on ertapenem - will change to levaquin to allow for easier transition home LYNDSEY - likely from dehydration from poor PO intake and ongoing lasix - did not appear septic related. improving. continue fluids AMS - delirium / metabolic encephalopathy from above labeled as HFpEF but in d/w pt and dtr only ever peripheral edema not pulmonary edema/CHF admission/etc - holding lasix. discussed physiology of venous stasis - dtr expressed good understanding otherwise as above, heparin SQ DVT proph Subjective No acute events overnight. Afebrile with VS stable/WNL. NSS@125cc/hr infusing. Voiding spontaneously but still complains of dysuria, suprapubic tenderness and malodorous, cloudy urine. Seemed very disoriented this morning - of note she had just woken up before the interview. Patient denies chest pain, shortness of breath, hemoptysis, abdominal pain, hematochezia. Review of Systems Constitutional: as per Subjective / HPI; no fever, no chills and no body aches Respiratory: as per Subjective / HPI; no cough Cardiovascular: as per Subjective / HPI; no palpitations Gastrointestinal: as per Subjective / HPI; no nausea and no vomiting Genitourinary: as per Subjective / HPI Psychiatric: + behavioral changes Physical Exam Constitutional: WD/WN, vitals as above + altered mental status (appears mildly disoriented) Neck: normal visual inspection Respiratory: normal respiratory effort, lungs clear to auscultation Cardiovascular: RRR, no murmur, no edema Gastrointestinal (Abdomen): Inspection/Auscultation: abdomen normal to inspection and normal bowel sounds; abdomen not distended Percussion/Palpation: + abdomen tender (suprapubic tenderness stable) and abdomen soft Psychiatric: A+O to self only, stable Results & Data Results & Data ([facility]) Vital Signs (Past 12 Hours) Vital Signs Temp Pulse Pulse Resp BP Pulse Ox 06/12/20 12:13 95 H 06/12/20 11:57 36.8 C 101 H 18 124/71 93 06/12/20 07:12 36.8 C 94 H 16 120/69 90 06/12/20 03:55 36.9 C 97 H 20 124/71 92 Laboratory Results Urine Cx 06/10: Burkholderia Cepacia Complex, Ceftazidime and Levofloxacin susceptible, Bactrim resistant Diagnostic Findings CXR 06/12: 1. Small to moderate left pleural effusion with left basilar opacity which is similar to prior exam. 2. Persistent pulmonary vascular congestion. CBC Results Results Complete Blood Count Results: RBC 3.42 M/uL (4.2-5.4) L 06/12/20 WBC 15.22 K/uL (4.8-10.8) H 06/12/20 Hgb 9.6 g/dL (12.0-16.0) L 06/12/20 Hct 28.9 % (37-47) L 06/12/20 Plt Count 453 K/uL (130-400) H 06/12/20 Chemistry (BMP) Results BMP Results: Sodium 136 mmol/L (136-145) 06/12/20 Potassium 4.0 mmol/L (3.5-5.1) 06/12/20 Chloride 103 mmol/L (98-107) 06/12/20 BUN 39 mg/dl (7-18) H 06/12/20 Creatinine 2.35 mg/dl (0.6-1.2) H 06/12/20 Glucose 45 mg/dl (70-99) L* 06/12/20 Resident Activity Tracking Resident Involvement: Resident Care Provided Care Provided: Adult Hospital Medicine
[2020-06-12] MEDS: TRAMADOL HCL 50 MG TABLET PO PRN (14:10)
[2020-06-12] MEDS ORDERED: ONDANSETRON INJ 2 MG/ML 2 ML VIAL IV PRN (17:15)
[2020-06-12] MEDS ORDERED: ONDANSETRON INJ 2 MG/ML 2 ML VIAL IV ONE (17:18)
--- NOTE | 2020-06-12 19:16 | Billing Data ---
Date of Service June 12, 2020 Coding Level of Care Code 48874 Subseq Hosp Care Lvl 3
[2020-06-12] MEDS: D5W AND LACTATED RINGERS 1,000 ML IV SCH (20:48)
[2020-06-12] MEDS: QUETIAPINE FUMARATE 100 MG TABLET PO SCH (20:53)
[2020-06-13] MEDS: D5W AND LACTATED RINGERS 1,000 ML IV SCH (04:36)
[2020-06-13] MEDS: HEPARIN SOD 5,000 UNIT/0.5 ML VIAL SQ SCH ×3 (06:04→22:01)
[2020-06-13] MEDS: LEVOTHYROXINE SODIUM 100 MCG TABLET PO SCH (06:04)
[2020-06-13 07:05] LABS: BUN Creatinine Ratio 16.4 (10-20); Calcium 7.7 mg/dl (8.5-10.1); Creatinine Clr Calc Pharmacy 17.1 ml/min; Est GFR (African American) 24.4; Est GFR (Non-African American) 21.1; Magnesium 2.6 mg/dl (1.8-2.4); Potassium 4.6 mmol/L (3.5-5.1)
[2020-06-13 07:18] LABS: Hematocrit (blood only) 27.5 % (37-47); Hemoglobin 9.1 g/dL (12.0-16.0); Mean Corpuscular Hemoglobin 27.6 pg (25-34); Mean Corpuscular Hgb Conc 33.1 g/dL (32-36); Mean Corpuscular Volume 83.3 fL (80-100); Mean Platelet Volume 9.9 fL (7.4-10.4); Platelet Count 402 K/uL (130-400); RDW Coefficient of Variation 15.5 % (11.5-14.5); RDW Standard Deviation 47.7 fL (36.4-46.3); White Blood Count 17.32 K/uL (4.8-10.8)
[2020-06-13 07:19] LABS: Basophils # (auto) 0.03 K/uL (0-0.2); Basophils % (auto) 0.2 %; Eosinophils # (auto) 0.17 K/uL (0-0.5); Immature Granulocytes # (auto) 0.83 K/uL (0.00-0.02); Immature Granulocytes % (auto) 4.8 %; Lymphocytes # (auto) 2.59 K/uL (1.2-3.4); Monocytes # (auto) 1.25 K/uL (0.11-0.59); Monocytes % (auto) 7.2 %; Neutrophils # (auto) 12.45 K/uL (1.4-6.5); Neutrophils % (auto) 71.8 %
[2020-06-13] MEDS: MIRABEGRON ER 25 MG TAB PO SCH (07:38)
[2020-06-13] MEDS: AMLODIPINE BESYLATE 5 MG TAB PO SCH (07:38)
[2020-06-13] MEDS: MAGNESIUM OXIDE 400 MG TAB PO SCH (07:38)
[2020-06-13] MEDS: CITALOPRAM 20 MG TAB PO SCH (07:38)
[2020-06-13] MEDS: FLUCONAZOLE 100 MG TAB PO SCH (07:38)
[2020-06-13] MEDS: PANTOprazole 40 MG TAB PO SCH ×2 (07:39→22:01)
[2020-06-13] MEDS: CHOLECALCIFEROL 1,000 UNITS 25 MCG TAB PO SCH (07:39)
[2020-06-13] MEDS: TRAMADOL HCL 50 MG TABLET PO PRN (13:16)
--- NOTE | 2020-06-13 13:40 | Hospitalist Progress Note ---
Date of Service June 13, 2020 Assessment & Plan (1) LYNDSEY (acute kidney injury): Ms. Loredo is an 89 yo female with complex h/o Reccurent UTI with prior ESBL UTI, CKD, Diabetes, Hypertension, Hyperlipidemia, h/o Melanoma, who was admitted on 06/10 for AMS, UTI, and LYNDSEY. 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 - Susceptible to Ceftazidime and Levofloxacin, Resistant to Bactrim - Continue Levofloxacin 250 mg PO Q48H per Pharmacy recommendations given LYNDSEY on CKD - renal dosing - Continue outpatient fluconazole 100 mg daily for non-candidal yeast grown in urine for 14 day course - patient had QTc 490ms on 06/10, improved to QTc 468ms on 06/13 Altered Mental Status - Improved to be A+O x2 to self and year this morning - Likely delirium secondary to frequent environmental changes in the hospital vs UTI vs inadequate PO intake/outpatient lasix - Communication order for frequent nursing re-orientation - Continue to monitor on exam for improvement Malnutrition - Patient's daughter reports that patient had 40 lb weight loss during the last year with low appetite and inadequate PO intake - Based on weight, height, age, patient requires approximately 1350 calories del ay - Discussed these recommendations with the patient's daughter, as she is patient's primary caregiver at this time - Patient's daughter will ensure daily adequate PO intake and will monitor weight at home after discharge - Recommend close follow-up on outpatient basis for nutrition and weight status Right buttock ulcer, 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 - daily dressing changes with nursing, c/d/i - increased redness around dressing this morning, mild tenderness to palpation, wound care consult ordered today Diabetes Mellitus - HbA1c 6.1 on 06/11 - Lantus not noted on medication list since 15 units twice daily discontinued on last admission, however daughter reports she still taking Lantus 10 units HS. - Lantus 5 units twice daily - monitor for hypoglycemia as on previous admission. - NovoLog correction factor only, no meal coverage given previous hyperglycemia. Hypertension - Continue amlodipine 10 mg PO QAM Venous Insufficiency - patient reports history of swelling in her legs - Continue DEBI ramos Mild Diastolic Heart Failure - Last Echo on 04/08/2020 showed EF 65-70% with grade I diastolic dysfunction - no history of exertional dyspnea, orthopnea, paroxysmal nocturnal dyspnea or pulmonary edema - Edema more likely secondary to venous insufficiency, unlikely to be due to heart failure - Discontinue home Lasix 20 mg daily for now as risks of LYNDSEY outweigh benefits at this time Left Pleural Effusion - Per CXR and CT abd/pelv on 06/10 - Repeat CXR today showed stable left pleural effusion - No shortness of breath or respiratory exam findings - Likely chronic, not concerning at this time - Continue to monitor for new symptoms/exam findings Hypothyroidism - Continue Synthroid 100mcg PO daily - TSH 0.493 today - follow up TSH with PCP as outpatient Insomnia - Continue Seroquel 100 mg PO QHS Urinary Incontinence - Continue mirabegron extended release 25 mg p.o. daily GERD - continue pantoprazole 40 mg PO BID while inpatient as per hospital formulary Anxiety - Continue citalopram 30 mg PO daily, BuSpar 10 mg TID, hydroxyzine 25 mg PO PRN FEN/GI: Carb Consistent or DM2 DVT Prophylaxis: Heparin 5000 units SQ Q8H Code Status: Full code Disposition: Med/Surg, CM on board and following (2) Complicated UTI (urinary tract infection): (3) Acute metabolic encephalopathy: (4) DM (diabetes mellitus): (5) HTN (hypertension): (6) Venous insufficiency (chronic) (peripheral): (7) Pleural effusion on left: (8) Hypothyroidism (acquired): (9) Insomnia: (10) Urinary incontinence: (11) GERD (gastroesophageal reflux disease): (12) Anxiety: (13) DVT prophylaxis: Admission and Anticipated Discharge Date Admission Date: June 10, 2020 Supervising Physician Co-Signing Physician Notes I personally examined the patient and verified all benton points of history and exam, discussed case, and agree with decision making with Dr Trevino. feeling "lousy" but only real specific complaint is wanting to sit up in bed more vitals noted nad heent nc at mmm breathing unlabored no accessory muscles good effort skin no rashes no pallor or icterus neuro no focal deficits UTI- fairly uncommon bacteria - but given that it's a "pseudomonas cousin" not surprinsing that she wasn't improving on ertapenem - now also growing second gram neg that is also levaquin sensitive - continue - anticipate improvement in coming days LYNDSEY - likely from dehydration from poor PO intake and ongoing lasix - did not appear septic related. continues to improve AMS - delirium / metabolic encephalopathy from above severe protein calorie malnutrition - based on hx of PO intake at home, sounds to be purely calorie balance mismatch. dr trevino reviewed this with family - they'll try to have her meet calorie goals better - if still losing weight/ not gaining weight, then will need to consider further w/u labeled as HFpEF but in d/w pt and dtr only ever peripheral edema not pulmonary edema/CHF admission/etc - holding lasix. previously discussed physiology of venous stasis - dtr expressed good understanding otherwise as above, heparin SQ DVT proph Subjective No acute events overnight. Afebrile with VS stable/WNL. NSS@125cc/hr infusing. Voiding spontaneously but still complains of dysuria and mild suprapubic tenderness. Continues to be disoriented with impaired mentation. Patient denies fever/chills, chest pain, shortness of breath. Review of Systems Constitutional: as per Subjective / HPI Respiratory: as per Subjective / HPI; no cough Cardiovascular: as per Subjective / HPI; no palpitations Genitourinary: as per Subjective / HPI Physical Exam Constitutional: WD/WN, vitals as above + altered mental status (appears mildly disoriented) Neck: normal visual inspection Respiratory: normal respiratory effort, lungs clear to auscultation Cardiovascular: RRR, no murmur, no edema Gastrointestinal (Abdomen): Inspection/Auscultation: abdomen normal to inspection and normal bowel sounds; abdomen not distended Percussion/Palpation: + abdomen tender (suprapubic tenderness stable) and abdome n soft Psychiatric: A+O to self and year only Results & Data Results & Data ([facility]) Vital Signs (Past 12 Hours) Vital Signs Temp Pulse Resp BP Pulse Ox 06/13/20 07:48 36.8 C 112 H 20 118/62 92 Laboratory Results Mg 2.6 CBC w Diff Results Results CBC w Diff: RBC 3.30 M/uL (4.2-5.4) L 06/13/20 WBC 17.32 K/uL (4.8-10.8) H 06/13/20 Hgb 9.1 g/dL (12.0-16.0) L 06/13/20 Hct 27.5 % (37-47) L 06/13/20 MCV 83.3 fL (80-100) 06/13/20 MCH 27.6 pg (25-34) 06/13/20 MCHC 33.1 g/dL (32-36) 06/13/20 RDW Standard Deviation 47.7 fL (36.4-46.3) H 06/13/20 RDW Coefficient of Variation 15.5 % (11.5-14.5) H 06/13/20 Plt Count 402 K/uL (130-400) H 06/13/20 MPV 9.9 fL (7.4-10.4) 06/13/20 Neutrophils (%) (Auto) 71.8 % 06/13/20 Lymphocytes (%) (Auto) 15.0 % 06/13/20 Monocytes # (Auto) 1.25 K/uL (0.11-0.59) H 06/13/20 Eosinophils # (Auto) 0.17 K/uL (0-0.5) 06/13/20 Immature Granulocyte % (Auto) 4.8 % 06/13/20 Neutrophils # (Auto) 12.45 K/uL (1.4-6.5) H 06/13/20 Lymphocytes # (Auto) 2.59 K/uL (1.2-3.4) 06/13/20 Monocytes # (Auto) 1.25 K/uL (0.11-0.59) H 06/13/20 Eosinophils # (Auto) 0.17 K/uL (0-0.5) 06/13/20 Basophils # (Auto) 0.03 K/uL (0-0.2) 06/13/20 Immature Granulocyte # (Auto) 0.83 K/uL (0.00-0.02) H 06/13/20 Chemistry (BMP) Results BMP Results: Sodium 138 mmol/L (136-145) 06/13/20 Potassium 4.6 mmol/L (3.5-5.1) 06/13/20 Chloride 107 mmol/L (98-107) 06/13/20 BUN 33 mg/dl (7-18) H 06/13/20 Creatinine 2.04 mg/dl (0.6-1.2) H 06/13/20 Glucose 130 mg/dl (70-99) H 06/13/20 Resident Activity Tracking Resident Involvement: Resident Care Provided Care Provided: Adult [facility]
[2020-06-13] MEDS ORDERED: MELATONIN 3 MG TAB PO PRN (16:56)
--- NOTE | 2020-06-13 16:59 | Billing Data ---
Date of Service June 13, 2020 Coding Level of Care Code 18655 Subseq Hosp Care Lvl 3
[2020-06-13] MEDS ORDERED: MAGNESIUM OXIDE 400 MG TAB PO SCH (21:00)
[2020-06-13] MEDS: QUETIAPINE FUMARATE 100 MG TABLET PO SCH (22:01)
--- NOTE | 2020-06-14 05:27 | Electrocardiogram Report ---
Test Reason : Blood Pressure : / mmHG Vent. Rate : 110 BPM Atrial Rate : 110 BPM P-R Int : 190 ms QRS Dur : 102 ms QT Int : 346 ms P-R-T Axes : -18 -49 097 degrees QTc Int : 468 ms Sinus tachycardia Left anterior fascicular block Minimal voltage criteria for LVH, may be normal variant Anterolateral infarct (cited on or before 10-JUN-2020) Nonspecific T wave abnormality Abnormal ECG When compared with ECG of 10-JUN-2020 20:58, No significant change was found Confirmed by Dean Wolfe [id number] on 06/14/2020 5:27:05 AM Referred By: REFERRED SELF Confirmed By:Dean Wolfe
[2020-06-14] MEDS: LEVOTHYROXINE SODIUM 100 MCG TABLET PO SCH (05:58)
[2020-06-14] MEDS: HEPARIN SOD 5,000 UNIT/0.5 ML VIAL SQ SCH ×3 (05:58→20:51)
[2020-06-14] MEDS: FLUCONAZOLE 100 MG TAB PO SCH (08:09)
[2020-06-14] MEDS: PANTOprazole 40 MG TAB PO SCH ×2 (08:11→20:51)
[2020-06-14] MEDS: MAGNESIUM OXIDE 400 MG TAB PO SCH (08:11)
[2020-06-14] MEDS: CITALOPRAM 20 MG TAB PO SCH (08:11)
[2020-06-14] MEDS: CHOLECALCIFEROL 1,000 UNITS 25 MCG TAB PO SCH (08:12)
[2020-06-14] MEDS: AMLODIPINE BESYLATE 5 MG TAB PO SCH (08:13)
[2020-06-14] MEDS: MIRABEGRON ER 25 MG TAB PO SCH (08:14)
[2020-06-14 09:52] LABS: BUN Creatinine Ratio 16.6 (10-20); Calcium 7.6 mg/dl (8.5-10.1)
[2020-06-14 11:00] LABS: Potassium 4.3 mmol/L (3.5-5.1)
[2020-06-14] MEDS ORDERED: levoFLOXacin 250 MG TABLET PO SCH (11:00)
[2020-06-14 11:01] LABS: Magnesium 2.8 mg/dl (1.8-2.4)
[2020-06-14 11:03] LABS: Hematocrit (blood only) 27.6 % (37-47); Hemoglobin 9.3 g/dL (12.0-16.0); Mean Corpuscular Hemoglobin 28.9 pg (25-34); Mean Corpuscular Hgb Conc 33.7 g/dL (32-36); Mean Corpuscular Volume 85.7 fL (80-100); RDW Coefficient of Variation 16.1 % (11.5-14.5); RDW Standard Deviation 49.5 fL (36.4-46.3); Red Blood Count 3.22 M/uL (4.2-5.4); White Blood Count 23.26 K/uL (4.8-10.8)
[2020-06-14 11:06] LABS: Basophils # (auto) 0.03 K/uL (0-0.2); Basophils % (auto) 0.1 %; Eosinophils # (auto) 0.15 K/uL (0-0.5); Eosinophils % (auto) 0.6 %; Immature Granulocytes # (auto) 1.14 K/uL (0.00-0.02); Immature Granulocytes % (auto) 4.9 %; Lymphocytes # (auto) 1.88 K/uL (1.2-3.4); Lymphocytes % (auto) 8.1 %; Monocytes # (auto) 1.05 K/uL (0.11-0.59); Monocytes % (auto) 4.5 %; Neutrophils # (auto) 19.01 K/uL (1.4-6.5); Neutrophils % (auto) 81.8 %; Poikilocytosis Present
--- NOTE | 2020-06-14 13:37 | Hospitalist Progress Note ---
Date of Service June 14, 2020 Assessment & Plan (1) LYNDSEY (acute kidney injury): Ms. Loredo is an 89 yo female with complex h/o Reccurent UTI with prior ESBL UTI, CKD, Diabetes, Hypertension, Hyperlipidemia, h/o Melanoma, who was admitted on 06/10 for AMS, UTI, and LYNDSEY. 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26 today, increasing L shift (immature granulocytes 0.83 --> 1.14) - Only current source for infection was urine --> s/p urine cx and appropriate abx x2 days - repeat UA today to confirm effective treatment of infection - Unlikely to be bacteremia given afebrile and hemodynamically stable - ordered repeat Blood cx today to definitively rule it out - peripheral smear to r/o bone marrow pathology --> neutrophilic predominance - CRP 4.74 - Procalcitonin 200 --> 18.62 - Leukocytosis likely secondary to generalized inflammation secondary to stress of UTI and delirium - Will trend CBC and CRP tomorrow Altered Mental Status - Worsening, only A+O to self this morning - Likely delirium secondary to frequent environmental changes in the hospital vs UTI vs inadequate PO intake/outpatient lasix - Communication order for frequent nursing re-orientation - Continue to monitor on exam for improvement Acute Kidney Injuryj, resolving - Kidney function improved with BUN 45, Cr 3.12 --> BUN 42, Cr 2.64 after 1.5L bolus - BUN/Cr further improved to 39/2.35 after LR 80cc/hr for 24 hours - further improved to BUN 33, Cr 2.04 on 06/13 with LR 125cc/hr - further improved to BUN 29, Cr 1.77 on 06/14 with LR 125cc/hr - Patient takes Furosamide 20 mg PO QAM on outpatient basis - Discontinued on admission - Questionable PO intake per patient's daughter - CT abd/pelv negative for obstructive cause - Likely pre-renal cause of injury - D/c IV fluids - Continue to encourage PO intake as will be mentioned below - Continue to trend BMP daily Malnutrition - Patient's daughter reports that patient had 40 lb weight loss during the last year with low appetite and inadequate PO intake - Based on weight, height, age, patient requires approximately 1350 calories delay - Discussed these recommendations with the patient's daughter, as she is patient's primary caregiver at this time - Patient's daughter will ensure daily adequate PO intake and will monitor weight at home after discharge - Recommend close follow-up on outpatient basis for nutrition and weight status Right buttock ulcer, 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 - Lantus 5 units twice daily - monitor for hypoglycemia as on previous admission. - NovoLog correction factor only, no meal coverage given previous hyperglycemia. Hypertension - Continue amlodipine 10 mg PO QAM Venous Insufficiency - patient reports history of swelling in her legs - Continue DEBI zie Mild Diastolic Heart Failure - Last Echo on 04/08/2020 showed EF 65-70% with grade I diastolic dysfunction - no history of exertional dyspnea, orthopnea, paroxysmal nocturnal dyspnea or pulmonary edema - Edema more likely secondary to venous insufficiency, unlikely to be due to heart failure - Discontinue home Lasix 20 mg daily for now as risks of LYNDSEY outweigh benefits at this time Left Pleural Effusion - Per CXR and CT abd/pelv on 06/10 - Repeat CXR on 06/13 showed stable left pleural effusion - No shortness of breath or respiratory exam findings - Likely chronic, not concerning at this time - Continue to monitor for new symptoms/exam findings Hypothyroidism - Continue Synthroid 100mcg PO daily - TSH 0.493 today - follow up TSH with PCP as outpatient Insomnia - Continue Seroquel 100 mg PO QHS Urinary Incontinence - Continue mirabegron extended release 25 mg p.o. daily GERD - continue pantoprazole 40 mg PO BID while inpatient as per hospital formulary Anxiety - Continue citalopram 30 mg PO daily, BuSpar 10 mg TID, hydroxyzine 25 mg PO PRN FEN/GI: Carb Consistent or DM2 DVT Prophylaxis: Heparin 5000 units SQ Q8H Code Status: Full code Disposition: Med/Surg, CM on board and following, possible d/c this weekend to daughter's home pending exam and labs tomorrow (2) Complicated UTI (urinary tract infection): (3) Acute metabolic encephalopathy: (4) DM (diabetes mellitus): (5) HTN (hypertension): (6) Venous insufficiency (chronic) (peripheral): (7) Pleural effusion on left: (8) Hypothyroidism (acquired): (9) Insomnia: (10) Urinary incontinence: (11) GERD (gastroesophageal reflux disease): (12) Anxiety: (13) DVT prophylaxis: Admission and Anticipated Discharge Date Admission Date: June 10, 2020 Supervising Physician Co-Signing Physician Notes I personally examined the patient and verified all [place] points of history and exam, discussed case, and agree with decision making with Dr Cruz. more confused. dtr scared. dr cruz and i have extensive discussions w her vitals noted nad heent nc at mmm breathing unlabored no accessory muscles good effort skin no rashes no pallor or icterus neuro no focal deficits UTI- fairly uncommon bacteria - but given that it's a "pseudomonas cousin" not surprising that she wasn't improving on ertapenem - now also growing second gram neg that is also levaquin sensitive - continue - given increase in white count will reculture but doubt it will be leukocytosis - likely demargination - repeating cultures, procal dropping, CRP nonspecific and reassuring. peripheral smear reassuring LYNDSEY - likely from dehydration from poor PO intake and ongoing lasix - did not appear septic related. now at upper end of baseline range AMS - delirium / metabolic encephalopathy from above. explained to dtr in depth and at length severe protein calorie malnutrition - based on hx of PO intake at home, sounds to be purely calorie balance mismatch. dr cruz reviewed this with family - they'll try to have her meet calorie goals better - if still losing weight/ not gaining weight, then will need to consider further w/u labeled as HFpEF but in d/w pt and dtr only ever peripheral edema not pulmonary edema/CHF admission/etc - holding lasix. previously discussed physiology of venous stasis - dtr expressed good understanding otherwise as above, heparin SQ DVT proph Subjective No acute events overnight. Afebrile with VS stable/WNL. NSS@125cc/hr infusing. Voiding spontaneously but still complains of suprapubic tenderness. Continues to be disoriented with impaired mentation. Patient denies fever/chills, chest pain, shortness of breath. Review of Systems Constitutional: as per Subjective / HPI Respiratory: as per Subjective / HPI; no cough Cardiovascular: as per Subjective / HPI; no palpitations Gastrointestinal: as per Subjective / HPI; no nausea and no vomiting Genitourinary: as per Subjective / HPI Psychiatric: + behavioral changes Physical Exam Constitutional: WD/WN, vitals as above + altered mental status (appears mildly disoriented) Neck: normal visual inspection Respiratory: normal respiratory effort, lungs clear to auscultation Cardiovascular: RRR, no murmur, no edema Gastrointestinal (Abdomen): Inspection/Auscultation: abdomen normal to inspection and normal bowel sounds; abdomen not distended Percussion/Palpation: + abdomen tender (suprapubic tenderness stable) and abdomen soft Results & Data Results & Data ([facility]) Vital Signs (Past 12 Hours) Vital Signs Temp Pulse Resp BP Pulse Ox 06/14/20 12:24 36.8 C 78 18 133/64 94 06/14/20 02:52 36.5 C 102 H 20 137/85 90 Laboratory Results Mg 2.8 CBC w Diff Results Results CBC w Diff: RBC 3.22 M/uL (4.2-5.4) L 06/14/20 WBC 23.26 K/uL (4.8-10.8) H 06/14/20 Hgb 9.3 g/dL (12.0-16.0) L 06/14/20 Hct 27.6 % (37-47) L 06/14/20 MCV 85.7 fL (80-100) 06/14/20 MCH 28.9 pg (25-34) 06/14/20 MCHC 33.7 g/dL (32-36) 06/14/20 RDW Standard Deviation 49.5 fL (36.4-46.3) H 06/14/20 RDW Coefficient of Variation 16.1 % (11.5-14.5) H 06/14/20 Plt Count K/uL (130-400) 06/14/20 MPV fL (7.4-10.4) 06/14/20 Neutrophils (%) (Auto) 81.8 % 06/14/20 Lymphocytes (%) (Auto) 8.1 % 06/14/20 Monocytes # (Auto) 1.05 K/uL (0.11-0.59) H 06/14/20 Eosinophils # (Auto) 0.15 K/uL (0-0.5) 06/14/20 Immature Granulocyte % (Auto) 4.9 % 06/14/20 Neutrophils # (Auto) 19.01 K/uL (1.4-6.5) H 06/14/20 Lymphocytes # (Auto) 1.88 K/uL (1.2-3.4) 06/14/20 Monocytes # (Auto) 1.05 K/uL (0.11-0.59) H 06/14/20 Eosinophils # (Auto) 0.15 K/uL (0-0.5) 06/14/20 Basophils # (Auto) 0.03 K/uL (0-0.2) 06/14/20 Immature Granulocyte # (Auto) 1.14 K/uL (0.00-0.02) H 06/14/20 Poikilocytosis Present 06/14/20 Chemistry (BMP) Results BMP Results: Sodium 137 mmol/L (136-145) 06/14/20 Potassium 4.3 mmol/L (3.5-5.1) 06/14/20 Chloride 105 mmol/L (98-107) 06/14/20 BUN 29 mg/dl (7-18) H 06/14/20 Creatinine 1.77 mg/dl (0.6-1.2) H 06/14/20 Glucose 153 mg/dl (70-99) H 06/14/20 Resident Activity Tracking Resident Involvement: Resident Care Provided Care Provided: [facility]
[2020-06-14] MEDS: TRAMADOL HCL 50 MG TABLET PO PRN ×2 (14:47→20:51)
[2020-06-14 15:12] LABS: Appearance Urine Turbid (Clear); Bacteria Urine Automated Negative (Negative); Bilirubin Urine Negative (Negative); Blood Urine 1+ (Negative); Color Urine Yellow; Epithelial Cell Urine Auto >30 /lpf (0-5); Glucose Urine UA Negative (Negative); Ketones Urine Negative (Negative); Leukocyte Esterase Urine 3+ (Negative); Nitrite Urine Negative (Negative); Protein Urine 2+ (Negative); RBC Urine Automated 0-4 /hpf (0-4); Specific Gravity Urine 1.015 (1.000-1.030); Urobilinogen Urine Negative (Negative); WBC Urine Automated >30 /hpf (0-5)
--- NOTE | 2020-06-14 19:21 | Billing Data ---
Date of Service June 14, 2020 Coding Level of Care Code 31325 Subseq Hosp Care Lvl 3
--- NOTE | 2020-06-14 19:44 | Communication Note ---
Date of Service: June 14, 2020 in regards to discharge planning, pt needs to be transferred between bed and chair or wheelchair to commode, and without use of a lift, pt would be confined to bed.
[2020-06-14] MEDS: QUETIAPINE FUMARATE 100 MG TABLET PO SCH (20:51)
[2020-06-15] MEDS: LEVOTHYROXINE SODIUM 100 MCG TABLET PO SCH (05:56)
[2020-06-15] MEDS: HEPARIN SOD 5,000 UNIT/0.5 ML VIAL SQ SCH ×2 (05:56→14:04)
[2020-06-15] MEDS: PANTOprazole 40 MG TAB PO SCH (08:03)
[2020-06-15] MEDS: CHOLECALCIFEROL 1,000 UNITS 25 MCG TAB PO SCH (08:03)
[2020-06-15] MEDS: MAGNESIUM OXIDE 400 MG TAB PO SCH (08:03)
[2020-06-15] MEDS: AMLODIPINE BESYLATE 5 MG TAB PO SCH (08:03)
[2020-06-15] MEDS: MIRABEGRON ER 25 MG TAB PO SCH (08:03)
[2020-06-15] MEDS: FLUCONAZOLE 100 MG TAB PO SCH (08:03)
[2020-06-15] MEDS: CITALOPRAM 20 MG TAB PO SCH (08:03)
--- NOTE | 2020-06-15 10:01 | XRay Report ---
XR chest 1V portable HISTORY: hypoxia COMPARISON: Chest 06/12/2020. FINDINGS: No pneumothorax. There are low lung volumes. The heart remains enlarged. Slight progression of the mild interstitial pulmonary edema. Bilateral pleural effusions persist. Bibasilar densities a re also unchanged and may represent atelectasis from the pleural effusions. IMPRESSION: Interval progression of the mild interstitial pulmonary edema. Small bilateral pleural effusions pers ist. ACT 112: Negative or not required by law. Electronically signed by: Jax Porras M.D. 06/15/2020 10:00 AM
[2020-06-15 12:23] LABS: Hematocrit (blood only) 27.7 % (37-47); Hemoglobin 9.1 g/dL (12.0-16.0); Mean Corpuscular Hemoglobin 28.4 pg (25-34); Mean Corpuscular Hgb Conc 32.9 g/dL (32-36); Mean Corpuscular Volume 86.6 fL (80-100); Platelet Count 562 K/uL (130-400); RDW Coefficient of Variation 15.6 % (11.5-14.5); RDW Standard Deviation 49.4 fL (36.4-46.3); White Blood Count 27.02 K/uL (4.8-10.8)
[2020-06-15 12:43] LABS: BUN Creatinine Ratio 17.1 (10-20); C Reactive Protein 4.87 mg/dl (0-0.29); Magnesium 2.8 mg/dl (1.8-2.4); Potassium 4.5 mmol/L (3.5-5.1)
[2020-06-15 12:53] LABS: Basophils # (auto) 0.03 K/uL (0-0.2); Basophils % (auto) 0.1 %; Eosinophils # (auto) 0.11 K/uL (0-0.5); Eosinophils % (auto) 0.4 %; Immature Granulocytes # (auto) 1.05 K/uL (0.00-0.02); Immature Granulocytes % (auto) 3.9 %; Lymphocytes # (auto) 1.94 K/uL (1.2-3.4); Lymphocytes % (auto) 7.2 %; Monocytes # (auto) 1.33 K/uL (0.11-0.59); Monocytes % (auto) 4.9 %; Neutrophils # (auto) 22.56 K/uL (1.4-6.5); Neutrophils % (auto) 83.5 %; Target Cells 1+
--- NOTE | 2020-06-15 16:18 | Hospitalist Progress Note ---
Date of Service June 15, 2020 Assessment & Plan (1) Complicated UTI (urinary tract infection): (2) Acute metabolic encephalopathy: (3) DM (diabetes mellitus): (4) HTN (hypertension): (5) Venous insufficiency (chronic) (peripheral): (6) Pleural effusion on left: (7) Hypothyroidism (acquired): (8) Insomnia: (9) Urinary incontinence: (10) GERD (gastroesophageal reflux disease): (11) Anxiety: (12) DVT prophylaxis: Admission and Anticipated Discharge Date Admission Date: June 10, 2020 Subjective No acute events overnight. Afebrile with VS stable except for mild tachycardia. Voiding spontaneously but still complains of suprapubic tenderness. Patient was more alert than awake compared to the subjective in previous notes. Patient denies fever/chills, chest pain, shortness of breath. Review of Systems Constitutional: no fever, no chills and no sweats Respiratory: no cough and no wheezing Cardiovascular: no chest pain, no palpitations and no lightheadedness Gastrointestinal: no abdominal pain, no nausea and no vomiting Resident Activity Tracking Resident Involvement: Resident Care Provided Care Provided: Adult Hospital Medicine
--- NOTE | 2020-06-15 18:54 | Discharge Summary ---
Date of Service June 15, 2020 Admission HPI Per Admitting Provider Fartun Loredo is an 89 year old female known to me from her prior admission in March with similar symptoms. On this occasion her daughter at bedside reports having similar symptoms to her prior UTIs for the past week (dysuria, suprapubic pain, central low back pain, confusion). A straight cath sample on May 30 grew non-candidal yeast and she was started on fluconazole 4 days ago. Gram- negative bacilli were also present on that culture although low counts and subsequently was not further identified or sensitivities performed (suspect due to the low counts). Despite the fluconazole her symptoms progressed and she started becoming progressively more confused 3 days ago. She did have a follow- up appointment with urology today however on discussing with them over the phone this morning they advised her to go to the ER for further work-up. In the past she is growing Klebsiella ESBL requiring intravenous antibiotics. On her last admission in March her urine culture was negative and suspect her confusion was more related to hypoglycemia at that time and there appeared to be some mixup with her insulin dosing. Insulin is not currently on her medication list although her daughter reports she is taking Lantus 10 units at night (previously on 10 units twice daily). In the ER she was noted to have an increase in her creatinine from baseline 1.35-1.6 to 3.12. WBC elevated at 15. Urinalysis positive for leukocyte Estrace and bacteria, nitrites negative. Principal Diagnosis delirium (due to LYNDSEY and UTI) LYNDSEY (dehydration - improved) UTI- burkholderia and morganella - both sensitive to levaquin Discharge Exam nad, awake and pleasant. far less confused than the last 2 days. heent nc at mmm breathing unlabored no accessory muscles good effort skin no rashes no pallor or icterus neuro no focal deficits Discharge Data Allergies Allergy/AdvReac Type Severity Reaction Status Date / Time acetaminophen [From Percocet] Allergy Severe swelling/so Verified 06/10/20 16:02 b cephalexin Allergy Unknown RASH Verified 06/10/20 16:02 morphine Allergy Unknown NAUSEA Verified 06/10/20 16:02 oxycodone Allergy Unknown DIFFICULTY Verified 06/10/20 16:02 SWALLOWING propoxyphene Allergy Unknown DIFFICULTY Verified 06/10/20 16:02 SWALLOWING ciprofloxacin [From Cipro] AdvReac Severe LEG NUMB & Verified 06/10/20 16:02 WEAK Consultations 06/10/20 15:27 ED Decision to Admit Stat 06/11/20 07:54 Consult Case Management - Discharge Planning Routine Ordered Studies 06/10/20 14:37 CT abd pelvis wo con Stat Hospital Course (1) Acute metabolic encephalopathy: [facility] [place] [address] Hospitalist Progress Note Signed Patient: FARTUN LOREDO Date: 06/10/20 MR#: [id number] Phy: Demetrius Thomas D.O. Acct ID:[id number] Phy: Edilma Combs, Date: 1930Fam Phy: Age: 89Location: 2W Sex: F Room/Bed: [facility] cc: ~ *NOTICE TO RECEIVING GREEN PARTY/AGENCY This information is strictly Confidential and protected under [place] law. [place] law prohibits you from making any further disclosure of this information unless further disclosure is expressly permitted by the written consent of the person to whom it pertains or is authorized by law. A general authorization for the release of medical or other information is not sufficient for this purpose. Hospital accepts no responsibility if the information is made available to any other person, INCLUDING THE PATIENT. 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 - burkholderia susceptible to Ceftazidime and Levofloxacin, Resistant to Bactrim, morganella wider sensitivity pattern - due to worsening leukocytosis - repeat UCx and blood Cx sent - urine negative, blood no growth to date - levaquin to complete course of treatment - Continue outpatient fluconazole 100 mg daily for non-candidal yeast grown in urine for 14 day course - patient had QTc 490ms on 06/10, improved to QTc 468ms on 06/13 Leukocytosis - WBC ongoing increase, despite marked clinical improvement - Only current source for infection was urine --> s/p urine cx and appropriate abx x2 days - repeat Cx neg, blood cultures on admission and 06/14 no growth to date, no s/s pneumonia and CXR clear, small buttocks skin wound without surrounding erythema - peripheral smear to r/o bone marrow pathology --> neutrophilic predominance - CRP 4.74 --> 4.87 - Procalcitonin 200 --> 18.62 --> 8.43 - Leukocytosis likely secondary to generalized inflammation secondary to stress of UTI and delirium - in discussions w dtr we both feel that risk/benefit of getting pt home to familiar environment while in honeymoon improvement of delirium (and thereby reducing risk of delirium prolonging hopsital stay/leading to SNF stay/etc) is more important than ongoing inpatient f/u of WBC -- will ask that it is checked in 48hrs, then likely q48hrs thereafter until normalizes (or until directed otherwise by PCP based on trend) Altered Mental Status - Likely delirium secondary to dehydration/LYNDSEY, UTI at admission and then hospital environment - surprisingly good mentation this afternoon - but since deliriums can wax and wane d/w dtr not convinced that this would be a trend -- but familiar environment quite helpful - so will get home as above noted Acute Kidney Injury, resolving - Kidney function improved with BUN 45, Cr 3.12 --> BUN 42, Cr 2.64 after 1.5L bolus - BUN/Cr further improved to 39/2.35 after LR 80cc/hr for 24 hours - further improved to BUN 33, Cr 2.04 on 06/13 with LR 125cc/hr - further improved to BUN 29, Cr 1.77 on 06/14 - Patient takes Furosamide 20 mg PO QAM on outpatient basis - Discontinued on admission - Questionable PO intake per patient's daughter - CT abd/pelv negative for obstructive cause - Likely pre-renal cause of injury Malnutrition - Patient's daughter reports that patient had 40 lb weight loss during the last year with low appetite and inadequate PO intake - Based on weight, height, age, patient requires approximately 2187-9046 calories delay - R1 discussed these recommendations with the patient's daughter, as she is patient's primary caregiver at this time - Patient's daughter will ensure daily adequate PO intake and will monitor weight at home after discharge - Recommend close follow-up on outpatient basis for nutrition and weight status Right buttock ulcer, 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 - local care will be adequate Diabetes Mellitus - HbA1c 6.1 on 06/11 Hypertension - Continue amlodipine 10 mg PO QAM Venous Insufficiency - seems to be the cause of edema - stopped lasix - compression / mobilization as best as possible Mild Diastolic Heart Failure - of questionable clinical significance given that she's never had pulmonary edema/CHF admissions per pt and dtr Left Pleural Effusion - Per CXR and CT abd/pelv on 06/10 - Repeat CXR on 06/13 showed stable left pleural effusion - No shortness of breath or respiratory exam findings - Likely chronic, not concerning at this time - Continue to monitor for new symptoms/exam findings Hypothyroidism - Continue Synthroid 100mcg PO daily - TSH 0.493 today - follow up TSH with PCP as outpatient Insomnia - Continue Seroquel 100 mg PO QHS Urinary Incontinence - Continue mirabegron extended release 25 mg p.o. daily GERD - continue pantoprazole 40 mg PO BID while inpatient as per hospital formulary Anxiety - Continue citalopram 30 mg PO daily, BuSpar 10 mg TID, hydroxyzine 25 mg PO PRN in regards to discharge planning, stable for home/care with daughter, but pt needs to be transferred between bed and chair or wheelchair to commode, and without use of a lift, pt would be confined to bed. Total Time Total Time Spent Total Time Spent (In Minutes): >30 Discharge Plan Discharge Items Patient Disposition: Home - Home Health Services Reason For Visit: LYNDSEY,UTI Discharge Diagnosis: delirium from UTI and dehydration (see below) Activity: Resume your previous activity Non-emergency contact: Primary Care Provider Call non-emergency contact if: you have any medication questions and your symptoms worsen Follow-up/Referrals: Edilma Combs, [Primary Care Provider] - Diet: Regular Addtl Attending Provider Instructions: delirium (confusion) -as we discussed, deliriums are very common in older folks. while most often associated with UTIs, really anything that causes physical, infectious, or metabolic stress can make someone delirious (as can changes in medications that have sedating or psychoactive properties) -this time, the delirium was due to both the urinary tract infection AND the dehydration -fortunately this afternoon she's not doing too bad with the delirium, which is why getting her home will hopefully help shorten the course of it -- as we discussed while her usual track record with delirium was that she gets better pretty quickly, most people actually have 2-4 weeks where they slowly get less confused, and some people actually have lasting (mild) effects for as long as a few months ---with that in mind, it's definitely safer to get her home while we're "ahead" with the delirium and she's able to get home, rather than continue to work on the white count here and risk her getting more delirious again just from where she is UTI -she grew 2 different bacteria - both of which can cause fairly bad infections, but fortunately both of which are sensitive to levaquin -as we discussed, it's a common misconception that IV antibiotics are "better" or that once someone has had enough infections they'll only get better with IVs -- really the bacteria "tell the story" and for her, the cultures show that both bacteria are killed by the levaquin (and far better by it than most other antibiotics we could use - including IV) -for her, because of her age, it's a little goofy with the dosing - it will hang around in her system for about 48hrs after each dose -- so she'll get 4 more doses - tomorrow (06/16), wednesday (06/18), (06/20) and wednesday (06/22) dehydration -her kidney numbers are basically at the upper end of her normal range; make sure she gets enough to drink (maybe 50-60 ounces on the day) and when she gets follow up labs we'll ask that she have a kidney panel checked as well -as we discussed, since she's never been a congestive heart failure girl (ie she hasn't had fluid in her lungs, she hasn't been admitted to the hospital for congestive heart failure, etc) and her swelling seems by far most consistent with venous stasis related swelling, it makes sense to stop the diuretic (lasix, furosemide) -the swelling will respond better to compression, elevation, and movement; and not pulling excess water off with a diuretic will make it easier to keep her hydrated elevated white count -as we discussed, this is still higher at 27, but having evaluated it from multiple directions, it really appears to just be up in a nonspecific inflammatory way - really just as a late marker from her infection. her other inflammatory markers are coming down dramatically (procalcitonin has dropped hugely) or are not up in a way consistent with bacterial (CRP only about 4.8), and her blood cells don't show any evidence of looking cancerous (the other way people will bump a high white count) -we'd ask that this be followed back to normal (and evaluated further if it doesn't get back to normal) - first with blood counts about every other day for the next week or so, then as directed by Dr Combs nutrition/weight loss -she really most likely has been losing weight just from not eating enough - by our math, she's probably coming up about 400-500 calories short each day. as you discussed with Dr Cruz, we'll want to carefully make sure she's getting enough in each day - and if she's falling short, adding protein shakes like boost or ensure to get more calories in and help her not have more weight loss. -as a target, she probably only actually needs about 1500 calories per day to "break even" (a calculation based on her age, height, weight, and gender) - but sometimes as we age, our appetite slips and it can be easy to take in less than we realize. loose ends -CBC (blood counts) Wednesday, Wednesday and (maybe) Wednesday this coming week, then ongoing depending on results and guidance from Dr Combs -BMP (electrolyte panel) with the labwork on Wednesday -eat/drink 1500 calories per day -drink at least 50 ounces of fluid a day Pending Studies at Discharge: No Stand-Alone Forms: My [facility] [employer], Smoking Cessation Medications and DC Order Prescriptions: New levofloxacin 250 mg Tablet 250 mg PO Q48H Qty: 4 RF: 0 Continued (DME) Hospital Bed [facility] [place] See Rx Instructions .ROUTE .MEDSUPPLY Qty: 1 RF: 0 cholecalciferol (vitamin D3) 125 mcg (5,000 unit) capsule 125 mcg PO DAILY Qty: 90 RF: 1 miscellaneous medical supply [facility] [place] See Rx Instructions MS .COMPLEX Qty: 1 RF: 0 (DME) Mattress (Air or other) [facility] [place] See Rx Instructions .ROUTE .MEDSUPPLY Qty: 1 RF: 0 citalopram 20 mg tablet 30 mg PO DAILY Qty: 45 RF: 1 hydrocortisone [Proctozone-HC] 2.5 % cream with perineal applicator 1 appln MO DAILY PRN (Reason: hemorrhoids) Qty: 28 RF: 0 (DME) OneTouch Ultra Blue Test Strip Strip See Rx Instructions .ROUTE .MEDSUPPLY Qty: 100 RF: 3 ondansetron HCl [Zofran] 8 mg tablet 8 mg PO BID PRN (Reason: nausea and vomiting) Qty: 30 RF: 1 quetiapine [Seroquel] 100 mg tablet 100 mg PO HS Qty: 90 RF: 1 amlodipine [Norvasc] 10 mg tablet 10 mg PO QAM Qty: 90 RF: 1 dicyclomine 10 mg capsule 10 mg PO BID PRN (Reason: abd cramping) Qty: 60 RF: 2 nitrofurantoin macrocrystal 100 mg capsule 100 mg PO DAILY Qty: 30 RF: 3 tramadol 50 mg tablet 50 mg PO QID PRN (Reason: pain) Qty: 120 RF: 0 fluconazole 200 mg tablet 200 mg PO DAILY 14 Days Qty: 14 RF: 0 levothyroxine [Synthroid] 100 mcg tablet 100 mcg PO .COMPLEX Qty: 35 RF: 1 Myrbetriq 25 mg tablet extended release 24 hr 25 mg PO DAILY Qty: 30 RF: 5 omeprazole 20 mg capsule,delayed release(DR/EC) 20 mg PO BID Qty: 180 RF: 1 hydroxyzine HCl 25 mg tablet 25 mg PO BID PRN (Reason: Anxiety) Qty: 40 RF: 1 miscellaneous medical supply Kit 5 ea MS DAILY Qty: 150 RF: 11 (DME) underpads [Bed Underpads] Pad See Rx Instructions .ROUTE .MEDSUPPLY Qty: 3 RF: 11 (DME) underpads [Bed Underpads] Pad See Rx Instructions .ROUTE .MEDSUPPLY Qty: 80 RF: 11 cranberry 500 mg Capsule 500 mg PO BID RF: 0 magnesium 250 mg Tablet 250 mg PO BID RF: 0 docusate sodium 100 mg Tablet 100 mg PO BID PRN (Reason: Constipation) RF: 0 buspirone 10 mg tablet 10 mg PO TID RF: 0 levocetirizine [Xyzal] 5 mg tablet 5 mg PO HS RF: 0 Discontinued furosemide 20 mg tablet 20 mg PO QAM Qty: 90 RF: 1 Discharge Orders: Discharge Order (Routine); Ordered 06/15/20 Ordered By: Demetrius Wilder/Other Patient Handouts: Managing Type 2 Diabetes Admission Data Admit Date/Time: 06/10/20 17:53 Attending Provider: Demetrius Thomas Admit Provider: Wolf Rome Primary Care Provider: Edilma Combs Other Providers: Yuri Cruz ; Wolf Rome ; Prasanna Pardo ; Kendra Thompson ; Victorino Amador I. ; Jorge Vergara II ; Constance Santo ; Perez Crocker Other Interventions: Discharge Summary Assessment (RN) Last Done: 06/15/20 17:30 Coding Level of Care Code D/C Day Management >30 mins Diagnoses Acute metabolic encephalopathy G93.41
== END 2020-06-15 18:16 | disposition home health service (06) | DRG 682 ==
LOC: ED 12:53 → SUATTDRO 17:53 → 2W 17:53